=== PATIENT | female | born 1955 | race Caucasian/White ===

== ENCOUNTER → 2020-10-20 10:08 | Outpatient (BNVA) | payer MEDICARE, OTHER, SELFPAY | PROVIDERS: PCP Internal Medicine; Referring Provider Internal Medicine; Visit Provider Student in an Organized Health Care Education/Training Program | DX: Z13.89 Encounter for screening for other disorder (principal) | CPT/HCPCS: Q3014 ==

== ENCOUNTER 2021-02-24 14:37 | Outpatient (REF) | payer MEDICARE, SELFPAY ==
[2021-02-24 15:43] LABS: MANUAL DIFF FLAG NO
[2021-02-24 15:47] LABS: Basophils Absolute Auto 0.1 X10*3/uL (0.0-0.2); Basophils Percent Auto 0.9 % (0-2); Eosinophils Absolute Auto 0.2 X10*3/uL (0.0-0.4); Eosinophils Percent Auto 3.1 % (0-4); Hematocrit 37.9 % (37-47); Hemoglobin 12.6 g/dl (12.0-16.0); Imm Gran Abs Auto 0.01 X10*3/uL (0.00-0.03); Imm Gran Pct Auto 0.1 % (0.0-0.4); Lymphocytes Absolute Auto 2.1 X10*3/uL (1.2-4.9); Lymphocytes Percent Auto 30.6 % (20-40); Mean Corpuscular HGB Conc 33.2 g/dl (31.0-35.0); Mean Corpuscular Hemoglobin 28.4 pg (27.0-33.0); Mean Corpuscular Volume 85.4 fL (80-98); Monocytes Absolute Auto 0.5 X10*3/uL (0.1-1.2); Neutrophils Percent Auto 58.3 % (45-73); Platelet Count 271 X10*3/uL (160-400); Red Blood Count 4.44 X10*6/uL (4.20-5.50); Red Cell Distribution Width 14.2 % (11.0-16.0); White Blood Count 6.9 X10*3/uL (4.8-10.8)
[2021-02-24 16:01] LABS: Glucose Urine UA NEG (NEG); Leukocyte Esterase Urine NEG (NEG); Nitrite Urine NEG (NEG); PH 6.5 (5.0-8.0); Specific Gravity - Urine 1.015 (1.005-1.025); Urine Blood NEG (NEG); Urine Ketones NEG (NEG); Urine Protein NEG (NEG-TRACE)
[2021-02-24 16:03] LABS: Appearance Urine CLEAR; Color Urine YELLOW
[2021-02-24 16:08] LABS: Alanine Aminotransferase 19 U/L (0-31); Alkaline Phosphatase 103 U/L (39-117); Anion Gap 12 (12-20); Aspartate Amino Transferase 31 U/L (5-31); Bilirubin Total 0.5 mg/dL (0.0-1.0); Blood Urea Nitrogen 18 mg/dL (9-16); C Reactive Protein 0.29 mg/dL (< or = 0.50); Calcium 9.7 mg/dL (8.4-10.2); Carbon Dioxide 26 mmol/L (22-29); Chloride 105 mmol/L (96-108); Estimated Glomerular Filt Rate > 60; Glucose Random 93 mg/dL (60-115); Potassium 4.1 mmol/L (3.3-5.1); Sodium 139 mmol/L (135-145); Total Protein 7.1 g/dL (6.5-8.0)
[2021-02-24 16:18] LABS: RBC Urine 0 /HPF (0); WBC Urine 0 /HPF (0-4)
[2021-02-24 16:32] LABS: Erythrocyte Sedimentation Rate 8 MM/HR (0-20)
[2021-02-27 16:56] LABS: Complement C3 130 mg/dL (83-193)
[2021-02-28 12:51] LABS: Anti DNA DS Antibody <1 IU/mL; SM/Ribonucleoprotein Ab <1.0 NEG AI (<1.0 NEG); Smith Protein <1.0 NEG AI (<1.0 NEG)
== END 2021-02-24 14:38 | disposition home or self-care (01) ==
LOC: HO.LAB 14:37
PROVIDERS: PCP Internal Medicine; Visit Provider Student in an Organized Health Care Education/Training Program
DX: M35.00 Sjogren syndrome, unspecified (principal); M54.2 Cervicalgia
CPT/HCPCS: 36415; 80053; 81001; 85025; 85652; 86140; 86160; 86225; 86235; 99212

== ENCOUNTER → 2021-03-24 10:19 | Outpatient (BNVA) | payer MEDICARE, SELFPAY | PROVIDERS: PCP Internal Medicine; Visit Provider Hospitalist | DX: G47.33 Obstructive sleep apnea (adult) (pediatric) (principal); J45.20 Mild intermittent asthma, uncomplicated; J30.9 Allergic rhinitis, unspecified | CPT/HCPCS: 99212 ==

== ENCOUNTER 2021-04-20 14:00 | Outpatient (RCR) | payer MEDICARE, SELFPAY ==
--- NOTE | 2021-03-13 14:32 | MHC.PT.EP ---
[facility] [place] Office [place] Office [place] Office [address] Dread Mandujano [address] [phone] F: [phone] F: [phone] F: [phone] F: [phone] Physical Therapy Plan of Care Date of Evaluation: Date of Surgery: Diagnosis: CERVICALGIA AND DOROTHEA SH PAIN Assessment: 65 YO FEMALE REF TO PT FOR RIGHT NECK PAIN AND GENERAL DOROTHEA SH / UPPER TRAP SORENESS- SHE HAS DECR POSTURAL AWARENESS, (+) SOFT TISSUE IRRIT, TIGHT PECT/ ANT CHAIN, AND POST RC/ MID BACK WEAKNESS. CURRENTLY HER SENSATION AND MOTOR CONTROL ARE WFL AND SHE DENIES RADICULAR SXS AT THIS TIME. OBJECTIVELY, Pt HAS DECR DARIO TO DRIVING, SLEEPING, INCREASED ACTIVITY - ESPEC ADLs REQ INCR CERV EXTENSION. Pt WOULD BENEFIT FROM PT TO ADDRESS POSTURAL SYNDROME, SOFT TISSUE IMBAL, AND DEV HEP/ SELF- SX MGMT TECHN. Frequency and Duration: The patient will be seen 2x WK x 5 WKS Short Term Goals: Pt'S NECK AND SH SXS REDUCED TO 2-3/10 IN 2 WKS Pt DEMON INDEP SELF- CORRECT POSTURE AND WORK SIMUL/ BODY MECH TO REDUCE CERV STRESS IN 2 WKS Prison Goals: Pt INDEP W HEP AND SELF-SX MGMT TECHN IN 4 WKS Pt RESUME REG ADLs/TASKS EVIDENT WITH IMPROVED NPDI SCORE BY AT LEAST 5 POINTS IN 4 WKS Treatment Plan: Modalities to reduce pain, spasms and effusion. Manual therapy to restore motion and function. Therapeutic exercise to improve strength and flexibility. Neuromuscular re-education for posture and balance. Therapeutic activities to return to functional activities of daily living. Electronically signed by: Cari Thomas,PT Please sign and return to therapist. Thank you for your referral.
--- NOTE | 2021-04-20 14:55 | MHC.PT.DC ---
[facility] [place] Office [place] Office [place] Office [address] Dread Mandujano [address] [phone] F: [phone] F: [phone] F: [phone] F: [phone] Physical Therapy Discharge Report Diagnosis: CERVICALGIA AND DOROTHEA SH PAIN Date of Surgery: Date of Evaluation: 03/13/21 Date of Discharge: 04/20/21 Treatments to Date: 7 Cancellations to Date: 0 No Shows to Date: 0 Discharge Status: Achieved Goals Improved Function Independent with HEP Discharge Summary: Pt MET PT GOALS- INDEP W HEP, RESUMED REG ADLs, IMPROVED NECK DISAB TODAY AND AT AL; WFL CERV AROM, IMPROVED SCAP/ POST RC STRENGTH; NECK PAIN SIGNIF REDUCED Electronically signed by: Cari Roberson,PT Please sign and return to therapist. Thank you for your referral.
== END 2021-04-20 14:57 | disposition other institution (70) ==
LOC: HO.PTCHIC 14:00
PROVIDERS: PCP Internal Medicine; Visit Provider Student in an Organized Health Care Education/Training Program
DX: M54.2 Cervicalgia (principal)
CPT/HCPCS: 97110; 97140; 97161

== ENCOUNTER → 2021-04-24 15:44 | Outpatient (REF) | payer MEDICARE, SELFPAY | LOC: HO.SL 15:44 | PROVIDERS: PCP Internal Medicine; Visit Provider Hospitalist | DX: G47.33 Obstructive sleep apnea (adult) (pediatric) (principal) | CPT/HCPCS: 95806 ==

== ENCOUNTER → 2021-06-02 11:01 | Outpatient (BNVA) | payer MEDICARE, SELFPAY | PROVIDERS: PCP Internal Medicine; Visit Provider Hospitalist | DX: G47.33 Obstructive sleep apnea (adult) (pediatric) (principal); J45.20 Mild intermittent asthma, uncomplicated; G47.00 Insomnia, unspecified | CPT/HCPCS: 99212 ==

== ENCOUNTER → 2021-06-30 13:25 | Outpatient (BNVA) | payer MEDICARE, SELFPAY | PROVIDERS: Visit Provider Student in an Organized Health Care Education/Training Program | DX: M35.00 Sjogren syndrome, unspecified (principal) | CPT/HCPCS: 99212 ==

== ENCOUNTER 2021-07-29 11:20 | Outpatient (REF) | payer MEDICARE, SELFPAY ==
[2021-07-29 13:34] LABS: Hematocrit 41.4 % (37-47); Hemoglobin 13.7 g/dl (12.0-16.0); Mean Corpuscular HGB Conc 33.1 g/dl (31.0-35.0); Mean Corpuscular Hemoglobin 28.7 pg (27.0-33.0); Mean Corpuscular Volume 86.8 fL (80-98); Mean Platelet Volume 10.4 fL (9.4-12.3); Platelet Count 299 X10*3/uL (160-400); Red Blood Count 4.77 X10*6/uL (4.20-5.50); Red Cell Distribution Width 14.9 % (11.0-16.0)
[2021-07-29 13:48] LABS: Alanine Aminotransferase 17 U/L (0-31); Albumin Level 4.2 g/dL (3.5-5.0); Alkaline Phosphatase 97 U/L (39-117); Anion Gap 13 (12-20); Aspartate Amino Transferase 25 U/L (5-31); Bilirubin Total 0.5 mg/dL (0.0-1.0); Blood Urea Nitrogen 11 mg/dL (9-16); Calcium 9.6 mg/dL (8.4-10.2); Carbon Dioxide 27 mmol/L (22-29); Chloride 106 mmol/L (96-108); Cholesterol 192 mg/dL; Estimated Glomerular Filt Rate > 60; Glucose Fasting 97 mg/dL (60-99); HDL Cholesterol 69 mg/dL; Iron 117 mcg/dL (30-160); LDL Cholesterol Calculated 106 mg/dl; Percent Iron Saturation 27 % (15-50); Potassium 4.4 mmol/L (3.3-5.1); Sodium 142 mmol/L (135-145); Total Iron Binding Capacity 440 mcg/dL (228-428); Total Protein 7.5 g/dL (6.5-8.0); Triglycerides 87 mg/dL; Unsaturated Iron Binding 323 ug/dL
[2021-07-29 14:10] LABS: Vitamin D 25-OH Total 67.9 ng/mL (>30)
[2021-07-31 10:35] LABS: Folate 19.6 ng/mL (> or = 4.0); Vitamin B12 705 pg/mL (200-900)
== END 2021-07-29 11:21 | disposition home or self-care (01) ==
LOC: HO.HMGCLDS 11:20
PROVIDERS: PCP Internal Medicine; Visit Provider Internal Medicine
DX: Z00.00 Encounter for general adult medical examination without abnormal findings (principal); E55.9 Vitamin D deficiency, unspecified
CPT/HCPCS: 36415; 80053; 80061; 82306; 82607; 82746; 83540; 85027

== ENCOUNTER 2021-09-26 14:00 | Outpatient (RCR) | payer MEDICARE, SELFPAY ==
--- NOTE | 2021-08-02 12:52 | MHC.PT.EP ---
[facility] [place] Office [place] Office [place] Office [address] [phone] F: [phone] F: [phone] F: [phone] F: [phone] Physical Therapy Plan of Care Date of Evaluation: Date of Surgery: Diagnosis: Balance impairment Assessment: Patient is a 66 year old R handed female who presents with s/s consistent with balance impairment. 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 Patient past medical history includes R TKA, bunionectomy, L ankle surgery with christiano placement. Current impairments include pain, balance, strength, safety, independence, activity tolerance and functional mobility. Functional limitations include decreased ability to walk, stand, transfer, negotiate stairs, and perform weight bearing activities.. Patient is motivated with good rehab potential. Skilled PT will address impairments and functional limitations in order to achieve goals. Frequency and Duration: The patient will be seen 2x/week for 5 weeks Short Term Goals: I with HEP - 2 weeks SLB 8 seconds - 3 weeks Snf Goals: DGI 22/24 or better - 5 weeks LE strength 4/5 grossly - 5 weeks SLB 15 seconds b/l - 5 weeks Treatment Plan: Modalities to reduce pain, spasms and effusion. Manual therapy to restore motion and function. Therapeutic exercise to improve strength and flexibility. Neuromuscular re-education for posture and balance. Therapeutic activities to return to functional activities of daily living. Electronically signed by: Lee Burleson, PT Please sign and return to therapist. Thank you for your referral.
--- NOTE | 2021-12-29 08:33 | MHC.PT.DC ---
[facility] [place] Office [place] Office [place] Office [address] Dread Mandujano [address] [facility] [phone] F: [phone] F: [phone] F: [phone] F: [phone] Physical Therapy Discharge Report Diagnosis: Balance impairment Date of Surgery: n/a Date of Evaluation: 08/02/21 Date of Discharge: 09/26/21 Treatments to Date: 10 Cancellations to Date: 0 No Shows to Date: 0 Discharge Status: Achieved Goals Improved Function Independent with HEP Discharge Summary: Pt is I with HEP. SLB > 20 seconds. LE strength 4/5 grossly. DGI . Pt progressed well over the course of skilled PT. We will d/c to HEP at this time. Electronically signed by: Lee Burleson, PT Please sign and return to therapist. Thank you for your referral.
== END 2021-12-29 08:41 | disposition home or self-care (01) ==
LOC: HO.PTCHIC 14:00
PROVIDERS: PCP Internal Medicine; Visit Provider Internal Medicine
DX: R26.89 Other abnormalities of gait and mobility (principal)
CPT/HCPCS: 97110; 97112; 97162

== ENCOUNTER 2021-10-04 09:11 | Outpatient (REF) | payer MEDICARE, SELFPAY ==
--- NOTE | 2021-10-04 09:17 | EMG_ITS ---
This is a 66-year-old woman with a history of bilateral upper extremity pain, numbness, and tingling for many years, both sides being equally affected. PHYSICAL EXAMINATION: On examination, she is alert and oriented. Cranial nerves II through XII are normal. Muscle tone and strength are normal in all 4 extremities. No Phalen or Tinel sign. IMPRESSION: Rule out carpal tunnel syndrome. Nerve conduction EMG study: Early carpal tunnel syndrome bilaterally. Normal EMG of the left C5-T1 innervated muscles. MD GUILLAUME Kendall/TRISTON / [id number]
== END 2021-10-04 09:12 | disposition home or self-care (01) ==
LOC: HO.NEURO 09:11
PROVIDERS: Visit Provider Internal Medicine
DX: R29.898 Other symptoms and signs involving the musculoskeletal system (principal)
CPT/HCPCS: 95886; 95913

== ENCOUNTER → 2021-11-28 10:27 | Outpatient (BNVA) | payer MEDICARE, SELFPAY | PROVIDERS: PCP Internal Medicine; Visit Provider Hospitalist | DX: G47.33 Obstructive sleep apnea (adult) (pediatric) (principal); Z23 Encounter for immunization; J45.20 Mild intermittent asthma, uncomplicated; G47.00 Insomnia, unspecified | CPT/HCPCS: 90471; 90670; 99212 ==

== ENCOUNTER 2022-01-31 14:51 | Outpatient (REF) | payer MEDICARE, SELFPAY ==
--- NOTE | ~2022-01-31 | XR_ITS ---
EXAMINATION: XR HIP, RIGHT CLINICAL INFORMATION: Pelvic pain status post fall. COMPARISON: None TECHNIQUE: Two views of the right hip. FINDINGS: Bones and soft tissues are normal. No fracture. Alignment is anatomic. Hip joint space is maintained. XR/XR hip RT w PEL1V IMPRESSION: Unremarkable right hip.
== END 2022-01-31 14:52 | disposition home or self-care (01) ==
LOC: HO.HMGCX 14:51
PROVIDERS: Visit Provider Physician Assistant
DX: R26.2 Difficulty in walking, not elsewhere classified (principal)
CPT/HCPCS: 73502

== ENCOUNTER 2022-07-28 10:40 | Outpatient (REF) | payer MEDICARE, SELFPAY ==
[2022-07-28 13:41] LABS: MANUAL DIFF FLAG NO
[2022-07-28 13:57] LABS: Basophils Absolute Auto 0.1 X10*3/uL (0.0-0.2); Basophils Percent Auto 1.5 % (0-2); Eosinophils Absolute Auto 0.2 X10*3/uL (0.0-0.4); Eosinophils Percent Auto 2.5 % (0-4); Hematocrit 41.1 % (37.0-47.0); Hemoglobin 13.3 g/dl (12.0-16.0); Imm Gran Abs Auto 0.03 X10*3/uL (0.00-0.03); Imm Gran Pct Auto 0.5 % (0.0-0.4); Lymphocytes Absolute Auto 1.6 X10*3/uL (1.2-4.9); Lymphocytes Percent Auto 25.8 % (20-40); Mean Corpuscular HGB Conc 32.4 g/dl (31.0-35.0); Mean Corpuscular Hemoglobin 28.8 pg (27.0-33.0); Mean Platelet Volume 9.3 fL (9.4-12.3); Monocytes Absolute Auto 0.4 X10*3/uL (0.1-1.2); Monocytes Percent Auto 6.9 % (2-11); Neutrophils Absolute Auto 3.8 x10*3/uL (2.0-8.3); Neutrophils Percent Auto 62.8 % (45-73); Platelet Count 334 X10*3/uL (160-400); Red Blood Count 4.62 X10*6/uL (4.20-5.50); Red Cell Distribution Width 14.1 % (11.0-16.0); White Blood Count 6.1 X10*3/uL (4.8-10.8)
[2022-07-28 14:13] LABS: Alanine Aminotransferase 33 U/L (0-31); Albumin Level 4.1 g/dL (3.5-5.0); Alkaline Phosphatase 66 U/L (39-117); Anion Gap 14 (12-20); Aspartate Amino Transferase 50 U/L (5-31); Bilirubin Total 0.3 mg/dL (0.0-1.0); Blood Urea Nitrogen 11 mg/dL (9-16); Calcium 9.1 mg/dL (8.4-10.2); Carbon Dioxide 28 mmol/L (22-29); Chloride 103 mmol/L (96-108); Cholesterol 214 mg/dL; Estimated Glomerular Filt Rate > 60; Glucose Fasting 96 mg/dL (60-99); HDL Cholesterol 68 mg/dL; LDL Cholesterol Calculated 131 mg/dl; Potassium 4.8 mmol/L (3.3-5.1); Sodium 140 mmol/L (135-145); Total Protein 7.5 g/dL (6.5-8.0); Triglycerides 79 mg/dL
[2022-07-28 14:34] LABS: Vitamin D 25-OH Total 57.6 ng/mL (>30)
== END 2022-07-28 10:41 | disposition home or self-care (01) ==
LOC: HO.HMGCLDS 10:40
PROVIDERS: PCP Internal Medicine; Visit Provider Internal Medicine
DX: Z00.00 Encounter for general adult medical examination without abnormal findings (principal); E55.9 Vitamin D deficiency, unspecified; F41.8 Other specified anxiety disorders
CPT/HCPCS: 36415; 80053; 80061; 82306; 84443; 85025

== ENCOUNTER 2022-08-08 14:00 | Outpatient (RCR) | payer MEDICARE, SELFPAY ==
--- NOTE | 2022-07-16 16:47 | MHC.PT.EP ---
[facility] [place] Office [place] Office [place] Office [address] [phone] F: [phone] F: [phone] F: [phone] F: [phone] Physical Therapy Plan of Care Date of Evaluation: Date of Surgery: Diagnosis: R shoulder tendonitis. Assessment: Pt is a 67 y/o female referred to PT for eval and treat of R shoulder tendonitis who demonstrates R shoulder shoulder dysfunction resulting in decreased tolerance and ability to perform reaching a high shelf, dressing pullovers, reaching neck and back for hygiene/ dressing and carrying objects of weight secondary to decreased R UE strength and mild decreased ROM, decreased posture, increased tissue tension and pain. Pt is deemed an appropriate candidate to receive skilled PT in order to address her physical limitations to improve her functional ability. Frequency and Duration: The patient will be seen 2 x / wk x 4 wks. Short Term Goals: initiate HEP. improve baseline apin to < 3/10; initial 4/10. Fdc Goals: I with HEP. Pt will be abl to place objects on high shelf with managed Sx. Improve R shoulder ER MMT by at least 1/2 MMT grade. Pt will be able to wash and dress her neck and back with managed Sx. Treatment Plan: Modalities to reduce pain, spasms and effusion. Manual therapy to restore motion and function. Therapeutic exercise to improve strength and flexibility. Neuromuscular re-education for posture and balance. Therapeutic activities to return to functional activities of daily living. Electronically signed by: Adarsh Maravilla PT. Please sign and return to therapist. Thank you for your referral.
--- NOTE | 2022-08-08 14:56 | MHC.PT.DC ---
[facility] [place] Office [place] Office [place] Office [address] Dread Mandujano [address] [phone] F: [phone] F: [phone] F: [phone] F: [phone] Physical Therapy Discharge Report Diagnosis: R shoulder tendonitis. Date of Surgery: Date of Evaluation: 07/16/22 Date of Discharge: 08/08/22 Treatments to Date: 7 Cancellations to Date: No Shows to Date: Discharge Status: Achieved Goals Improved Function Independent with HEP Discharge Summary: Ignacia has been an active and motivated participant in her therapy in and out of the clinic, she is I with her HEP, and she has been managed of her shoulder symptoms for > 2 weeks. Pt and PT in agreement with DC. Electronically signed by: Adarsh Maravilla PT, DPT. Please sign and return to therapist. Thank you for your referral.
== END 2022-08-08 14:55 | disposition home or self-care (01) ==
LOC: HO.PTCHIC 14:00
PROVIDERS: PCP Internal Medicine; Visit Provider Internal Medicine
DX: M77.8 Other enthesopathies, not elsewhere classified (principal)
CPT/HCPCS: 97110; 97140; 97161

== ENCOUNTER 2022-08-24 09:26 | Outpatient (REF) | payer MEDICARE, SELFPAY ==
[2022-08-24 11:52] LABS: Alanine Aminotransferase 22 U/L (0-31); Albumin Level 4.1 g/dL (3.5-5.0); Alkaline Phosphatase 66 U/L (39-117); Aspartate Amino Transferase 31 U/L (5-31); Bilirubin Direct 0.2 mg/dL (0.0-0.5); Bilirubin Total 0.5 mg/dL (0.0-1.0); Total Protein 7.4 g/dL (6.5-8.0)
[2022-08-24 12:38] LABS: HBS Num1 1.16 mIU/mL (0-7.99); HBc Num1 0.15 S/CO (0.00-0.79); HBsAGNum1 0.18 S/CO (0.00-0.99); Hepatitis B Core Antibody Nonreactive (Nonreactive); Hepatitis B Surface Antigen Negative (Negative); ~Hepatitis B Surface Antibody NONREACTIVE (Nonreactive); ~Hepatitis C Antibody Nonreactive (Nonreactive)
[2022-08-24 13:13] LABS: Hepatitis A Antibody IgM 0.23 Index (0-0.79); ~Hepatitis A Antibody IgM Nonreactive (Nonreactive)
== END 2022-08-24 09:27 | disposition home or self-care (01) ==
LOC: HO.HMGCLDS 09:26
PROVIDERS: PCP Internal Medicine; Visit Provider Internal Medicine
DX: R79.89 Other specified abnormal findings of blood chemistry (principal)
CPT/HCPCS: 36415; 80076; 86704; 86706; 86709; 86803; 87340

== ENCOUNTER 2022-10-01 09:34 | Outpatient (REF) | payer MEDICARE, SELFPAY ==
[2022-10-01 09:56] LABS: MANUAL DIFF FLAG NO
[2022-10-01 10:58] LABS: Basophils Absolute Auto 0.1 X10*3/uL (0.0-0.2); Basophils Percent Auto 1.2 % (0-2); Eosinophils Absolute Auto 0.1 X10*3/uL (0.0-0.4); Eosinophils Percent Auto 2.1 % (0-4); Hematocrit 40.2 % (37.0-47.0); Hemoglobin 13.3 g/dl (12.0-16.0); Imm Gran Abs Auto 0.01 X10*3/uL (0.00-0.03); Imm Gran Pct Auto 0.2 % (0.0-0.4); Lymphocytes Absolute Auto 1.5 X10*3/uL (1.2-4.9); Lymphocytes Percent Auto 28.2 % (20-40); Mean Corpuscular HGB Conc 33.1 g/dl (31.0-35.0); Mean Corpuscular Hemoglobin 28.7 pg (27.0-33.0); Mean Corpuscular Volume 86.6 fL (80.0-98.0); Mean Platelet Volume 10.4 fL (9.4-12.3); Monocytes Absolute Auto 0.4 X10*3/uL (0.1-1.2); Monocytes Percent Auto 6.8 % (2-11); Neutrophils Absolute Auto 3.2 x10*3/uL (2.0-8.3); Neutrophils Percent Auto 61.5 % (45-73); Platelet Count 281 X10*3/uL (160-400); Red Blood Count 4.64 X10*6/uL (4.20-5.50); Red Cell Distribution Width 13.1 % (11.0-16.0); White Blood Count 5.2 X10*3/uL (4.8-10.8)
[2022-10-01 11:50] LABS: Alanine Aminotransferase 48 U/L (0-31); Albumin Level 4.2 g/dL (3.5-5.0); Alkaline Phosphatase 70 U/L (39-117); Amylase 127 U/L (28-100); Aspartate Amino Transferase 50 U/L (5-31); Bilirubin Direct 0.2 mg/dL (0.0-0.5); Bilirubin Total 0.4 mg/dL (0.0-1.0); C Reactive Protein 0.31 mg/dL (< or = 0.50); Lipase 13 U/L (8-78); Total Protein 7.3 g/dL (6.5-8.0)
[2022-10-01 12:09] LABS: Erythrocyte Sedimentation Rate 12 MM/HR (0-20)
== END 2022-10-01 09:35 | disposition home or self-care (01) ==
LOC: HO.LAB 09:34
PROVIDERS: PCP Internal Medicine; Visit Provider Internal Medicine
DX: R10.84 Generalized abdominal pain (principal); R19.7 Diarrhea, unspecified
CPT/HCPCS: 36415; 80076; 82150; 83690; 85025; 85652; 86140

== ENCOUNTER 2022-10-02 10:31 | Outpatient (REF) | payer MEDICARE, SELFPAY ==
[2022-10-02 11:31] LABS: Leukocytes Stool Qualitative MOD: 3-9/OIF (NEGATIVE)
[2022-10-02 11:37] LABS: CDiff Gene PCR NEGATIVE (Negative)
[2022-10-02 12:38] LABS: Adenovirus F 40/41 Not Detected (Not Detect.); Astrovirus Not Detected (Not Detect.); Campylobacter Not Detected (Not Detect.); Cryptosporidium Not Detected (Not Detect.); Cyclospora cayetanensis Not Detected (Not Detect.); E. coli EAEC Not Detected (Not Detect.); E. coli EPEC Not Detected (Not Detect.); E. coli ETEC Not Detected (Not Detect.); E. coli STEC Not Detected (Not Detect.); Entamoeba histolytica Not Detected (Not Detect.); Giardia lamblia Not Detected (Not Detect.); Norovirus GI/GII Not Detected (Not Detect.); Plesiomonas shigelloides Not Detected (Not Detect.); Rotavirus A Not Detected (Not Detect.); Salmonella Not Detected (Not Detect.); Sapovirus Not Detected (Not Detect.); Shigella sp./EIEC Not Detected (Not Detect.); Vibrio Not Detected (Not Detect.); Vibrio Cholerae Not Detected (Not Detect.); Yersinia enterocolitica Not Detected (Not Detect.)
[2022-10-09 22:04] LABS: Calprotectin, Fecal 42 mcg/g
== END 2022-10-02 10:32 | disposition home or self-care (01) ==
LOC: HO.LNP 10:31
PROVIDERS: Visit Provider Internal Medicine
DX: R10.84 Generalized abdominal pain (principal); R19.7 Diarrhea, unspecified
CPT/HCPCS: 83993; 87493; 87507; 89055

== ENCOUNTER 2022-11-09 08:31 | Outpatient (REF) | payer MEDICARE, SELFPAY ==
--- NOTE | ~2022-11-09 | US_ITS ---
EXAMINATION: US ABDOMEN COMPLETE CLINICAL INFORMATION: Elevated LFTs. COMPARISON: Ultrasound kidneys and bladder 07/12/2020. Ultrasound abdomen 03/26/2019. TECHNIQUE: Real-time imaging of the abdominal viscera. FINDINGS: PANCREAS: Normal. ABDOMINAL AORTA: The proximal, mid, and distal segments are normal in caliber. INFERIOR VENA CAVA: Visualized portions are normal. LIVER: The liver is normal in size. The liver contour is normal. Mild increased parenchymal echogenicity. No focal hepatic lesion. There is no intrahepatic biliary duct dilatation seen. GALLBLADDER: The gallbladder is physiologically distended. Multiple mobile gallstones are present. No evidence of gallbladder wall thickening or pericholecystic fluid. No tenderness in the area of the gallbladder. COMMON BILE DUCT: Normal in caliber measuring 0.5 cm in diameter. RIGHT KIDNEY: Normal. No hydronephrosis. No renal calculi or focal parenchymal lesions. The kidney measures 8.9 cm in maximum dimension. LEFT KIDNEY: Normal. No hydronephrosis. No renal calculi or focal parenchymal lesions. The kidney measures 9.4 cm in maximum dimension. SPLEEN: Normal. The spleen measures 8.3 cm in maximum dimension. 0.5 cm splenule. FREE FLUID: None. US/US abdomen complete IMPRESSION: There is generalized increase in hepatic echotexture, consistent with fatty infiltration or hepatocellular disease. Please correlate clinically. No focal hepatic mass or intrahepatic biliary duct dilatation is seen. Cholelithiasis without sonographic evidence of acute cholecystitis.
== END 2022-11-09 08:32 | disposition home or self-care (01) ==
LOC: HO.US 08:31
PROVIDERS: PCP Internal Medicine; Visit Provider Internal Medicine
DX: R10.9 Unspecified abdominal pain (principal); R79.89 Other specified abnormal findings of blood chemistry
CPT/HCPCS: 76700

== ENCOUNTER → 2022-12-04 14:18 | Outpatient (BNVA) | payer MEDICARE, SELFPAY | PROVIDERS: PCP Internal Medicine; Referring Provider Internal Medicine; Visit Provider Surgery | DX: K80.20 Calculus of gallbladder without cholecystitis without obstruction (principal) | CPT/HCPCS: 99202 ==

== ENCOUNTER 2022-12-21 13:48 | Outpatient (REF) | payer MEDICARE, SELFPAY ==
--- NOTE | ~2022-12-21 | XR_ITS ---
EXAMINATION: XR SACROILIAC JOINTS CLINICAL INFORMATION: Pain COMPARISON: Hip radiographs 01/31/2022 TECHNIQUE: 3 views of the sacroiliac joints FINDINGS: No acute fracture or dislocation. There is mild sclerosis along the margins of the sacroiliac joints which may reflect sequelae of degenerative change or sacroiliitis. Joint spaces are maintained. Sacral arcuate lines are intact. XR/XR sacroiliac joint min 3V IMPRESSION: There is mild sclerosis along the margins of the sacroiliac joints which may reflect sequelae of degenerative change or sacroiliitis. Joint spaces are maintained.
== END 2022-12-21 13:49 | disposition home or self-care (01) ==
LOC: HO.HMGCX 13:48
PROVIDERS: PCP Internal Medicine; Visit Provider Nurse Practitioner Women's Health
DX: M53.3 Sacrococcygeal disorders, not elsewhere classified (principal)
CPT/HCPCS: 72202

== ENCOUNTER 2023-01-30 08:01 | Outpatient (REF) | payer MEDICARE, SELFPAY ==
--- NOTE | ~2023-01-30 | XR_ITS ---
Examination: 1. Radiographs right shoulder 2. Radiographs right hand 3. Radiographs left hand INDICATION: Right shoulder pain. Osteoarthritis. COMPARISON: Radiographs of the bilateral hands 07/15/2017 TECHNIQUE: 4 views of the right shoulder and 3 views of each hand were obtained. FINDINGS: Right shoulder: Visualized portion of the proximal right humerus demonstrate no fracture. Humeral head demonstrates good articulation with the glenoid fossa. There are mild degenerative changes of the right acromioclavicular joint. Visualized right-sided ribs and lung parenchyma are unremarkable. Right hand: Visualized portion of the distal radius and ulna demonstrate no fracture. Mild ulnar negative variance. Carpal rows are maintained. There is no carpal bone fracture. There is mild widening of the scapholunate junction. There are mild degenerative changes throughout the wrist with cystic changes throughout several carpal bones. There are mild degenerative changes of the first carpal metacarpal joint. There are moderate degenerative changes of scattered IP joints with some subtle erosive changes involving the second, third and fifth DIP joints. Similar subluxation of the second DIP joint. There is no focal soft tissue swelling present. No radiopaque foreign body. Left hand: Visualized portion of the distal radius and ulna demonstrate no fracture. There is mild ulnar negative variance. Carpal rows are maintained. No carpal bone fracture. Mild degenerative changes of the first carpal metacarpal joint. There are mild degenerative changes of scattered DIP joints, most notably involving the third digit. No gross erosive changes are noted. No focal soft tissue swelling. No radiopaque foreign body. XR/XR shoulder RT min 2V IMPRESSION: 1. Mild degenerative changes of the right shoulder without fracture or dislocation. 2. Mild to moderate degenerative changes of both hands, most notably involving the DIP joints and more prominent in the right hand. 3. Mild degenerative changes of the right wrist.
--- NOTE | ~2023-01-30 | XR_ITS ---
Examination: 1. Radiographs right shoulder 2. Radiographs right hand 3. Radiographs left hand INDICATION: Right shoulder pain. Osteoarthritis. COMPARISON: Radiographs of the bilateral hands 07/15/2017 TECHNIQUE: 4 views of the right shoulder and 3 views of each hand were obtained. FINDINGS: Right shoulder: Visualized portion of the proximal right humerus demonstrate no fracture. Humeral head demonstrates good articulation with the glenoid fossa. There are mild degenerative changes of the right acromioclavicular joint. Visualized right-sided ribs and lung parenchyma are unremarkable. Right hand: Visualized portion of the distal radius and ulna demonstrate no fracture. Mild ulnar negative variance. Carpal rows are maintained. There is no carpal bone fracture. There is mild widening of the scapholunate junction. There are mild degenerative changes throughout the wrist with cystic changes throughout several carpal bones. There are mild degenerative changes of the first carpal metacarpal joint. There are moderate degenerative changes of scattered IP joints with some subtle erosive changes involving the second, third and fifth DIP joints. Similar subluxation of the second DIP joint. There is no focal soft tissue swelling present. No radiopaque foreign body. Left hand: Visualized portion of the distal radius and ulna demonstrate no fracture. There is mild ulnar negative variance. Carpal rows are maintained. No carpal bone fracture. Mild degenerative changes of the first carpal metacarpal joint. There are mild degenerative changes of scattered DIP joints, most notably involving the third digit. No gross erosive changes are noted. No focal soft tissue swelling. No radiopaque foreign body. XR/XR hand RT min 3V IMPRESSION: 1. Mild degenerative changes of the right shoulder without fracture or dislocation. 2. Mild to moderate degenerative changes of both hands, most notably involving the DIP joints and more prominent in the right hand. 3. Mild degenerative changes of the right wrist.
== END 2023-01-30 08:02 | disposition home or self-care (01) ==
LOC: HO.XRAY 08:01
PROVIDERS: PCP Internal Medicine; Visit Provider Internal Medicine Rheumatology
DX: M47.816 Spondylosis without myelopathy or radiculopathy, lumbar region (principal); M19.041 Primary osteoarthritis, right hand; M19.042 Primary osteoarthritis, left hand; M25.511 Pain in right shoulder; M35.00 Sjogren syndrome, unspecified
CPT/HCPCS: 73030; 73130; 99212

== ENCOUNTER 2023-04-19 11:02 | Day surgery (SDC) | payer MEDICARE, SELFPAY ==
--- NOTE | 2023-04-18 12:45 | P.CONAN_ITS ---
HPI - Anesthesia Eval Consult details Narrative: 67yo F for Colonoscopy PMF Active Problems Active Problems: All Active Problems (Updated 03/12/23 @ 16:02 by Nessa Gibbons MD) Tinnitus (Acute) Shoulder pain, right (Acute) Osteoarthritis of hands, bilateral (Acute) Osteoarthritis of lumbar spine (Acute) Symptomatic cholelithiasis (Acute) Gallstones (Acute) Elevated LFTs (Acute) Osteoporosis (Acute) Fall (Acute) Trochanteric bursitis of right hip (Acute) Cellulitis (Acute) Vitamin D deficiency (Acute) Insomnia (Acute) Chronic allergic rhinitis (Acute) Asthma (Acute) FRANKY (obstructive sleep apnea) (Acute) Anxiety with depression (Acute) Sjogrens syndrome (Acute) Past Medical History Medical History (Updated 03/12/23 @ 16:02 by Nessa Gibbons MD) Annual physical exam Asthma Chronic allergic rhinitis Chronic left-sided low back pain Hx of echocardiogram Insomnia Poor balance Sjogrens syndrome Tinnitus Trochanteric bursitis of right hip Vitamin D deficiency Weakness of left hand Family History Family History Father Heart attack CVD (cardiovascular disease) Mother Stroke CHF (congestive heart failure) Alzheimer's dementia Cancer Hypertension Surgical History Surgical History H/O colonoscopy H/O thumb surgery History of bunionectomy of right great toe History of knee replacement Social History Social History Housing: House Alcohol intake: never Patient Tobacco Use Status: Never used Tobacco e-Cigarette/Vaping Use: Never Used Are you DNR?: No Advance Directives: No Advance Directives Information Provided: Yes Nutrition Risks: No Nutritional Risk Current occupational status: retired Cognitive needs: No Hearing needs: No Vision needs: Yes Meds Allergies Allergy/AdvReac Type Severity Reaction Status Date / Time pneumococcal vaccine Allergy Severe ARM Verified 01/30/23 08:08 [PNEUMOCOCCAL VACCINE] SWELLED, swelling in arm tiotropium Allergy Severe THROAT Verified 01/30/23 08:08 [From SPIRIVA WITH SWELL HANDIHALER] doxycycline AdvReac Intermediate foggy and Verified 01/30/23 08:08 forgetful Home Medications Medication Instructions Recorded Confirmed Last Taken Type cyclosporine 0.05 % eye drops in a 1 drp ophthalmic (eye) Q12H 10/20/20 01/30/23 Unknown History dropperette (Restasis) diphenhydramine HCl 25 mg capsule 25 mg PO Q6H PRN 10/20/20 01/30/23 Unknown Hi story (Benadryl) magnesium 250 mg tablet 250 mg PO DAILY 10/20/20 01/30/23 Unknown History Lactobacillus acidophilus 100 mg PO DAILY 02/24/21 01/30/23 Unknown History (Acidophilus capsule) fexofenadine 180 mg tablet 180 mg PO DAILY 02/24/21 01/30/23 Unknown History (Ally Allergy) multivitamin 1 tab PO DAILY 02/24/21 01/30/23 Unknown History glucosamine-chondroitin 250 mg-200 1 tab PO BID 07/25/21 01/30/23 Unknown History mg tablet (Osteo Bi-Flex) alendronate 70 mg tablet 70 mg PO QWEEK 01/02/22 01/30/23 Unknown History Exam Exam Date and Time: April 18, 2023 1245 Assessment and Plan Assessment Anesthesia Assessment: Chart Reviewed
[2023-04-19 10:56] VITALS: BMI 31.7
[2023-04-19] MEDS: Lactated Ringers 1,000 ML 100 ML IVCONT (11:08)
[2023-04-19 11:32] VITALS: BP 138/79; PULSE 70; RESP 18; TEMP 36.8; O2SAT 97
--- NOTE | 2023-04-19 13:32 | P.BOP_ITS ---
Brief Operative Note Date of Service: 04/19/23 Pre-op diagnosis: Screening, diarrhea Post-op diagnosis: other (R/O appendiceal orifice polyp, R/O microscopic colitis) Procedure: Colonoscopy to the cecum and TI with biopsies Surgeon: Sadiq Martins Anesthesia: MAC Was an Spread Cutter used for this Procedure?: No Estimated blood loss (mL): 2.0 Pathology: other (A. R/O appendiceal orifice polyp B. Ascending colon C. Descending colon) Condition: stable Disposition: PACU
[2023-04-19 13:33] VITALS: BP 112/47; PULSE 56; RESP 15; TEMP 36.8; O2SAT 97
[2023-04-19 13:48] VITALS: BP 98/53; PULSE 56; RESP 15; O2SAT 97
[2023-04-19 13:59] VITALS: BP 145/57; PULSE 50; RESP 15; TEMP 36.1; O2SAT 100
--- NOTE | 2023-04-19 23:41 | OP_ITS ---
DATE OF SERVICE: 04/19/2023 SURGEON: Sadiq Martins MD INDICATIONS: The patient presents for evaluation of colorectal cancer screening, personal history of colon polyp, family history of colon cancer, and intermittent diarrhea. Full consent has been obtained from her for this, including risks of bleeding and perforation. PREOPERATIVE DIAGNOSIS: POSTOPERATIVE DIAGNOSIS: PROCEDURE PERFORMED: Colonoscopy to cecum and terminal ileum with biopsies. ESTIMATED BLOOD LOSS: COMPLICATIONS: ANESTHESIA: Monitored anesthesia care. ASSISTANTS: SPECIMENS: PREOPERATIVE DIAGNOSES: Personal history of tubular adenoma of the colon, colorectal cancer screening, family history of colon cancer, and diarrhea. POSTOPERATIVE DIAGNOSES: Personal history of tubular adenoma of the colon, colorectal cancer screening, family history of colon cancer, diarrhea, rule out appendiceal orifice polyp, rule out microscopic colitis, diverticulosis, internal hemorrhoids. DESCRIPTION OF PROCEDURE: The patient was placed in the left lateral decubitus position. The digital rectal exam revealed no abnormalities. The Verivue video pediatric colonoscope was entered into the rectum and advanced easily to the cecum. Once in the cecum, I did identify cecal pouch with appendiceal orifice and a normal-appearing ileocecal valve. The terminal ileum was cannulated and appeared normal. The scope was withdrawn back in the colon. In the region of the appendiceal orifice, there was a questionable polypoid area that may have been either hyperplastic or serrated. Multiple biopsies were obtained from it, although probably did not remove all of the tissue. The remainder of the cecum appeared normal. The scope was then slowly withdrawn assessing all mucosal surfaces carefully. Preparation was excellent. I did not visualize any other polyps, colitis, nor angiodysplasia. Random biopsies were obtained from the ascending and descending colon. There was a mild amount of sigmoid diverticulosis. In the rectum, scope was retroflexed visualizing internal hemorrhoids, but no other pathology. The rectal mucosa appeared normal. The scope was straightened and withdrawn the patient. She tolerated the procedure well and was returned to the recovery area in stable condition. IMPRESSION: 1. Rule out appendiceal orifice polyp. 2. Rule out microscopic colitis. 3. Diverticulosis. 4. Internal hemorrhoids. PLAN: The results of the biopsy will be checked. If the appendiceal orifice polyp is adenomatous or serrated polyp, I would recommend a repeat colonoscopy within 1 year. If it is only hyperplastic and nonadenomatous, then I would recommend a repeat colonoscopy in 5 years. She will continue to use Imodium as needed for any intermittent diarrhea. She will otherwise see me on a p.r.n. basis. MD ALE Umanzor/TRISTON / [id number]
== END 2023-04-19 14:25 | disposition home or self-care (01) ==
PROVIDERS: PCP Internal Medicine; Visit Provider Internal Medicine
PROC: 0DJD8ZZ Inspection of Lower Intestinal Tract, Via Natural or Artificial Opening Endoscopic (ICD-10-PCS; CPT 45378; principal; 2023-04-19 13:10)
DX: Z12.11 Encounter for screening for malignant neoplasm of colon (principal); Z80.0 Family history of malignant neoplasm of digestive organs; Z86.010 Personal history of colon polyps; K64.8 Other hemorrhoids; K57.30 Diverticulosis of large intestine without perforation or abscess without bleeding; K58.0 Irritable bowel syndrome with diarrhea; K21.9 Gastro-esophageal reflux disease without esophagitis; M35.00 Sjogren syndrome, unspecified; M47.9 Spondylosis, unspecified; J45.909 Unspecified asthma, uncomplicated; Z79.899 Other long term (current) drug therapy; Z88.7 Allergy status to serum and vaccine; Z88.8 Allergy status to other drugs, medicaments and biological substances
CPT/HCPCS: 45380; 88305

== ENCOUNTER 2023-08-07 09:22 | Outpatient (AMB) | payer MEDICARE, SELFPAY ==
--- NOTE | 2023-08-07 09:38 | A.OFFVIS_ITS ---
Intake Vital Signs 08/07/23 09:46 Weight 180 lb 1.883 oz BP 136/92 H Blood Pressure Location Lt brachial Position Sitting Pulse 91 Pulse Source Pulse Oximeter Temp 97.3 F Temp Source Skin Pulse Oximetry (%) 98 Oxygen Delivery Method Room Air Intake Visit Reasons: shoulder pain, OA Intake Note: Patient presents today to follow up on OA and shoulder pain. c/o worsening right hand pain. Reports she's had 2 injections in her back at [facility]- 3wks ago and April. 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 Accompanied by: Self / Same As Patient Allergies pneumococcal vaccine [PNEUMOCOCCAL VACCINE] Allergy (Severe, Verified 01/30/23 08:08) ARM SWELLED, swelling in arm tiotropium [From SPIRIVA WITH HANDIHALER] Allergy (Severe, Verified 01/30/23 08:08) THROAT SWELL doxycycline Adverse Reaction (Intermediate, Verified 01/30/23 08:08) foggy and forgetful Medication List - Last Reconciled 08/07/23 by Dillan Ferreira MD albuterol sulfate 90 mcg/actuation 2 puffs inhalation Q6H PRN alendronate 70 mg PO QWEEK baclofen 5 mg PO QPM cyclosporine 0.05% (Restasis) 1 drp ophthalmic (eye) Q12H diphenhydramine HCl (Benadryl) 25 mg PO Q6H PRN fexofenadine (Ally Allergy) 180 mg PO DAILY glucosamine-chondroitin 250-200 mg (Osteo Bi-Flex) 1 tab PO BID Lactobacillus acidophilus (Acidophilus capsule) 100 mg PO DAILY magnesium 250 mg PO DAILY multivitamin 1 tab PO DAILY omeprazole 20 mg PO DAILY pilocarpine HCl 5 mg PO TID ropinirole 1 mg (2 x 0.5 mg) PO DAILY HPI HPI Comments History of Present Illness Details The patient returns for evaluation of her Sjogren's syndrome. She remains on pilocarpine 5 mg t.i.d. and Restasis eyedrops. Those measures do seem to help the dryness symptoms in the mouth and eyes. She has some pain in the hands, mostly at the base of the right thumb. Her knee replacement seem to be doing fine. At her last visit she was having some shoulder pain. I had referred her to physical therapy but she could not get an appointment. She was doing her own shoulder exercises and that seemingly has improved. She has been getting occasional nausea and epigastric discomfort. This is attributed to gallstones. She has changed her diet and symptoms seem less frequent. She had a recent SI joint injection and that seems to help her back pain. She notes that when she walks she seems to tilt to the right. This eventually becomes uncomfortable with some right lumbar pain. [facility] Medical History (Updated 03/12/23 @ 16:02 by Nessa Gibbons MD) Trochanteric bursitis of right hip Weakness of left hand Poor balance Vitamin D deficiency Annual physical exam Tinnitus Chronic left-sided low back pain Hx of echocardiogram Insomnia Chronic allergic rhinitis Asthma Sjogrens syndrome Surgical History H/O thumb surgery History of knee replacement History of bunionectomy of right great toe H/O colonoscopy Family History Father Heart attack CVD (cardiovascular disease) Mother Stroke CHF (congestive heart failure) Alzheimer's dementia Cancer Hypertension Social History Housing: House Alcohol intake: never Patient Tobacco Use Status: Never used Tobacco e-Cigarette/Vaping Use: Never Used Current occupational status: retired Cognitive needs: No Hearing needs: No Vision needs: Yes Review of Systems Const Details: Negative for appetite change, weight change, fever, chills, malaise and fatigue Eyes Details: Negative for vision change, dry eyes,headaches and dizziness ENT Details: Negative for hearing change, tinnitus, oral ulcer, nose bleeds and oral dryness. Card Details: Negative chest pain, edema and syncope Resp Details: Negative for SOB, cough and wheezing GI Details: Negative indigestion/heartburn, nausea, abdominal pain, bowel changes, diarrhea, constipation and bloody stool. Endo Details: Negative for polyuria and polydypsia Rodriguez/Lymph Details: Negative for excessive bruising or bleeding. Physical Exam Vital Signs: Last Vital Signs Temp 97.3 F 08/07/23 09:46 Pulse 91 08/07/23 09:46 BP 136/92 H 08/07/23 09:46 Pulse Ox 98 08/07/23 09:46 Oxygen Delivery Method Room Air 08/07/23 09:46 APPEARANCE: Patient in no acute distress EYES no redness, pupils equal and reactive to light, eyelids normal. No temporal artery tenderness, redness or swelling. EXTREMITIES: No edema, no calf tenderness, normal peripheral pulses. SKIN: No inflammatory or neoplastic lesions. Normal color and turgor JOINT EXAM: Cervical Spine:.? Full range of motion without pain; no tenderness. Thoracic Spine:.? No scoliosis.? No tenderness on palpation. Lumbar Spine:.? Some scoliosis evident. Pain with flexion at about 60 degrees with some mild right paraspinal muscle tenderness. Chest Wall:.? No tenderness, swelling, increased warmth or erythema. Hands:.? Right: There is bony enlargement and mild tenderness at the base of the thumb. There is some degree of thenar atrophy but no sensory loss. The joint at the base of thumb also is easily sublux able. There is no swelling or tenderness across the PIP joints but all of the DIP joints have bony enlargement with slight tenderness. The 2nd D IP joint has some deviation to the radial aspect. Left: Slight tenderness at the base of the thumb without swelling. No tenderness or swelling in the MCP joints or the PIP joints. There is mild bony enlargement at all the PIP joints but they are not tender. No flexor tendon triggering, thenar atrophy or sensory loss. Wrists:.? Normal pain-free range of motion without tenderness, swelling, increased warmth or erythema. Elbows:. Normal pain-free range of motion without tenderness, swelling, increased warmth or erythema. Shoulders: Right: Slight discomfort with extremes of normal range of motion with some minimal anterior tenderness. Today there is no abductor weakness, swelling, redness, or adenopathy. Left:?? Full range of motion without pain. No tenderness, weakness, swelling, increased warmth or erythema. Hips:.? Full range of motion without pain. Hip bursa:.? Mild right trochanteric tenderness. Knees:.??Right: Well-healed anterior scar. Motion seems normal and pain-free without tenderness or swelling. Left: Normal pain-free range of motion with slight patellofemoral crepitus but no effusion, tenderness, swelling, increased warmth or erythema.? There is no effusion or crepitation Ankles:.? Left: Some degree of valgus deformity. There is subcutaneously felt hardware on the lateral aspect. Motion seems intact in without pain however. There is no tenderness or soft tissue swelling. Right: Normal pain-free range of motion without tenderness, swelling, increased warmth or erythema. Feet:.? Right: Some pes planus deformity. Evidence of previous surgery at the 1st MTP joint. There are no areas of tenderness or swelling in the foot. Left: Mild bony enlargement, slight tenderness and hallux valgus deformity at the 1st MTP joint. Mild pes planus deformity. Elsewhere there is normal pain-free range of motion without tenderness, swelling, increased warmth or erythema. Tender points:? Mild tenderness to digital palpation at the trapezius, greater trochanter area bilaterally. ? Assessment & Plan Assessment & Plan (1) Osteoarthritis of hands, bilateral: Code(s): M19.041 - Primary osteoarthritis, right hand; M19.042 - Primary osteoarthritis, left hand (2) Osteoarthritis of lumbar spine: Code(s): M47.816 - Spondylosis without myelopathy or radiculopathy, lumbar region (3) Sjogrens syndrome: Comment: Dx 2010: sicca symptoms, pos SS-B, neg SS-A, low titer RF, neg DNA, KIRSTEN, CCP Code(s): M35.00 - Sjogren syndrome, unspecified Qualifiers: Sjogren's organ involvement: unspecified organ involvement Qualified Code(s): M35.00 - Sicca syndrome, unspecified Plan Sjogren's syndrome with some improvement in the sicca symptoms with the use of the oral pilocarpine and Restasis drops. I do not see any signs of lymphoma or any extra glandular manifestations of the Sjogren's. She can continue with current medications. The patient does have osteoarthritis particularly in that right thumb region and the lumbar spine. Symptomatic measures for that are reviewed. She was told she was not a surgical candidate because there was concerned about her joint laxity. I do not really detect much of that on exam today. We will check some labs today. Follow-up in 6 months. Orders: Orders Erythrocyte Sedimentation Rate Today M35.00 - Sjogren syndrome, unspecified C Reactive Protein Today M35.00 - Sjogren syndrome, unspecified Complete Blood Count Auto Diff Today M35.00 - Sjogren syndrome, unspecified Comprehensive Met. Panel Today M35.00 - Sjogren syndrome, unspecified Protein Creatinine Ratio, Ur Today M35.00 - Sjogren syndrome, unspecified Coding Level of Care Code Est Pt Level 3 (14467) Diagnoses Osteoarthritis of hands, bilateral M19.041; M19.042 Osteoarthritis of lumbar spine M47.816 Sjogren's syndrome, with unspecified organ involvement M35.00 Sjogren's organ involvement: unspecified organ involvement
[2023-08-07 09:46] VITALS: BP 136/92; PULSE 91; TEMP 36.3; O2SAT 98
== END 2023-08-07 10:30 | disposition home or self-care (01) ==
PROVIDERS: PCP Internal Medicine; Visit Provider Internal Medicine Rheumatology
DX: M19.041 Primary osteoarthritis, right hand (principal); M19.042 Primary osteoarthritis, left hand; M47.816 Spondylosis without myelopathy or radiculopathy, lumbar region; M35.00 Sjogren syndrome, unspecified
CPT/HCPCS: 99213

== ENCOUNTER → 2023-08-07 09:22 | Outpatient (BNVA) | payer MEDICARE, SELFPAY | PROVIDERS: PCP Internal Medicine; Visit Provider Internal Medicine Rheumatology | DX: M35.00 Sjogren syndrome, unspecified (principal); M25.511 Pain in right shoulder; M19.041 Primary osteoarthritis, right hand; M19.042 Primary osteoarthritis, left hand; M47.816 Spondylosis without myelopathy or radiculopathy, lumbar region | CPT/HCPCS: 99212 ==

== ENCOUNTER 2023-08-08 15:11 | Outpatient (AMB) | payer MEDICARE, SELFPAY ==
[2023-08-08 15:33] VITALS: BP 119/67; PULSE 86; O2SAT 98; BMI 33.7
--- NOTE | 2023-08-08 15:33 | MHC.OFFVIS ---
Intake Vital Signs 08/08/23 15:33 Height 5 ft 2 in Weight 184 lb 1.376 oz BMI 33.7 BP 119/67 Blood Pressure Location Rt brachial Position Sitting Pulse 86 Pulse Source Doppler Pulse Oximetry (%) 98 Oxygen Delivery Method Room Air Intake Visit Reasons: Obstructive sleep apnea Allergies pneumococcal vaccine [PNEUMOCOCCAL VACCINE] Allergy (Severe, Verified 08/08/23 15:37) ARM SWELLED, swelling in arm tiotropium [From SPIRIVA WITH HANDIHALER] Allergy (Severe, Verified 08/08/23 15:37) THROAT SWELL doxycycline Adverse Reaction (Intermediate, Verified 08/08/23 15:37) foggy and forgetful HPI HPI Comments History of Present Illness Details The patient is a 68-year-old woman known allergic asthma and allergic rhinitis. She has had a few exacerbations of her breathing requiring short-acting beta agonist. Once it occurred when she was running she started developing significant asthma symptoms. 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 I recommended that she does not work in that environment. In the meantime she does not have the singular medication as she has not been using it for months. She understands with her allergic asthma singular becomes very useful to minimize exacerbations in symptoms. No recent x-rays or pulmonary function studies to review. ?05/09/2020 The patient is here for pulmonary follow-up visit. Overall she feels well from a respiratory status. She continues to use her singular with good effect. She has not had to use her rescue inhaler as often. She did undergo pulmonary function studies and we did look at them together demonstrating no evidence of any obstructive nor restrictive ventilatory defects. Her gas exchange is also good. Her respiratory exam is also reassuring. Will plan for her to come back in 1 year and have an x-ray done at the time. June 02, 2021 the patient is here for pulmonary follow-up visit. the patient has not required her short-acting beta agonist. She does have cough intermittently. She continues to struggle with her sleep. She has significant periodic limb movement at nighttime. This keeps her up. She is currently on ropinirole. She has tried other agents including gabapentin and Lyrica. Does medications resulted in adverse effects. In addition to that she has tried trazodone. At this point the patient needs something that will help her with her sleep. She continues to have daytime drowsiness. Will try small dose of Ambien. Also the 5 mg tablets and she can start with half a tablet to make sure that his effective and does not give her any adverse effects. She can slowly increase it. Once she is up 5 mg if she is still not getting adequate sleep she can call and I consented the full dose of 10 mg. in the meantime we did review her sleep study that demonstrated no significant sleep apnea at this time. Patient is reassured that she does not need Pap therapy. 08/08/2023 the patient is here for a pulmonary follow-up visit. Overall the patient has been doing well. She denies any worsening respiratory symptoms. She does have some dyspnea on exertion but minimal. No significant wheezing. She is not use any maintenance therapies. She has a rescue inhaler but typically uses it less than twice a week. She still complaining of a dry mouth. The patient does have Sjogren's disease. But overall it is manageable at this time. She continues on the antihistamine therapy for allergies and also still uses the ropinirole for her restless like. Overall the patient is doing well. Will plan to follow-up in a year's time with pulmonary function studies. If the patient has any worsening symptoms prior to that she is to call the office for an earlier assessment. [facility] Medical History (Updated 08/08/23 @ 15:44 by Mark Olivo MD) Trochanteric bursitis of right hip Weakness of left hand Poor balance Vitamin D deficiency Annual physical exam Tinnitus Chronic left-sided low back pain Hx of echocardiogram Insomnia Chronic allergic rhinitis Asthma Sjogrens syndrome Surgical History H/O thumb surgery History of knee replacement History of bunionectomy of right great toe H/O colonoscopy Family History Father Heart attack CVD (cardiovascular disease) Mother Stroke CHF (congestive heart failure) Alzheimer's dementia Cancer Hypertension Social History Housing: House Alcohol intake: never Patient Tobacco Use Status: Never used Tobacco e-Cigarette/Vaping Use: Never Used Current occupational status: retired Cognitive needs: No Hearing needs: No Vision needs: Yes Review of Systems Const Reports headache(s) and Denies night sweats ENT Denies change in voice, Reports headache(s), Denies lip swelling, Denies mouth pain and Denies tongue swelling Card Denies chest pain Resp Reports cough GI Denies abdominal pain Musc Reports no additional complaints Neuro Reports headache(s) Psych Denies no additional complaints Rodriguez/Lymph Denies easy bleeding and Denies lymphadenopathy Aller/Immun Denies lip swelling and Denies tongue swelling Physical Exam Vital Signs: Last Vital Signs Pulse 86 08/08/23 15:33 BP 119/67 08/08/23 15:33 Pulse Ox 98 08/08/23 15:33 Oxygen Delivery Method Room Air 08/08/23 15:33 BMI result Body Mass Index 33.7 Const General: no acute distress and well developed Orientation/consciousness: patient oriented x3 Neck Neck: Yes trachea midline and Yes supple Chest Chest palpation & inspection: normal inspection of the chest Resp Effort & Inspection: normal respiratory effort and able to speak in complete sentences Auscultation: clear to auscultation bilaterally Cardio Rate: regular rate Rhythm: regular rhythm Heart sounds: S1 normal heart sound present and S2 normal heart sound present Neuro General: patient oriented x3 Extrem Other: No synovitis on exam. Dry cracked skin on hands General: Yes no pedal edema Psych Speech and movement: Clear speech present Attitude: cooperative Assessment & Plan Assessment & Plan (1) Asthma: Code(s): J45.909 - Unspecified asthma, uncomplicated Qualifiers: Asthma complication type: uncomplicated Asthma persistence: intermittent Asthma severity: mild Qualified Code(s): J45.20 - Mild intermittent asthma, uncomplicated (2) FRANKY (obstructive sleep apnea): Code(s): G47.33 - Obstructive sleep apnea (adult) (pediatric) (3) Insomnia: Code(s): G47.00 - Insomnia, unspecified Qualifiers: Insomnia type: primary Qualified Code(s): F51.01 - Primary insomnia Plan continue ropinirole for her periodic limb movement short-acting beta agonist as needed continue with herbal therapy for sleep aid. PFTs in 1 yr follow-up in 1 year Orders: Orders PFT pulmonary function test 364 Days J45.20 - Mild intermittent asthma, uncomplicated Medications: Refilled albuterol sulfate 90 mcg/actuation 2 puffs inhalation Q6H PRN 8.5 grams 11RF shortness of breath or wheezing J45.20 - Mild intermittent asthma, uncomplicated Coding Level of Care Code Est Pt Level 4 (04222) Diagnoses Mild intermittent asthma without complication J45.20 Asthma complication type: uncomplicated Asthma persistence: intermittent Asthma severity: mild FRANKY (obstructive sleep apnea) G47.33 Primary insomnia F51.01 Insomnia type: primary Time Spent (min) 16
== END 2023-08-08 15:53 | disposition home or self-care (01) ==
PROVIDERS: PCP Internal Medicine; Visit Provider Hospitalist
DX: J45.20 Mild intermittent asthma, uncomplicated (principal); G47.33 Obstructive sleep apnea (adult) (pediatric); F51.01 Primary insomnia
CPT/HCPCS: 99214

== ENCOUNTER → 2023-08-08 15:11 | Outpatient (BNVA) | payer MEDICARE, SELFPAY | PROVIDERS: PCP Internal Medicine; Visit Provider Hospitalist | DX: J45.20 Mild intermittent asthma, uncomplicated (principal); G47.33 Obstructive sleep apnea (adult) (pediatric); F51.01 Primary insomnia | CPT/HCPCS: 99212 ==

== ENCOUNTER 2023-08-14 12:19 | Outpatient (AMB) | payer MEDICARE, SELFPAY ==
[2023-08-14 12:26] VITALS: BP 120/80; PULSE 60; O2SAT 98; BMI 33.4
--- NOTE | 2023-08-14 12:26 | MHC.PC.OV ---
Vital Signs 08/14/23 12:26 Height 5 ft 2 in Weight 182 lb 6 oz BMI 33.4 BP 120/80 Blood Pressure Location Rt brachial Position Sitting Pulse 60 Pulse Source Pulse Oximeter Pulse Oximetry (%) 98 Oxygen Delivery Method Room Air Intake Visit Reasons: PE. Intake Note: Pt is here today for PE. Allergies pneumococcal vaccine [PNEUMOCOCCAL VACCINE] Allergy (Severe, Verified 08/14/23 12:28) ARM SWELLED, swelling in arm tiotropium [From SPIRIVA WITH HANDIHALER] Allergy (Severe, Verified 08/14/23 12:28) THROAT SWELL doxycycline Adverse Reaction (Intermediate, Verified 08/14/23 12:28) foggy and forgetful Medication List - Last Reconciled 08/14/23 by Nessa Gibbons MD albuterol sulfate 90 mcg/actuation 2 puffs inhalation Q6H PRN alendronate 70 mg PO QWEEK baclofen 5 mg PO QPM cyclosporine 0.05% (Restasis) 1 drp ophthalmic (eye) Q12H diphenhydramine HCl (Benadryl) 25 mg PO Q6H PRN fexofenadine (Ally Allergy) 180 mg PO DAILY glucosamine-chondroitin 250-200 mg (Osteo Bi-Flex) 1 tab PO BID Lactobacillus acidophilus (Acidophilus capsule) 100 mg PO DAILY magnesium 250 mg PO DAILY multivitamin 1 tab PO DAILY omeprazole 20 mg PO DAILY pilocarpine HCl 5 mg PO TID ropinirole 1 mg (2 x 0.5 mg) PO DAILY Tobacco use date assessed: 08/14/23 Fall risk assessment: No Falls in past year Last assessed Fall Risk: 08/14/23 Dental Screening Dental Screen Date: 08/14/23 Did you have a dental visit in the last 12 months?: Yes Did you have a dental problem in the last 6 months where you did not have access to dental care?: No Was dental information given to patient?: Patient has dentist HPI PE. HPI Details Patient presents for physical [facility] Medical History (Updated 08/14/23 @ 13:15 by Nessa Gibbons MD) Annual physical exam Trochanteric bursitis of right hip Weakness of left hand Poor balance Vitamin D deficiency Tinnitus Chronic left-sided low back pain Hx of echocardiogram Insomnia Chronic allergic rhinitis Asthma Sjogrens syndrome Surgical History H/O thumb surgery History of knee replacement History of bunionectomy of right great toe H/O colonoscopy Family History Father Heart attack CVD (cardiovascular disease) Mother Stroke CHF (congestive heart failure) Alzheimer's dementia Cancer Hypertension Social History Housing: House Alcohol intake: never Patient Tobacco Use Status: Never used Tobacco e-Cigarette/Vaping Use: Never Used Current occupational status: retired Cognitive needs: No Hearing needs: No Vision needs: Yes Questionnaire PHQ-9 Over the last 2 weeks, how often have you been bothered by any of the following problems? 1. Little interest or pleasure in doing things: not at all 2. Feeling down, depressed, or hopeless: not at all 3. Trouble falling or staying asleep, or sleeping too much: nearly every day 4. Feeling tired or having little energy: nearly every day 5. Poor appetite or overeating: not at all 6. Feeling bad about yourself - or that you are a failure or have let yourself or your family down: not at all 7. Trouble concentrating on things, such as reading the newspaper or watching television: several days 8. Moving or speaking so slowly that other people could have noticed. Or the opposite - being so fidgety or restless that you have been moving around a lot more than usual: not at all 9. Thoughts that you would be better off or of hurting yourself in some way: not at all Total score: 7 Depression Screening Interpretation: Negative Depression Screening Done: Yes Source: Developed by Drs. Sadiq Bear, Latricia Brown, Alexandru Govea and colleagues, with an educational compa from [employer]. Thrive Questionnaire Date Thrive assessed: 08/14/23 I am a: Patient What is your living situation today?: I have a steady place to live Within the past 12 months, did the food you bought not last and you didn't have the money to get more?: Never true Within the past 12 months, did you worry whether your food would run out before you got money to buy more?: Never true Do you have trouble paying for medicines?: No Do you have trouble getting transportation to medical appointments?: No Do you have trouble paying your heating and electricity bill?: No Do you have trouble taking care of your child, family member or friend?: No Do you have trouble with day-to-day activities such as bathing, preparing meals, shopping, managing finances, etc.?: No Are you currently unemployed and looking for a job?: No Are you interested in more education?: No Please select the resources that you would like help with: None AUDIT C Alcohol Use Questionnaire (AUDIT-C) 1. How often do you have a drink containing alcohol?: Never 3. How often do you have six or more drinks on one occasion?: Never Total Score: 0 MESHA-7 AMB Questionnaire MESHA-7 Date MESHA - 7 assessed: 08/14/23 Feeling nervous, anxious, or on edge: 0 = Not at all Not being able to stop or control worryin = Not at all Worrying too much about different things: 0 = Not at all Trouble relaxin = Not at all Being so restless that it is hard to sit still: 0 = Not at all Becoming easily annoyed or irritable: 0 = Not at all Feeling afraid as if something awful might happen: 0 = Not at all Total MESHA-7 score (0-4 normal; 5-9 mild; 10-14 moderate; 15-21 severe): 0 Source: Developed by Drs. Sadiq Bear, Latricia Brown, Alexandru Govea and colleagues, with an educational compa from [employer]. Review of Systems Const All systems reviewed & are unremarkable except as noted in HPI and below Reports no additional complaints Eyes Reports no additional complaints ENT Reports no additional complaints Card Reports no additional complaints Resp Reports no additional complaints GI Reports no additional complaints Reports no additional complaints Musc Reports no additional complaints Physical exam (Primary Care) Vital Signs: Last Vital Signs Pulse 60 08/14/23 12:26 BP 136/90 H 08/14/23 12:26 Pulse Ox 98 08/14/23 12:26 Oxygen Delivery Method Room Air 08/14/23 12:26 BMI result Body Mass Index 33.4 Tobacco/Smoking Status: Tobacco use Status Tobacco use date assessed 08/14/23 08/14/23 12:31 Patient Tobacco Use Status Never used Tobacco 08/14/23 12:31 e-Cigarette/Vaping Use Never Used 08/14/23 12:31 Depression Screening Interpretation: Negative Thrive Assessment: Date of Thrive Assessment Date Thrive assessed 06/21/22 08/14/23 12:31 Const General: no acute distress HENMT Head: Yes normal to inspection General nose exam: Normal external nose present Eyes General: appearance normal, both eyes and all related structures Neck Neck: Yes no lymphadenopathy and Yes supple Resp Effort & Inspection: normal respiratory effort Auscultation: clear to auscultation bilaterally Cardio Rhythm: regular rhythm Heart sounds: S1 normal heart sound present and S2 normal heart sound present GI Inspection: Yes normal to inspection Palpation (GI): Soft to palpation Percussion: Yes normal to percussion Auscultation: normal bowel sounds Assessment and Plan Assessment & Plan (1) Osteopenia: Comment: DEXA 06/2021, started Fosamax 12/2021 Code(s): M85.80 - Other specified disorders of bone density and structure, unspecified site Plan: Continue Fosamax and vitamin-D 3 and check DEXA (2) Annual physical exam: Code(s): Z00.00 - Encounter for general adult medical examination without abnormal findings Plan: Well-balanced diet regular physical activity discussed with the patient. She is up-to-date with mammogram and colonoscopy. Orders: Orders XR DEXA axial skeleton Today M85.80 - Other specified disorders of bone density and structure, unspecified site Lipid Panel Today Z00.00 - Encounter for general adult medical examination without abnormal findings Comprehensive [place]. Panel Fast Today Z00.00 - Encounter for general adult medical examination without abnormal findings Complete Blood Count Auto Diff Today Z00.00 - Encounter for general adult medical examination without abnormal findings TSH reflex Free T4 Today Z00.00 - Encounter for general adult medical examination without abnormal findings Medications: New alendronate 70 mg PO QWEEK 10 tabs 4RF Refilled pilocarpine HCl 5 mg PO TID 90 tabs 4RF ropinirole 1 mg (2 x 0.5 mg) PO DAILY 180 tabs 3RF omeprazole 20 mg PO DAILY 90 caps 3RF Coding Level of Care Code Est Pt Prev Care >65y(73311) Diagnoses Osteopenia M85.80 Annual physical exam Z00.00
== END 2023-08-14 13:15 | disposition home or self-care (01) ==
PROVIDERS: PCP Internal Medicine; Visit Provider Internal Medicine
DX: Z00.00 Encounter for general adult medical examination without abnormal findings (principal); M85.80 Other specified disorders of bone density and structure, unspecified site
CPT/HCPCS: 99397

== ENCOUNTER 2023-08-16 09:39 | Outpatient (REF) | payer MEDICARE, SELFPAY ==
[2023-08-16 12:04] LABS: Basophils Percent Auto 0.3 % (0-2); Eosinophils Absolute Auto 0.1 X10*3/uL (0.0-0.4); Eosinophils Percent Auto 1.4 % (0-4); Hemoglobin 13.1 g/dl (12.0-16.0); Imm Gran Abs Auto 0.03 X10*3/uL (0.00-0.03); Imm Gran Pct Auto 0.5 % (0.0-0.4); Lymphocytes Absolute Auto 1.5 X10*3/uL (1.2-4.9); Lymphocytes Percent Auto 25.7 % (20-40); MANUAL DIFF FLAG NO; Mean Corpuscular HGB Conc 32.8 g/dl (31.0-35.0); Mean Corpuscular Hemoglobin 28.6 pg (27.0-33.0); Mean Corpuscular Volume 87.3 fL (80.0-98.0); Mean Platelet Volume 10.2 fL (9.4-12.3); Monocytes Absolute Auto 0.3 X10*3/uL (0.1-1.2); Monocytes Percent Auto 5.9 % (2-11); Neutrophils Absolute Auto 3.8 x10*3/uL (2.0-8.3); Neutrophils Percent Auto 66.2 % (45-73); Platelet Count 329 X10*3/uL (160-400); Red Blood Count 4.58 X10*6/uL (4.20-5.50); Red Cell Distribution Width 14.3 % (11.0-16.0); White Blood Count 5.8 X10*3/uL (4.8-10.8)
[2023-08-16 12:42] LABS: Erythrocyte Sedimentation Rate 13 MM/HR (0-20)
[2023-08-16 13:10] LABS: Alanine Aminotransferase 20 U/L (0-31); Alkaline Phosphatase 60 U/L (39-117); Anion Gap 14 (12-20); Aspartate Amino Transferase 25 U/L (5-31); Bilirubin Total 0.4 mg/dL (0.0-1.0); Blood Urea Nitrogen 11 mg/dL (9-16); C Reactive Protein 0.42 mg/dL (< or = 0.50); Calcium 9.3 mg/dL (8.4-10.2); Carbon Dioxide 25 mmol/L (22-29); Chloride 108 mmol/L (96-108); Cholesterol 191 mg/dL (<200); Estimated Glomerular Filt Rate > 60; Glucose Fasting 80 mg/dL (60-99); Glucose Random 80 mg/dL (60-115); HDL Cholesterol 64 mg/dL (>40); LDL Cholesterol Calculated 111 mg/dL (<100); Potassium 3.9 mmol/L (3.3-5.1); Sodium 143 mmol/L (135-145); Total Protein 7.4 g/dL (6.5-8.0); Triglycerides 83 mg/dL (<150)
[2023-08-16 13:29] LABS: TSH reflex Free T4 1.67 uIU/mL (0.32-4.0)
[2023-08-16 14:47] LABS: Creatinine Urine 136.83 mg/dL; Protein/Creatinine Ratio, Ur 0.09 (<0.2); Total Protein Urine Random 12 mg/dL (<12)
== END 2023-08-16 09:40 | disposition home or self-care (01) ==
LOC: HO.HMGCLDS 09:39
PROVIDERS: Internal Medicine Rheumatology; PCP Internal Medicine; Visit Provider Internal Medicine
DX: Z00.00 Encounter for general adult medical examination without abnormal findings (principal); M35.00 Sjogren syndrome, unspecified
CPT/HCPCS: 36415; 80053; 80061; 82570; 84156; 84443; 85025; 85652; 86140

== ENCOUNTER 2023-08-30 13:16 | Outpatient (REF) | payer MEDICARE, SELFPAY ==
--- NOTE | ~2023-08-30 | MM_ITS ---
EXAMINATION: BONE DENSITOMETRY CLINICAL INDICATION: Other specified disorders of bone density and structure, unspecified site. COMPARISON: This is the patient's baseline examination. TECHNIQUE: Using a [employer] DXA System (software version: 13.1) manufactured by [employer], dual-energy x-ray absorptiometry was performed of the lumbar spine and left hip. The images are of good technical quality. Summary results are attached. FINDINGS: LEFT FEMUR, NECK: BMD 0.755 g/cm2, Z-score -0.7, T-score -2.0, osteopenia. LEFT FEMUR, TOTAL: BMD 0.835 g/cm2, Z-score -0.3, T-score -1.4, osteopenia. AP SPINE L1-L4: BMD 1.039 g/cm2, Z-score 0.0, T-score -1.2, osteopenia. IDENTIFIED RISK FACTORS: Height loss, menopause. HISTORY OF FRACTURE: None listed. MEDICATIONS: Calcium supplements or multivitamin, bisphosphonate. MM/XR DEXA axial skeleton IMPRESSION: 1. DIAGNOSIS: Osteopenia based on the lowest T-score value of -2.0 in the femoral neck applying World Health Organization criteria. 2. 10-YEAR FRACTURE RISK PREDICTION, FRAX: Not performed in this patient on estrogen or bone building treatments. 3. Treatment Recommendations: NOF guidelines recommend consideration for treatment in postmenopausal women and men age 50 and older presenting with the following: -A hip or vertebral (clinical or morphometric) fracture. -T-score less than or equal to -2.5 at the femoral neck or spine after appropriate evaluation to exclude secondary causes. -Low bone mass at the hip or spine and a 10-year fracture probability by FRAX of greater than or equal to 3% for hip fracture or greater than or equal to 20% for major osteoporotic fracture based on the [place] adapted WHO algorithm. 4. Other Recommendations: All treatment decisions require clinical judgment and consideration of individual patient factors, including patient preferences, comorbidities, previous drug use, risk factors not captured in the FRAX model (e.g. frailty, falls, vitamin D deficiency, increased bone turnover, interval significant decline in bone density) and possible under or overestimation of fracture risk by FRAX. Additional medical evaluation for secondary cause of low bone mineral density may be appropriate. FUTURE SCAN RECOMMENDATION: People with diagnosed cases of osteoporosis or at high risk for fracture should have regular bone mineral density tests. For patients eligible for Medicare, routine testing is allowed once every 2 years. The testing frequency can be increased to one year for patients who have rapidly progressing disease, those who are receiving or discontinuing medical therapy to restore bone mass, or have additional risk factors.
== END 2023-08-30 13:17 | disposition home or self-care (01) ==
LOC: HO.MAMMO 13:16
PROVIDERS: PCP Internal Medicine; Visit Provider Internal Medicine
DX: Z13.820 Encounter for screening for osteoporosis (principal); M85.80 Other specified disorders of bone density and structure, unspecified site; Z78.0 Asymptomatic menopausal state
CPT/HCPCS: 77080

== ENCOUNTER 2023-09-12 14:23 | Outpatient (AMB) | payer MEDICARE, SELFPAY ==
--- NOTE | 2023-09-12 14:28 | A.OFFVIS_ITS ---
Intake Vital Signs 09/12/23 14:34 Height 5 ft 2 in Weight 182 lb 2 oz BMI 33.3 BP 145/72 H Blood Pressure Location Lt brachial Position Sitting Pulse 92 Intake Visit Reasons: Discuss the health of my gall bladder Intake Note: Patient is seen in office for follow up visit, following gallbladder. Patient c/o: once in a while gets pain in the area, loose stool, denies nausea, vomit, constipation, had imaging done L. OV: 12/04/22 [employer] Required: No Accompanied by: Self / Same As Patient Allergies pneumococcal vaccine [PNEUMOCOCCAL VACCINE] Allergy (Severe, Verified 09/12/23 14:33) ARM SWELLED, swelling in arm tiotropium [From SPIRIVA WITH HANDIHALER] Allergy (Severe, Verified 09/12/23 14:33) THROAT SWELL doxycycline Adverse Reaction (Intermediate, Verified 09/12/23 14:33) foggy and forgetful HPI HPI Comments History of Present Illness Details 68-year-old female patient returning for follow-up examination of her gallbladder. She was previously evaluated on 12/04/2022 for complaints of abd ominal pain felt in the right upper quadrant. Pain began soon after the holidays last October and lasted approximately 1 week. The pain was mainly located in the right upper quadrant with radiation into the back. The pain seemed to be associated with fatty food intake from the holidays. She then reports the pain spontaneously resolved and she remained pain-free. She denies a prior history of similar pain. She does have a known history of kidney stones reports this pain was different. She was evaluated by Dr. Martins requested an ultrasound of the abdomen. This revealed gallstones within the gallbladder but no secondary signs of acute cholecystitis including wall thickening, pericholecystic fluid, sonographic Graham sign, or ductal dilatation. Since her last visit she reports no further symptoms of abdominal pain. She does have occasional back pain which she feels is more musculoskeletal. She denies right upper quadrant, epigastric or radiating pain to the back. She also denies nausea, vomiting, fever or chills. Her bowels are chronically ?mushy? but associated with no pain. [facility] Medical History Annual physical exam Trochanteric bursitis of right hip Weakness of left hand Poor balance Vitamin D deficiency Tinnitus Chronic left-sided low back pain Hx of echocardiogram Insomnia Chronic allergic rhinitis Asthma Sjogrens syndrome Surgical History H/O thumb surgery History of knee replacement History of bunionectomy of right great toe H/O colonoscopy Family History Father Heart attack CVD (cardiovascular disease) Mother Stroke CHF (congestive heart failure) Alzheimer's dementia Cancer Hypertension Social History Housing: House Alcohol intake: never Patient Tobacco Use Status: Never used Tobacco e-Cigarette/Vaping Use: Never Used Current occupational status: retired Cognitive needs: No Hearing needs: No Vision needs: Yes Review of Systems Const All systems reviewed & are unremarkable except as noted in HPI and below Physical Exam Const General: no acute distress and well developed Nutritional Appearance: well nourished Orientation/consciousness: patient oriented x3 Limitations: no limitations HEENT Head: Yes normocephalic and Yes atraumatic Ears: hearing grossly normal bilaterally Eyes Sclerae: sclerae normal EOM: EOMs intact bilaterally Resp Effort & Inspection: normal respiratory effort, no audible wheezes, no cough and no respiratory distress GI Inspection: Yes normal to inspection Palpation (GI): Soft to palpation, nontender, no guarding, not rigid, no hepatosplenomegaly and No Rebound tenderness present Percussion: Yes normal to percussion Auscultation: normal bowel sounds Rectal Exam - Female: deferred Skin Other: Warm, dry, normal color Neuro General: patient oriented x3 Extrem General: Yes no clubbing, cyanosis or edema Assessment & Plan Assessment & Plan (1) Gallstones: Code(s): K80.20 - Calculus of gallbladder without cholecystitis without obstruction (2) Symptomatic cholelithiasis: Code(s): K80.20 - Calculus of gallbladder without cholecystitis without obstruction Plan 68-year-old female patient presenting with a previous history of abdominal pain located in the right upper quadrant with radiation into the back. She was found to have small gallstones within the gallbladder by ultrasound. Her symptoms lasted for approximately a week and then resolved. Since her last visit in November 2022 she has had no further attacks per returns today to talk about possible cholecystectomy. She feels well and denies any other abdominal symptoms. Examination today revealed no tenderness to palpation and negative Graham sign. Patient's symptoms are most consistent with mild symptomatic cholelithiasis. There is no clear indication of ongoing gallbladder symptoms therefore I would not recommend cholecystectomy at this time. We again discussed the symptoms to be aware of which include abdominal pain in the right upper quadrant with her without nausea/vomiting. She is welcome to return should new symptoms develop but should otherwise follow up p.r.n.. She expressed understanding and agrees with the plan. Coding Level of Care Code Est Pt Level 3 (69725) Diagnoses Gallstones K80.20 Symptomatic cholelithiasis K80.20
[2023-09-12 14:34] VITALS: BP 145/72; PULSE 92; BMI 33.3
== END 2023-09-12 15:09 | disposition home or self-care (01) ==
PROVIDERS: PCP Internal Medicine; Visit Provider Surgery
DX: K80.20 Calculus of gallbladder without cholecystitis without obstruction (principal)
CPT/HCPCS: 99213

== ENCOUNTER → 2023-09-12 14:23 | Outpatient (BNVA) | payer MEDICARE, SELFPAY | PROVIDERS: PCP Internal Medicine; Visit Provider Surgery | DX: K80.20 Calculus of gallbladder without cholecystitis without obstruction (principal) | CPT/HCPCS: 99212 ==

== ENCOUNTER 2023-09-13 09:07 | Outpatient (REF) | payer MEDICARE, SELFPAY ==
[2023-09-13 12:24] LABS: Vitamin D 25-OH Total 73.9 ng/mL (>30)
== END 2023-09-13 09:08 | disposition home or self-care (01) ==
LOC: HO.HMGCLDS 09:07
PROVIDERS: PCP Internal Medicine; Visit Provider Internal Medicine
DX: E55.9 Vitamin D deficiency, unspecified (principal)
CPT/HCPCS: 36415; 82306

== ENCOUNTER 2023-10-01 00:19 | Inpatient (IN) | payer MEDICARE, SELFPAY ==
[2023-10-01] VITALS (9 sets, daily range): BP systolic 119–152; BP diastolic 62–101; PULSE 74–135; RESP 11–20; TEMP 36.1–36.6; O2SAT 97–98; BMI 32.4
--- NOTE | 2023-10-01 | ECG_ITS ---
Test Reason : FAST hr Blood Pressure : / mmHG Vent. Rate : 131 BPM Atrial Rate : 000 BPM P-R Int : 000 ms QRS Dur : 086 ms QT Int : 334 ms P-R-T Axes : 000 -14 -13 degrees QTc Int : 493 ms Atrial fibrillation with rapid ventricular response Nonspecific ST and T wave abnormality Abnormal ECG When compared with ECG of 18-SEP-2004 14:22, Atrial fibrillation has replaced Sinus rhythm ST now depressed in Inferior leads ST now depressed in Lateral leads Inverted T waves have replaced nonspecific T wave abnormality in Inferior leads Nonspecific T wave abnormality now evident in Anterior leads Referred By: Generic ED Physician Electronically Signed By:ERNESTO VELEZ MD
--- NOTE | 2023-10-01 01:04 | ED.ARRPALP ---
HPI - Arrhythmia/Palpitations General Chief Complaint: Arrhythmia/Palpitations Stated Complaint: fast heart rate Time Seen by Provider: 10/01/23 01:01 Source: patient Mode of arrival: ambulatory Limitations: no limitations History of Present Illness HPI narrative: Patient with history of palpitation off and on for last 2 years had Holter monitoring over 2 years ago which was negative when patient was wearing the monitor which did not have any palpitation episode patient just woke up an hour ago from the sleep with palpitation in range of 130 no chest pain no diaphoresis no shortness for breath patient never had palpitations lasting this long so come to the hospital Related Data Home Medications Medication Instructions Recorded Confirmed cyclosporine 0.05 % eye drops in a 1 drp ophthalmic (eye) Q12H 10/20/20 08/14/23 dropperette (Restasis) diphenhydramine HCl 25 mg capsule 25 mg PO Q6H PRN 10/20/20 08/14/23 (Benadryl) magnesium 250 mg tablet 250 mg PO DAILY 10/20/20 08/14/23 fexofenadine 180 mg tablet 180 mg PO DAILY 02/24/21 08/14/23 (Ally Allergy) multivitamin 1 tab PO DAILY 02/24/21 08/14/23 glucosamine-chondroitin 250 mg-200 1 tab PO BID 07/25/21 08/14/23 mg tablet (Osteo Bi-Flex) baclofen 5 mg tablet 5 mg PO QPM muscle spasm 08/06/23 08/14/23 Previous Rx's Medication Instructions Recorded albuterol sulfate 90 mcg/actuation 2 puff inhalation Q6H PRN 08/08/23 aerosol inhaler shortness of breath or wheezing #8.5 grams alendronate 70 mg tablet 70 mg PO QWEEK #10 tabs 08/14/23 omeprazole 20 mg capsule,delayed 20 mg PO DAILY #90 caps 08/14/23 release pilocarpine HCl 5 mg tablet 5 mg PO TID #90 tabs 08/14/23 ropinirole 0.5 mg tablet 1 mg (2 x 0.5 mg) PO DAILY #180 08/14/23 tabs Allergies Allergy/AdvReac Type Severity Reaction Status Date / Time pneumococcal vaccine Allergy Severe ARM Verified 09/12/23 14:33 [PNEUMOCOCCAL VACCINE] SWELLED, swelling in arm tiotropium Allergy Severe THROAT Verified 09/12/23 14:33 [From SPIRIVA WITH SWELL HANDIHALER] doxycycline AdvReac Intermediate foggy and Verified 09/12/23 14:33 forgetful Review of Systems Review of Systems: Yes all other systems are reviewed and are negative [facility] Past Medical History Medical History Annual physical exam Trochanteric bursitis of right hip Weakness of left hand Poor balance Vitamin D deficiency Tinnitus Chronic left-sided low back pain Hx of echocardiogram Insomnia Chronic allergic rhinitis Asthma Sjogrens syndrome Surgical History H/O thumb surgery History of knee replacement History of bunionectomy of right great toe H/O colonoscopy Family History Family History Father Heart attack CVD (cardiovascular disease) Mother Stroke CHF (congestive heart failure) Alzheimer's dementia Cancer Hypertension Social History Housing: House Alcohol intake: never Patient Tobacco Use Status: Never used Tobacco Smoked in Last 30 Days: No e-Cigarette/Vaping Use: Never Used Advance Directives: No Advance Directives Information Provided: Yes Nutrition Risks: No Nutritional Risk Current occupational status: retired Cognitive needs: No Hearing needs: No Vision needs: Yes Physical Exam Vital Signs: Vital Signs: Last Vital Signs Temp 97.6 F 10/01/23 06:25 Pulse 81 10/01/23 07:34 Resp 11 L 10/01/23 07:34 BP 129/65 10/01/23 07:34 Pulse Ox 97 10/01/23 07:34 O2 Del Method Room Air 10/01/23 07:34 BMI result Body Mass Index 32.4 Appearance: Alert. Oriented X3. No acute distress. Eyes: PERRLA, No Nystagmus ENT: Pharynx normal. Oral Mucosa moist Neck: Normal inspection. Neck supple. CVS: Irregularly irregular fast heart rate no murmur or gallop Pulses normal. Respiratory: No respiratory distress. Equal air entry bilateral, no wheezing/rales/rhonchi Abdomen: Soft and nontender. Bowel sounds are present, no mass palpable, no CVA tenderness Skin: Skin warm and dry. Normal skin color. Normal skin turgor. Extremities: No lower extremity edema. No calf tenderness Neuro: Oriented X 3. No motor deficit. No sensory deficit.No cerebellar signs , cranial nerves II-XII intact Medications Administered Generic Name Dose Route Start Last Admin Trade Name Freq PRN Reason Stop Dose Admin Apixaban 5 mg 10/01/23 03:15 10/01/23 03:32 Apixaban 5 Mg Tablet PO 5 mg BID ANJELICA Administration Sodium Chloride 3 ml 10/01/23 08:00 10/01/23 07:31 0.9 % Sodium Chloride Flush 3 Ml Syringe IVFLUSH 3 ml QSHIFT ANJELICA Administration Discontinued Medications Generic Name Dose Route Start Last Admin Trade Name Freq PRN Reason Stop Dose Admin Diltiazem HCl 10 mg 10/01/23 01:05 10/01/23 01:18 Diltiazem Hcl 50 Mg/10 Ml Vial IVPUSH 10/01/23 01:06 10 mg STAT STA Administration Diltiazem HCl 120 mg 10/01/23 01:47 10/01/23 01:55 Diltiazem Hcl Cd 120 Mg Cap.Er.Deg PO 10/01/23 01:48 120 mg ONCE ONE Administration Protocol Medical Decision Making Medical Decision Making [facility] Narrative: Patient has history of palpitation in the past negative Holter monitoring 2 years ago during that time patient did not have any palpitation episode. Cardiac monitoring an EKG showed AFib with rapid ventricular rate which responded to Cardizem will admit patient for further evaluation chads score is only 2 will start patient on Eliquis patient responded to IV Cardizem change to p.o. Cardizem still in AFib Differential Diagnosis Differential Diagnoses: The differential diagnosis associated with the presentation includes Atrial fibrillation with rapid ventricular rate/SVT/cardiac arrhythmias Admission/Observation Consideration of admission/observation: Escalation of care including admission/observation considered Consult Healthcare Provider Management of the patient was discussed with: Hospitalist Lab Data [facility] Lab Attestation statement: I reviewed the patient's lab results. 10/01/23 01:12 10/01/23 01:12 Labs: Lab Results 10/01/23 Range/Units 01:12 WBC 7.4 (4.8-10.8) X10*3/uL RBC 4.58 (4.20-5.50) X10*6/uL Hgb 13.1 (12.0-16.0) g/dl Hct 38.9 (37.0-47.0) % MCV 84.9 (80.0-98.0) fL MCH 28.6 (27.0-33.0) pg MCHC 33.7 (31.0-35.0) g/dl RDW 13.7 (11.0-16.0) % Plt Count 264 (160-400) X10*3/uL MPV 9.7 (9.4-12.3) fL Absolute Nucleated RBC 0.000 (0.0-0.012) X10*3/uL Nucleated RBC % (auto) 0.0 (0.0-0.2) /100WBC PT 11.7 (11.1-13.3) SEC INR 1.0 (0.9-1.1) APTT 29.0 (26.0-36.4) SEC Sodium 142 (135-145) mmol/L Potassium 3.4 (3.3-5.1) mmol/L Chloride 110 H (96-108) mmol/L Carbon Dioxide 21 L (22-29) mmol/L Anion Gap 14 (12-20) BUN 19 H (9-16) mg/dL Creatinine 0.71 (0.5-1.4) mg/dL Estim Creat Clear Calc 73.4 Estimated GFR > 60 Random Glucose 104 (60-115) mg/dL Calcium 9.2 (8.4-10.2) mg/dL Total Bilirubin 0.4 (0.0-1.0) mg/dL AST 33 H (5-31) U/L ALT 26 (0-31) U/L Alkaline Phosphatase 56 (39-117) U/L Troponin I High Sens < 2.7 (<3.5-17.0) ng/L B-Natriuretic Peptide 53 (<100) pg/mL Total Protein 7.3 (6.5-8.0) g/dL Albumin 3.9 (3.5-5.0) g/dL Independent Interpretation I performed an independent interpretation of an: EKG Interpretation: Atrial fibrillation with rapid ventricular rate went rate of [address] T wave changes no acute ischemic External Record Review External record reviewed: Inpatient record and Office record Critical Care Time Critical Care Time Critical Care Time: Yes Total Critical Care Time: 55 Attestation: The patient was critically ill with a high probability of imminent or life threatening deterioration. I spent greater than 60 minutes of discontinuous time evaluating the patient,delivering critical care at the bedside, discussing and evaluating pertinent data with consultants. Critical care time does not include time spent performing separately billable procedures or teaching. Total time spent performing critical care was 55 minutes. Discharge Plan Discharge Clinical Impression: Atrial fibrillation with rapid ventricular response Patient Disposition: Admitted As Inpatient
[2023-10-01] MEDS: dilTIAZem HCL 50 MG/10 ML VIAL 10 MG IVPUSH (01:18)
[2023-10-01 01:20] LABS: Hematocrit 38.9 % (37.0-47.0); Hemoglobin 13.1 g/dl (12.0-16.0); Mean Corpuscular HGB Conc 33.7 g/dl (31.0-35.0); Mean Corpuscular Hemoglobin 28.6 pg (27.0-33.0); Mean Corpuscular Volume 84.9 fL (80.0-98.0); Mean Platelet Volume 9.7 fL (9.4-12.3); Platelet Count 264 X10*3/uL (160-400); Red Blood Count 4.58 X10*6/uL (4.20-5.50); Red Cell Distribution Width 13.7 % (11.0-16.0); White Blood Count 7.4 X10*3/uL (4.8-10.8)
--- NOTE | 2023-10-01 01:32 | ECG_ITS ---
Test Reason : AFib Blood Pressure : / mmHG Vent. Rate : 079 BPM Atrial Rate : 000 BPM P-R Int : 000 ms QRS Dur : 088 ms QT Int : 404 ms P-R-T Axes : 000 -15 015 degrees QTc Int : 463 ms Atrial fibrillation Nonspecific T wave abnormality Abnormal ECG When compared with ECG of 01-OCT-2023 00:35, Vent. rate has decreased BY [address] more depressed Lateral leads Referred By: Ronnell Peck Electronically Signed By:ERNESTO VELEZ MD
[2023-10-01 01:35] LABS: Prothrombin Time 11.7 SEC (11.1-13.3)
[2023-10-01 01:37] LABS: Alanine Aminotransferase 26 U/L (0-31); Albumin Level 3.9 g/dL (3.5-5.0); Alkaline Phosphatase 56 U/L (39-117); Anion Gap 14 (12-20); Aspartate Amino Transferase 33 U/L (5-31); Bilirubin Total 0.4 mg/dL (0.0-1.0); Blood Urea Nitrogen 19 mg/dL (9-16); Calcium 9.2 mg/dL (8.4-10.2); Carbon Dioxide 21 mmol/L (22-29); Chloride 110 mmol/L (96-108); Creatinine Clr Calc Pharmacy 73.4; Estimated Glomerular Filt Rate > 60; Glucose Random 104 mg/dL (60-115); Potassium 3.4 mmol/L (3.3-5.1); Sodium 142 mmol/L (135-145); Total Protein 7.3 g/dL (6.5-8.0)
[2023-10-01 01:39] LABS: B Type Natriuretic Peptide 53 pg/mL (<100)
[2023-10-01 01:44] LABS: Troponin-I High Sensitivity < 2.7 ng/L (<3.5-17.0)
[2023-10-01] MEDS: dilTIAZem HCL CD 120 MG CAP.ER.DEG PO (01:55)
--- NOTE | 2023-10-01 03:12 | P.HPHOSP_ITS ---
History of Present Illness Date of Service: 10/01/23 Chief Complaint: palpitations 68 year old female with history of asthma, FRANKY, aniety/depression, h/o sjogrens syndrome, history of palpitations previously evaluated by automotive light mechanic Dr. Raul Chavez and amandater about 3 years ago but no AFIB was detected. She woke up this morning around midnight with palpitations and checked her heart rate with cardio mobil which revealed AFIB and call 911. Here in ED she was in AFIB with RVR and give IV cardizem 10 mg and oral cardizem 120 mg, her heart rate is fluctuating but mostly just around 100. Review of Systems 2 Review of Systems: palpitations, no shotness of breath, no chest pain Yes all other systems are reviewed and are negative [facility] Medical History Annual physical exam Trochanteric bursitis of right hip Weakness of left hand Poor balance Vitamin D deficiency Tinnitus Chronic left-sided low back pain Hx of echocardiogram Insomnia Chronic allergic rhinitis Asthma Sjogrens syndrome Family History Father Heart attack CVD (cardiovascular disease) Mother Stroke CHF (congestive heart failure) Alzheimer's dementia Cancer Hypertension Surgical History H/O thumb surgery History of knee replacement History of bunionectomy of right great toe H/O colonoscopy Housing: House Alcohol intake: never Patient Tobacco Use Status: Never used Tobacco Smoked in Last 30 Days: No e-Cigarette/Vaping Use: Never Used Advance Directives: No Advance Directives Information Provided: Yes Nutrition Risks: No Nutritional Risk Current occupational status: retired Cognitive needs: No Hearing needs: No Vision needs: Yes Meds Allergies Allergy/AdvReac Type Severity Reaction Status Date / Time pneumococcal vaccine Allergy Severe ARM Verified 09/12/23 14:33 [PNEUMOCOCCAL VACCINE] SWELLED, swelling in arm tiotropium Allergy Severe THROAT Verified 09/12/23 14:33 [From SPIRIVA WITH SWELL HANDIHALER] doxycycline AdvReac Intermediate foggy and Verified 09/12/23 14:33 forgetful Home Medications Medication Instructions Recorded Confirmed Last Taken Type magnesium 250 mg tablet 250 mg PO DAILY 10/20/20 10/01/23 Unknown History fexofenadine 180 mg tablet 180 mg PO DAILY 02/24/21 10/01/23 Unknown History (Ally Allergy) multivitamin 1 tab PO DAILY 02/24/21 10/01/23 Unknown History glucosamine-chondroitin 250 mg-200 1 tab PO BID 07/25/21 10/01/23 Unknown History mg tablet (Osteo Bi-Flex) baclofen 5 mg tablet 5 mg PO BEDTIME PRN muscle spasm 08/06/23 10/01/23 Unknown History alendronate 70 mg tablet 70 mg PO TU 10/01/23 10/01/23 Unknown History omega 3 350 mg-dha 235 mg-epa 90 1 cap PO DAILY 10/01/23 10/01/23 Unknown History mg-fish oil 597 mg capsule,delay rel ([place]-3) ropinirole 0.5 mg tablet 1 mg PO BEDTIME 10/01/23 10/01/23 Unknown History Physical Exam 2 Vital Signs and Narrative: Vital Signs: Last Vital Signs Temp 97.8 F 10/01/23 00:51 Pulse 90 10/01/23 02:29 Resp 12 10/01/23 02:29 BP 131/71 10/01/23 01:49 Pulse Ox 97 10/01/23 02:29 O2 Del Method Room Air 10/01/23 02:29 BMI result Body Mass Index 32.4 Const: Other: Constitutional: Alert, in no distress, overweight. Mental Status: Oriented to person, place and time. Eyes: Pupils are equal, round and reactive to light. Ear, Nose and Throat: Oropharynx clear, mucous membranes moist. Respiratory: Clear to auscultation. No wheezing, rales or rhonchi. Cardiovascular: S1 S2 irregular iregular. No murmurs, rubs or gallops. Gastrointestinal: Abdomen soft, non-tender, non-distended. Normal bowel sounds.? Neurologic: Cranial nerves II-XII grossly intact. No focal neurological deficits. Moves all extremities spontaneously.? Skin: No rashes or lesions.? Musculoskeletal: No cyanosis or clubbing. Psychiatric: Normal mood and affect? Results Labs 10/01/23 01:12 10/01/23 01:12 Labs: Laboratory Results - last 24 hr 10/01/23 01:12 MCV 84.9 MCH 28.6 MCHC 33.7 RDW 13.7 Plt Count 264 MPV 9.7 Absolute Nucleated RBC 0.000 Nucleated RBC % (auto) 0.0 PT 11.7 INR 1.0 APTT 29.0 Anion Gap 14 Estim Creat Clear Calc 73.4 Estimated GFR > 60 Random Glucose 104 Calcium 9.2 Total Bilirubin 0.4 AST 33 H ALT 26 Alkaline Phosphatase 56 B-Natriuretic Peptide 53 Total Protein 7.3 Albumin 3.9 Assessment and Plan (1) New onset a-fib: Status: Acute Plan 68 female with new onset of AFIB with RVR new AFIB with RVR -start oral cardizem 30 mg q 6 h if HR peristently high -consult cardiology -get Echo -Eliquis 5 mg now -NPO, in the event cardioversion is planned GERD omprazole Sjogrens--continue eye drops mild intermittent asthma no on meds, no exacerbation dvt: eliquis full code admit for at least 2 midnights for management of afib with RVR requiring iv meds and need further testing Quality Stroke Does the patient have a stroke diagnosis?: No VTE Prior VTE?: No VTE Risk Level:: Medical - moderate - high VTE Device Contraindication: Treatment Not Indicated VTE Drug Contraindication: N/A - Med Ordered
[2023-10-01] MEDS: Apixaban 5 MG TABLET PO ×2 (03:32→08:27)
--- NOTE | 2023-10-01 07:00 | CA_ITS ---
Transthoracic Echocardiogram Patient (Last, First, Middle): Ignacia Rodgers, Gender: Female Date of : 1955 Age: 68 Procedure Date: 10/01/2023 Procedure Type: Transthoracic Echocardiogram Location: ER Height: 157.48 cm Weight: 80.29 kg BSA: 1.81 m2 Heart Rate: 74 bpm BP: 131 / 62 mmHg Lead Caster: MINERVA Ace MD: Tariq Wilder MD Director Systems: Jeyson Jones MD Symptoms: new afib Study Quality: Fair ECG Rhythm: Sinus Conclusions: - 1. Normal LV ejection fraction of 55-60% with impaired relaxation filling pattern 2. Trivial aortic regurgitation with calcific aortic valve changes 3. Normal measured RV systolic pressure 4. No pericardial effusion Findings Left Ventricle Normal left ventricular size and systolic function. There is mildly increased left ventricular wall thickness. The visually estimated ejection fraction is between 55-60%. Spectral Doppler is indicative of an impaired relaxation filling pattern. E/E prime ratio is between 8 and 15 consistent with indeterminate filling pressures. Peak GLS is -16%, which is mildly reduced. Right Ventricle Normal right ventricular cavity size and systolic function. Atria The left atrium is likely dilated. Interatrial shunt cannot be excluded. The right atrium is normal in size. Aortic Valve There is mild calcification of the aortic valve. There is mild thickening of the aortic valve. There is no aortic valve stenosis. The peak aortic gradient is 9 mmHg.The mean gradient is 5 mmHg. The aortic valve area is 2.57 cm2. There is trace (trivial) aortic valve regurgitation. Mitral Valve Likely normal mitral valve structure and function. There is trace mitral valve regurgitation. There is no mitral valve stenosis. Pulmonic Valve The pulmonic valve was not well visualized. Tricuspid Valve Likely normal tricuspid valve structure and function. There is trace tricuspid valve regurgitation. The right ventricular systolic pressure is normal. The right ventricular systolic pressure is 10 mmHg. Normal right atrial pressure. There is no evidence of pulmonary hypertension. Great Vessels All visible segments of the aorta are normal in size. The pulmonary artery was not well visualized. There is no dilatation of the ascending aorta. Venous The inferior vena cava is normal in size and collapses greater than 50% with inspiration. Pericardium/Pleural There is no evidence of pericardial effusion. Measurements 2D Linear Measurements IVSd: 1.12 0.6-0.9/0.6-1.0 cm LVIDd: 3.20 3.9-5.3/4.2-5.9 cm LVIDd Index: 0.92 2.4-3.2/2.2-3.1 cm/m2 LVIDs: 1.50 2.0-3.6 cm LVPWd: 1.23 0.7-1.1 cm LA Diam: 3.80 2.7-3.8/3.0-4.0 cm LAIDs Index: 2.10 1.5-2.3 cm/m2 LV Mass: 77.27 67-162/88-224 g LV Mass Index: 42.69 43-95/49-115 g/m2 LVOT Diam: 2.10 3.0+(-)1.3 cm 2D Systolic Function EF 4C: 51.30 >55% EF 2C: 69.70 >55% EF BiP: 59.40 >55% Mitral Valve MV Pk E: 0.69 MV PK A: 0.75 MV Decel Time: 239.00 E/A: 0.90 E'Lateral: 9.03 E'Medial: 4.46 E/E' Med: 15.50 E/E' Lat: 7.60 PHT: 70.00 MVA PHT: 3.14 Decel [place]: 2.88 Aortic Valve AoV Pk Edgar: 1.47 AoV Mn Edgar: 1.10 AoV VTI: 0.33 AoV Pk Grad: 9.00 Aov Mn Grad: 5.00 SANDRA Cont.VTI: 2.57 LVOT LVOT Pk Edgar: 1.19 LVOT Mn Edgar: 0.80 LVOT VTI: 0.24 LVOT Pk Grad: 6.00 LVOT Mn Grad: 3.00 LVOT Diam: 2.10 LVOT Area: 3.46 Diastolic Function MV Pk E: 0.69 MV Pk A: 0.75 E/A: 0.90 E'Medial: 4.46 E/E' Med: 15.50 E' Laterial: 9.03 E/E' Lat: 7.60 Right Ventricle TAPSE (mm): 24.80 TVS' Edgar: 9.79 Tricuspid Valve TR Pk Edgar: 1.30 TR Pk Grad: 7.00 RA Press: 3.00 RVSP: 10.00 Great Vessels Aorta Sinus of Valsalva: 3.40 2.0-3.5 cm Ao Asc: 3.30 2.1-3.4 cm Pulmonary Valve PV Pk Edgar: 0.88 Peak PV Grad: 3.00 Updated in Other Vendor System with Status of Final Jeyson Jones MD electronically signed on 10/01/2023 2:10:24 PM with status of Final
[2023-10-01] MEDS: 0.9 % Sodium Chloride Flush 3 ML SYRINGE IVFLUSH (07:31)
--- NOTE | 2023-10-01 07:36 | PC.NURSE ---
ASSUMED CARE OF THIS PT AT 0700. PT ALERT+ORIENTED, VSS, DENIES PAIN. HR LOW 80S. PT NPO, ECHO ORDERED, PT AWARE OF PLAN OF CARE.
--- NOTE | 2023-10-01 08:47 | PHA.MEDREC ---
Pharmacy Consult ? Medication Reconciliation Pharmacy has completed the medication reconciliation.
--- NOTE | 2023-10-01 09:30 | PC.NURSE ---
assumed care of patient. no reports of pain, SOB. NSR on monitor - rate in 70s, no afib noted on tele.
--- NOTE | 2023-10-01 09:49 | MHC.CM.PN ---
IMM 10/01/23, Pt lives alone in a condo, she does not have any home health services, nor has she used [facility] or been to [facility]. She drove herself to the hosp. She does have a HCP, and is willing to complete the form here, CM will provide this. CM to follow and assist as needed with DC planning.
--- NOTE | 2023-10-01 11:10 | PC.NURSE ---
per discussion with dr. Wilder and pharmacy - Eliquis is retimed to ever 12 hours starting at 1500 today. 1100 dose cancelled for this morning. Diet order added by STAINED GLASS ARTIST.
--- NOTE | 2023-10-01 12:21 | P.DS_ITS ---
DS: Providers Provider Date of Service: 10/01/23 Date of admission: 10/01/23 03:30 Primary care physician: Unknown Physician Consults: 10/01/23 03:14 Consult to Cardiology Routine Consulting Provider: [facility] Cardiovascular Services Reason for consultation: new afib Has provider been notified: Yes DS: Diagnosis Discharge Diagnosis (1) New onset a-fib: Status: Acute DS: Summary Hospital Course Hospital Course: History and physical as per admitting provider. 68 year old female with history of asthma, FRANKY, aniety/depression, h/o sjogrens syndrome, history of palpitations previously evaluated by plate glass installer Dr. Raul Chavez and holter about 3 years ago but no AFIB was detected. She woke up this morning around midnight with palpitations and checked her heart rate with cardio mobil which revealed AFIB and call 911. Here in ED she was in AFIB with RVR and give IV cardizem 10 mg and oral cardizem 120 mg, her heart rate is fluctuating but mostly just around 100. 68 year old woman treated for atrial fibrillation with rapid ventricular response, new onset. Patient never had any chest pain or shortness of breath she did feel some palpitations. Treated with Cardizem 30 mg every 6 hour. There was no need for cardioversion as patient converted on her own. Was started on Eliquis, will continue Xarelto 20 mg daily and Toprol XL as per Cardiology. Plan will be to discharge patient home NG can follow-up with cardiology as needed. GERD. Ppi History of Sjogren's. Continue home medications Time Attestation Discharge coordination time: Greater than 30 minutes Quality: Safe Use of Opioids Does Pt have an Active Cancer Diagnosis on the Problem List?: No Quality: Stroke Does the patient have a stroke diagnosis?: No Physical Exam Vital Signs: Vital Signs: Last Vital Signs Temp 97.6 F 10/01/23 06:25 Pulse 74 10/01/23 09:30 Resp 12 10/01/23 09:30 BP 131/62 10/01/23 09:30 Pulse Ox 97 10/01/23 09:30 O2 Del Method Room Air 10/01/23 09:30 BMI result Body Mass Index 32.4 Appearing in no acute distress head is normocephalic atraumatic eyes pupils are PERRLA sclera is anicteric mouth throat mucous membranes are intact and moist neck is supple no lymphadenopathy, no JVD noted lung sounds are clear to auscultation heart regular rate rhythm, clear S1, S2 positive bowel sounds, abdomen is soft, nontender neuro patient is alert x3, no focal deficits DS: Data Data Completed and Pending Labs on day of discharge: Laboratory Results - last 24 hr 10/01/23 01:12 WBC 7.4 RBC 4.58 Hgb 13.1 Hct 38.9 MCV 84.9 MCH 28.6 MCHC 33.7 RDW 13.7 Plt Count 264 MPV 9.7 Absolute Nucleated RBC 0.000 Nucleated RBC % (auto) 0.0 PT 11.7 INR 1.0 APTT 29.0 Sodium 142 Potassium 3.4 Chloride 110 H Carbon Dioxide 21 L Anion Gap 14 BUN 19 H Creatinine 0.71 Estim Creat Clear Calc 73.4 Estimated GFR > 60 Random Glucose 104 Calcium 9.2 Total Bilirubin 0.4 AST 33 H ALT 26 Alkaline Phosphatase 56 Troponin I High Sens < 2.7 B-Natriuretic Peptide 53 Total Protein 7.3 Albumin 3.9 Discharge Plan Discharge Anticipated Discharge Date/Time: 10/01/23 12:18 Patient Disposition: Home, Self-Care Discharge Diagnosis: New onset atrial fibrillation Discharge Medications: New Xarelto 20 mg tablet 20 mg PO DAILY Qty: 30 0RF Rx Instructions: must administer with evening meal metoprolol succinate [Toprol XL] 50 mg tablet extended release 24 hr 50 mg PO DAILY Qty: 30 0RF Continued alendronate 70 mg tablet 70 mg PO TU ropinirole 0.5 mg tablet 1 mg PO BEDTIME [place]-3 350 mg-235 mg- 90 mg-597 mg Capsule,Delayed Release(Dr/Ec) 1 cap PO DAILY pilocarpine HCl 5 mg tablet 5 mg PO TID Qty: 90 4RF omeprazole 20 mg capsule,delayed release(DR/EC) 20 mg PO DAILY Qty: 90 3RF fexofenadine [Ally Allergy] 180 mg tablet 180 mg PO DAILY multivitamin Tablet 1 tab PO DAILY magnesium 250 mg tablet 250 mg PO DAILY glucosamine-chondroitin [Osteo Bi-Flex] 250-200 mg tablet 1 tab PO BID Rx Instructions: give after food/meal baclofen 5 mg tablet 5 mg PO BEDTIME PRN (Reason: muscle spasm) albuterol sulfate 90 mcg/actuation HFA aerosol inhaler 2 puff inhalation Q6H PRN (Reason: shortness of breath or wheezing) Qty: 8.5 11RF Discharge Orders: Discharge Order (Routine); Ordered 10/01/23 Ordered By: Omayra Olivo Diet: Advance to usual diet Activity on Discharge: As tolerated Stand Alone Forms: Patient Portal Discharge page Care Plan Goals: You have been started on two medications: Xarelto take daily Toprol xl take daily Health Concerns: New onset atrial fibrillation Plan of Treatment: Follow up with primary care provider as needed Take all medications as prescribed Assessment: See discharge summary
--- NOTE | 2023-10-01 12:36 | MHC.CM.PN ---
Pt has been medically cleared for DC, no services are needed.
--- NOTE | 2023-10-01 12:40 | P.CONCA_ITS ---
History of Present Illness History of Present Illness Date of Service: 10/01/23 Requesting physician: Omayra Olivo Consult reason: atrial fibrillation Chief complaint: afib with rvr Narrative: Thank you for referring Ignacia in cardiology consultation today for atrial fibrillation with rapid ventricular response, new onset. Patient is a pleasant 68-year-old woman with prior history of Sjogren syndrome, obstructive sleep apnea, anxiety/depression. She was very function prior to December where she had a fall and subsequently has been limited due to recurrent issues with hip and muscle discomfort. She has longstanding history of skipped heartbeats and palpitations which has worked up in the past. Patient came to the hospital as midnight yesterday she developed rapid onset palpitations while she was trying to go to sleep. She says she has been grieving recently due to loss of her pet cat of 12 years. She came to the emergency room noticed to be in atrial fibrillation rapid ventricular response and was treated with rate control. Eventually she converted back to sinus rhythm and is currently feeling well. She denies any prior history of hypertension, diabetes, congestive heart failure, vascular disease, stroke. She generally is active despite her limitations. Her TSH done recently about a month ago was within normal limits. Review of Systems 2 Constitutional: Constitutional: Reports no additional constitutional complaints Eyes: Eyes: Reports no additional eye complaints Cardiovascular: Cardiovascular: Denies chest pain, Denies leg edema, Denies lightheadedness, Denies Loss of Consciousness, Reports palpitations and Denies dyspnea Respiratory: Respiratory: Reports no additional respiratory complaints and Denies dyspnea Gastrointestinal: Gastrointestinal: Reports no additional gastrointestinal complaints Genitourinary: Genitourinary: Reports no additional female genitourinary complaints Musculoskeletal: Musculoskeletal: Reports no additional musculoskeletal complaints Integumentary/Breasts: Skin/Breast: Reports system reviewed and no additional complaints, except as docu Neurologic: Reports system reviewed and no additional complaints, except as documented Psychiatric: Psychiatric: Reports no additional psychiatric complaints Endocrine: Endocrine: Reports palpitations PMFSH Past Medical History Medical History Annual physical exam Trochanteric bursitis of right hip Weakness of left hand Poor balance Vitamin D deficiency Tinnitus Chronic left-sided low back pain Hx of echocardiogram Insomnia Chronic allergic rhinitis Asthma Sjogrens syndrome Family History Family History Father Heart attack CVD (cardiovascular disease) Mother Stroke CHF (congestive heart failure) Alzheimer's dementia Cancer Hypertension Surgical History Surgical History H/O thumb surgery History of knee replacement History of bunionectomy of right great toe H/O colonoscopy Social History Social History Housing: House Alcohol intake: never Patient Tobacco Use Status: Never used Tobacco Smoked in Last 30 Days: No e-Cigarette/Vaping Use: Never Used Advance Directives: No Advance Directives Information Provided: Yes Nutrition Risks: No Nutritional Risk Current occupational status: retired Cognitive needs: No Hearing needs: No Vision needs: Yes Meds Allergies Allergy/AdvReac Type Severity Reaction Status Date / Time pneumococcal vaccine Allergy Severe ARM Verified 09/12/23 14:33 [PNEUMOCOCCAL VACCINE] SWELLED, swelling in arm tiotropium Allergy Severe THROAT Verified 09/12/23 14:33 [From SPIRIVA WITH SWELL HANDIHALER] doxycycline AdvReac Intermediate foggy and Verified 09/12/23 14:33 forgetful Active Medications: Current Medications Acetaminophen (Acetaminophen 325 Mg Tablet) 650 mg PO Q6H PRN PRN Reason: Pain, Mild (Pain Scale 1-3) Albuterol Sulfate (Albuterol Sulfate 90 Mcg 8 Gm Inhaler) 2 puff INHALE RQ6H PRN PRN Reason: shortness of breath or wheezing Apixaban (Apixaban 5 Mg Tablet) 5 mg PO BID@0300,1500 [facility] Magnesium Hydroxide (Milk Of Magnesia 30 Ml Oral.Susp) 30 ml PO DAILY PRN PRN Reason: Constipation Magnesium Oxide (Magnesium Oxide 400 Mg Tablet) 200 mg PO DAILY ANJELICA Melatonin (Melatonin 3 Mg Tablet) 6 mg PO BEDTIME PRN PRN Reason: Insomnia Multivitamins/Vitamin C (Multivitamin Tablet) 1 tab PO DAILY [facility] Non-Formulary Medication (Pilocarpine Hcl) 5 mg PO TID ANJELICA Omeprazole (Omeprazole 20 Mg Capsule.Dr) 20 mg PO DAILY@0630 [facility] Ondansetron HCl (Ondansetron Hcl 4 Mg/2 Ml Vial) 4 mg IVPUSH Q8H PRN PRN Reason: Nausea and Vomiting Ropinirole HCl (Ropinirole Hcl 1 Mg Tablet) 1 mg PO BEDTIME ANJELICA Sodium Chloride (0.9 % Sodium Chloride Flush 3 Ml Syringe) 3 ml IVFLUSH QSHIFT ANJELICA Last Admin: 10/01/23 07:31 Dose: 3 ml Home Medications Medication Instructions Recorded Confirmed Last Taken Type magnesium 250 mg tablet 250 mg PO DAILY 10/20/20 10/01/23 Unknown History fexofenadine 180 mg tablet 180 mg PO DAILY 02/24/21 10/01/23 Unknown History (Ally Allergy) multivitamin 1 tab PO DAILY 02/24/21 10/01/23 Unknown History glucosamine-chondroitin 250 mg-200 1 tab PO BID 07/25/21 10/01/23 Unknown History mg tablet (Osteo Bi-Flex) baclofen 5 mg tablet 5 mg PO BEDTIME PRN muscle spasm 08/06/23 10/01/23 Unknown History alendronate 70 mg tablet 70 mg PO TU 10/01/23 10/01/23 Unknown History omega 3 350 mg-dha 235 mg-epa 90 1 cap PO DAILY 10/01/23 10/01/23 Unknown History mg-fish oil 597 mg capsule,delay rel ([place]-3) ropinirole 0.5 mg tablet 1 mg PO BEDTIME 10/01/23 10/01/23 Unknown History Physical Exam 2 Vital Signs: Vital Signs: Last Vital Signs Temp 97.6 F 10/01/23 06:25 Pulse 74 10/01/23 09:30 Resp 12 10/01/23 09:30 BP 131/62 10/01/23 09:30 Pulse Ox 97 10/01/23 09:30 O2 Del Method Room Air 10/01/23 09:30 BMI result Body Mass Index 32.4 Const: General: cooperative, comfortable, no acute distress, alert, awake and anxious Nutritional Appearance: overweight Orientation/consciousness: p atient oriented x3 Limitations: no limitations HEENT: Head: Yes normocephalic and Yes atraumatic Neck: Neck: Yes trachea midline, Yes supple and Yes no JVD Resp: Effort & Inspection: normal respiratory effort Auscultation: clear to auscultation bilaterally Cardio: Jugular venous distension: no JVD Palpation: normal PMI Rate: r egular rate Rhythm: regular rhythm Heart sounds: S1 normal heart sound present, S2 normal heart sound present, no click, no gallops, no murmurs and no rubs GI: Auscultation: normal bowel sounds Skin: General skin exam: no rashes or lesions noted Neuro: General: patient oriented x3 and no focal motor deficits Extrem: General: Yes no clubbing, cyanosis or edema Psych: Appearance: grossly normal Affect: Anxious affect present Objective Labs and Meds 10/01/23 01:12 10/01/23 01:12 Lab results: Laboratory Results - last 24 hr 10/01/23 01:12 WBC 7.4 RBC 4.58 Hgb 13.1 Hct 38.9 MCV 84.9 MCH 28.6 MCHC 33.7 RDW 13.7 Plt Count 264 MPV 9.7 Absolute Nucleated RBC 0.000 Nucleated RBC % (auto) 0.0 PT 11.7 INR 1.0 APTT 29.0 Sodium 142 Potassium 3.4 Chloride 110 H Carbon Dioxide 21 L Anion Gap 14 BUN 19 H Creatinine 0.71 Estim Creat Clear Calc 73.4 Estimated GFR > 60 Random Glucose 104 Calcium 9.2 Total Bilirubin 0.4 AST 33 H ALT 26 Alkaline Phosphatase 56 Troponin I High Sens < 2.7 B-Natriuretic Peptide 53 Total Protein 7.3 Albumin 3.9 Assessment and Plan (1) Paroxysmal atrial fibrillation: Status: Acute Highly symptomatic paroxysmal atrial fibrillation, new onset in this elderly woman with no other cardiovascular risk factors. She converted with rate control into normal rhythm is feeling well at this point time. She has risk factor of obstructive sleep apnea but not a risk factor for thromboembolic complication except for age and gender. CHADSVASc score of 2. Start oral anticoagulation. She would prefer once a day drug. Will start on Xarelto 20 mg daily. Most likely induced by recent significant stress related to her grieving in the setting of known prior PACs/extra systoles. Also start on Toprol-XL 50 mg daily. Had a long discussion about pathophysiology of atrial fibrillation including structural versus electrical atrial fibrillation. Will pursue rhythm control approach at this point time. Will follow-up as outpatient after stress test as well as a Holter monitor. Patient can be discharged home today. Will review the echocardiogram performed. Follow up in the office in 4 weeks time. Procedures Date of Service Date of Service: 10/01/23
--- NOTE | 2023-10-01 13:37 | PC.NURSE ---
no reports of pain, pt no longer NPO. NSR on tele. called kitchen for vegetarian tray. awaiting bed assignment.
== END 2023-10-01 13:45 | disposition home or self-care (01) | DRG 310 ==
LOC: HO.ED 01:01 → HO.EDOVER 03:38
PROVIDERS: Admitting Provider Internal Medicine; Emergency Provider Internal Medicine; PCP Internal Medicine; Visit Provider Nurse Practitioner Acute Care
DX: I48.0 Paroxysmal atrial fibrillation (principal); G47.33 Obstructive sleep apnea (adult) (pediatric); K21.9 Gastro-esophageal reflux disease without esophagitis; M35.00 Sjogren syndrome, unspecified; J45.20 Mild intermittent asthma, uncomplicated; Z79.899 Other long term (current) drug therapy
CPT/HCPCS: 36415; 80053; 83880; 84484; 85027; 85610; 85730; 93005; 93306; 93356; 99285; Q9957

== ENCOUNTER → 2023-10-01 03:30 | Outpatient (BNV) | payer MEDICARE, SELFPAY | PROVIDERS: Admitting Provider Internal Medicine; Emergency Provider Internal Medicine; PCP Internal Medicine; Visit Provider Nurse Practitioner Acute Care | DX: I48.91 Unspecified atrial fibrillation (principal) | CPT/HCPCS: 99235; 99499 ==

== ENCOUNTER → 2023-10-01 03:30 | Outpatient (BNV) | payer MEDICARE, SELFPAY | PROVIDERS: Admitting Provider Internal Medicine; Emergency Provider Internal Medicine; Visit Provider Internal Medicine Cardiovascular Disease | DX: I48.0 Paroxysmal atrial fibrillation (principal); I35.8 Other nonrheumatic aortic valve disorders | CPT/HCPCS: 93306; 99222 ==

== ENCOUNTER 2023-10-03 12:34 | Outpatient (AMB) | payer MEDICARE, SELFPAY ==
--- NOTE | 2023-10-03 12:45 | MHC.PC.OV ---
Vital Signs 10/03/23 12:46 Height 5 ft 2 in Weight 184 lb BMI 33.7 BP 134/84 Blood Pressure Location Lt brachial Position Sitting Pulse 82 Pulse Source Pulse Oximeter Pulse Oximetry (%) 98 Oxygen Delivery Method Room Air Intake Visit Reasons: ER follow up Intake Note: Pt is here today for ER follow up visit. Allergies pneumococcal vaccine [PNEUMOCOCCAL VACCINE] Allergy (Severe, Verified 10/03/23 12:52) ARM SWELLED, swelling in arm tiotropium [From SPIRIVA WITH HANDIHALER] Allergy (Severe, Verified 10/03/23 12:52) THROAT SWELL doxycycline Adverse Reaction (Intermediate, Verified 10/03/23 12:52) foggy and forgetful Tobacco use date assessed: 08/14/23 HPI ER follow up HPI Details Patient presents for the follow-up of new onset AFib with RVR, converted in the ER on Cardizem. Patient was seen by delivery table operator Dr. Jones and has Holter and stress test scheduled. Patient denies any recurrent palpitations chest pain or shortness of breath. [facility] Medical History Annual physical exam Trochanteric bursitis of right hip Weakness of left hand Poor balance Vitamin D deficiency Tinnitus Chronic left-sided low back pain Hx of echocardiogram Insomnia Chronic allergic rhinitis Asthma Sjogrens syndrome Surgical History H/O thumb surgery History of knee replacement History of bunionectomy of right great toe H/O colonoscopy Family History (Updated 10/03/23 @ 12:55 by DANN Escobar) Father Heart attack CVD (cardiovascular disease) Mother Stroke CHF (congestive heart failure) Alzheimer's dementia Cancer Hypertension Social History Housing: House Alcohol intake: never Patient Tobacco Use Status: Never used Tobacco e-Cigarette/Vaping Use: Never Used Current occupational status: retired Cognitive needs: No Hearing needs: No Vision needs: Yes Questionnaire Thrive Questionnaire Date Thrive assessed: 08/14/23 MESHA-7 AMB Questionnaire MESHA-7 Date MESHA - 7 assessed: 08/14/23 Source: Developed by Drs. Sadiq Bear, Latricia Alexandru Horne and colleagues, with an educational compa from [employer]. Review of Systems Const All systems reviewed & are unremarkable except as noted in HPI and below Reports no additional complaints Eyes Reports no additional complaints ENT Reports no additional complaints Card Reports no additional complaints Resp Reports no additional complaints GI Reports no additional complaints Reports no additional complaints Physical exam (Primary Care) Vital Signs: Last Vital Signs Pulse 82 10/03/23 12:46 BP 134/84 10/03/23 12:46 Pulse Ox 98 10/03/23 12:46 Oxygen Delivery Method Room Air 10/03/23 12:46 BMI result Body Mass Index 33.7 Tobacco/Smoking Status: Tobacco use Status Tobacco use date assessed 08/14/23 10/03/23 12:45 Patient Tobacco Use Status Never used Tobacco 10/03/23 12:45 e-Cigarette/Vaping Use Never Used 10/03/23 12:45 Thrive Assessment: Date of Thrive Assessment Date Thrive assessed 08/14/23 10/03/23 12:45 Const General: no acute distress HENMT Ears: hearing grossly normal bilaterally Eyes General: appearance normal, both eyes and all related structures Resp Effort & Inspection: normal respiratory effort Auscultation: clear to auscultation bilaterally Cardio Rhythm: regular rhythm Heart sounds: S1 normal heart sound present and S2 normal heart sound present GI Inspection: Yes normal to inspection Palpation (GI): Soft to palpation Percussion: Yes normal to percussion Assessment and Plan Assessment & Plan (1) Paroxysmal atrial fibrillation: Comment: 10/01/23 converted after Cardizem in ER, f/u Dr. Jones, Echo 10/01 LVEF 60%, trivial AR Code(s): I48.0 - Paroxysmal atrial fibrillation Plan: CONTINUE METOPROLOL AND XARELTO FOLLOW-UP WITH CARDIOLOGY FOR STRESS TEST AND HOLTER MONITOR (2) Asthma: Comment: Mild. pt uses albuterol p.r.n. Code(s): J45.909 - Unspecified asthma, uncomplicated Qualifiers: Asthma severity: mild Asthma persistence: intermittent Asthma complication type: uncomplicated Qualified Code(s): J45.20 - Mild intermittent asthma, uncomplicated Orders: Orders Basic Metabolic Panel 10/07/23 I48.0 - Paroxysmal atrial fibrillation Coding Level of Care Code Est Pt Level 3 (46763) Diagnoses Paroxysmal atrial fibrillation I48.0 Mild intermittent asthma without complication J45.20 Asthma severity: mild Asthma persistence: intermittent Asthma complication type: uncomplicated
[2023-10-03 12:46] VITALS: BP 134/84; PULSE 82; O2SAT 98; BMI 33.7
== END 2023-10-03 13:41 | disposition home or self-care (01) ==
PROVIDERS: PCP Internal Medicine; Visit Provider Internal Medicine
DX: I48.0 Paroxysmal atrial fibrillation (principal); J45.20 Mild intermittent asthma, uncomplicated
CPT/HCPCS: 99213

== ENCOUNTER → 2023-10-07 07:49 | Outpatient (REF) | payer MEDICARE, SELFPAY ==
--- NOTE | 2023-10-07 07:52 | CA_ITS ---
Acquisition Time: 2023-10-07 08:02:38 Total Exercise Time: 00:06:25 Test Indications: Abnormal ECG AFIB Medications: SEE H Protocol: ERIKA Max HR: 126 BPM 83% of Pred: 151 BPM Max BP: 162/084 mmHG Max Work Load: 7.6 METS Exercise stress test exercise 6 min 25 sec of Erika protocol achieving 84% with moderate SOB, no chest discomfort, with isolated PVCs, with normotensive response to exercise, without EKG changes. Breathing returned to normal with rest. Test reviewed with Dr. Hernandez. Referred By: Jeyson Jones Overread By: Arelis Francis
--- NOTE | 2023-10-07 07:52 | HM_ITS ---
* Total monitoring time 3 days. * Underlying rhythm is sinus with an average rate of 63/Min. Range 44 to 102/Min. * Occasional supraventricular ectopy with a burden of 0.7%. * Occasional ventricular ectopy with a burden of 0.37%. Rare trigeminy. No significant runs. * No significant pauses or AV blocks. * No patient markers or events in diary. MTDD
== END ==
LOC: HO.CARD 07:49
PROVIDERS: PCP Internal Medicine; Visit Provider Internal Medicine Cardiovascular Disease
DX: I48.0 Paroxysmal atrial fibrillation (principal)
CPT/HCPCS: 93017; 93242

== ENCOUNTER → 2023-10-07 07:52 | Outpatient (BNV) | payer MEDICARE, SELFPAY | PROVIDERS: PCP Internal Medicine; Visit Provider Nurse Practitioner | DX: I48.0 Paroxysmal atrial fibrillation (principal) | CPT/HCPCS: 93016; 93018; 93244 ==

== ENCOUNTER 2023-10-11 09:04 | Outpatient (REF) | payer MEDICARE, SELFPAY ==
[2023-10-11 13:05] LABS: Anion Gap 9 (12-20); Blood Urea Nitrogen 10 mg/dL (9-16); Calcium 9.1 mg/dL (8.4-10.2); Carbon Dioxide 30 mmol/L (22-29); Chloride 107 mmol/L (96-108); Estimated Glomerular Filt Rate > 60; Glucose Random 90 mg/dL (60-115); Potassium 4.4 mmol/L (3.3-5.1); Sodium 142 mmol/L (135-145)
== END 2023-10-11 09:05 | disposition home or self-care (01) ==
LOC: HO.HMGCLDS 09:04
PROVIDERS: PCP Internal Medicine; Visit Provider Internal Medicine
DX: I48.0 Paroxysmal atrial fibrillation (principal)
CPT/HCPCS: 36415; 80048

== ENCOUNTER 2023-10-24 13:53 | Outpatient (AMB) | payer MEDICARE, SELFPAY ==
[2023-10-24 13:59] VITALS: BP 128/62; PULSE 71; BMI 34.1
--- NOTE | 2023-10-24 13:59 | A.OFFVIS_ITS ---
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: No Allergies pneumococcal vaccine [PNEUMOCOCCAL VACCINE] Allergy (Severe, Verified 10/24/23 14:01) ARM SWELLED, swelling in arm tiotropium [From SPIRIVA WITH HANDIHALER] Allergy (Severe, Verified 10/24/23 14:01) THROAT SWELL doxycycline Adverse Reaction (Intermediate, Verified 10/24/23 14:01) foggy and forgetful Medication List - Last Reconciled 10/24/23 by DAMION Jolley albuterol sulfate 90 mcg/actuation 2 puffs inhalation Q6H PRN alendronate 70 mg PO TU amoxicillin 2,000 mg (4 x 500 mg) PO ONCE baclofen 5 mg PO BEDTIME PRN fexofenadine (Ally Allergy) 180 mg PO DAILY glucosamine-chondroitin 250-200 mg (Osteo Bi-Flex) 1 tab PO BID magnesium 250 mg PO DAILY metoprolol succinate ER (Toprol XL) 50 mg PO DAILY 90 days multivitamin 1 tab PO DAILY omega 4-kvj-dol-fish oil 350 mg-235 mg- 90 mg-597 mg ([place]-3) 1 cap PO DAILY omeprazole 20 mg PO DAILY pilocarpine HCl 5 mg PO TID rivaroxaban (Xarelto) 20 mg PO DAILY 90 days ropinirole 1 mg PO BEDTIME HPI f/u [facility] [place] dc after holter HPI Details Ignacia is a 68-year-old female with past medical history of asthma, sleep apnea, who was recently admitted to [facility] with report of heart palpitations and found to have atrial fibrillation with rapid ventricular response. She was treated with heart rate lowering medication and converted back to normal sinus rhythm. She was started on anticoagulation and now presents for follow-up after recent Holter monitor and stress test. Today she reports that she has not had any recurrent atrial fibrillation since her hospital discharge. She does report being under high stress and grief with the loss of her elderly CT. No chest discomfort at rest or with activity. No heart palpitations, shortness of breath, lightheadedness, presyncope, syncope, PND, orthopnea or edema. She is taking her medications as directed. No bleeding issues reported. She describes normal ADLs but does no routine exercise. [facility] Medical History New onset a-fib Annual physical exam Trochanteric bursitis of right hip Weakness of left hand Poor balance Vitamin D deficiency Tinnitus Chronic left-sided low back pain Hx of echocardiogram Insomnia Chronic allergic rhinitis Asthma Sjogrens syndrome Surgical History H/O thumb surgery History of knee replacement History of bunionectomy of right great toe H/O colonoscopy Family History Father Heart attack CVD (cardiovascular disease) Mother Stroke CHF (congestive heart failure) Alzheimer's dementia Cancer Hypertension Social History Housing: House Alcohol intake: never Patient Tobacco Use Status: Never used Tobacco e-Cigarette/Vaping Use: Never Used Current occupational status: retired Cognitive needs: No Hearing needs: No Vision needs: Yes Review of Systems Const All systems reviewed & are unremarkable except as noted in HPI and below ENT Denies dizziness Card Denies chest pain, Denies chest pain at rest, Denies chest pain with activity, Denies rapid heart rate, Denies pedal edema, Denies edema, Denies leg edema, Denies lightheadedness, Denies palpitations, Denies dyspnea, Denies dyspnea on exertion and Denies orthopnea Resp Denies cough, Denies dyspnea and Denies dyspnea on exertion GI Denies hematochezia and Denies change in stool character Musc Denies abnormal gait, Denies limited range of motion, Denies muscle cramps, Denies muscle weakness, Denies numbness, Denies radiating pain into limb, Denies stiffness and Denies tingling Neuro Denies abnormal gait, Denies dizziness, Denies numbness and Denies tingling Endo Denies palpitations Physical Exam Vital Signs: Last Vital Signs Pulse 71 10/24/23 13:59 BP 128/62 10/24/23 13:59 BMI result Body Mass Index 34.1 Const General: cooperative, healthy appearing, comfortable and no acute distress Orientation/consciousness: patient oriented x3 Neck Neck: Yes normal visual inspection Resp Effort & Inspection: normal respiratory effort Auscultation: clear to auscultation bilaterally, no crackles, no rales, no rhonchi and no wheezes Cardio Jugular venous distension: no JVD Rate: regular rate Rhythm: regular rhythm Heart sounds: S1 normal heart sound present, S2 normal heart sound present, no murmurs and no rubs Neuro General: patient oriented x3 Extrem General: Yes normal to inspection, No no pedal edema and No calf tenderness Psych Appearance: grossly normal Mental Status: mental status grossly normal Speech and movement: Normal speech and movement present Assessment & Plan Assessment & Plan (1) Paroxysmal atrial fibrillation: Comment: 10/01/23 converted after Cardizem in ER, f/u Dr. Jones, Echo 10/01 LVEF 60%, trivial AR Code(s): I48.0 - Paroxysmal atrial fibrillation Plan: New finding of paroxysmal atrial fibrillation at hospital admission last month. She was treated for heart rate control and converted back to sinus rhythm. She was discharged with Toprol XL 50 mg daily. Chads Vasc score of 2. She was put on Xarelto 20 mg daily. She preferred once daily dosing. Echocardiogram done 10/01/2023 showed EF 55-60%, impaired relaxation, normal RV, left atrium likely dilated, aortic valve with calcific changes. Holter monitor done 10/07/2023 for 3 days shows sinus rhythm with average heart rate 63, heart rate range 44 to 102, occasional PACs and PVCs. Exercise stress test done 10/07/2023 showed exercise 6-1/2 minutes with moderate shortness of breath, no EKG changes. Today she reports no recurrent heart palpitations since her hospital discharge. Pulse is regular on examination with no concern for atrial fibrillation. Tolerating her current med management. Will continue Toprol and Xarelto without change. Last labs done 10/11/2023 showed creatinine 0.78. Labs 10/01/2023 showed hematocrit 38.9. Cardiology follow-up in 6 months, sooner if needed (2) Hospital discharge follow-up: Code(s): Z09 - Encounter for follow-up examination after completed treatment for conditions other than malignant neoplasm Plan: As above (3) Anticoagulated: Code(s): Z79.01 - buttermaker (current) use of anticoagulants Plan: As above Plan Time spent on chart review, documentation, interview and assessment Medications: Changed From metoprolol succinate ER (Toprol XL) 50 mg PO DAILY 30 tabs 0RF To metoprolol succinate ER (Toprol XL) 50 mg PO DAILY 90 days 90 tabs 3RF From rivaroxaban (Xarelto) must administer with evening meal 20 mg PO DAILY 30 tabs 0RF To rivaroxaban (Xarelto) must administer with evening meal 20 mg PO DAILY 90 days 90 tabs 3RF Coding Level of Care Code Est Pt Level 4 (60048) Diagnoses Paroxysmal atrial fibrillation I48.0 Hospital discharge follow-up Z09 Anticoagulated Z79.01 Time Spent (min) 28
== END 2023-10-24 14:25 | disposition home or self-care (01) ==
PROVIDERS: PCP Internal Medicine; Visit Provider Nurse Practitioner Family
DX: I48.0 Paroxysmal atrial fibrillation (principal); Z09 Encounter for follow-up examination after completed treatment for conditions other than malignant neoplasm; Z79.01 Long term (current) use of anticoagulants
CPT/HCPCS: 99214

== ENCOUNTER → 2023-10-24 13:53 | Outpatient (BNVA) | payer MEDICARE, SELFPAY | PROVIDERS: PCP Internal Medicine; Visit Provider Nurse Practitioner Family | DX: Z09 Encounter for follow-up examination after completed treatment for conditions other than malignant neoplasm (principal); I48.0 Paroxysmal atrial fibrillation; Z79.01 Long term (current) use of anticoagulants | CPT/HCPCS: 99212 ==

== ENCOUNTER 2023-12-06 10:34 | Outpatient (AMB) | payer MEDICARE, SELFPAY ==
--- NOTE | 2023-12-06 10:48 | MHC.OFFVIS ---
Intake Vital Signs 12/06/23 10:50 Height 5 ft 2 in Weight 183 lb 13.848 oz BMI 33.6 BP 134/68 Blood Pressure Location Lt brachial Position Sitting Pulse 68 Pulse Source Pulse Oximeter Temp 96.8 F Temp Source Skin Pulse Oximetry (%) 96 Oxygen Delivery Method Room Air Intake Visit Reasons: sjogren's with caregiver services home Intake Note: Patient last seen 08/07/[address] Ferreira, presents today for follow up and test results. Reports pain in R arm that started approx 2-3 months ago. Previous shoulder xray revealed arthritis. Mentions she had a fall in 2021 where she hurt her right side. 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 Beth 68 yoF for evaluation of her Sjogren's syndrome and OA. She is doing well overall but her right shoulder continues to be bothersome and now has some muscle spasms. 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 Last visit 08/07/2023: She remains on pilocarpine 5 mg t.i.d. and Restasis eyedrops. Those measures do seem to help the dryness symptoms in the mouth and eyes. She has some pain in the hands, mostly at the base of the right thumb. Her knee replacement seem to be doing fine. At her last visit she was having some shoulder pain. I had referred her to physical therapy but she could not get an appointment. She was doing her own shoulder exercises and that seemingly has improved. She has been getting occasional nausea and epigastric discomfort. This is attributed to gallstones. She has changed her diet and symptoms seem less frequent. She had a recent SI joint injection and that seems to help her back pain. She notes that when she walks she seems to tilt to the right. This eventually becomes uncomfortable with some right lumbar pain. [facility] Medical History New onset a-fib Annual physical exam Trochanteric bursitis of right hip Weakness of left hand Poor balance Vitamin D deficiency Tinnitus Chronic left-sided low back pain Hx of echocardiogram Insomnia Chronic allergic rhinitis Asthma Sjogrens syndrome Surgical History H/O thumb surgery History of knee replacement History of bunionectomy of right great toe H/O colonoscopy Family History Father Heart attack CVD (cardiovascular disease) Mother Stroke CHF (congestive heart failure) Alzheimer's dementia Cancer Hypertension Social History Housing: House Alcohol intake: never Patient Tobacco Use Status: Never used Tobacco e-Cigarette/Vaping Use: Never Used Current occupational status: retired Cognitive needs: No Hearing needs: No Vision needs: Yes Review of Systems Const All systems reviewed & are unremarkable except as noted in HPI and below Physical Exam Vital Signs: Last Vital Signs Temp 96.8 F 12/06/23 10:50 Pulse 68 12/06/23 10:50 BP 134/68 12/06/23 10:50 Pulse Ox 96 12/06/23 10:50 Oxygen Delivery Method Room Air 12/06/23 10:50 BMI result Body Mass Index 33.6 APPEARANCE: Patient in no acute distress EYES no redness, pupils equal and reactive to light, eyelids normal. No temporal artery tenderness, redness or swelling. EXTREMITIES: No edema, no calf tenderness, normal peripheral pulses. SKIN: No inflammatory or neoplastic lesions. Normal color and turgor JOINT EXAM: Cervical Spine:.? Full range of motion without pain; no tenderness. Thoracic Spine:.? No scoliosis.? No tenderness on palpation. Lumbar Spine:.? Some scoliosis evident. Pain with flexion at about 60 degrees with some mild right paraspinal muscle tenderness. Chest Wall:.? No tenderness, swelling, increased warmth or erythema. Hands:.? Right: There is bony enlargement and mild tenderness at the base of the thumb. There is some degree of thenar atrophy but no sensory loss. The joint at the base of thumb also is easily sublux able. There is no swelling or tenderness across the PIP joints but all of the DIP joints have bony enlargement with slight tenderness. The 2nd DIP joint has some deviation to the radial aspect. Left: Slight tenderness at the base of the thumb without swelling. No tenderness or swelling in the MCP joints or the PIP joints. There is mild bony enlargement at all the PIP joints but they are not tender. No flexor tendon triggering, thenar atrophy or sensory loss. Wrists:.? Normal pain-free range of motion without tenderness, swelling, increased warmth or erythema. Elbows:. Normal pain-free range of motion without tenderness, swelling, increased warmth or erythema. Shoulders: Right: Unable to lift arm past 90 degrees without discomfort, some anterior tenderness at the biceps. Today there is no abductor weakness, swelling, redness, or adenopathy. Left:?? Full range of motion without pain. No tenderness, weakness, swelling, increased warmth or erythema. Hips:.? Full range of motion without pain. Hip bursa:.? Mild right trochanteric tenderness. Knees:.??Right: Well-healed anterior scar. Motion seems normal and pain-free without tenderness or swelling. Left: Normal pain-free range of motion with slight patellofemoral crepitus but no effusion, tenderness, swelling, increased warmth or erythema.? There is no effusion or crepitation Ankles:.? Left: Some degree of valgus deformity. There is subcutaneously felt hardware on the lateral aspect. Motion seems intact in without pain however. There is no tenderness or soft tissue swelling. Right: Normal pain-free range of motion without tenderness, swelling, increased warmth or erythema. Feet:.? Right: Some pes planus deformity. Evidence of previous surgery at the 1st MTP joint. There are no areas of tenderness or swelling in the foot. Left: Mild bony enlargement, slight tenderness and hallux valgus deformity at the 1st MTP joint. Mild pes planus deformity. Elsewhere there is normal pain-free range of motion without tenderness, swelling, increased warmth or erythema. Tender points:? Mild tenderness to digital palpation at the trapezius, greater trochanter area bilaterally. ? Results Reviewed Results Reviewed: [facility] [address] [address] XRay Report Signed Patient: Ignacia Rodgers MR#: [id number] : 1955 Acct:[id number] Age/Sex: 67 / F ADM Date: 12/21/22 Loc: HO.HMGCX Attending Dr: Germaine Delcid NP Ordering Physician: GERMAINE DELCID NP Date of Service: 12/21/22 Procedure(s): XR sacroiliac joint min 3V Accession Number(s): [id number] cc: GERMAINE DELCID CERTIFIED WELDING INSPECTOR~ 12/21/2022 EXAMINATION: XR SACROILIAC JOINTS CLINICAL INFORMATION: Pain COMPARISON: Hip radiographs 01/31/2022 TECHNIQUE: 3 views of the sacroiliac joints FINDINGS: No acute fracture or dislocation. There is mild sclerosis along the margins of the sacroiliac joints which may reflect sequelae of degenerative change or sacroiliitis. Joint spaces are maintained. Sacral arcuate lines are intact. XR/XR sacroiliac joint min 3V IMPRESSION: There is mild sclerosis along the margins of the sacroiliac joints which may reflect sequelae of degenerative change or sacroiliitis. Joint spaces are maintained. ?Dictated By: Layla Walters MD XRay Report Signed Patient: Ignacia Rodgers MR#: [id number] : 1955 Acct:[id number] Age/Sex: 66 / F ADM Date: 01/31/[address]: Gloria Garcia PA-C Ordering Physician: Gloria Garcia PA-C Date of Service: 01/31/22 Procedure(s): XR hip RT w PEL1V Accession Number(s): [id number] cc: Gloria Garcia PA-C~ EXAMINATION: XR HIP, RIGHT CLINICAL INFORMATION: Pelvic pain status post fall. COMPARISON: None TECHNIQUE: Two views of the right hip. FINDINGS: Bones and soft tissues are normal. No fracture. Alignment is anatomic. Hip joint space is maintained.? XR/XR hip RT w PEL1V IMPRESSION: Unremarkable right hip. ?Dictated By: Chidi Rivas MD Ordering Physician: Dillan Ferreira MD Date of Service: 01/30/23 Procedure(s): XR shoulder RT min 2V Accession Number(s): [id number] cc: Dillan Ferreira MD~ Examination: 1. Radiographs right shoulder 2. Radiographs right hand 3. Radiographs left hand INDICATION: Right shoulder pain. Osteoarthritis. COMPARISON: Radiographs of the bilateral hands 07/15/2017 TECHNIQUE: 4 views of the right shoulder and 3 views of each hand were obtained. FINDINGS: Right shoulder: Visualized portion of the proximal right humerus demonstrate no fracture. Humeral head demonstrates good articulation with the glenoid fossa. There are mild degenerative changes of the right acromioclavicular joint. Visualized right-sided ribs and lung parenchyma are unremarkable. Right hand: Visualized portion of the distal radius and ulna demonstrate no fracture. Mild ulnar negative variance. Carpal rows are maintained. There is no carpal bone fracture. There is mild widening of the scapholunate junction. There are mild degenerative changes throughout the wrist with cystic changes throughout several carpal bones. There are mild degenerative changes of the first carpal metacarpal joint. There are moderate degenerative changes of scattered IP joints with some subtle erosive changes involving the second, third and fifth DIP joints. Similar subluxation of the second DIP joint. There is no focal soft tissue swelling present. No radiopaque foreign body. Left hand: Visualized portion of the distal radius and ulna demonstrate no fracture. There is mild ulnar negative variance. Carpal rows are maintained. No carpal bone fracture. Mild degenerative changes of the first carpal metacarpal joint. There are mild degenerative changes of scattered DIP joints, most notably involving the third digit. No gross erosive changes are noted. No focal soft tissue swelling. No radiopaque foreign body. XR/XR shoulder RT min 2V IMPRESSION: 1. Mild degenerative changes of the right shoulder without fracture or dislocation. 2. Mild to moderate degenerative changes of both hands, most notably involving the DIP joints and more prominent in the right hand. 3. Mild degenerative changes of the right wrist. Assessment & Plan Assessment & Plan (1) Sjogrens syndrome: Comment: Dx 2009: sicca symptoms, pos SS-B, neg SS-A, low titer RF, neg DNA, KIRSTEN, CCP Code(s): M35.00 - Sjogren syndrome, unspecified Qualifiers: Sjogren's organ involvement: unspecified organ involvement Qualified Code(s): M35.00 - Sicca syndrome, unspecified (2) Shoulder pain, right: Code(s): M25.511 - Pain in right shoulder Qualifiers: Chronicity: chronic Qualified Code(s): M25.511 - Pain in right shoulder; G89.29 - Other chronic pain Plan #Right Shoulder Pain: Ms. Beth is having decreased use of the right hand due to muscle spasms. I think she would benefit from PT and muscle relaxers so I will renew the script for both. We discussed that the muscle relaxer should taken while at home and she should not drive. She continues with osteoarthritis particularly in that hands and the lumbar spine. We will check some labs today. Follow-up in 4 months. #Sjogren's syndrome with some improvement in the sicca symptoms with the use of the oral pilocarpine and Restasis drops. I do not see any signs of lymphoma or any extra glandular manifestations of the Sjogren's. She can continue with current medications. I spent 25 minutes reviewing chart, examining patient and documenting. Orders: Orders PT Evaluation and Treatment Today M25.511 - Pain in right shoulder Medications: New baclofen 5 mg PO BEDTIME PRN 30 tabs 0RF muscle spasm M25.511 - Pain in right shoulder Coding Level of Care Code Est Pt Level 3 (13165) Diagnoses Sjogren's syndrome, with unspecified organ involvement M35.00 Sjogren's organ involvement: unspecified organ involvement Chronic right shoulder pain M25.511; G89.29 Chronicity: chronic
[2023-12-06 10:50] VITALS: BP 134/68; PULSE 68; TEMP 36; O2SAT 96; BMI 33.6
== END 2023-12-06 11:36 | disposition home or self-care (01) ==
PROVIDERS: PCP Internal Medicine; Visit Provider Nurse Practitioner Family
DX: M35.00 Sjogren syndrome, unspecified (principal); M25.511 Pain in right shoulder; G89.29 Other chronic pain
CPT/HCPCS: 99213

== ENCOUNTER → 2023-12-06 10:34 | Outpatient (BNVA) | payer MEDICARE, SELFPAY | PROVIDERS: PCP Internal Medicine; Visit Provider Nurse Practitioner Family | DX: M35.00 Sjogren syndrome, unspecified (principal); M25.511 Pain in right shoulder; G89.29 Other chronic pain | CPT/HCPCS: 99212 ==

== ENCOUNTER 2024-01-14 14:11 | Outpatient (AMB) | payer MEDICARE, SELFPAY ==
[2024-01-14 14:16] VITALS: BP 120/80; PULSE 87; TEMP 37; O2SAT 97; BMI 34.0
--- NOTE | 2024-01-14 14:16 | MHC.OFFWIV ---
Intake Vital Signs 01/14/24 14:16 Height 5 ft 2 in Weight 186 lb BMI 34.0 BP 120/80 Blood Pressure Location Lt brachial Position Sitting Pulse 87 Pulse Source Pulse Oximeter Temp 98.6 F Temp Source Temporal Artery Scan Pulse Oximetry (%) 97 Oxygen Delivery Method Room Air Intake Visit Reasons: EP LT knee concern Intake Note: pt is here today for lft knee pain started yesterday Patient Tobacco Use Status: Never used Tobacco Allergies pneumococcal vaccine [PNEUMOCOCCAL VACCINE] Allergy (Severe, Verified 01/14/24 14:17) ARM SWELLED, swelling in arm tiotropium [From SPIRIVA WITH HANDIHALER] Allergy (Severe, Verified 01/14/24 14:17) THROAT SWELL doxycycline Adverse Reaction (Intermediate, Verified 01/14/24 14:17) foggy and forgetful Do you need a note to return to daycare/school/sports/work: No HPI HPI Comments History of Present Illness Details Patient is a 68yo F who presents with L knee pain She has hx of R knee total replacement Pt has been dealing with LLE plantar fasciitis and ambulating with a cane She said the plantar fasciitis has improved but she noticed a few days of L knee pain Burning sensation on outside of L knee with bending Ambulation makes pain worse Ice makes better Denies any falls, tweeks or trauma No redness, warmth to joint or fevers She denies calf pain or leg edema. No hx of blood clots. Pt on Xarelto for [employer] Denies numbness/tingling to extremity PFSH Medical History New onset a-fib Annual physical exam Trochanteric bursitis of right hip Weakness of left hand Poor balance Vitamin D deficiency Tinnitus Chronic left-sided low back pain Hx of echocardiogram Insomnia Chronic allergic rhinitis Asthma Sjogrens syndrome Surgical History H/O thumb surgery History of knee replacement History of bunionectomy of right great toe H/O colonoscopy Family History Father Heart attack CVD (cardiovascular disease) Mother Stroke CHF (congestive heart failure) Alzheimer's dementia Cancer Hypertension Social History Housing: House Alcohol intake: never Patient Tobacco Use Status: Never used Tobacco e-Cigarette/Vaping Use: Never Used Current occupational status: retired Cognitive needs: No Hearing needs: No Vision needs: Yes Review of Systems Const Denies chills, Denies fatigue and Denies fever(s) Card Denies chest pain and Denies dyspnea Resp Denies dyspnea Musc Reports arthralgias, Reports joint swelling, Denies numbness and Denies tingling Skin/Breast Denies erythema and Denies rash Neuro Denies numbness and Denies tingling Endo Denies fatigue Physical Exam Vital Signs: Last Vital Signs Temp 98.6 F 01/14/24 14:16 Pulse 87 01/14/24 14:16 BP 120/80 01/14/24 14:16 Pulse Ox 97 01/14/24 14:16 Oxygen Delivery Method Room Air 01/14/24 14:16 BMI result Body Mass Index 34.0 General: Non-toxic, NAD. Speaking full sentences. Skin: Warm dry throughout. No LLE distal to knee edema, erythema or rashes. L knee without erythema or warmth. Minimal suprapatellar L knee edema compared to R Respiratory: No respiratory distress Cardiac: No tachycardia MSK: + tenderness to palpation of L knee lateral joint line and slight lateral posterior knee/hamstring tendon. No palpable posterior knee mass. Slight decreased flexion L knee to 45 degrees. + full extension L knee. No L knee patellar, proximal tibia or medial joint line tenderness to palpation. Neurology: A/O No aphasia or facial droop. Gait stable with cane Psych: Good mood and affect Assessment & Plan Assessment & Plan (1) Knee pain: Code(s): M25.569 - Pain in unspecified knee Qualifiers: Chronicity: acute Laterality: left Qualified Code(s): M25.562 - Pain in left knee Plan: Patient seen and evaluated. Xray L knee: I viewed as + spurs on lateral aspect of distal femur but no significant joint space narrowing or effusion. Discussed rest, ice, elevate and compression Ortho referral given; R knee completed by specialist in [place] due to tumor so she is okay with seeing [place] Tylenol prn OTC Patient gave verbal understanding and had no additional questions or concerns at time of discharge All questions answered Orders: Referrals Orthopedics Referral M25.569 - Pain in unspecified knee Coding Level of Care Code Est Pt Level 3 (72417) Diagnoses Acute pain of left knee M25.562 Chronicity: acute Laterality: left
== END 2024-01-14 14:57 | disposition home or self-care (01) ==
PROVIDERS: PCP Internal Medicine; Visit Provider Physician Assistant
DX: M25.562 Pain in left knee (principal)
CPT/HCPCS: 99213

== ENCOUNTER 2024-01-14 14:28 | Outpatient (REF) | payer MEDICARE, SELFPAY ==
--- NOTE | ~2024-01-14 | XR_ITS ---
EXAMINATION: XR KNEE, LEFT CLINICAL INFORMATION: Left knee pain COMPARISON: None available. TECHNIQUE: Four views of the left knee. FINDINGS: Joint space narrowing with degenerative cysts and marginal osteophytes in the patellofemoral compartment. Small marginal osteophytes in the medial and lateral compartments. There is a small joint effusion. No fracture. XR/XR knee LT 4V IMPRESSION: Moderate patellofemoral compartment and mild to moderate medial and lateral compartment osteoarthritis with a small joint effusion.
== END 2024-01-14 14:29 | disposition home or self-care (01) ==
LOC: HO.HMGCX 14:28
PROVIDERS: PCP Internal Medicine; Visit Provider Physician Assistant
DX: M25.561 Pain in right knee (principal)
CPT/HCPCS: 73564

== ENCOUNTER 2024-02-03 12:51 | Outpatient (AMB) | payer MEDICARE, SELFPAY ==
--- NOTE | 2024-02-03 13:10 | MHC.OFFVIS ---
Intake Intake Visit Reasons: N/P Left knee pain Intake Note: Pt is a 68 year old female who presents to the office today for a new patient visit for left knee pain. Pt states the left knee pain started about 3 weeks ago. Pt denies any injury to the area. Pt states all of a sudden she was unable to bend her left knee and she states she had sharp pain from her thigh down to her foot but that pain subsided with ice and elevation. She denies any previous injections to her left knee. Allergies pneumococcal vaccine [PNEUMOCOCCAL VACCINE] Allergy (Severe, Verified 02/03/24 13:11) ARM SWELLED, swelling in arm tiotropium [From SPIRIVA WITH HANDIHALER] Allergy (Severe, Verified 02/03/24 13:11) THROAT SWELL doxycycline Adverse Reaction (Intermediate, Verified 02/03/24 13:11) foggy and forgetful HPI N/P Left knee pain HPI Details 68-year-old female who presents to the office today for evaluation of left knee pain for 3 weeks. She currently states she has intermittent pain in her left knee and experiences a sharp pain from her thigh to her foot. Her pain is aggravated with getting up after sitting on her recliner, prolonged walking and stair use. She finds relief with ice and elevation. She denies any previous injury and has not had any injections in the past. She ambulates with a cane for support. She uses a knee brace with benefits. She has a history of right TKA about 20 years ago. She does not have a history of diabetes. [facility] Medical History New onset a-fib Annual physical exam Trochanteric bursitis of right hip Weakness of left hand Poor balance Vitamin D deficiency Tinnitus Chronic left-sided low back pain Hx of echocardiogram Insomnia Chronic allergic rhinitis Asthma Sjogrens syndrome Surgical History H/O thumb surgery History of knee replacement History of bunionectomy of right great toe H/O colonoscopy Family History Father Heart attack CVD (cardiovascular disease) Mother Stroke CHF (congestive heart failure) Alzheimer's dementia Cancer Hypertension Social History Housing: House Alcohol intake: never Patient Tobacco Use Status: Never used Tobacco e-Cigarette/Vaping Use: Never Used Current occupational status: retired Cognitive needs: No Hearing needs: No Vision needs: Yes Review of Systems Const All systems reviewed & are unremarkable except as noted in HPI and below Physical Exam Const General: cooperative, healthy appearing, comfortable, no acute distress, well developed and alert Orientation/consciousness: patient oriented x3 HEENT Head: Yes normal to inspection, Yes normocephalic and Yes atraumatic Eyes General: appearance normal, both eyes and all related structures Resp Effort & Inspection: normal respiratory effort and able to speak in complete sentences Cardio Rate: regular rate Peripheral pulses: Peripheral pulses 2+ throughout GI Palpation (GI): Soft to palpation Skin Lesions: no lesions Rashes: no rashes Neuro General: patient oriented x3 Extrem Other: Left knee: Skin intact, no erythema or joint effusion. Tenderness along the medial and lateral joint line. Full ROM with crepitus. Negative Nivia?s. No ligamentous laxity. NVI. Assessment & Plan Assessment & Plan (1) Osteoarthritis of left knee: Code(s): M17.12 - Unilateral primary osteoarthritis, left knee Plan: Xrays were obtained in the office today and personally reviewed by me of the left knee show moderate tricompartmental oa Plan We discussed options today which include steroid injection. They did consent to move forward with the left knee injection, which was tolerated well. I recommended rest, ice and elevation and OTC anti-inflammatories PRN for discomfort. If symptoms persist or worsens over the next 6-8 weeks, patient will contact the office, otherwise follow-up as needed. Orders: Orders XR shoulder RT min 2V 02/03/24 M25.511 - Pain in right shoulder XR knee LT 3V 02/03/24 M25.562 - Pain in left knee PT Evaluation and Treatment 02/03/24 M17.12 - Unilateral primary osteoarthritis, left knee Patient Instructions: Scribed for Rajiv Elliott PA-C, by Quique Rojas front office medical assistant, on 02/03/2024 at 1:00 PM EST. Rajiv Fernandez PA-C, have personally reviewed and agree with the information entered by the scribe. Coding Level of Care Code New Pt Level 3 (25511) Diagnoses Osteoarthritis of left knee M17.12
== END 2024-02-03 15:38 | disposition home or self-care (01) ==
PROVIDERS: PCP Internal Medicine; Visit Provider Physician Assistant
DX: M17.12 Unilateral primary osteoarthritis, left knee (principal)
CPT/HCPCS: 99203

== ENCOUNTER 2024-02-03 12:58 | Outpatient (REF) | payer MEDICARE, SELFPAY ==
--- NOTE | ~2024-02-03 | XR_ITS ---
EXAMINATION: XR KNEE, LEFT CLINICAL INFORMATION: Left knee pain COMPARISON: 01/14/2024 TECHNIQUE: Three views of the left knee. FINDINGS: The AP standing view includes both knees in the [id number]. The visualized components of the right knee arthroplasty are in normal position. At the left knee, there is mild narrowing of the lateral tibiofemoral joint space with marginal osteophyte formation. Small osteophytes are present at the medial compartment. At the patellofemoral joint, there is chronic loss of joint space, subchondral cystic change and osteophyte formation. There appears to be a trace amount of fluid in the suprapatellar compartment of the knee joint. XR/XR knee LT 3V IMPRESSION: No acute abnormalities at the left knee compared to 01/14/2024. Tricompartmental osteoarthritis of the left knee. The joint degeneration is worst ([id number]) at the patellofemoral compartment.
== END 2024-02-03 12:59 | disposition home or self-care (01) ==
LOC: HO.HOSX 12:58
PROVIDERS: Visit Provider Physician Assistant
DX: M17.12 Unilateral primary osteoarthritis, left knee (principal); M25.511 Pain in right shoulder
CPT/HCPCS: 73562; 99202; J1010; J1040

== ENCOUNTER 2024-02-04 14:00 | Outpatient (RCR) | payer MEDICARE, SELFPAY ==
--- NOTE | 2023-12-16 13:44 | MHC.PT.EP ---
[facility] [place] Office [place] Office [place] Office [address] [phone] F: [phone] F: [phone] F: [phone] F: [phone] Physical Therapy Plan of Care Date of Evaluation: 12/16/23 Date of Surgery: Diagnosis: pain in R shoulder painful ROM and weakness after a fall - possible RTC injury Assessment: 68 y/o R-hand dominant female referred to PT with R shoulder pain. S/s consistent with R shoulder impingement and ? RTC tear resulting in pain and difficulty with reaching, lifting, grooming, graduate rn, and sleeping secondary to decreased shoulder ROM, decreased cervical ROM, decreased strength and pain. Recommend PT 2x/week for 5 weeks to address impairments, implement HEP, and optimize functional mobility Frequency and Duration: The patient will be seen 2x/week for 5 weeks Short Term Goals: 3 weeks Compliant with HEP [employer]ker Goals: 5 weeks I with HEP and self managment of sx Pt will improve SPADI to 80/130 (IR 100/130) Pt will be able to reach into overhead cabinet with managed sx Treatment Plan: Modalities to reduce pain, spasms and effusion. Manual therapy to restore motion and function. Therapeutic exercise to improve strength and flexibility. Neuromuscular re-education for posture and balance. Therapeutic activities to return to functional activities of daily living. Electronically signed by: Katherine Cruz PT Please sign and return to therapist. Thank you for your referral.
--- NOTE | 2024-02-10 13:33 | MHC.PT.DC ---
[facility] Office [place] Office [place] Office [address] Dread Mandujano [address] [phone] F: [phone] F: [phone] F: [phone] F: [phone] Physical Therapy Discharge Report Diagnosis: pain in R shoulder painful ROM and weakness after a fall - possible RTC injury Date of Surgery: Date of Evaluation: 12/16/23 Date of Discharge: 02/10/24 Treatments to Date: 10 Cancellations to Date: 0 No Shows to Date: 0 Discharge Status: Improved Function Independent with HEP Discharge Summary: Pt with improved function, shoulder ROM, and I with HEP. SPADI 50/130 (initial evaluation 100/130) showing improved function. Appropriate for d/c at this time Electronically signed by: Katherine Cruz PT Please sign and return to therapist. Thank you for your referral.
== END 2024-02-10 13:33 | disposition home or self-care (01) ==
LOC: HO.PTCHIC 14:00
PROVIDERS: PCP Internal Medicine; Visit Provider Nurse Practitioner Family
DX: M25.511 Pain in right shoulder (principal)
CPT/HCPCS: 97110; 97140; 97162

== ENCOUNTER 2024-02-20 08:52 | Outpatient (AMB) | payer MEDICARE, SELFPAY ==
--- NOTE | 2024-02-20 09:02 | MHC.OFFVIS ---
Intake Vital Signs 02/20/24 09:03 Height 5 ft 2 in Weight 181 lb 10.574 oz BMI 33.2 BP 110/62 Blood Pressure Location Rt brachial Position Sitting Pulse 55 Pulse Source Pulse Oximeter Pulse Oximetry (%) 98 Oxygen Delivery Method Room Air Intake Visit Reasons: Follow up on shoulder pain. Intake Note: Patient last seen 12/06/23, presents today for right shoulder follow up. 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 Ignacia Vargas yoF is here today for follow-up of her right shoulder after starting PT. She is doing well overall but her right shoulder. She continues to do the exercises at home. She started the baclofen but finds that 5 mg does make her drowsy so she takes it at night. She she considers to do have a pill during the daytime and see how she manages with that. She had a left knee injection at ortho. She reports that her left hip is bothersome especially during sleep she has to keep turning from that side because it hurts. 01/14/2024 visit Fabiana: Ms. Ignacia Vargas yoF for evaluation of her Sjogren's syndrome and OA. She is doing well overall but her right shoulder continues to be bothersome and now has some muscle spasms. 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 --Left knee injection since last visit Last visit 08/07/2023 Dr. Olson: She remains on pilocarpine 5 mg t.i.d. and Restasis eyedrops. Those measures do seem to help the dryness symptoms in the mouth and eyes. She has some pain in the hands, mostly at the base of the right thumb. Her knee replacement seem to be doing fine. At her last visit she was having some shoulder pain. I had referred her to physical therapy but she could not get an appointment. She was doing her own shoulder exercises and that seemingly has improved. She has been getting occasional nausea and epigastric discomfort. This is attributed to gallstones. She has changed her diet and symptoms seem less frequent. She had a recent SI joint injection and that seems to help her back pain. She notes that when she walks she seems to tilt to the right. This eventually becomes uncomfortable with some right lumbar pain. [facility] Medical History New onset a-fib Annual physical exam Trochanteric bursitis of right hip Weakness of left hand Poor balance Vitamin D deficiency Tinnitus Chronic left-sided low back pain Hx of echocardiogram Insomnia Chronic allergic rhinitis Asthma Sjogrens syndrome Surgical History H/O thumb surgery History of knee replacement History of bunionectomy of right great toe H/O colonoscopy Family History Father Heart attack CVD (cardiovascular disease) Mother Stroke CHF (congestive heart failure) Alzheimer's dementia Cancer Hypertension Social History Housing: House Alcohol intake: never Patient Tobacco Use Status: Never used Tobacco e-Cigarette/Vaping Use: Never Used Current occupational status: retired Cognitive needs: No Hearing needs: No Vision needs: Yes Review of Systems Const All systems reviewed & are unremarkable except as noted in HPI and below Physical Exam Vital Signs: Last Vital Signs Pulse 55 02/20/24 09:03 BP 110/62 02/20/24 09:03 Pulse Ox 98 02/20/24 09:03 Oxygen Delivery Method Room Air 02/20/24 09:03 BMI result Body Mass Index 33.2 APPEARANCE: Patient in no acute distress EYES no redness, pupils equal and reactive to light, eyelids normal. No temporal artery tenderness, redness or swelling. EXTREMITIES: No edema, no calf tenderness, normal peripheral pulses. SKIN: No inflammatory or neoplastic lesions. Normal color and turgor JOINT EXAM: Cervical Spine:.? Full range of motion without pain; no tenderness. Thoracic Spine:.? No scoliosis.? No tenderness on palpation. Lumbar Spine:.? Some scoliosis evident. Pain with flexion at about 60 degrees with some mild right paraspinal muscle tenderness. Chest Wall:.? No tenderness, swelling, increased warmth or erythema. Hands:.? Right: There is bony enlargement and mild tenderness at the base of the thumb. There is some degree of thenar atrophy but no sensory loss. The joint at the base of thumb also is easily sublux able. There is no swelling or tenderness across the PIP joints but all of the DIP joints have bony enlargement with slight tenderness. The 2nd DIP joint has some deviation to the radial aspect. Left: Slight tenderness at the base of the thumb without swelling. No tenderness or swelling in the MCP joints or the PIP joints. There is mild bony enlargement at all the PIP joints but they are not tender. No flexor tendon triggering, thenar atrophy or sensory loss. Wrists:.? Normal pain-free range of motion without tenderness, swelling, increased warmth or erythema. Elbows:. Normal pain-free range of motion without tenderness, swelling, increased warmth or erythema. Shoulders: Right: Improvement in ability to lift arm past 90 degrees without discomfort, still some anterior tenderness at the biceps. Today there is no abductor weakness, swelling, redness, or adenopathy. Left:?? Full range of motion without pain. No tenderness, weakness, swelling, increased warmth or erythema. Hips:.? Full range of motion without pain. Hip bursa:.? Mild right trochanteric tenderness. Moderate to severe on the left Knees:.??Right: Well-healed anterior scar. Motion seems normal and pain-free without tenderness or swelling. Left: Normal pain-free range of motion with slight patellofemoral crepitus but no effusion, tenderness, swelling, increased warmth or erythema.? There is no effusion or crepitation Ankles:.? Left: Some degree of valgus deformity. There is subcutaneously felt hardware on the lateral aspect. Motion seems intact in without pain however. There is no tenderness or soft tissue swelling. Right: Normal pain-free range of motion without tenderness, swelling, increased warmth or erythema. Feet:.? Right: Some pes planus deformity. Evidence of previous surgery at the 1st MTP joint. There are no areas of tenderness or swelling in the foot. Left: Mild bony enlargement, slight tenderness and hallux valgus deformity at the 1st MTP joint. Mild pes planus deformity. Elsewhere there is normal pain-free range of motion without tenderness, swelling, increased warmth or erythema. Tender points:? Mild tenderness to digital palpation at the trapezius, greater trochanter area bilaterally. ? Office Procedures Joint Injection/Drain Joint Injection/Drain Details: Left Hip Bursa injected with Kenalog and 2ml Lidocaine Primary Site: other (Left trochanteric bursitis) Prep: site was prepped using aseptic technique and injection warnings given Injected: 40 mg of, Kenalog and 1% plain lidocaine Approach Used: posterolateral Procedure: The patient tolerated the procedure well Coding - Glenohumeral/Tronchanteric Bursa/Intraarticular Procedure code (CPT) selection complete Assessment & Plan Assessment & Plan (1) Shoulder pain, right: Code(s): M25.511 - Pain in right shoulder Qualifiers: Chronicity: chronic Qualified Code(s): M25.511 - Pain in right shoulder; G89.29 - Other chronic pain (2) Lora-trochanteric left hip tendinitis: Code(s): M70.62 - Trochanteric bursitis, left hip Plan #Right Shoulder Pain: Ms. Beth said she did do PT for the decreased use of the right shows and muscle spasms. She did PT which helps. She gets drowsy on the 5mg Baclofen so she does not take it during the day. She will try 1/2 the dose during the day and see how she fares with that. We discussed that the muscle relaxer should taken while at home and she should not drive. She continues with osteoarthritis particularly in the hands, shoulder and the lumbar spine. #Left trochanteric bursitis: Very tender on PE; will inject with corticosteroid today. Handouts given for follow-up exercises and precautions to take in the next few days I spent 20 minutes reviewing chart, examining patient and documenting. Follow-up in 6 months Orders: Orders AMB Joint Injection/Aspiration Today M70.62 - Trochanteric bursitis, left hip Coding Level of Care Code Est Pt Level 3 (00594) Diagnoses Chronic right shoulder pain M25.511; G89.29 Chronicity: chronic Lora-trochanteric left hip tendinitis M70.62 CPT Codes Coding - Joint 7: - Glenohumeral/Tronchanteric Bursa/Intraarticular ([id number])
[2024-02-20 09:03] VITALS: BP 110/62; PULSE 55; O2SAT 98; BMI 33.2
== END 2024-02-20 10:20 | disposition home or self-care (01) ==
PROVIDERS: PCP Internal Medicine; Visit Provider Nurse Practitioner Family
DX: M25.511 Pain in right shoulder (principal); G89.29 Other chronic pain; M70.62 Trochanteric bursitis, left hip
CPT/HCPCS: 20610; 99213

== ENCOUNTER 2024-02-20 13:17 | Outpatient (REF) | payer MEDICARE, SELFPAY ==
[2024-02-20 16:04] LABS: MANUAL DIFF FLAG NO
[2024-02-20 16:31] LABS: Basophils Absolute Auto 0.1 X10*3/uL (0.0-0.2); Basophils Percent Auto 0.5 % (0-2); Eosinophils Percent Auto 0.2 % (0-4); Hematocrit 42.1 % (37.0-47.0); Hemoglobin 14.1 g/dl (12.0-16.0); Imm Gran Abs Auto 0.04 X10*3/uL (0.00-0.03); Imm Gran Pct Auto 0.4 % (0.0-0.4); Lymphocytes Percent Auto 9.4 % (20-40); Mean Corpuscular HGB Conc 33.5 g/dl (31.0-35.0); Mean Corpuscular Hemoglobin 29.2 pg (27.0-33.0); Mean Corpuscular Volume 87.2 fL (80.0-98.0); Monocytes Absolute Auto 0.2 X10*3/uL (0.1-1.2); Monocytes Percent Auto 1.6 % (2-11); Neutrophils Percent Auto 87.9 % (45-73); Platelet Count 323 X10*3/uL (160-400); Red Blood Count 4.83 X10*6/uL (4.20-5.50); Red Cell Distribution Width 13.6 % (11.0-16.0); White Blood Count 10.2 X10*3/uL (4.8-10.8)
[2024-02-20 16:54] LABS: Appearance Urine Clear; Color Urine Yellow; Glucose Urine UA Negative (Negative); Leukocyte Esterase Urine Large (3+) (Negative); Nitrite Urine Negative (Negative); PH 7.5 (5.0-9.0); Specific Gravity - Urine <= 1.005 (1.005-1.025); UMIC TRIGGER UACC YES; Urine Blood Moderate (2+) (Negative); Urine Ketones Negative (Negative); Urine Protein Negative (Neg-Trace); Vitamin D 25-OH Total 82.9 ng/mL (>30)
[2024-02-20 17:06] LABS: Bacteria Urine None Seen (None Seen); Hyaline Casts Urine 0-2 /LPF (0-2); RBC Urine 0-2 /HPF (0-2); Squamous Epithelial Cell Urine 0-2 /HPF (0-2); UACC Culture Trigger YES
== END 2024-02-20 13:18 | disposition home or self-care (01) ==
LOC: HO.HMGCLDS 13:17
PROVIDERS: Internal Medicine Rheumatology; PCP Internal Medicine; Visit Provider Internal Medicine
DX: E55.9 Vitamin D deficiency, unspecified (principal); M35.00 Sjogren syndrome, unspecified; R30.0 Dysuria; M70.62 Trochanteric bursitis, left hip; M25.511 Pain in right shoulder; G89.29 Other chronic pain
CPT/HCPCS: 20610; 36415; 81001; 82306; 85025; 87086; 87088; 87186; 99212

== ENCOUNTER 2024-03-05 14:00 | Outpatient (RCR) | payer MEDICARE, SELFPAY ==
--- NOTE | 2024-02-18 14:47 | MHC.PT.EP ---
[facility] [place] Office [place] Office [place] Office [address] [phone] F: [phone] F: [phone] F: [phone] F: [phone] Physical Therapy Plan of Care Date of Evaluation: 02/18/24 Date of Surgery: Diagnosis: OA Left Knee Assessment: Patient is a 68 year old R handed female who presents with s/s consistent with L knee OA, pain. 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 Patient past medical history includes shoulder and back pain, AFib. Current impairments include pain, balance, ROM, strength, activity tolerance and functional mobility. Functional limitations include decreased ability to walk, stand, negotiate stairs, transfer, travel, and maintain prolonged positions. Patient is motivated with good rehab potential. Skilled PT will address impairments and functional limitations in order to achieve goals. Frequency and Duration: The patient will be seen 2x/week for 5 weeks Short Term Goals: I with HEP - 2 weeks AROM 0-120 - 3 weeks Able to walk with symmetrical gait > 10 minutes - 3 weeks [facility] Goals: LEFS 50/80 - 5 weeks Strength 4/5 grossly - 5 weeks SLB > 10 seconds - 5 weeks Max pain 2/10 with daily activities/transfers - 5 weeks Treatment Plan: Modalities to reduce pain, spasms and effusion. Manual therapy to restore motion and function. Therapeutic exercise to improve strength and flexibility. Neuromuscular re-education for posture and balance. Therapeutic activities to return to functional activities of daily living. Electronically signed by: Lee Burleson, PT Please sign and return to therapist. Thank you for your referral.
--- NOTE | 2024-08-13 12:24 | MHC.PT.DC ---
[facility] [place] Office [place] Office [place] Office [address] Dread Mandujano [address] [phone] F: [phone] F: [phone] F: [phone] F: [phone] Physical Therapy Discharge Report Diagnosis: OA Left Knee Date of Surgery: Date of Evaluation: 02/18/24 Date of Discharge: 04/15/24 Treatments to Date: 5 Cancellations to Date: No Shows to Date: Discharge Status: Achieved Goals Independent with HEP Discharge Summary: 03/05/24: pt ROM progressed. I with HEP. amb symmetrical aside from valgus formation of knee. LEFS 58/80. Strength / grossly. Appropriate to d/c to HEP at this time. 03/02/24: pt progressing well with ROM. AAROM flexion to 130. continuing to progress strength. 02/26/24: progressed hip strength today with no adverse reactions. AAROM flexion to 128. Patient is a 68 year old R handed female who presents with s/s consistent with L knee OA, pain. 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 Patient past medical history includes shoulder and back pain, AFib. Current impairments include pain, balance, ROM, strength, activity tolerance and functional mobility. Functional limitations include decreased ability to walk, stand, negotiate stairs, transfer, travel, and maintain prolonged positions. Patient is motivated with good rehab potential. Skilled PT will address impairments and functional limitations in order to achieve goals. Electronically signed by: Lee Burleson, PT Please sign and return to therapist. Thank you for your referral.
== END 2024-08-13 12:24 | disposition home or self-care (01) ==
LOC: HO.PTCHIC 14:00
PROVIDERS: PCP Internal Medicine; Visit Provider Physician Assistant
DX: M17.12 Unilateral primary osteoarthritis, left knee (principal)
CPT/HCPCS: 97110; 97163

== ENCOUNTER 2024-03-18 14:30 | Emergency (ER) | payer MEDICARE, SELFPAY ==
--- NOTE | 2024-03-18 14:33 | ECG_ITS ---
Test Reason : AFIB Blood Pressure : / mmHG Vent. Rate : 147 BPM Atrial Rate : 000 BPM P-R Int : 000 ms QRS Dur : 086 ms QT Int : 270 ms P-R-T Axes : 000 -22 -09 degrees QTc Int : 422 ms Atrial fibrillation with rapid ventricular response Nonspecific ST and T wave abnormality Abnormal ECG When compared with ECG of 01-OCT-2023 01:39, Vent. rate has increased BY [address] now depressed in Lateral leads Nonspecific T wave abnormality now evident in Lateral leads Referred By: Generic ED Physician Electronically Signed By:GALO LOPEZ MD
[2024-03-18 14:53] VITALS: BP 108/80; PULSE 110; RESP 16; TEMP 36.2; O2SAT 97; BMI 34.0
--- NOTE | 2024-03-18 14:55 | ED.GENADULT ---
HPI - General Adult General Chief complaint: Arrhythmia/Palpitations Stated complaint: AFIB Time Seen by Provider: 03/18/24 22:04 Source: patient Mode of arrival: ambulatory Limitations: no limitations History of Present Illness HPI narrative: Patient comes to the emergency room complaining of palpitations. Earlier today, patient states that she had palpitations and heart rate in the 140s to 150s. Patient denies chest pain or shortness of breath. Patient takes Xarelto daily. Patient states that earlier today, before the palpitations started, patient was very upset, patient thought that her pet cat somehow got outside of the house and got lost. [place] she was afraid that the cat might have gotten attacked by a coyote or a bear. However, after looking for the cat, patient found it in the closet. Patient states that she is aware that when she gets upset, she can go into AFib. At this time, patient states she has no palpitations or shortness of breath. No chest pain. Patient states that she feels well and is asymptomatic. Related Data Home Medications ?Medication ?Instructions ?Recorded ?Confirmed magnesium 250 mg tablet 250 mg PO DAILY 10/20/20 10/24/23 fexofenadine 180 mg tablet 180 mg PO DAILY 02/24/21 10/24/23 (Ally Allergy) multivitamin 1 tab PO DAILY 02/24/21 10/24/23 glucosamine-chondroitin 250 mg-200 1 tab PO BID 07/25/21 10/24/23 mg tablet (Osteo Bi-Flex) alendronate 70 mg tablet 70 mg PO TU 10/01/23 10/24/23 omega 3 350 mg-dha 235 mg-epa 90 1 cap PO DAILY 10/01/23 10/24/23 mg-fish oil 597 mg capsule,delay rel ([place]-3) ropinirole 0.5 mg tablet 1 mg PO BEDTIME 10/01/23 10/24/23 Previous Rx's ?Medication ?Instructions ?Recorded albuterol sulfate 90 mcg/actuation 2 puff inhalation Q6H PRN 08/08/23 aerosol inhaler shortness of breath or wheezing #8.5 grams omeprazole 20 mg capsule,delayed 20 mg PO DAILY #90 caps 08/14/23 release metoprolol succinate 50 mg 50 mg PO DAILY 90 days #90 tabs 10/24/23 tablet,extended release 24 hr (Toprol XL) rivaroxaban 20 mg tablet (Xarelto) 20 mg PO DAILY 90 days #90 tabs 10/24/23 pilocarpine HCl 5 mg tablet 5 mg PO TID #90 tabs 10/30/23 baclofen 5 mg tablet 5 mg PO BEDTIME PRN muscle spasm 12/06/23 #30 tabs nitrofurantoin 100 mg PO Q12H 7 days #14 caps 02/21/24 monohydrate/macrocrystals 100 mg capsule (Macrobid) Allergies Allergy/AdvReac Type Severity Reaction Status Date / Time pneumococcal vaccine Allergy Severe ARM Verified 03/18/24 14:54 [PNEUMOCOCCAL VACCINE] SWELLED, swelling in arm tiotropium Allergy Severe THROAT Verified 03/18/24 14:54 [From SPIRIVA WITH SWELL HANDIHALER] doxycycline AdvReac Intermediate foggy and Verified 03/18/24 14:54 forgetful Review of Systems Review of Systems: Constitutional : No Weight loss, No Fever, No Chills, No Night Sweats, No Fatigue, No Malaise ENT/Mouth : No Hearing loss, No Ear Pain, No Nasal Congestion, No Sinus Pain, No Hoarseness, No sore throat, No Rhinorrhea, No Swallowing Difficulty Eyes: No Eye Pain, No Swelling, No Redness, No Foreign Body, No Discharge, No Vision Changes Cardiovascular : No Chest Pain, No SOB, No Dyspnea on Exertion, No Orthopnea, No Edema, complaining of palpitations that self-resolved Respiratory : No Cough, No Sputum, No Wheezing, No Smoke Exposure, No Dyspnea Gastrointestinal : No Nausea, No Vomiting, No Diarrhea, No Constipation, No abdominal Pain, No Hematochezia, No Melena Genitourinary : no irregular bleeding, No Dysuria, No Urinary Frequency, No Hematuria, No Urinary Incontinence, No Urgency, No Flank Pain, No Urinary Flow Changes, No Hesitancy Musculoskeletal : No joint pain, No Myalgias, No Joint Swelling Skin : No Skin Lesions, No rash Neuro : No Weakness, No Numbness, No Paresthesias, No Loss of Consciousness, No Dizziness, No Headache Psych : No Anxiety/Panic, No Depression, No SI/HI/AH/VH, No Social Issues, Heme/Lymph: No Bruising, No Bleeding,No Lymphadenopathy Endocrine : No Polyuria, No Polydipsia, No Temperature Intolerance [facility] Past Medical History Medical History Lora-trochanteric left hip tendinitis New onset a-fib Annual physical exam Trochanteric bursitis of right hip Weakness of left hand Poor balance Vitamin D deficiency Tinnitus Chronic left-sided low back pain Hx of echocardiogram Insomnia Chronic allergic rhinitis Asthma Sjogrens syndrome Surgical History H/O thumb surgery History of knee replacement History of bunionectomy of right great toe H/O colonoscopy Family History Family History Father Heart attack CVD (cardiovascular disease) Mother Stroke CHF (congestive heart failure) Alzheimer's dementia Cancer Hypertension Social History Social History Housing: House Alcohol intake: never Patient Tobacco Use Status: Never used Tobacco e-Cigarette/Vaping Use: Never Used Advance Directives: Yes Advance Directives Information Provided: No Advance Directives on File: No Current occupational status: retired Cognitive needs: No Hearing needs: No Vision needs: Yes Physical Exam ED Vital Signs: Vital Signs - 24 hr 03/18/24 14:53 03/18/24 19:29 03/18/24 22:04 Temperature 97.2 F 98.3 F 97.4 F Pulse Rate 110 H 93 60 Respiratory Rate 16 16 16 Blood Pressure 108/80 143/77 H 133/72 Pulse Oximetry 97 99 97 Oxygen Delivery Method Room Air Room Air Room Air 03/18/24 22:23 Temperature Pulse Rate Respiratory Rate Blood Pressure Pulse Oximetry 100 Oxygen Delivery Method BMI result Body Mass Index 34.0 Const Other: Appearance: Alert. Oriented X3. No acute distress. Eyes: Pupils equal, round and reactive to light. ENT: Pharynx normal. Neck: Normal inspection. Neck supple. No lymph nodes noted. No crepitus CVS: Normal heart rate and rhythm. Pulses normal. Normal S1 and S2 Respiratory: No respiratory distress. Breath sounds normal. No Wheezing. No rales Abdomen: Soft and nontender. No rigidity. No distention. Skin: Skin warm and dry. Normal skin color. Normal skin turgor. Extremities: No lower extremity edema. No Lacerations. No Rash Neuro: Oriented X 3. No motor deficit. No sensory deficit. Moving all extremities. No slurred speech. CN 2 through 12 grossly intact Psych: calm, cooperative, normal affect Course Course Course Narrative: This is a rapid medical exam performed by Sanna Kessler NP: Additional HPI, ROS, PE not included below will be deferred to primary provider. Patient is a 68-year-old female with history of paroxysmal afib on rivaroxaban presenting to the ED with complaint of palpitations and diaphoresis at work. States feels symptoms are improving now. Diagnosed with afib in September. Denies any recent illness. HR around 110 in triage, skin pink, warm, dry, rate irregular. Plan: EKG, labs Medical Decision Making Medical Decision Making MDM Narrative: -my interpretation of labs: Normal hematology, normal chemistry, troponin negative -my interpretation of EKG 1: Atrial fibrillation with RVR, heart rate 147, no ST segment depression or elevation, nonspecific T-wave inversions, QTC 422 -my interpretation of EKG 2: Normal sinus rhythm, heart rate 63, no ST segment depression or elevation, nonspecific T-wave inversion in lead III and V3, QTC 450 -patient was walked around the emergency room, patient's heart rate remained below 100, sinus rhythm, no shortness of breath or palpitations, no oxygen desaturation. -patient will be discharged home. -discussed with the patient that we could increase her metoprolol succinate dose from 50 mg to 100 mg. Patient states that she prefers to keep her current dose, and will follow-up with her primary care physician. -at this time, patient asymptomatic -patient missed her evening dose of Xarelto, patient given 20 mg here in the emergency room. Differential Diagnosis Differential Diagnoses: The differential diagnosis associated with the presentation includes (Atrial fibrillation, atrial flutter, SVT) Admission/Observation Consideration of admission/observation: Escalation of care including admission/observation considered (Given patient's initial symptoms and rhythm, observation considered) Lab Data [facility] Lab Attestation statement: I reviewed the patient's lab results. 03/18/24 16:18 03/18/24 16:18 Labs: Lab Results 03/18/24 03/18/24 Range/Units 16:18 16:19 WBC 7.7 (4.8-10.8) X10*3/uL RBC 4.57 (4.20-5.50) X10*6/uL Hgb 13.9 (12.0-16.0) g/dl Hct 40.3 (37.0-47.0) % MCV 88.2 (80.0-98.0) fL MCH 30.4 (27.0-33.0) pg MCHC 34.5 (31.0-35.0) g/dl RDW 14.9 (11.0-16.0) % Plt Count 245 (160-400) X10*3/uL MPV 9.3 L (9.4-12.3) fL Immature Gran % (Auto) 0.5 H (0.0-0.4) % Neut % (Auto) 63.2 (45-73) % Lymph % (Auto) 27.2 (20-40) % [place] % (Auto) 6.8 (2-11) % Eos % (Auto) 1.6 (0-4) % Baso % (Auto) 0.7 (0-2) % Lymph # (Auto) 2.1 (1.2-4.9) X10*3/uL [place] # (Auto) 0.5 (0.1-1.2) X10*3/uL Eos # (Auto) 0.1 (0.0-0.4) X10*3/uL Baso # (Auto) 0.1 (0.0-0.2) X10*3/uL Abs Immat Gran (auto) 0.04 H (0.00-0.03) X10*3/uL Absolute Neuts (auto) 4.9 (2.0-8.3) x10*3/uL Absolute Nucleated RBC 0.000 (0.0-0.012) X10*3/uL Nucleated RBC % (auto) 0.0 (0.0-0.2) /100WBC PT 14.0 H (11.1-13.3) SEC INR 1.2 H (0.9-1.1) Sodium 140 (135-145) mmol/L Potassium 3.7 (3.3-5.1) mmol/L Chloride 109 H (96-108) mmol/L Carbon Dioxide 21 L (22-29) mmol/L Anion Gap 14 (12-20) BUN 23 H (9-16) mg/dL Creatinine 0.78 (0.5-1.4) mg/dL Estim Creat Clear Calc 68.5 Estimated GFR > 60 Random Glucose 119 H (60-115) mg/dL Calcium 9.8 D (8.4-10.2) mg/dL Total Bilirubin 0.2 (0.0-1.0) mg/dL AST 21 (5-31) U/L ALT 17 (0-31) U/L Alkaline Phosphatase 51 (39-117) U/L Troponin I High Sens 3.6 (<3.5-17.0) ng/L Total Protein 7.1 (6.5-8.0) g/dL Albumin 3.8 (3.5-5.0) g/dL Influenza Type A (PCR) NEGATIVE (Negative) Influenza Type B (PCR) NEGATIVE (Negative) RSV RNA Qual (PCR) NEGATIVE (Negative) SARS-CoV-2 RNA (RT-PCR) NEGATIVE (Negative) Independent Interpretation I performed an independent interpretation of an: EKG Radiology Impression Discussion of test interpretation with radiology: I have reviewed the radiologist's reading. Critical Care Time Critical Care Time Critical Care Time: Yes Total Critical Care Time: 35 Attestation: I have personally provided critical care time. Time includes review of lab data, radiology results, discussion with consultants, and monitoring for potential decompensation. Intervention performed as documented. Discharge Plan Discharge Clinical Impression: Atrial fibrillation with RVR Patient Disposition: Home, Self-Care Instructions: A-fib (Atrial Fibrillation) (ED) Additional Instructions: Please follow-up with your primary care physician tomorrow. If you have any worsening or new symptoms, please return to the emergency room or call 911 Prescriptions: No Action pilocarpine HCl 5 mg tablet 5 mg PO TID Qty: 90 4RF nitrofurantoin monohyd/m-cryst [Macrobid] 100 mg capsule 100 mg PO Q12H 7 Days Qty: 14 0RF Rx Instructions: must administer with a meal/food alendronate 70 mg tablet 70 mg PO TU ropinirole 0.5 mg tablet 1 mg PO BEDTIME [place]-3 350 mg-235 mg- 90 mg-597 mg Capsule,Delayed Release(Dr/Ec) 1 cap PO DAILY omeprazole 20 mg capsule,delayed release(DR/EC) 20 mg PO DAILY Qty: 90 3RF fexofenadine [Ally Allergy] 180 mg tablet 180 mg PO DAILY multivitamin Tablet 1 tab PO DAILY magnesium 250 mg tablet 250 mg PO DAILY glucosamine-chondroitin [Osteo Bi-Flex] 250-200 mg tablet 1 tab PO BID Rx Instructions: give after food/meal baclofen 5 mg tablet 5 mg PO BEDTIME PRN (Reason: muscle spasm) Qty: 30 0RF metoprolol succinate [Toprol XL] 50 mg tablet extended release 24 hr 50 mg PO DAILY 90 Days Qty: 90 3RF Xarelto 20 mg tablet 20 mg PO DAILY 90 Days Qty: 90 3RF Rx Instructions: must administer with evening meal albuterol sulfate 90 mcg/actuation HFA aerosol inhaler 2 puff inhalation Q6H PRN (Reason: shortness of breath or wheezing) Qty: 8.5 11RF Print Language: Prydeinig
[2024-03-18 16:23] LABS: MANUAL DIFF FLAG NO
--- OUTSIDE RECORDS SUMMARY | 2024-03-18 16:23 | XMS_ITS | Patient Health Record ---
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 Name Role Phone Nessa Gibbons MD Primary Care Provider Chuck Hernandez Unavailable [phone] ALLERGIES Allergen (clinical drug ingredient) Drug/Non Drug Allergy documented on EMR Reaction Allergy Type Onset Date Status adhesive tape (uncoded) Unknown Allergy Active Cat dander cat dander (uncoded) Unknown Allergy Active Vaccine product containing Streptococcus pneumoniae antigen (medicinal product) pneumonia shot (uncoded) Unknown Allergy Active ibuprofen Advil Unknown Drug Allergy Active aspirin Aspirin stomach upset Drug Allergy Act felipa REASON FOR REFERRAL No Information MEDICATIONS Medication SIG (Take, Route, Frequency, Duration) Notes Start Date End Date Status PriLOSEC 20 MG 1 capsule Orally twi ce daily for 30 day(s) Active Flonase 50 MCG/ACT 2 sprays Nasally Onc e a day for 30 day(s) Unknown Night Splint AFO - L1930 as directed 12/26/2023 Active Ritalin 10 MG 1 tablet Orally thre e times a day Unknown Toprol XL 50 MG 1 tablet Orally Once a day for 30 day(s) 11/12/2023 Active Ibuprofen 800 MG 1 tablet every Orall y Three times a day for 30 days 05/19/2014 Unknown Prevagen 10 MG as directed Orally Active Albuterol Unknown Azelastine HCl 2 sprays in each nos tril Nasally Twice a day Unknown AFO-fixed fixed 1 11/30/2011 Joseph araujo Omeprazole 20 MG 1 capsule 30 minutes before morning meal Orally Once a day for 30 day(s) Unknown Salagen 5 MG 1 tablet Orally four times a day for 30 day(s) Unknown Night Splint AFO - L1930 as directed Unknown Vitamin D-3 3000 units once daily Unknown Pilocarpine HCl 5 MG 1 tablet Orally Thr ee times a day for 30 day(s) Active Work Note . .pt. may return to w ork on 06/28/14 . . for . 06/24/2014 Unknow n rOPINIRole HCl 0.5 MG 1 tablet 1 to 3 ho urs before bedtime Orally Once a day for 30 day(s) Active Work Note . . . . for pt. is tot ally disabled from work until 11/20/2011 11/09/2011 Unknown Physical Therapy . .dx; 3 weeks post bunionectomy with no internal hardware; use us and es to reduce edema and pain and gait eval . 2-3x/week for 3-4 weeks 06/24/2014 Unknown Work Note . this patient is plac ed back on total disability from work due to increased foot pain . . Unknown Ally Active Bioflex Active Magnesium Carbonate Heavy 250 mg Unknown [place] 3 Active Restasis Unknown Flaxseed Oil - as directed Unk nown Metoprolol Tartrate 50 MG as directed Orally Active Melatonin 5 MG 1 tablet in the even ing Orally Once a day for 30 day(s) Unknown Magnesium 250 MG 1 tablet with a meal Orally Once a day Active Venlafaxine HCl ER 150 MG 1 capsule with food Orally Once a day for 30 day(s) Unknown Alendronate Sodium 70 MG 1 tablet 30 min utes before the first food, beverage or medicine of the day with plain water Orally Active Xarelto 20 MG 1 tablet with food O rally Once a day Active Singulair 10 mg 1 tablet in the even ing Orally Once a day for 30 day(s) Unknown Acidophilus Active Slow Fe 47.5 mg 1 tablet Orally Once a day for 30 day(s) Unknown Claritin Unknown Centrum Silver Unkno wn Effexor XR 150 mg 1 capsule with food Orally Once a day for 30 day(s) Unknown Ally Allergy 180 mg 1 tablet Orally o nce a day for 30 day(s) Unknown Benadryl 25 MG 1 capsule Orally stanley ry 6 hrs Unknown SOCIAL HISTORY Sex Assigned At : Social History Observation Description Sex Assigned At Unknown Alcohol Screen Question Answer Notes Did you have a drink containing alcohol in the p ast year? No Points 0 Interpretation Negative Tobacco use other than smoking: Question Answer Notes Are you an other tobacco user? No PROBLEMS Problem Type ICD Code Onset Dates Problem Status W/U Status Risk SNOMED Code Notes Problem Pain in Limb (729.5) Active confirmed Pain in limb (00781787) VITAL SIGNS Height 5 ft 2 in in 01/27/2024 Weight 180 lbs 01/27/2024 BMI 32.92 kg/m2 01/27/2024 Encounters Encounter Location Date Provider Diagnosis [facility] [address] 11/12/2023 [facility] [address] 12/26/2023 Chuck Rowe Plantar fascial fibromatosis M72.2 ; Pain in left foot M79.672 and Calcaneal spur, left foot M77.32 [facility] [address] 12/26/2023 [facility] [address] 01/27/2024 Chuck Rowe Plantar fascial fibromatosis M72.2 ; Pain in left foot M79.672 and Calcaneal spur, left foot M77.32 ASSESSMENTS Encounter Date Diagnosis Assessment Notes Treatment Notes Treatment Clinical Notes 12/26/2023 Plantar fascial fibromatosis (ICD-10 - M72.2) Patient Educated with: HEEL CORD STRETCHES.pdf (HEEL CORD STRETCHES.pdf) Patient Educated with: RICE THERAPY.pdf (RICE THERAPY.pdf) Patient Educated with: INJECTIONTHERAPY.pd f (INJECTIONTHERAPY.p df) Patient Educated with: INSTRUCTIONS FOR PROPER USE OF ORTHOTICS.pdf (INSTRUCTIONS FOR PROPER USE OF ORTHOTICS.pdf) 12/26/2023 Pain in left foot (ICD-10 - M79.672) 01/27/2024 Plantar fascial fibromatosis (ICD-10 - M72.2) 01/27/2024 Pain in left foot (ICD-10 - M79.672) 01/27/2024 Calcaneal spur, left foot (ICD-10 - M77.32) 12/26/2023 Calcaneal spur, left foot (ICD-10 - M77.32) PLAN OF TREATMENT Pending Test Test Name Order Date X ray : Ankle, right 2V 11/09/2011 X ray : Foot, right 2V 06/14/2014 X ray : Foot, right 2V 06/24/2014 X ray : Foot, right 2V 07/08/2014 X ray : Foot, left 3V 12/28/2019 X ray : Foot, left 3V 12/26/2023 X ray : Foot, right 3V 12/28/2019 X ray : Foot, right 3V 11/09/2011 X ray : Foot, right 3V 01/13/2014 31140 I&D ABSCESS- SIMPLE,SINGLE 012 13248, J0702- Neuroma/Injection 01/14/20 14 76516, J0702- Neuroma/Injection 05/23/20 12 [id number] Boot/Pneumatic 11/30/2011 [id number] Boot/Pneumatic 11/09/2011 Insurance Providers Payer Name Payer Address Payer Phone Subscriber Number Group Number Insured Name Patient Relationship to Insured Coverage Start Date Coverage End Date Medicare [employer] [address] [place] [address] [id number] Ignacia Rodgers Self - patient is the insured [id number] [address] [place] [id number] Ignacia Rodgers Self - patient is the insured MEDICAL (GENERAL) HISTORY Medical History History ICD Code Arthritis asthma back, hip, knee pain broken bones cataracts chicken pox fibromyalgia headaches/migraines hernia joint implants/screws measles mumps psoriasis reflux sciatica thyroid disorder sjogren syndrome heart condition Anemia Cataracts covid-19 Depression Gall bladder problems Hiatal hernia High blood pressure Reflux ( GERD) Osteopenia Surgical History Surgery Date(Month/Year) ankle surgery 2000 finger surgery 2002 hand/wrist 1985 knee surgery 2001, 1994 bun right 06/10/2014
[2024-03-18 16:25] LABS: Basophils Absolute Auto 0.1 X10*3/uL (0.0-0.2); Basophils Percent Auto 0.7 % (0-2); Eosinophils Absolute Auto 0.1 X10*3/uL (0.0-0.4); Eosinophils Percent Auto 1.6 % (0-4); Hematocrit 40.3 % (37.0-47.0); Hemoglobin 13.9 g/dl (12.0-16.0); Imm Gran Abs Auto 0.04 X10*3/uL (0.00-0.03); Imm Gran Pct Auto 0.5 % (0.0-0.4); Lymphocytes Absolute Auto 2.1 X10*3/uL (1.2-4.9); Lymphocytes Percent Auto 27.2 % (20-40); Mean Corpuscular HGB Conc 34.5 g/dl (31.0-35.0); Mean Corpuscular Hemoglobin 30.4 pg (27.0-33.0); Mean Corpuscular Volume 88.2 fL (80.0-98.0); Mean Platelet Volume 9.3 fL (9.4-12.3); Monocytes Absolute Auto 0.5 X10*3/uL (0.1-1.2); Monocytes Percent Auto 6.8 % (2-11); Neutrophils Absolute Auto 4.9 x10*3/uL (2.0-8.3); Neutrophils Percent Auto 63.2 % (45-73); Platelet Count 245 X10*3/uL (160-400); Red Blood Count 4.57 X10*6/uL (4.20-5.50); Red Cell Distribution Width 14.9 % (11.0-16.0); White Blood Count 7.7 X10*3/uL (4.8-10.8)
[2024-03-18 16:33] LABS: INTERNATIONAL NORM RATIO 1.2 (0.9-1.1)
[2024-03-18 16:38] LABS: Alanine Aminotransferase 17 U/L (0-31); Albumin Level 3.8 g/dL (3.5-5.0); Alkaline Phosphatase 51 U/L (39-117); Anion Gap 14 (12-20); Aspartate Amino Transferase 21 U/L (5-31); Bilirubin Total 0.2 mg/dL (0.0-1.0); Blood Urea Nitrogen 23 mg/dL (9-16); Calcium 9.8 mg/dL (8.4-10.2); Carbon Dioxide 21 mmol/L (22-29); Chloride 109 mmol/L (96-108); Creatinine Clr Calc Pharmacy 68.5; Estimated Glomerular Filt Rate > 60; Glucose Random 119 mg/dL (60-115); Potassium 3.7 mmol/L (3.3-5.1); Sodium 140 mmol/L (135-145); Total Protein 7.1 g/dL (6.5-8.0)
[2024-03-18 16:46] LABS: Troponin-I High Sensitivity 3.6 ng/L (<3.5-17.0)
[2024-03-18 17:06] LABS: Influenza A PCR NEGATIVE (Negative); Influenza B PCR NEGATIVE (Negative); Resp Syncy Virus RNA Qual PCR NEGATIVE (Negative); SARS COV2 PCR INHOUSE NEGATIVE (Negative)
[2024-03-18 19:29] VITALS: BP 143/77; PULSE 93; RESP 16; TEMP 36.8; O2SAT 99
[2024-03-18 22:04] VITALS: BP 133/72; PULSE 60; RESP 16; TEMP 36.3; O2SAT 97
--- NOTE | 2024-03-18 22:14 | ECG_ITS ---
Test Reason : ARRHYTMIA CHECK Blood Pressure : / mmHG Vent. Rate : 063 BPM Atrial Rate : 063 BPM P-R Int : 204 ms QRS Dur : 086 ms QT Int : 440 ms P-R-T Axes : 032 -23 -08 degrees QTc Int : 450 ms Normal sinus rhythm Minimal voltage criteria for LVH, may be normal variant ( R in aVL ) Anterior infarct , age undetermined Abnormal ECG When compared with ECG of 18-MAR-2024 14:36, Sinus rhythm has replaced Atrial fibrillation Vent. rate has decreased BY [address] no longer depressed in Lateral leads Inverted T waves have replaced nonspecific T wave abnormality in Anterior leads Nonspecific T wave abnormality no longer evident in Lateral leads Referred By: Asia Hammond Electronically Signed By:GALO LOPEZ MD
--- NOTE | 2024-03-18 22:22 | PC.NURSE ---
Walking pulse ox performed at this time. Pt ambulatory independently with oxygen saturation of 94-100%.
[2024-03-18 22:23] VITALS: O2SAT 100
[2024-03-18] MEDS: Rivaroxaban 20 MG TABLET PO (22:55)
[2024-03-18 23:02] VITALS: BP 151/64; PULSE 64; RESP 15; TEMP 36.3; O2SAT 98
== END 2024-03-18 23:07 | disposition home or self-care (01) ==
PROVIDERS: Registered Nurse Emergency; Emergency Provider Emergency Medicine; PCP Internal Medicine
DX: I48.91 Unspecified atrial fibrillation (principal); R00.2 Palpitations; Z03.818 Encounter for observation for suspected exposure to other biological agents ruled out
CPT/HCPCS: 0241U; 80053; 84484; 85025; 85610; 93005; 99283; 99285

== ENCOUNTER → 2024-03-18 14:33 | Outpatient (BNV) | payer MEDICARE, SELFPAY | PROVIDERS: Emergency Provider Emergency Medicine; PCP Internal Medicine; Visit Provider Internal Medicine Cardiovascular Disease | DX: I48.91 Unspecified atrial fibrillation (principal) | CPT/HCPCS: 93010 ==

== ENCOUNTER 2024-04-01 07:49 | Outpatient (AMB) | payer MEDICARE, SELFPAY ==
--- NOTE | 2024-04-01 08:09 | A.OFFPC_ITS ---
Vital Signs 04/01/24 08:10 Height 5 ft 2 in Weight 185 lb BMI 33.8 BP 120/78 Blood Pressure Location Lt brachial Position Sitting Pulse 60 Pulse Source Pulse Oximeter Pulse Oximetry (%) 98 Oxygen Delivery Method Room Air Intake Visit Reasons: A [facility] Intake Note: PT is here today for hospital follow up visit. Allergies pneumococcal vaccine [PNEUMOCOCCAL VACCINE] Allergy (Severe, Verified 04/01/24 08:11) ARM SWELLED, swelling in arm tiotropium [From SPIRIVA WITH HANDIHALER] Allergy (Severe, Verified 04/01/24 08:11) THROAT SWELL doxycycline Adverse Reaction (Intermediate, Verified 04/01/24 08:11) foggy and forgetful Medication List - Last Reconciled 04/01/24 by Nessa Gibbons MD albuterol sulfate 90 mcg/actuation 2 puffs inhalation Q6H PRN alendronate 70 mg PO TU baclofen 5 mg PO BEDTIME PRN fexofenadine (Ally Allergy) 180 mg PO DAILY glucosamine-chondroitin 250-200 mg (Osteo Bi-Flex) 1 tab PO BID magnesium 250 mg PO DAILY metoprolol succinate ER (Toprol XL) 50 mg PO DAILY 90 days multivitamin 1 tab PO DAILY omega 6-wre-dwm-fish oil 350 mg-235 mg- 90 mg-597 mg ([place]-3) 1 cap PO DAILY omeprazole 20 mg PO DAILY pilocarpine HCl 5 mg PO TID rivaroxaban (Xarelto) 20 mg PO DAILY 90 days ropinirole 1 mg PO BEDTIME Tobacco use date assessed: 04/01/24 Fall risk assessment: No Falls in past year Last assessed Fall Risk: 04/01/24 Dental Screening Dental Screen Date: 04/01/24 Did you have a dental visit in the last 12 months?: Yes Did you have a dental problem in the last 6 months where you did not have access to dental care?: No Was dental information given to patient?: Patient has dentist HPI A [facility] HPI Details Patient presents for the follow-up of ER visit for day episode of AFib with rapid ventricle response. Patient spent 9 hours in the waiting room and her symptoms resolved. AFib was triggered by stress related to her cat. Patient denies any recurrent episodes of palpitation chest pain shortness of breath. She is planning to start regular aerobic exercise, riding her stationary bike. Patient had negative stress test, essential normal echocardiogram and Holter in October last year she has been taking metoprolol and Xarelto for anticoagulation. [facility] Medical History (Updated 04/01/24 @ 10:57 by Nessa Gibbons MD) Lora-trochanteric left hip tendinitis New onset a-fib Annual physical exam Trochanteric bursitis of right hip Weakness of left hand Poor balance Vitamin D deficiency Tinnitus Chronic left-sided low back pain Hx of echocardiogram Insomnia Chronic allergic rhinitis Asthma Sjogrens syndrome Surgical History H/O thumb surgery History of knee replacement History of bunionectomy of right great toe H/O colonoscopy Family History Father Heart attack CVD (cardiovascular disease) Mother Stroke CHF (congestive heart failure) Alzheimer's dementia Cancer Hypertension Social History Housing: House Alcohol intake: never Patient Tobacco Use Status: Never used Tobacco e-Cigarette/Vaping Use: Never Used service: Yes Current occupational status: retired Cognitive needs: No Hearing needs: No Vision needs: Yes Questionnaire PHQ-9 Over the last 2 weeks, how often have you been bothered by any of the following problems? 1. Little interest or pleasure in doing things: not at all 2. Feeling down, depressed, or hopeless: not at all 3. Trouble falling or staying asleep, or sleeping too much: nearly every day 4. Feeling tired or having little energy: nearly every day 5. Poor appetite or overeating: not at all 6. Feeling bad about yourself - or that you are a failure or have let yourself or your family down: not at all 7. Trouble concentrating on things, such as reading the newspaper or watching television: several days 8. Moving or speaking so slowly that other people could have noticed. Or the opposite - being so fidgety or restless that you have been moving around a lot more than usual: not at all 9. Thoughts that you would be better off or of hurting yourself in some way: not at all Total score: 7 Depression Screening Interpretation: Negative Depression Screening Done: Yes Source: Developed by Drs. Sadiq Bear, Latricia Brown, Alexandru Govea and colleagues, with an educational compa from [employer]. Thrive Questionnaire Date Thrive assessed: 04/01/24 I am a: Patient What is your living situation today?: I have a steady place to live Within the past 12 months, did the food you bought not last and you didn't have the money to get more?: Never true Within the past 12 months, did you worry whether your food would run out before you got money to buy more?: Never true Do you have trouble paying for medicines?: No Do you have trouble getting transportation to medical appointments?: No Do you have trouble paying your heating and electricity bill?: No Do you have trouble taking care of your child, family member or friend?: No Do you have trouble with day-to-day activities such as bathing, preparing meals, shopping, managing finances, etc.?: No Are you currently unemployed and looking for a job?: No Are you interested in more education?: No Please select the resources that you would like help with: None THRIVE Score: 0 AUDIT C Alcohol Use Questionnaire (AUDIT-C) 1. How often do you have a drink containing alcohol?: Never 3. How often do you have six or more drinks on one occasion?: Never Total Score: 0 MESHA-7 AMB Questionnaire MESHA-7 Date MESHA - 7 assessed: 04/01/24 Feeling nervous, anxious, or on edge: 0 = Not at all Not being able to stop or control worryin = Not at all Worrying too much about different things: 0 = Not at all Trouble relaxin = Not at all Being so restless that it is hard to sit still: 0 = Not at all Becoming easily annoyed or irritable: 0 = Not at all Feeling afraid as if something awful might happen: 0 = Not at all Total MESHA-7 score (0-4 normal; 5-9 mild; 10-14 moderate; 15-21 severe): 0 Source: Developed by Drs. Sadiq Bear, Alexandru Woods and colleagues, with an educational compa from [employer]. Review of Systems Const All systems reviewed & are unremarkable except as noted in HPI and below Reports no additional complaints Eyes Reports no additional complaints ENT Reports no additional complaints Card Reports no additional complaints Resp Reports no additional complaints GI Reports no additional complaints Reports no additional complaints Musc Reports no additional complaints Physical exam (Primary Care) Vital Signs: Last Vital Signs Pulse 60 04/01/24 08:10 BP 120/78 04/01/24 08:10 Pulse Ox 98 04/01/24 08:10 Oxygen Delivery Method Room Air 04/01/24 08:10 BMI result Body Mass Index 33.8 Tobacco/Smoking Status: Tobacco use Status Tobacco use date assessed 04/01/24 04/01/24 08:16 Patient Tobacco Use Status Never used Tobacco 04/01/24 08:16 e-Cigarette/Vaping Use Never Used 04/01/24 08:16 PHQ-9: PHQ-9 Score PHQ-9: Total score 7 04/01/24 08:17 Depression Screening Interpretation: Negative Thrive Assessment: Date of Thrive Assessment Date Thrive assessed 04/01/24 04/01/24 08:17 Const General: no acute distress HENMT Head: Yes normal to inspection Mouth: Normal oral and palatal mucosa present Throat: Yes posterior oropharynx normal Eyes General: appearance normal, both eyes and all related structures Neck Neck: Yes supple Resp Effort & Inspection: normal respiratory effort Auscultation: clear to auscultation bilaterally Cardio Rhythm: regular rhythm Heart sounds: S1 normal heart sound present and S2 normal heart sound present GI Inspection: Yes normal to inspection Assessment and Plan Assessment & Plan (1) Paroxysmal atrial fibrillation: Comment: 10/01/23 converted after Cardizem in ER, f/u Dr. Jones, Echo 09/27 LVEF 60%, trivial AR, negative stress test and normal Holter 10/26 Code(s): I48.0 - Paroxysmal atrial fibrillation Plan: Continue metoprolol and Xarelto (2) Sjogrens syndrome: Comment: Dx 2009: sicca symptoms, pos SS-B, neg SS-A, low titer RF, neg DNA, KIRSTEN, CCP Code(s): M35.00 - Sjogren syndrome, unspecified Qualifiers: Sjogren's organ involvement: unspecified organ involvement Qualified Code(s): M35.00 - Sicca syndrome, unspecified Plan: Follow-up with rheumatology (3) Asthma: Comment: Mild. pt uses albuterol p.r.n. Code(s): J45.909 - Unspecified asthma, uncomplicated Qualifiers: Asthma severity: mild Asthma persistence: intermittent Asthma complication type: uncomplicated Qualified Code(s): J45.20 - Mild intermittent asthma, uncomplicated Plan: Continue albuterol p.r.n. (4) Osteopenia: Comment: DEXA 06/2021, started Fosamax 12/2021 Code(s): M85.80 - Other specified disorders of bone density and structure, unspecified site Plan: Patient is due for repeat DEXA this year, continue vitamin-D and regular exercise (5) Vitamin D deficiency: Code(s): E55.9 - Vitamin D deficiency, unspecified Orders: Orders Complete Blood Count Auto Diff 5 Months E55.9 - Vitamin D deficiency, unspecified, I48.0 - Paroxysmal atrial fibrillation, M85.80 - Other specified disorders of bone density and structure, unspecified site Vitamin D 25-OH (D2 and D3) 5 Months E55.9 - Vitamin D deficiency, unspecified, I48.0 - Paroxysmal atrial fibrillation, M85.80 - Other specified disorders of bone density and structure, unspecified site XR DEXA axial skeleton 5 Months E55.9 - Vitamin D deficiency, unspecified, I48.0 - Paroxysmal atrial fibrillation, M85.80 - Other specified disorders of bone density and structure, unspecified site Comprehensive Hume. Panel Fast 5 Months E55.9 - Vitamin D deficiency, unspecified, I48.0 - Paroxysmal atrial fibrillation, M85.80 - Other specified disorders of bone density and structure, unspecified site TSH reflex Free T4 5 Months E55.9 - Vitamin D deficiency, unspecified, I48.0 - Paroxysmal atrial fibrillation, M85.80 - Other specified disorders of bone density and structure, unspecified site Lipid Panel 5 Months E55.9 - Vitamin D deficiency, unspecified, I48.0 - Paroxysmal atrial fibrillation, M85.80 - Other specified disorders of bone density and structure, unspecified site Coding Level of Care Code Est Pt Level 4 (13175) Diagnoses Paroxysmal atrial fibrillation I48.0 Sjogren's syndrome, with unspecified organ involvement M35.00 Sjogren's organ involvement: unspecified organ involvement Mild intermittent asthma without complication J45.20 Asthma severity: mild Asthma persistence: intermittent Asthma complication type: uncomplicated Osteopenia M85.80 Vitamin D deficiency E55.9
[2024-04-01 08:10] VITALS: BP 120/78; PULSE 60; O2SAT 98; BMI 33.8
== END 2024-04-01 08:46 | disposition home or self-care (01) ==
PROVIDERS: PCP Internal Medicine; Visit Provider Internal Medicine
DX: I48.0 Paroxysmal atrial fibrillation (principal); M35.00 Sjogren syndrome, unspecified; J45.20 Mild intermittent asthma, uncomplicated; M85.80 Other specified disorders of bone density and structure, unspecified site; E55.9 Vitamin D deficiency, unspecified
CPT/HCPCS: 99214

== ENCOUNTER 2024-04-07 14:07 | Outpatient (REF) | payer MEDICARE, SELFPAY ==
[2024-04-07 16:16] LABS: Appearance Urine Clear; Color Urine Yellow; Glucose Urine UA Negative (Negative); Leukocyte Esterase Urine Moderate (2+) (Negative); Nitrite Urine Negative (Negative); UMIC TRIGGER UA YES; Urine Blood Trace (Negative); Urine Ketones Negative (Negative); Urine Protein Negative (Neg-Trace)
[2024-04-07 16:21] LABS: Bacteria Urine None Seen (None Seen); Hyaline Casts Urine 0-2 /LPF (0-2); RBC Urine 0-2 /HPF (0-2); Squamous Epithelial Cell Urine 0-2 /HPF (0-2)
== END 2024-04-07 14:08 | disposition home or self-care (01) ==
LOC: HO.HMGCLDS 14:07
PROVIDERS: PCP Internal Medicine; Visit Provider Internal Medicine
DX: R31.9 Hematuria, unspecified (principal)
CPT/HCPCS: 81001; 87086

== ENCOUNTER 2024-04-13 13:47 | Outpatient (REF) | payer MEDICARE, SELFPAY ==
--- NOTE | ~2024-04-13 | US_ITS ---
EXAMINATION: US RETROPERITONEAL LIMITED (RENAL ONLY) CLINICAL INFORMATION: Calculus of kidney. COMPARISON: Ultrasound abdomen 11/09/2022. Renal and bladder ultrasound 07/12/2020. TECHNIQUE: Real-time imaging of the kidneys. Limited visualization due to bowel gas. FINDINGS: RIGHT KIDNEY: 8.9 x 4.5 x 5.3 cm (SAG x AP x TRV). No hydronephrosis. No renal calculi. Renal cortical thickness is normal. Limited visualization. LEFT KIDNEY: 9.1 x 4.8 x 5.5 cm (SAG x AP x TRV). No hydronephrosis. No renal calculi. Renal cortical thickness is normal. Limited visualization. US/US renal BI IMPRESSION: No hydronephrosis. No renal calculi.
== END 2024-04-13 13:48 | disposition home or self-care (01) ==
LOC: HO.HMGCX 13:47
PROVIDERS: PCP Internal Medicine; Visit Provider Internal Medicine
DX: N20.0 Calculus of kidney (principal); R31.9 Hematuria, unspecified
CPT/HCPCS: 76775

== ENCOUNTER 2024-04-15 13:45 | Outpatient (REF) | payer MEDICARE, SELFPAY ==
[2024-04-15 16:30] LABS: C Reactive Protein 0.34 mg/dL (< or = 0.50)
[2024-04-15 17:21] LABS: Erythrocyte Sedimentation Rate 10 MM/HR (0-20)
== END 2024-04-15 13:46 | disposition home or self-care (01) ==
LOC: HO.HMGCLDS 13:45
PROVIDERS: PCP Internal Medicine; Visit Provider Nurse Practitioner Family
DX: M79.10 Myalgia, unspecified site (principal)
CPT/HCPCS: 36415; 85652; 86140

== ENCOUNTER 2024-04-30 14:34 | Outpatient (AMB) | payer MEDICARE, SELFPAY ==
[2024-04-30 14:39] VITALS: BP 128/72; PULSE 76; BMI 33.9
--- NOTE | 2024-04-30 14:39 | A.OFFVIS_ITS ---
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 Allergies pneumococcal vaccine [PNEUMOCOCCAL VACCINE] Allergy (Severe, Verified 04/01/24 08:11) ARM SWELLED, swelling in arm tiotropium [From SPIRIVA WITH HANDIHALER] Allergy (Severe, Verified 04/01/24 08:11) THROAT SWELL doxycycline Adverse Reaction (Intermediate, Verified 04/01/24 08:11) foggy and forgetful Medication List - Last Reconciled 04/30/24 by Jeyson Jones MD albuterol sulfate 90 mcg/actuation 2 puffs inhalation Q6H PRN alendronate 70 mg PO TU baclofen 5 mg PO BEDTIME PRN fexofenadine (Ally Allergy) 180 mg PO DAILY glucosamine-chondroitin 250-200 mg (Osteo Bi-Flex) 1 tab PO BID magnesium 250 mg PO DAILY metoprolol succinate ER (Toprol XL) 50 mg PO DAILY 90 days multivitamin 1 tab PO DAILY omega 2-wpr-ymr-fish oil 350 mg-235 mg- 90 mg-597 mg (Nixon-3) 1 cap PO DAILY omeprazole 20 mg PO DAILY pilocarpine HCl 5 mg PO TID prednisone 3 tablets per day for 7 days 2 tablets per day for 7 days 1 tablets per day for 7 days stop rivaroxaban (Xarelto) 20 mg PO DAILY 90 days ropinirole 1 mg PO BEDTIME HPI Comments Details: Ignacia comes for follow-up. In March she had episode of atrial fibrillation after she had stressful event of losing her CAD. She then felt her heart going irregular, EKG suggested that she might be in atrial fibrillation she came to the emergency room after feeling a pulse to be irregular. However before she was able to be seen she converted back to sinus rhythm. She did not have any significant chest pain, lightheadedness, syncope. Denies any heart failure symptoms. Takes all her medications. No bleeding issues or neurologic events. She says she has been trying to lose weight but has had trouble doing that and is in need of possibly requiring left knee surgery. [facility] Medical History Myalgia Lora-trochanteric left hip tendinitis New onset a-fib Annual physical exam Trochanteric bursitis of right hip Weakness of left hand Poor balance Vitamin D deficiency Tinnitus Chronic left-sided low back pain Hx of echocardiogram Insomnia Chronic allergic rhinitis Asthma Sjogrens syndrome Surgical History H/O thumb surgery History of knee replacement History of bunionectomy of right great toe H/O colonoscopy Family History Father Heart attack CVD (cardiovascular disease) Mother Stroke CHF (congestive heart failure) Alzheimer's dementia Cancer Hypertension Social History Housing: House Alcohol intake: never Patient Tobacco Use Status: Never used Tobacco e-Cigarette/Vaping Use: Never Used service: Yes Current occupational status: retired Cognitive needs: No Hearing needs: No Vision needs: Yes Review of Systems Const Denies chills, Denies fatigue, Denies fever(s), Denies frequent falls, Denies weakness, Denies weight gain and Denies weight loss ENT Denies dizziness Card Denies chest pain, Denies leg edema, Denies lightheadedness, Denies palpitations, Denies dyspnea, Denies dyspnea on exertion, Denies orthopnea and Denies other (loss of consciousness) Resp Denies cough, Denies dyspnea and Denies dyspnea on exertion GI Denies hematochezia and Denies change in stool character Musc Denies abnormal gait, Denies muscle weakness, Denies numbness, Denies radiating pain into limb and Denies tingling Neuro Denies abnormal gait, Denies dizziness, Denies frequent falls, Denies numbness, Denies tingling and Denies weakness Endo Denies fatigue and Denies palpitations Physical Exam Vital Signs: Last Vital Signs Pulse 76 04/30/24 14:39 BP 128/72 04/30/24 14:39 BMI result Body Mass Index 33.9 Const General: cooperative, healthy appearing, comfortable and no acute distress Orientation/consciousness: patient oriented x3 Neck Neck: Yes normal visual inspection Resp Effort & Inspection: normal respiratory effort Auscultation: clear to auscultation bilaterally, no crackles, no rales, no rhonchi and no wheezes Cardio Jugular venous distension: no JVD Rate: regular rate Rhythm: regular rhythm Heart sounds: S1 normal heart sound present, S2 normal heart sound present, no murmurs and no rubs Neuro General: patient oriented x3 Extrem General: Yes normal to inspection, No no pedal edema and No calf tenderness Psych Appearance: grossly normal Mental Status: mental status grossly normal Speech and movement: Normal speech and movement present Office Procedures EKG Details: EKG shows normal sinus rhythm with PACs [id number], Complete Assessment & Plan Assessment & Plan (1) Paroxysmal atrial fibrillation: Comment: 10/01/23 converted after Cardizem in ER, f/u Dr. Jones, Echo 09/27 LVEF 60%, trivial AR, negative stress test and normal Holter 10/26 Code(s): I48.0 - Paroxysmal atrial fibrillation Category: Medical Plan: Highly symptomatic paroxysmal atrial fibrillation which has remained more or less controlled and her triggers being extremely stressful events. She understands them. We discussed about managing her stressful situations and a reaction to it. She understands. She has been trying to participate in more behavioral modification. Continue metoprolol therapy. Continue full oral anticoagulation, currently on Xarelto 20 mg daily. Semi annual renal function test is recommended. Advised to continue to participate in regular physical activity and weight loss program. Various methods were discussed. Will follow up in the clinic in 1 year's time, sooner p.r.n.. Thank you for allowing me to partake in the care Coding Level of Care Code Est Pt Level 4 (26413) Diagnoses Paroxysmal atrial fibrillation I48.0 CPT Codes EKG - CPT: 23116-[id number], Complete ([id number])
== END 2024-04-30 15:11 | disposition home or self-care (01) ==
PROVIDERS: PCP Internal Medicine; Visit Provider Internal Medicine Cardiovascular Disease
DX: I48.0 Paroxysmal atrial fibrillation (principal)
CPT/HCPCS: 93010; 99214

== ENCOUNTER → 2024-04-30 14:34 | Outpatient (BNVA) | payer MEDICARE, SELFPAY | PROVIDERS: PCP Internal Medicine; Visit Provider Internal Medicine Cardiovascular Disease | DX: I48.0 Paroxysmal atrial fibrillation (principal) | CPT/HCPCS: 93005; 99212 ==

== ENCOUNTER 2024-05-01 13:59 | Outpatient (AMB) | payer MEDICARE, SELFPAY ==
--- NOTE | 2024-05-01 14:17 | MHC.OFFVIS ---
Intake Visit Reasons: kidney stone?/microscopic hematuria Intake Note: New patient has been referred for Microscopic Hematuria/Kidney stone Patient had history of having a kidney stones many years ago. Patient states had UTI's in the past. Recent Ultrasound shows no Stones Patient states that the last urine test she had did show blood and she did see visible blood in urine when she had a active UTI Antibiotic Allergy: Doxycycline Blood Thinner: Xarelto Allergies pneumococcal vaccine [PNEUMOCOCCAL VACCINE] Allergy (Severe, Verified 05/01/24 14:19) ARM SWELLED, swelling in arm tiotropium [From SPIRIVA WITH HANDIHALER] Allergy (Severe, Verified 05/01/24 14:19) THROAT SWELL doxycycline Adverse Reaction (Intermediate, Verified 05/01/24 14:19) foggy and forgetful HPI Comments Details: Ignacia is a pleasant female. She is a patient of Dr. Gibbons. She has seen for the following urologic conditions - microscopic hematuria Microscopic hematuria Prior evaluation reveals ago Persistent 1+ blood with leukocytes Specific gravity shows dehydration Has prior question of UTI No prior UTIs 10 years before that No smoking exposure Imaging - normal renal ultrasound Plan cystoscopy May benefit from topical estrogen PFSH Medical History Myalgia Lora-trochanteric left hip tendinitis New onset a-fib Annual physical exam Trochanteric bursitis of right hip Weakness of left hand Poor balance Vitamin D deficiency Tinnitus Chronic left-sided low back pain Hx of echocardiogram Insomnia Chronic allergic rhinitis Asthma Sjogrens syndrome Surgical History H/O thumb surgery History of knee replacement History of bunionectomy of right great toe H/O colonoscopy Family History Father Heart attack CVD (cardiovascular disease) Mother Stroke CHF (congestive heart failure) Alzheimer's dementia Cancer Hypertension Social History Housing: House Alcohol intake: never Patient Tobacco Use Status: Never used Tobacco e-Cigarette/Vaping Use: Never Used service: Yes Current occupational status: retired Cognitive needs: No Hearing needs: No Vision needs: Yes Review of Systems Const Denies chills and Denies fever(s) Card Reports no additional complaints and Denies syncope Resp Denies cough GI Denies abdominal pain and Denies heartburn Reports as per HPI and Denies change in libido Neuro Denies syncope Psych Denies change in libido Endo Denies change in libido Physical Exam Const General: cooperative, healthy appearing, comfortable and no acute distress Orientation/consciousness: patient oriented x3 HEENT Face and sinus: Yes normal facial exam Mouth: moist mucous membranes Neck Neck: Yes normal visual inspection, Yes full ROM and Yes trachea midline Chest Chest palpation & inspection: normal inspection of the chest Resp Effort & Inspection: normal respiratory effort, able to speak in complete sentences and no respiratory distress GI Inspection: Yes normal to inspection Back/Spine/Pelvis Cervical Spine: normal cervical lordosis Thoracic/Lumbar Spine: thoracic and lumbar spine normal to inspection Skin General skin exam: no rashes or lesions noted Neuro General: patient oriented x3, gait normal, tone normal and moves all extremities Extrem General: Yes normal to inspection and Yes capillary refill normal Results AMB Urinalysis, Automated UA Leukoctes 70 Nani/uL Last Edit by Carolee Sung [facility] on 05/01/24 14:26 UA Nitrite Negative Last Edit by Carolee Sung [facility] on 05/01/24 14:26 UA Urobilinogen 0.2 mg/dL Last Edit by Carolee Sung [facility] on 05/01/24 14:26 UA Protein 15 mg/dL Last Edit by Carolee Sung [facility] on 05/01/24 14:26 UA pH 5.0 Last Edit by Carolee Sung [facility] on 05/01/24 14:26 UA Blood 10 Roly/uL Last Edit by Carolee Sung [facility] on 05/01/24 14:26 UA Specific Alliance 1.025 Last Edit by Carolee Sung [facility] on 05/01/24 14:26 UA Ketone Positive Last Edit by Carolee Sung [facility] on 05/01/24 14:26 UA Bilirubin 1 mg/dL Last Edit by Carolee Sung [facility] on 05/01/24 14:26 UA Glucose 0 mg/dL Last Edit by Carolee Sung [facility] on 05/01/24 14:26 Assessment & Plan Assessment & Plan (1) Nephrolithiasis: Code(s): N20.0 - Calculus of kidney Category: Medical (2) Hematuria: Code(s): R31.9 - Hematuria, unspecified Category: Medical Plan Plan for office cystoscopy Orders: Orders AMB Urinalysis Automated Today Z13.9 - Encounter for screening, unspecified Patient Instructions: Imaging studies, laboratory and physical exam results were discussed and reviewed in detail. No major barriers to patient understanding were identified. An opportunity to ask questions regarding the treatment plan was provided. All questions were answered. The patient expressed understanding and agreement with the above treatment plan. The patient is aware they should contact our office by phone for worsening of their current condition or the appearance of new urologic symptoms. Compliance is encouraged with any medications and followup testing that is ordered. It is a privilege to participate in the urologic care of your patient. If you have any questions or concerns regarding treatment for the above conditions, or other urologic issues, please do not hesitate to contact me. The office telephone contact is [phone]. This note is constructed using voice recognition software. While every effort has been made to ensure accuracy relations coordinator errors may have been included. Yours sincerely, Dr Nehemiah Bello MD, [facility] - Urology Providers of Expert, Compassionate Care for the Genitourinary System Coding Level of Care Code New Pt Level 3 (68205) Diagnoses Nephrolithiasis N20.0 Hematuria R31.9
== END 2024-05-01 14:41 | disposition home or self-care (01) ==
PROVIDERS: PCP Internal Medicine; Visit Provider Urology
DX: N20.0 Calculus of kidney (principal); R31.9 Hematuria, unspecified; Z13.9 Encounter for screening, unspecified
CPT/HCPCS: 99203

== ENCOUNTER → 2024-05-01 13:59 | Outpatient (BNVA) | payer MEDICARE, SELFPAY | PROVIDERS: PCP Internal Medicine; Visit Provider Urology | DX: N20.0 Calculus of kidney (principal); R31.9 Hematuria, unspecified | CPT/HCPCS: 81003; 99202 ==

== ENCOUNTER 2024-05-22 13:50 | Emergency (ER) | payer MEDICARE, SELFPAY ==
--- NOTE | 2024-05-22 14:01 | ECG_ITS ---
Test Reason : PALPITATIONS Blood Pressure : / mmHG Vent. Rate : 141 BPM Atrial Rate : 000 BPM P-R Int : 000 ms QRS Dur : 070 ms QT Int : 314 ms P-R-T Axes : 000 -22 -09 degrees QTc Int : 480 ms Atrial fibrillation with rapid ventricular response Septal infarct (cited on or before 18-MAR-2024) Abnormal ECG When compared with ECG of 18-MAR-2024 22:24, Atrial fibrillation has replaced Sinus rhythm Vent. rate has increased BY 78 BPM Questionable change in initial forces of Septal leads ST now depressed in Anterior leads T wave inversion no longer evident in Anterior leads Referred By: Dalia Ayala Electronically Signed By:GALO LOPEZ MD
--- NOTE | 2024-05-22 14:20 | ED_ITS ---
HPI - General Adult General Chief complaint: Arrhythmia/Palpitations Stated complaint: aFIB Time Seen by Provider: 05/22/24 15:55 Source: patient and old records reviewed Mode of arrival: ambulatory Limitations: no limitations History of Present Illness ED Provider: BELINDA ROSAS narrative: 69 yo male with PMH of PAF on toprol and xarelto, OA, HLD, kidney stones, asthma, GERD, FRANKY, anxiety felt palpitations at rest today - took extra dose of metoprolol 25mg at 1230 - no CP/SOB. Was told to take extra dose of toprol if she has symptoms. Recently did travel did have ankle swelling that is improving from pictures. She feels fine now. Leg swelling has been improving with rest. MD complaint: afib Onset (ago): day(s) (today 11am) Location: chest Radiation: non-radiation Severity: mild Relieving factors: medication Exacerbating factors: none Associated symptoms: denies other symptoms Treatments prior to arrival: none Related Data Home Medications ?Medication ?Instructions ?Recorded ?Confirmed magnesium 250 mg tablet 250 mg PO DAILY 10/20/20 04/30/24 fexofenadine 180 mg tablet 180 mg PO DAILY 02/24/21 04/30/24 (Ally Allergy) multivitamin 1 tab PO DAILY 02/24/21 04/30/24 glucosamine-chondroitin 250 mg-200 1 tab PO BID 07/25/21 04/30/24 mg tablet (Osteo Bi-Flex) alendronate 70 mg tablet 70 mg PO TU 10/01/23 04/30/24 omega 3 350 mg-dha 235 mg-epa 90 1 cap PO DAILY 10/01/23 04/30/24 mg-fish oil 597 mg capsule,delay rel (Weldon-3) ropinirole 0.5 mg tablet 1 mg PO BEDTIME 10/01/23 04/30/24 Previous Rx's ?Medication ?Instructions ?Recorded albuterol sulfate 90 mcg/actuation 2 puff inhalation Q6H PRN 08/08/23 aerosol inhaler shortness of breath or wheezing #8.5 grams omeprazole 20 mg capsule,delayed 20 mg PO DAILY #90 caps 08/14/23 release metoprolol succinate 50 mg 50 mg PO DAILY 90 days #90 tabs 10/24/23 tablet,extended release 24 hr (Toprol XL) rivaroxaban 20 mg tablet (Xarelto) 20 mg PO DAILY 90 days #90 tabs 10/24/23 baclofen 5 mg tablet 5 mg PO BEDTIME PRN muscle spasm 12/06/23 #30 tabs prednisone 5 mg tablet See Rx Instructions PO DAILY #45 04/14/24 tabs pilocarpine HCl 5 mg tablet 5 mg PO TID #90 tabs 04/16/24 Allergies Allergy/AdvReac Type Severity Reaction Status Date / Time pneumococcal vaccine Allergy Severe ARM Verified 05/22/24 14:23 [PNEUMOCOCCAL VACCINE] SWELLED, swelling in arm tiotropium Allergy Severe THROAT Verified 05/22/24 14:23 [From SPIRIVA WITH SWELL HANDIHALER] doxycycline AdvReac Intermediate foggy and Verified 05/22/24 14:23 forgetful Review of Systems 2 Review of Systems: Constitutional : No Fever, No Chills, No Fatigue ENT/Mouth : No sore throat, No Rhinorrhea Eyes: No Eye Pain, No Swelling, No Redness Cardiovascular : No Chest Pain, No SOB, No Dyspnea on Exertion, pos palpitations Respiratory : No Cough, No Sputum Gastrointestinal : No Nausea, No Vomiting, No Diarrhea, No abdominal Pain Genitourinary : No Dysuria, No Urinary Frequency, No Hematuria, Musculoskeletal : No joint pain, No Myalgias, No Joint Swelling Skin : No Skin Lesions, No rash Neuro : No Weakness, No Numbness, No Dizziness, no Headache Psych : No Anxiety/Panic, No Depression All other systems reviewed and are negative [facility] Past Medical History Attestation statement: The following information was validated with the patient. Source: old records reviewed Medical History Myalgia Lora-trochanteric left hip tendinitis New onset a-fib Annual physical exam Trochanteric bursitis of right hip Weakness of left hand Poor balance Vitamin D deficiency Tinnitus Chronic left-sided low back pain Hx of echocardiogram Insomnia Chronic allergic rhinitis Asthma Sjogrens syndrome Surgical History H/O thumb surgery History of knee replacement History of bunionectomy of right great toe H/O colonoscopy Family History Family History Father Heart attack CVD (cardiovascular disease) Mother Stroke CHF (congestive heart failure) Alzheimer's dementia Cancer Hypertension Social History Social History Housing: House Alcohol intake: never Patient Tobacco Use Status: Never used Tobacco e-Cigarette/Vaping Use: Never Used Advance Directives: Yes Advance Directives Information Provided: Yes Advance Directives on File: No service: Yes Current occupational status: retired Cognitive needs: No Hearing needs: No Vision needs: Yes Physical Exam ED Vital Signs: Vital Signs - 24 hr 05/22/24 14:21 05/22/24 15:27 Temperature 98 F 98.5 F Pulse Rate 125 H 83 Respiratory Rate 19 13 Blood Pressure 113/62 139/80 Pulse Oximetry 95 98 Oxygen Delivery Method Room Air Room Air BMI result Body Mass Index 34.6 Appearance: Alert. Oriented X3. No acute distress. Eyes: Pupils equal, round and reactive to light. ENT: Pharynx normal. Neck: Normal inspection. Neck supple. CVS: Normal heart rate and rhythm. Pulses normal. converted on tele to NSR Respiratory: No respiratory distress. Breath sounds normal. Abdomen: Soft and nontender. Skin: Skin warm and dry. Normal skin color. Normal skin turgor. Extremities: trace pitting ankle lower extremity edema. No calf ttp Neuro: Oriented X 3. No motor deficit. No sensory deficit. Course Course Course Narrative: This is an RME performed by Jairo Ayala CNP: Additional HPI, ROS, PE not included below will be deferred to primary provider. Patient is a 69-year-old female who presents to the emergency department reporting she is in atrial fibrillation. At 10:55 this morning she began feeling palpitations, when assessing her heart rate she noticed it was ?very high , which prompted her visit to the ED. denies pain, shortness, numbness or tingling of her extremities. Reports compliance with her Xarelto. Reports that she took an additional 1/2 of her metoprolol as advised by her doctor without improvement Plan: EKG, serum labs Medical Decision Making Medical Decision Making MDM Narrative: 69 yo male with PMH of PAF on toprol and xarelto, OA, HLD, kidney stones, asthma, GERD, FRANKY, anxiety here with c/o feeling her afib at this time not toxic and her afib has converted on exam to NSR she is compliant with medications she is not toxic. At this time mild ankle swelling from recent car ride to [place] but from pictures she shows me doubt CHF and BNP normal. At this time will repeat EKG and anticipate DC home if in NSR Differential Diagnosis Differential Diagnoses: The differential diagnosis associated with the presentation includes afib, lyte abnormality no CP to suggest ACS no signs of clinical CHF improving leg edema Admission/Observation Consideration of admission/observation: Escalation of care including admission/observation considered converted to NSR leg swelling improving stable for outpatient care Lab Data MDM Lab Attestation statement: I reviewed the patient's lab results. 05/22/24 14:43 05/22/24 14:44 Labs: Lab Results 05/22/24 05/22/24 Range/Units 14:43 14:44 WBC 7.7 (4.8-10.8) X10*3/uL RBC 4.66 (4.20-5.50) X10*6/uL Hgb 14.3 (12.0-16.0) g/dl Hct 41.2 (37.0-47.0) % MCV 88.4 (80.0-98.0) fL MCH 30.7 (27.0-33.0) pg MCHC 34.7 (31.0-35.0) g/dl RDW 13.8 (11.0-16.0) % Plt Count 275 (160-400) X10*3/uL MPV 9.4 (9.4-12.3) fL Immature Gran % (Auto) 0.3 (0.0-0.4) % Neut % (Auto) 55.9 (45-73) % Lymph % (Auto) 32.8 (20-40) % [place] % (Auto) 7.5 (2-11) % Eos % (Auto) 2.6 (0-4) % Baso % (Auto) 0.9 (0-2) % Lymph # (Auto) 2.5 (1.2-4.9) X10*3/uL [place] # (Auto) 0.6 (0.1-1.2) X10*3/uL Eos # (Auto) 0.2 (0.0-0.4) X10*3/uL Baso # (Auto) 0.1 (0.0-0.2) X10*3/uL Abs Immat Gran (auto) 0.02 (0.00-0.03) X10*3/uL Absolute Neuts (auto) 4.3 (2.0-8.3) x10*3/uL Absolute Nucleated RBC 0.000 (0.0-0.012) X10*3/uL Nucleated RBC % (auto) 0.0 (0.0-0.2) /100WBC PT 15.6 H (11.1-13.3) SEC INR 1.3 H (0.9-1.1) Sodium 143 (135-145) mmol/L Potassium 3.8 (3.3-5.1) mmol/L Chloride 109 H (96-108) mmol/L Carbon Dioxide 24 (22-29) mmol/L Anion Gap 14 (12-20) BUN 11 (9-16) mg/dL Creatinine 0.83 (0.5-1.4) mg/dL Estim Creat Clear Calc 64.0 Estimated GFR > 60 Random Glucose 108 (60-115) mg/dL Calcium 9.7 (8.4-10.2) mg/dL Total Bilirubin 0.4 (0.0-1.0) mg/dL AST 46 H (5-31) U/L ALT 56 H (0-31) U/L Alkaline Phosphatase 55 D (39-117) U/L Troponin I High Sens 2.8 (<3.5-17.0) ng/L B-Natriuretic Peptide 38 (<100) pg/mL Total Protein 7.0 (6.5-8.0) g/dL Albumin 4.0 (3.5-5.0) g/dL Independent Interpretation I performed an independent interpretation of an: EKG Interpretation: Rate: 141 Rhythm: afib Allred: normal Normal QRS complex. ST T wave : no LINDA , inverted t waves inf leads qTC: normal prior studies: rapid afib The study has been interpreted contemporaneously by me. EKG #2 Rate: 64 Rhythm: NSR Allred: left Normal P waves. Normal GARRET. Normal QRS complex. ST T wave : no LINDA, inverted t waves in III, aVF, V1, V2, flat t wave in V3 qTC: 431 prior studies: no change from priors The study has been interpreted contemporaneously by me. . External Record Review External record reviewed: Inpatient record Discharge Plan Discharge Clinical Impression: Palpitations, Atrial fibrillation Patient Disposition: Home, Self-Care Instructions: A-fib (Atrial Fibrillation) (ED), Heart Palpitations (ED) Additional Instructions: labs reassuring continue to take your medications follow up with Dr. Jones wear compressive stockings and elevate legs return for any worsening symptoms or concerns. Prescriptions: No Action prednisone 5 mg tablet See Rx Instructions PO DAILY Qty: 45 0RF Rx Instructions: 3 tablets per day for 7 days 2 tablets per day for 7 days 1 tablets per day for 7 days stop pilocarpine HCl 5 mg tablet 5 mg PO TID Qty: 90 4RF alendronate 70 mg tablet 70 mg PO TU ropinirole 0.5 mg tablet 1 mg PO BEDTIME Weldon-3 350 mg-235 mg- 90 mg-597 mg Capsule,Delayed Release(Dr/Ec) 1 cap PO DAILY omeprazole 20 mg capsule,delayed release(DR/EC) 20 mg PO DAILY Qty: 90 3RF fexofenadine [Ally Allergy] 180 mg tablet 180 mg PO DAILY multivitamin Tablet 1 tab PO DAILY magnesium 250 mg tablet 250 mg PO DAILY glucosamine-chondroitin [Osteo Bi-Flex] 250-200 mg tablet 1 tab PO BID Rx Instructions: give after food/meal baclofen 5 mg tablet 5 mg PO BEDTIME PRN (Reason: muscle spasm) Qty: 30 0RF metoprolol succinate [Toprol XL] 50 mg tablet extended release 24 hr 50 mg PO DAILY 90 Days Qty: 90 3RF Xarelto 20 mg tablet 20 mg PO DAILY 90 Days Qty: 90 3RF Rx Instructions: must administer with evening meal albuterol sulfate 90 mcg/actuation HFA aerosol inhaler 2 puff inhalation Q6H PRN (Reason: shortness of breath or wheezing) Qty: 8.5 11RF Print Language: [place]an
[2024-05-22 14:21] VITALS: BP 113/62; PULSE 125; RESP 19; TEMP 36.6; O2SAT 95; BMI 34.6
[2024-05-22 14:48] LABS: MANUAL DIFF FLAG NO
[2024-05-22 14:49] LABS: Basophils Absolute Auto 0.1 X10*3/uL (0.0-0.2); Basophils Percent Auto 0.9 % (0-2); Eosinophils Absolute Auto 0.2 X10*3/uL (0.0-0.4); Eosinophils Percent Auto 2.6 % (0-4); Hematocrit 41.2 % (37.0-47.0); Hemoglobin 14.3 g/dl (12.0-16.0); Imm Gran Abs Auto 0.02 X10*3/uL (0.00-0.03); Imm Gran Pct Auto 0.3 % (0.0-0.4); Lymphocytes Absolute Auto 2.5 X10*3/uL (1.2-4.9); Lymphocytes Percent Auto 32.8 % (20-40); Mean Corpuscular HGB Conc 34.7 g/dl (31.0-35.0); Mean Corpuscular Hemoglobin 30.7 pg (27.0-33.0); Mean Corpuscular Volume 88.4 fL (80.0-98.0); Mean Platelet Volume 9.4 fL (9.4-12.3); Monocytes Absolute Auto 0.6 X10*3/uL (0.1-1.2); Monocytes Percent Auto 7.5 % (2-11); Neutrophils Absolute Auto 4.3 x10*3/uL (2.0-8.3); Neutrophils Percent Auto 55.9 % (45-73); Platelet Count 275 X10*3/uL (160-400); Red Blood Count 4.66 X10*6/uL (4.20-5.50); Red Cell Distribution Width 13.8 % (11.0-16.0); White Blood Count 7.7 X10*3/uL (4.8-10.8)
[2024-05-22 14:54] LABS: INTERNATIONAL NORM RATIO 1.3 (0.9-1.1); Prothrombin Time 15.6 SEC (11.1-13.3)
[2024-05-22 15:19] LABS: B Type Natriuretic Peptide 38 pg/mL (<100)
[2024-05-22 15:24] LABS: Anion Gap 14 (12-20); Carbon Dioxide 24 mmol/L (22-29); Chloride 109 mmol/L (96-108); Potassium 3.8 mmol/L (3.3-5.1); Sodium 143 mmol/L (135-145)
[2024-05-22 15:25] LABS: Alanine Aminotransferase 56 U/L (0-31); Alkaline Phosphatase 55 U/L (39-117); Aspartate Amino Transferase 46 U/L (5-31); Bilirubin Total 0.4 mg/dL (0.0-1.0); Blood Urea Nitrogen 11 mg/dL (9-16); Calcium 9.7 mg/dL (8.4-10.2); Estimated Glomerular Filt Rate > 60; Glucose Random 108 mg/dL (60-115)
[2024-05-22 15:27] VITALS: BP 139/80; PULSE 83; RESP 13; TEMP 36.9; O2SAT 98
[2024-05-22 15:30] LABS: Troponin-I High Sensitivity 2.8 ng/L (<3.5-17.0)
--- NOTE | 2024-05-22 15:58 | PC.NURSE ---
pt remains in nsr at this time. denies chest pain/palpitations/sob. resting in no apparent distress. no wob noted. respirations even/unlabored. lung sounds CTA. plan of care ongoing. call carrasco placed within reach.
--- NOTE | 2024-05-22 16:28 | ECG_ITS ---
Test Reason : REPEAT Blood Pressure : / mmHG Vent. Rate : 064 BPM Atrial Rate : 064 BPM P-R Int : 168 ms QRS Dur : 076 ms QT Int : 418 ms P-R-T Axes : 003 -27 -08 degrees QTc Int : 431 ms Normal sinus rhythm Nonspecific ST and T wave abnormality Abnormal ECG When compared with ECG of 22-MAY-2024 13:59, Sinus rhythm has replaced Atrial fibrillation Vent. rate has decreased BY 77 BPM Referred By: Mercedes Barone Electronically Signed By:GALO LOPEZ MD
--- NOTE | 2024-05-22 16:37 | PC.NURSE ---
repeat ekg performed by tech.
[2024-05-22 17:20] VITALS: BP 139/80; PULSE 83; RESP 13; TEMP 36.9; O2SAT 98
== END 2024-05-22 17:26 | disposition home or self-care (01) ==
PROVIDERS: Nurse Practitioner Family; Emergency Provider Emergency Medicine; PCP Internal Medicine
DX: R00.2 Palpitations (principal); I48.0 Paroxysmal atrial fibrillation; M79.89 Other specified soft tissue disorders; Z79.01 Long term (current) use of anticoagulants
CPT/HCPCS: 36415; 80053; 83880; 84484; 85025; 85610; 93005; 99283; 99284

== ENCOUNTER → 2024-05-22 14:01 | Outpatient (BNV) | payer MEDICARE, SELFPAY | PROVIDERS: Emergency Provider Emergency Medicine; PCP Internal Medicine; Visit Provider Internal Medicine Cardiovascular Disease | DX: R94.31 Abnormal electrocardiogram [ECG] [EKG] (principal) | CPT/HCPCS: 93010 ==

== ENCOUNTER 2024-06-02 09:12 | Outpatient (AMB) | payer MEDICARE, SELFPAY ==
--- NOTE | 2024-06-02 09:20 | A.OFFVIS_ITS ---
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: No Allergies pneumococcal vaccine [PNEUMOCOCCAL VACCINE] Allergy (Severe, Verified 05/22/24 14:23) ARM SWELLED, swelling in arm tiotropium [From SPIRIVA WITH HANDIHALER] Allergy (Severe, Verified 05/22/24 14:23) THROAT SWELL doxycycline Adverse Reaction (Intermediate, Verified 05/22/24 14:23) foggy and forgetful Medication List - Last Reconciled 06/02/24 by Jeyson Jones MD albuterol sulfate 90 mcg/actuation 2 puffs inhalation Q6H PRN alendronate 70 mg PO TU baclofen 5 mg PO BEDTIME PRN fexofenadine (Ally Allergy) 180 mg PO DAILY glucosamine-chondroitin 250-200 mg (Osteo Bi-Flex) 1 tab PO BID magnesium 250 mg PO DAILY metoprolol succinate ER (Toprol XL) 50 mg PO DAILY 90 days multivitamin 1 tab PO DAILY omega 5-ltb-yei-fish oil 350 mg-235 mg- 90 mg-597 mg ([place]-3) 1 cap PO DAILY omeprazole 20 mg PO DAILY pilocarpine HCl 5 mg PO TID rivaroxaban (Xarelto) 20 mg PO DAILY 90 days ropinirole 1 mg PO BEDTIME HPI Comments Details: Ignacia comes for follow-up. She had another ER visit with atrial fibrillation after she had gone for traveled. She said the trip was tiring and when she came back she had episode of atrial fibrillation. She took an extra metoprolol however episode lasted for total of 3-1/2 hours. She converted spontaneously in the emergency room and was then discharged. She has been taking oral anticoagulation therapy. Episodes may happen with stressful event with her cat. She says she tends to be stressed out easily. She has been taking medications regularly. Has been taking oral anticoagulation regularly. No exertional chest pain or shortness of breath. A stress test in October was within normal limits. Echocardiogram at shown normal structure of the heart. FORMERLY [facility] Medical History Myalgia Lora-trochanteric left hip tendinitis New onset a-fib Annual physical exam Trochanteric bursitis of right hip Weakness of left hand Poor balance Vitamin D deficiency Tinnitus Chronic left-sided low back pain Hx of echocardiogram Insomnia Chronic allergic rhinitis Asthma Sjogrens syndrome Surgical History H/O thumb surgery History of knee replacement History of bunionectomy of right great toe H/O colonoscopy Family History Father Heart attack CVD (cardiovascular disease) Mother Stroke CHF (congestive heart failure) Alzheimer's dementia Cancer Hypertension Social History Housing: House Alcohol intake: never Patient Tobacco Use Status: Never used Tobacco e-Cigarette/Vaping Use: Never Used service: Yes Current occupational status: retired Cognitive needs: No Hearing needs: No Vision needs: Yes Review of Systems Const Denies chills, Denies fatigue, Denies fever(s), Denies frequent falls, Denies weakness, Denies weight gain and Denies weight loss ENT Denies dizziness Card Denies chest pain, Denies leg edema, Denies lightheadedness, Denies palpitations, Denies dyspnea, Denies dyspnea on exertion, Denies orthopnea and Denies other (loss of consciousness) Resp Denies cough, Denies dyspnea and Denies dyspnea on exertion GI Denies hematochezia and Denies change in stool character Musc Denies abnormal gait, Denies muscle weakness, Denies numbness, Denies radiating pain into limb and Denies tingling Neuro Denies abnormal gait, Denies dizziness, Denies frequent falls, Denies numbness, Denies tingling and Denies weakness Endo Denies fatigue and Denies palpitations Physical Exam Vital Signs: Last Vital Signs Pulse 70 06/02/24 09:22 BP 124/82 06/02/24 09:22 BMI result Body Mass Index 34.3 Const General: cooperative, healthy appearing, comfortable and no acute distress Orientation/consciousness: patient oriented x3 Neck Neck: Yes normal visual inspection Resp Effort & Inspection: normal respiratory effort Auscultation: clear to auscultation bilaterally, no crackles, no rales, no rhonchi and no wheezes Cardio Jugular venous distension: no JVD Rate: regular rate Rhythm: regular rhythm Heart sounds: S1 normal heart sound present, S2 normal heart sound present, no murmurs and no rubs Neuro General: patient oriented x3 Extrem General: Yes normal to inspection, No no pedal edema and No calf tenderness Psych Appearance: grossly normal Mental Status: mental status grossly normal Speech and movement: Normal speech and movement present Office Procedures EKG Details: EKG shows normal sinus rhythm with low-voltage QRS with poor R-wave progression most likely lead placement with normal QT interval 21566-[id number], Complete Assessment & Plan Assessment & Plan (1) Paroxysmal atrial fibrillation: Comment: 10/01/23 converted after Cardizem in ER, f/u Dr. Jones, Echo 09/27 LVEF 60%, trivial AR, negative stress test and normal Holter 10/26 Code(s): I48.0 - Paroxysmal atrial fibrillation Category: Medical Plan: Highly symptomatic paroxysmal atrial fibrillation with repeat ED presentation, most likely triggered by increased stress travel. However given highly symptomatic nature atrial fibrillation ED presentation she would like to have therapy that would prevent atrial fibrillation occurrence. Will start on flecainide 50 mg b.i.d.. Concomitant Toprol is essential to reduce risk of rapid atrial flutter. This was discussed with her. Potential side effects were discussed. Follow-up EKG in 1 week. Continue full oral anticoagulation, currently on Xarelto 20 mg daily. Semi annual renal function test should be pursued. She can take additional 150 mg of flecainide if she has recurrent bouts of atrial fibrillation to reduce risk of presentation to ED. Will follow up in the clinic in 3 months time, sooner p.r.n.. Thank you for allowing me to partake in her care Medications: New flecainide 50 mg PO Q12H 60 tabs 5RF Coding Level of Care Code Est Pt Level 4 (72887) Diagnoses Paroxysmal atrial fibrillation I48.0 CPT Codes EKG - CPT: 82093-Brazvfmqlvoywblqg, Complete ([id number])
[2024-06-02 09:22] VITALS: BP 124/82; PULSE 70; BMI 34.3
== END 2024-06-02 09:48 | disposition home or self-care (01) ==
PROVIDERS: PCP Internal Medicine; Visit Provider Internal Medicine Cardiovascular Disease
DX: I48.0 Paroxysmal atrial fibrillation (principal)
CPT/HCPCS: 93010; 99214

== ENCOUNTER → 2024-06-02 09:12 | Outpatient (BNVA) | payer MEDICARE, SELFPAY | PROVIDERS: PCP Internal Medicine; Visit Provider Internal Medicine Cardiovascular Disease | DX: I48.0 Paroxysmal atrial fibrillation (principal); Z79.01 Long term (current) use of anticoagulants | CPT/HCPCS: 93005; 99212 ==

== ENCOUNTER → 2024-06-09 09:10 | Outpatient (BNVA) | payer MEDICARE, SELFPAY | PROVIDERS: PCP Internal Medicine; Visit Provider Internal Medicine Cardiovascular Disease ==

== ENCOUNTER 2024-06-24 13:30 | Outpatient (AMB) | payer MEDICARE, SELFPAY ==
--- NOTE | 2024-06-24 14:12 | MHC.OFFVIS ---
Intake Visit Reasons: Cystoscopy(Micro Hematuria) Intake Note: Ignacia presents to the office today for a Cystoscopy(micro Hematuria) Cystoscope: LOT: [id number] EXP:12/19/26 Allergies pneumococcal vaccine [PNEUMOCOCCAL VACCINE] Allergy (Severe, Verified 06/24/24 14:12) ARM SWELLED, swelling in arm tiotropium [From SPIRIVA WITH HANDIHALER] Allergy (Severe, Verified 06/24/24 14:12) THROAT SWELL doxycycline Adverse Reaction (Intermediate, Verified 06/24/24 14:12) foggy and forgetful Medication List - Last Reconciled 06/24/24 by Liang Franklin MD albuterol sulfate 90 mcg/actuation 2 puffs inhalation Q6H PRN alendronate 70 mg PO QWEEK baclofen 5 mg PO BEDTIME PRN fexofenadine (Ally Allergy) 180 mg PO DAILY flecainide 50 mg PO Q12H glucosamine-chondroitin 250-200 mg (Osteo Bi-Flex) 1 tab PO BID magnesium 250 mg PO DAILY metoprolol succinate ER (Toprol XL) 50 mg PO DAILY 90 days multivitamin 1 tab PO DAILY omega 1-jhd-eez-fish oil 350 mg-235 mg- 90 mg-597 mg ([place]-3) 1 cap PO DAILY omeprazole 20 mg PO DAILY pilocarpine HCl 5 mg PO TID [Prevagen PO] rivaroxaban (Xarelto) 20 mg PO DAILY 90 days ropinirole 1 mg PO BEDTIME solifenacin (Vesicare) 5 mg PO DAILY HPI Comments Details: 06/24/24--here for office cystoscopy--Ignacia was seen on 05/01/[address] Bello for new patient evaluation microscopic hematuria. She is here in follow-up for office cystoscopy she had renal ultrasound done 04/13/24, I have discussed results were within normal limits negative for kidney masses or kidney stones. She complains of bladder spasms. Cystoscopy findings bladder mucosa no suspicious bladder lesions mild trabeculations. I will give her a trial of VESIcare 5 mg daily. Follow-up with our nurse practitioner Evi. Review of chart cold 05/01/24--Ignacia is a pleasant female. She is a patient of Dr. Gibbons. She has seen for the following urologic conditions - microscopic hematuria. Microscopic hematuria Prior evaluation reveals ago Persistent 1+ blood with leukocytes Specific gravity shows dehydration Has prior question of UTI No prior UTIs 10 years before that No smoking exposure Imaging - normal renal ultrasound Plan cystoscopy. May benefit from topical estrogen PFSH Medical History Myalgia Lora-trochanteric left hip tendinitis New onset a-fib Annual physical exam Trochanteric bursitis of right hip Weakness of left hand Poor balance Vitamin D deficiency Tinnitus Chronic left-sided low back pain Hx of echocardiogram Insomnia Chronic allergic rhinitis Asthma Sjogrens syndrome Surgical History H/O thumb surgery History of knee replacement History of bunionectomy of right great toe H/O colonoscopy Family History Father Heart attack CVD (cardiovascular disease) Mother Stroke CHF (congestive heart failure) Alzheimer's dementia Cancer Hypertension Social History Housing: House Alcohol intake: never Patient Tobacco Use Status: Never used Tobacco e-Cigarette/Vaping Use: Never Used service: Yes Current occupational status: retired Cognitive needs: No Hearing needs: No Vision needs: Yes Review of Systems Const All systems reviewed & are unremarkable except as noted in HPI and below Reports no additional complaints Eyes Reports no additional complaints ENT Reports no additional complaints Card Reports no additional complaints Resp Reports no additional complaints GI Reports no additional complaints Reports as per HPI Musc Reports no additional complaints Skin/Breast Reports system reviewed and no additional complaints, except as documented Neuro Reports no additional complaints Psych Reports no additional complaints Endo Reports no additional complaints Rodriguez/Lymph Reports no additional complaints Aller/Immun Reports no additional complaints Office Procedures Cystoscopy Consent Discussed risk and benefit or proposed procedure with the patient. Information consent for procedure given to the patient. Discussed technical aspects, risks, benefits and alternatives in full. Addressed all of the patient's questions and concerns regarding the procedure. The patient demonstrated knowledge and understanding. They wish to proceed with this procedure. Preparation The patient was prepped in the usual manner. A technical publications writer was present and in the room. Genitalia was prepped with betadine solution in a sterile manner. Lidocaine Jelly 2% was placed into the urethra and 16Fr flexible Olympus cystoscope was inserted into the meatus after adequate lubrication. Procedure Time out per protocol performed. Bladder Inspection Bladder Inspection: The bladder was inspected in its entirety with utilization retroflexion displaying: Tumor(s): no suspicious bladder lesions visualized Trabeculation: mild Mucosal Erthema: NA Orifices: normal shape and position Urethra: normal Cystoscopy findings: mild trabeculations, no suspicious bladder lesions visualized [id number] Procedure code (CPT) selection complete Office Meds lidocaine HCl 2 % mucosal jelly in applicator Performing Provider: Liang Franklin MD Performing Location: [facility] Administered by: Tirso Valverde RN on 06/24/24 14:40 Dose Route Admin Location Dispensed Lot Number Expiration Date NDC Home Care Attendant 10 mL intra-urethral 10 mL naproxen 500 mg tablet Performing Provider: Liang Franklin MD Performing Location: [facility] Administered by: Tirso Valverde RN on 06/24/24 14:40 Dose Route Admin Location Dispensed Lot Number Expiration Date NDC Home Care Attendant 500 mg PO 1 tab ciprofloxacin HCl 500 mg tablet Performing Provider: Liang Franklin MD Performing Location: [facility] Administered by: Tirso Valverde RN on 06/24/24 14:40 Dose Route Admin Location Dispensed Lot Number Expiration Date NDC Home Care Attendant 500 mg PO 1 tab Results AMB Urinalysis, Automated UA Leukoctes 15 Nain/uL Last Edit by Andree Greenberg CMA on 06/24/24 14:14 UA Nitrite Negative Last Edit by Andree Greenberg CMA on 06/24/24 14:14 UA Urobilinogen 0.2 mg/dL Last Edit by Andree Greenberg CMA on 06/24/24 14:14 UA Protein 0 mg/dL Last Edit by Andree Greenberg CMA on 06/24/24 14:14 UA pH 6.0 Last Edit by Andree Greenberg CMA on 06/24/24 14:14 UA Blood 80 Roly/uL Last Edit by Andree Greenberg CMA on 06/24/24 14:14 UA Specific [place] 1.015 Last Edit by Andree Greenberg CMA on 06/24/24 14:14 UA Ketone Negative Last Edit by Andree Greenberg CMA on 06/24/24 14:14 UA Bilirubin 0 mg/dL Last Edit by Andree Greenberg CMA on 06/24/24 14:14 UA Glucose 0 mg/dL Last Edit by Andree Greenberg CMA on 06/24/24 14:14 Results Reviewed Results Reviewed: Laboratory Last Values Urine pH (Auto) 6.0 06/24/24 14:13 Specific [place] (Auto) 1.015 06/24/24 14:13 Urine Protein (Auto) 0 mg/dL 06/24/24 14:13 Glucose (UA)(Auto) 0 mg/dL 06/24/24 14:13 Urine Ketones (Auto) Negative 06/24/24 14:13 Urine Blood (Auto) 80 Roly/uL 06/24/24 14:13 Urine Nitrite (Auto) Negative 06/24/24 14:13 Urine Bilirubin (Auto) 0 mg/dL 06/24/24 14:13 Urine Urobilinogen (Auto) 0.2 mg/dL 06/24/24 14:13 Leukocyte Esterase (Auto) 15 Nain/uL 06/24/24 14:13 Date of Service: 04/13/24 EXAMINATION: US RETROPERITONEAL LIMITED (RENAL ONLY) CLINICAL INFORMATION: Calculus of kidney. COMPARISON: Ultrasound abdomen 11/09/2022. Renal and bladder ultrasound 07/12/2020. TECHNIQUE: Real-time imaging of the kidneys. Limited visualization due to bowel gas. FINDINGS: RIGHT KIDNEY: 8.9 x 4.5 x 5.3 cm (SAG x AP x TRV). No hydronephrosis. No renal calculi. Renal cortical thickness is normal. Limited visualization. LEFT KIDNEY: 9.1 x 4.8 x 5.5 cm (SAG x AP x TRV). No hydronephrosis. No renal calculi. Renal cortical thickness is normal. Limited visualization. IMPRESSION: No hydronephrosis. No renal calculi. Assessment & Plan Assessment & Plan (1) Hematuria: Code(s): R31.9 - Hematuria, unspecified Category: Medical (2) Bladder spasms: Code(s): N32.89 - Other specified disorders of bladder Category: Medical Plan solifenacin (Vesicare) 5 mg PO DAILY 30 tabs 3RF Orders: Orders AMB Urinalysis Automated Today R31.9 - Hematuria, unspecified AMB Cystoscopy Today R31.9 - Hematuria, unspecified Medications: New solifenacin (Vesicare) 5 mg PO DAILY 30 tabs 3RF Patient Instructions: The patient had an opportunity to ask questions regarding treatment plan. The patient expressed understanding and agreement with the above treatment plan. The patient is aware they should contact our office by phone for worsening of their current condition or the appearance of new symptoms. Compliance is encouraged with any medications and followup testing that is ordered. It is a privilege to be allowed the opportunity to participate in the urologic care of your patient. If you have any questions or concerns regarding treatment for the above conditions please do not hesitate to contact me. The office telephone contact is [phone]. This note is constructed in part using voice recognition software. 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 Yours sincerely, Liang Franklin MD Coding Level of Care Code Est Pt Level 3 (39492) Diagnoses Hematuria R31.9 Bladder spasms N32.89 CPT Codes Cystoscopy - CPT: 71282-[id number] ([id number])
== END 2024-06-24 15:31 | disposition home or self-care (01) ==
PROVIDERS: PCP Internal Medicine; Visit Provider Urology
DX: R31.29 Other microscopic hematuria (principal); N32.89 Other specified disorders of bladder
CPT/HCPCS: 52000; 99213

== ENCOUNTER → 2024-06-24 13:30 | Outpatient (BNVA) | payer MEDICARE, SELFPAY | PROVIDERS: PCP Internal Medicine; Visit Provider Urology | DX: R31.29 Other microscopic hematuria (principal); N32.89 Other specified disorders of bladder | CPT/HCPCS: 52000; 81003; 99212 ==

== ENCOUNTER 2024-07-23 08:21 | Outpatient (AMB) | payer MEDICARE, SELFPAY ==
--- NOTE | 2024-07-23 08:22 | A.OFFPC_ITS ---
Vital Signs 07/23/24 08:25 Height 5 ft 2 in Weight 189 lb BMI 34.6 BP 120/68 Blood Pressure Location Lt brachial Position Sitting Pulse 55 Pulse Source Pulse Oximeter Pulse Oximetry (%) 98 Oxygen Delivery Method Room Air Intake Visit Reasons: Knee pain Intake Note: Pt is here today for a sick visit. Pt c/o L knee pain. Allergies pneumococcal vaccine [PNEUMOCOCCAL VACCINE] Allergy (Severe, Verified 07/23/24 08:30) ARM SWELLED, swelling in arm tiotropium [From SPIRIVA WITH HANDIHALER] Allergy (Severe, Verified 07/23/24 08:30) THROAT SWELL doxycycline Adverse Reaction (Intermediate, Verified 07/23/24 08:30) foggy and forgetful Medication List - Last Reconciled 07/23/24 by Nessa Gibbons MD albuterol sulfate 90 mcg/actuation 2 puffs inhalation Q6H PRN alendronate 70 mg PO QWEEK fexofenadine (Ally Allergy) 180 mg PO DAILY flecainide 50 mg PO Q12H glucosamine-chondroitin 250-200 mg (Osteo Bi-Flex) 1 tab PO BID magnesium 250 mg PO DAILY metoprolol succinate ER (Toprol XL) 50 mg PO DAILY 90 days multivitamin 1 tab PO DAILY omega 7-dtv-yca-fish oil 350 mg-235 mg- 90 mg-597 mg ([place]-3) 1 cap PO DAILY omeprazole 20 mg PO DAILY pilocarpine HCl 5 mg PO TID [Prevagen PO] rivaroxaban (Xarelto) 20 mg PO DAILY 90 days ropinirole 1 mg PO BEDTIME solifenacin (Vesicare) 5 mg PO DAILY Tobacco use date assessed: 07/23/24 Fall risk assessment: No Falls in past year Last assessed Fall Risk: 07/23/24 Dental Screening Dental Screen Date: 04/01/24 HPI Knee pain HPI Details Pt c/o L knee sharp pain for 1 week, worse when standing or walking. Patient denies any injury. She completed physical therapy in February for osteoarthritis of left knee with good relief. Patient has been using a cane. AFib is stable on current medications. 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 FORMERLY [facility] Medical History Myalgia Lora-trochanteric left hip tendinitis New onset a-fib Annual physical exam Trochanteric bursitis of right hip Weakness of left hand Poor balance Vitamin D deficiency Tinnitus Chronic left-sided low back pain Hx of echocardiogram Insomnia Chronic allergic rhinitis Asthma Sjogrens syndrome Surgical History H/O thumb surgery History of knee replacement History of bunionectomy of right great toe H/O colonoscopy Family History Father Heart attack CVD (cardiovascular disease) Mother Stroke CHF (congestive heart failure) Alzheimer's dementia Cancer Hypertension Social History Housing: House Alcohol intake: never Patient Tobacco Use Status: Never used Tobacco e-Cigarette/Vaping Use: Never Used service: Yes Current occupational status: retired Cognitive needs: No Hearing needs: No Vision needs: Yes Questionnaire PHQ-9 Over the last 2 weeks, how often have you been bothered by any of the following problems? 1. Little interest or pleasure in doing things: not at all 2. Feeling down, depressed, or hopeless: not at all 3. Trouble falling or staying asleep, or sleeping too much: not at all 4. Feeling tired or having little energy: nearly every day 5. Poor appetite or overeating: nearly every day 6. Feeling bad about yourself - or that you are a failure or have let yourself or your family down: not at all 7. Trouble concentrating on things, such as reading the newspaper or watching television: not at all 8. Moving or speaking so slowly that other people could have noticed. Or the opposite - being so fidgety or restless that you have been moving around a lot more than usual: not at all 9. Thoughts that you would be better off or of hurting yourself in some way: not at all Total score: 6 Depression Screening Interpretation: Negative Depression Screening Done: Yes 03263 - PHQ-9 Billing: Yes Source: Developed by Drs. Sadiq Baer, Latricia Brown, Alexandru Govea and colleagues, with an educational compa from [employer]. Thrive Questionnaire Date Thrive assessed: 07/23/24 I am a: Patient What is your living situation today?: I have a steady place to live Within the past 12 months, did the food you bought not last and you didn't have the money to get more?: Never true Within the past 12 months, did you worry whether your food would run out before you got money to buy more?: Never true Do you have trouble paying for medicines?: No Do you have trouble getting transportation to medical appointments?: No Do you have trouble paying your heating and electricity bill?: No Do you have trouble taking care of your child, family member or friend?: I choose not to answer this question Do you have trouble with day-to-day activities such as bathing, preparing meals, shopping, managing finances, etc.?: No Are you interested in more education?: No Please select the resources that you would like help with: None Currently or been in a relationship where the following occur: No concerns reported THRIVE Score: 0 AUDIT C Alcohol Use Questionnaire (AUDIT-C) 1. How often do you have a drink containing alcohol?: Never 3. How often do you have six or more drinks on one occasion?: Never Total Score: 0 MESHA-7 AMB Questionnaire MESHA-7 Date MESHA - 7 assessed: 07/23/24 Feeling nervous, anxious, or on edge: 0 = Not at all Not being able to stop or control worryin = Not at all Worrying too much about different things: 0 = Not at all Trouble relaxin = Not at all Being so restless that it is hard to sit still: 0 = Not at all Becoming easily annoyed or irritable: 0 = Not at all Feeling afraid as if something awful might happen: 0 = Not at all Total MESHA-7 score (0-4 normal; 5-9 mild; 10-14 moderate; 15-21 severe): 0 Source: Developed by Drs. Sadiq Bear, Latricia Brown, Alexandru Govea and colleagues, with an educational compa from [employer]. MESHA-7 Assessment Billing MESHA-7 Assessment Tool: MESHA-7 Assessment 52974 Review of Systems Const All systems reviewed & are unremarkable except as noted in HPI and below Eyes Reports no additional complaints Card Reports no additional complaints Resp Reports no additional complaints GI Reports no additional complaints Reports no additional complaints Physical exam (Primary Care) Vital Signs: Last Vital Signs Pulse 55 07/23/24 08:25 BP 120/68 07/23/24 08:25 Pulse Ox 98 07/23/24 08:25 Oxygen Delivery Method Room Air 07/23/24 08:25 BMI result Body Mass Index 34.6 Tobacco/Smoking Status: Tobacco use Status Tobacco use date assessed 07/23/24 07/23/24 08:32 Patient Tobacco Use Status Never used Tobacco 07/23/24 08:32 e-Cigarette/Vaping Use Never Used 07/23/24 08:22 PHQ-9: PHQ-9 Score PHQ-9: Total score 6 07/23/24 08:32 Depression Screening Interpretation: Negative Thrive Assessment: Date of Thrive Assessment Date Thrive assessed 07/23/24 07/23/24 08:32 Currently or been in a relationship where the following occur: No concerns reported Const General: no acute distress Resp Effort & Inspection: normal respiratory effort Auscultation: clear to auscultation bilaterally Cardio Rate: bradycardic Rhythm: regular rhythm Heart sounds: S1 normal heart sound present and S2 normal heart sound present Extrem Other: There is slightly decreased range of motion of the left knee no soft tissue swelling erythema or warmth. Assessment and Plan Assessment & Plan (1) Osteoarthritis of left knee: Code(s): M17.12 - Unilateral primary osteoarthritis, left knee Plan: Prednisone taper as prescribed and patient will restart exercises that she learned at physical therapy earlier this year. If the pain persists she will be referred to physical therapy ortho for cortisone inj (2) Paroxysmal atrial fibrillation: Comment: 10/01/23 converted after Cardizem in ER, f/u Dr. Jones, Echo 09/27 LVEF 60%, trivial AR, negative stress test and normal Holter 10/26 Code(s): I48.0 - Paroxysmal atrial fibrillation Plan: Continue current medications follow-up with the Cardiology Medications: New prednisone Four tablets p.o. q.d. for 3 days then 3 tablets p.o. q.d. for 3 days then 2 tablets p.o. q.d. for 3 days then 1 tablet p.o. q.d. for 3 days 10 mg PO DAILY 30 tabs 0RF Coding Level of Care Code Est Pt Level 3 (38599) Diagnoses Osteoarthritis of left knee M17.12 Paroxysmal atrial fibrillation I48.0 Additional Codes MESHA-7 Assessment Billing - MESHA-7 Assessment Tool: MESHA-7 Assessment 63555 ([id number])
[2024-07-23 08:25] VITALS: BP 120/68; PULSE 55; O2SAT 98; BMI 34.6
== END 2024-07-23 08:58 | disposition home or self-care (01) ==
PROVIDERS: PCP Internal Medicine; Visit Provider Internal Medicine
DX: M17.12 Unilateral primary osteoarthritis, left knee (principal); I48.0 Paroxysmal atrial fibrillation

== ENCOUNTER → 2024-07-23 08:21 | Outpatient (BNVA) | payer MEDICARE, SELFPAY | PROVIDERS: PCP Internal Medicine; Visit Provider Internal Medicine | DX: M17.12 Unilateral primary osteoarthritis, left knee (principal); I48.0 Paroxysmal atrial fibrillation | CPT/HCPCS: 96127; 99212 ==

== ENCOUNTER 2024-08-07 15:36 | Outpatient (REF) | payer MEDICARE, SELFPAY ==
--- NOTE | 2024-08-07 15:55 | PFT_ITS ---
Flows: FEV1: 109 % of predicted at 2.24 L FVC: 106 % of predicted at 2.81 L FEV1/FVC: 80 % Bronchodilator response: Present in small to medium airways only Volumes: Total lung capacity: 100 % of predicted at 4.62 L Residual volume: 88 % of predicted at 1.60 L Slow vital capacity: 108 % of predicted at 3.02 L Expiratory reserve volume: 85 % of predicted at 0.56 L Diffusion capacity: Normal Impression: No obstructive or restrictive ventilatory defect. Bronchodilator response present in small to medium airways only. MTDD
== END 2024-08-07 15:37 | disposition home or self-care (01) ==
LOC: HO.RESP 15:36
PROVIDERS: PCP Internal Medicine; Visit Provider Hospitalist
DX: J45.20 Mild intermittent asthma, uncomplicated (principal)
CPT/HCPCS: 94010; 94640; 94727; 94729

== ENCOUNTER 2024-08-11 07:02 | Outpatient (REF) | payer MEDICARE, SELFPAY ==
[2024-08-11 09:58] LABS: MANUAL DIFF FLAG NO
[2024-08-11 10:12] LABS: Basophils Absolute Auto 0.1 X10*3/uL (0.0-0.2); Basophils Percent Auto 1.1 % (0-2); Eosinophils Absolute Auto 0.1 X10*3/uL (0.0-0.4); Eosinophils Percent Auto 0.9 % (0-4); Hemoglobin 13.9 g/dl (12.0-16.0); Imm Gran Abs Auto 0.07 X10*3/uL (0.00-0.03); Imm Gran Pct Auto 0.9 % (0.0-0.4); Lymphocytes Absolute Auto 1.8 X10*3/uL (1.2-4.9); Lymphocytes Percent Auto 24.7 % (20-40); Mean Corpuscular HGB Conc 33.1 g/dl (31.0-35.0); Mean Corpuscular Hemoglobin 29.8 pg (27.0-33.0); Mean Corpuscular Volume 90.1 fL (80.0-98.0); Mean Platelet Volume 10.2 fL (9.4-12.3); Monocytes Absolute Auto 0.5 X10*3/uL (0.1-1.2); Monocytes Percent Auto 6.3 % (2-11); Neutrophils Absolute Auto 4.9 x10*3/uL (2.0-8.3); Neutrophils Percent Auto 66.1 % (45-73); Platelet Count 306 X10*3/uL (160-400); Red Blood Count 4.66 X10*6/uL (4.20-5.50); Red Cell Distribution Width 14.7 % (11.0-16.0); White Blood Count 7.4 X10*3/uL (4.8-10.8)
[2024-08-11 10:30] LABS: Alanine Aminotransferase 15 U/L (0-31); Albumin Level 3.9 g/dL (3.5-5.0); Alkaline Phosphatase 47 U/L (39-117); Anion Gap 11 (12-20); Aspartate Amino Transferase 17 U/L (5-31); Bilirubin Total 0.4 mg/dL (0.0-1.0); Blood Urea Nitrogen 12 mg/dL (9-16); Calcium 9.3 mg/dL (8.4-10.2); Carbon Dioxide 28 mmol/L (22-29); Chloride 106 mmol/L (96-108); Cholesterol 180 mg/dL (<200); Estimated Glomerular Filt Rate > 60; Glucose Fasting 91 mg/dL (60-99); HDL Cholesterol 54 mg/dL (>40); LDL Cholesterol Calculated 112 mg/dL (<100); Potassium 4.1 mmol/L (3.3-5.1); Sodium 141 mmol/L (135-145); Triglycerides 71 mg/dL (<150)
[2024-08-11 10:47] LABS: TSH reflex Free T4 2.61 uIU/mL (0.32-4.0)
[2024-08-16 15:28] LABS: Vitamin D 25-OH, D2 <4 ng/mL; Vitamin D 25-OH, D3 55 ng/mL; Vitamin D 25-OH, Total 55 ng/mL (30-100)
== END 2024-08-11 07:03 | disposition home or self-care (01) ==
LOC: HO.HMGCLDS 07:02
PROVIDERS: PCP Internal Medicine; Visit Provider Internal Medicine
DX: I48.0 Paroxysmal atrial fibrillation (principal); M85.80 Other specified disorders of bone density and structure, unspecified site; E55.9 Vitamin D deficiency, unspecified
CPT/HCPCS: 36415; 80053; 80061; 82306; 84443; 85025

== ENCOUNTER → 2024-08-17 13:48 | Outpatient (BNVA) | payer MEDICARE, SELFPAY | PROVIDERS: PCP Internal Medicine; Visit Provider Internal Medicine ==

== ENCOUNTER 2024-08-20 14:42 | Outpatient (AMB) | payer MEDICARE, SELFPAY ==
--- NOTE | 2024-08-20 14:49 | MHC.OFFVIS ---
Vital Signs 08/20/24 14:50 Height 5 ft 2 in Weight 194 lb 0.108 oz BMI 35.5 BP 128/70 Blood Pressure Location Lt brachial Position Sitting Pulse 62 Pulse Source Pulse Oximeter Pulse Oximetry (%) 98 Oxygen Delivery Method Room Air Intake Visit Reasons: franky:1 year f/u Heel Padder Required: No Allergies pneumococcal vaccine [PNEUMOCOCCAL VACCINE] Allergy (Severe, Verified 08/20/24 14:52) ARM SWELLED, swelling in arm tiotropium [From SPIRIVA WITH HANDIHALER] Allergy (Severe, Verified 08/20/24 14:52) THROAT SWELL doxycycline Adverse Reaction (Intermediate, Verified 08/20/24 14:52) foggy and forgetful HPI Comments Details: The patient is a 69-year-old woman known allergic asthma and allergic rhinitis. She has had a few exacerbations of her breathing requiring short-acting beta agonist. Once it occurred when she was running she started developing significant asthma symptoms. 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 I recommended that she does not work in that environment. In the meantime she does not have the singular medication as she has not been using it for months. She understands with her allergic asthma singular becomes very useful to minimize exacerbations in symptoms. No recent x-rays or pulmonary function studies to review. ? 05/09/2020 The patient is here for pulmonary follow-up visit. Overall she feels well from a respiratory status. She continues to use her singular with good effect. She has not had to use her rescue inhaler as often. She did undergo pulmonary function studies and we did look at them together demonstrating no evidence of any obstructive nor restrictive ventilatory defects. Her gas exchange is also good. Her respiratory exam is also reassuring. Will plan for her to come back in 1 year and have an x-ray done at the time. June 02, 2021 the patient is here for pulmonary follow-up visit. the patient has not required her short-acting beta agonist. She does have cough intermittently. She continues to struggle with her sleep. She has significant periodic limb movement at nighttime. This keeps her up. She is currently on ropinirole. She has tried other agents including gabapentin and Lyrica. Does medications resulted in adverse effects. In addition to that she has tried trazodone. At this point the patient needs something that will help her with her sleep. She continues to have daytime drowsiness. Will try small dose of Ambien. Also the 5 mg tablets and she can start with half a tablet to make sure that his effective and does not give her any adverse effects. She can slowly increase it. Once she is up 5 mg if she is still not getting adequate sleep she can call and I consented the full dose of 10 mg. in the meantime we did review her sleep study that demonstrated no significant sleep apnea at this time. Patient is reassured that she does not need Pap therapy. 08/08/2023 the patient is here for a pulmonary follow-up visit. Overall the patient has been doing well. She denies any worsening respiratory symptoms. She does have some dyspnea on exertion but minimal. No significant wheezing. She is not use any maintenance therapies. She has a rescue inhaler but typically uses it less than twice a week. She still complaining of a dry mouth. The patient does have Sjogren's disease. But overall it is manageable at this time. She continues on the antihistamine therapy for allergies and also still uses the ropinirole for her restless like. Overall the patient is doing well. Will plan to follow-up in a year's time with pulmonary function studies. If the patient has any worsening symptoms prior to that she is to call the office for an earlier assessment. 08/20/2024 the patient is here for a pulmonary follow-up visit. Overall she is doing okay. She does complaint of a nonproductive cough. Sometimes it can be productive of some phlegm. Typically yellowish in color. Otherwise she is doing okay. She does have some nasal congestion. She does have issues with epistaxis so therefore she does not like to use any nasal sprays that tend to worsening. The patient has been using her rescue inhaler as needed. Typically less than 2 times a week. Typically uses it before seeing acquired. However, she has been noticing this cough that is been a little bit more frequent for her. Will go ahead and have her get an x-ray. She did have pulmonary function studies which we did review. No evidence of any obstructive nor restrictive ventilatory defects. Appeared to be consistent with normal lung mechanics. [facility] Medical History (Updated 08/20/24 @ 15:06 by Mark Olivo MD) Cough Myalgia Lora-trochanteric left hip tendinitis New onset a-fib Annual physical exam Trochanteric bursitis of right hip Weakness of left hand Poor balance Vitamin D deficiency Tinnitus Chronic left-sided low back pain Hx of echocardiogram Insomnia Chronic allergic rhinitis Asthma Sjogrens syndrome Surgical History H/O thumb surgery History of knee replacement History of bunionectomy of right great toe H/O colonoscopy Family History Father Heart attack CVD (cardiovascular disease) Mother Stroke CHF (congestive heart failure) Alzheimer's dementia Cancer Hypertension Social History Housing: House Alcohol intake: never Patient Tobacco Use Status: Never used Tobacco e-Cigarette/Vaping Use: Never Used service: Yes Current occupational status: retired Cognitive needs: No Hearing needs: No Vision needs: Yes Review of Systems Const Denies headache(s) and Denies night sweats ENT Denies change in voice, Denies headache(s), Denies lip swelling, Denies mouth pain and Denies tongue swelling Card Denies chest pain Resp Reports cough GI Denies abdominal pain Musc Reports no additional complaints Neuro Denies headache(s) Psych Denies no additional complaints Rodriguez/Lymph Denies easy bleeding and Denies lymphadenopathy Aller/Immun Denies lip swelling and Denies tongue swelling Physical Exam Vital Signs: Last Vital Signs Pulse 62 08/20/24 14:50 BP 128/70 08/20/24 14:50 Pulse Ox 98 08/20/24 14:50 Oxygen Delivery Method Room Air 08/20/24 14:50 BMI result Body Mass Index 35.5 Const General: no acute distress and well developed Orientation/consciousness: patient oriented x3 Neck Neck: Yes trachea midline and Yes supple Chest Chest palpation & inspection: normal inspection of the chest Resp Effort & Inspection: normal respiratory effort Auscultation: clear to auscultation bilaterally Cardio Rate: regular rate Rhythm: regular rhythm Heart sounds: S1 normal heart sound present and S2 normal heart sound present Neuro General: patient oriented x3 Extrem Other: No synovitis on exam. Dry cracked skin on hands General: Yes no pedal edema Psych Speech and movement: Clear speech present Attitude: cooperative Assessment & Plan Assessment & Plan (1) Asthma: Comment: Mild. pt uses albuterol p.r.n. Code(s): J45.909 - Unspecified asthma, uncomplicated Category: Medical Qualifiers: Asthma complication type: uncomplicated Asthma persistence: intermittent Asthma severity: mild Qualified Code(s): J45.20 - Mild intermittent asthma, uncomplicated (2) FRANKY (obstructive sleep apnea): Code(s): G47.33 - Obstructive sleep apnea (adult) (pediatric) Category: Medical (3) Insomnia: Code(s): G47.00 - Insomnia, unspecified Category: Medical Qualifiers: Insomnia type: primary Qualified Code(s): F51.01 - Primary insomnia (4) Cough: Code(s): R05.9 - Cough, unspecified Category: Medical Qualifiers: Cough type: subacute Qualified Code(s): R05.2 - Subacute cough Plan continue ropinirole for her periodic limb movement short-acting beta agonist as needed continue with herbal therapy for sleep aid. CXR Tessalon pearls as needed Mucinex OTC If symptoms worsen she should call for a short course of abx follow-up in 1 year Orders: Orders XR chest 2V Today R05.9 - Cough, unspecified Medications: New benzonatate 200 mg PO BID 30 days PRN 30 caps 0RF cough benzonatate 200 mg PO BID PRN 30 caps 0RF cough 30 days Coding Level of Care Code Est Pt Level 4 (62662) Diagnoses Mild intermittent asthma without complication J45.20 Asthma complication type: uncomplicated Asthma persistence: intermittent Asthma severity: mild FRANKY (obstructive sleep apnea) G47.33 Primary insomnia F51.01 Insomnia type: primary Subacute cough R05.2 Cough type: subacute Time Spent (min) 16
[2024-08-20 14:50] VITALS: BP 128/70; PULSE 62; O2SAT 98; BMI 35.5
== END 2024-08-20 15:09 | disposition home or self-care (01) ==
PROVIDERS: PCP Internal Medicine; Visit Provider Hospitalist
DX: J45.20 Mild intermittent asthma, uncomplicated (principal); G47.33 Obstructive sleep apnea (adult) (pediatric); F51.01 Primary insomnia; R05.2 Subacute cough
CPT/HCPCS: 99214

== ENCOUNTER → 2024-08-20 14:42 | Outpatient (BNVA) | payer MEDICARE, SELFPAY | PROVIDERS: PCP Internal Medicine; Visit Provider Hospitalist | DX: G47.33 Obstructive sleep apnea (adult) (pediatric) (principal); J45.20 Mild intermittent asthma, uncomplicated; F51.01 Primary insomnia; R05.2 Subacute cough | CPT/HCPCS: 99212 ==

== ENCOUNTER 2024-08-25 12:34 | Outpatient (AMB) | payer MEDICARE, SELFPAY ==
--- NOTE | 2024-08-25 12:35 | A.OFFVIS_ITS ---
Vital Signs 08/25/24 12:37 Height 5 ft 2 in Weight 193 lb 5.526 oz BMI 35.4 BP 118/68 Blood Pressure Location Lt brachial Position Sitting Pulse 67 Pulse Source Pulse Oximeter Pulse Oximetry (%) 96 Oxygen Delivery Method Room Air Intake Visit Reasons: Right Shoulder Pain/Muscle Spasme Intake Note: Patient presents today for follow up on right shoulder pain and muscle spasms. She was last seen in the office on 02/20/24 by Fabiana Barnes. Allergies pneumococcal vaccine [PNEUMOCOCCAL VACCINE] Allergy (Severe, Verified 08/25/24 12:39) ARM SWELLED, swelling in arm tiotropium [From SPIRIVA WITH HANDIHALER] Allergy (Severe, Verified 08/25/24 12:39) THROAT SWELL doxycycline Adverse Reaction (Intermediate, Verified 08/25/24 12:39) foggy and forgetful HPI Comments Details: Patient is a 69-year-old female with. Paroxysmal AFib, Sjogren's disease, and osteoarthritis (status post right knee replacement) who presents for follow-up Interval History: Patient last seen 02/20/2024 with Fabiana Barnes. At that time patient was complaining of peritrochanteric left hip tendonitis. She was given intra bursal injection. Other symptoms are stable. Today Patient complains of pain to her left knee, she also notes a swelling to her posterior left knee that is firm and tender to touch. Denies any knee swelling. With respect to her sicca symptoms they are well controlled with eyedrops and mouthwash. Currently on alendronate for osteopenia and tolerating same well. Rheumatologic History: Diagnosed with Sjogren's in 2019 after presenting with sicca symptoms and positive antibodies. No evidence of extraglandular Sjogren's Managed with topical eye drops and mouthwash. No history of Sjogren's related arthritis Current Rheumatology Medication(s): Alendronate (give by primary) [facility] Medical History (Updated 08/25/24 @ 13:43 by Jeaneth Alvarez MD) Cough Myalgia Lora-trochanteric left hip tendinitis New onset a-fib Annual physical exam Trochanteric bursitis of right hip Weakness of left hand Poor balance Vitamin D deficiency Tinnitus Chronic left-sided low back pain Hx of echocardiogram Insomnia Chronic allergic rhinitis Asthma Sjogrens syndrome Surgical History H/O thumb surgery History of knee replacement History of bunionectomy of right great toe H/O colonoscopy Family History Father Heart attack CVD (cardiovascular disease) Mother Stroke CHF (congestive heart failure) Alzheimer's dementia Cancer Hypertension Social History Housing: House Alcohol intake: never Patient Tobacco Use Status: Never used Tobacco e-Cigarette/Vaping Use: Never Used service: Yes Current occupational status: retired Cognitive needs: No Hearing needs: No Vision needs: Yes Review of Systems Const Details: Review of Systems Constitutional: Denies fever, chills, weight loss ENT: Denies vision changes, eye pain or eye redness, dental caries, dry mouth GI: Denies nausea, vomiting, diarrhea, abdominal pain, change in BM Pulm: Denies SOB, GARCIA, hemoptysis, wheezing Cards: Denies chest pain, palpitations Skin: Denies Raynaud's, rash, nail changes, photosensitivity, 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 ?Pupils equal round and reactive to light. ?No lymphadenopathy. ?Normal dentition. Respiratory System Normal respiratory effort and able to speak in complete sentences. ?Clear to auscultation bilaterally. ?No crackles, rales, rhonchi, wheezes heard. Cardiac System Regular rate and rhythm. ?S1 and S2 heard no murmurs. ?Radial pulses intact bilaterally MSK Hands:.??Deformity noted to the right 2nd digit at the PIP knees. Heberden's nodes noted throughout. No synovitis noted. Able to make a fist. Wrists: Normal pain-free range of motion without tenderness, swelling, increased warmth or erythema. Elbows: Full range of motion without pain. No tenderness, weakness, swelling, increased warmth or erythema. Shoulders: Full range of motion without pain. No tenderness, weakness, swelling, increased warmth or erythema. Hips: Full range of motion without pain. Hip bursa:.??No tenderness. Knees:.???Fullness noted to posterior knee. Ankles:.??Normal pain-free range of motion without tenderness, swelling, increased warmth or erythema. Feet:.??Normal pain-free range of motion without tenderness, swelling, increased warmth or erythema. Tender points:??No tenderness to digital palpation at the occiput, trapezius, second rib, lateral epicondyle, knees, greater trochanter bilaterally, and left gluteal. Results Reviewed Results Reviewed: XR left knee 02/2024 Kellgren Jcarlos grade 2 with mild osteophytes not much joint space narrowing noted. (my read) Assessment & Plan Assessment & Plan (1) Sjogrens syndrome: Comment: Dx 2009: sicca symptoms, pos SS-B, neg SS-A, low titer RF, neg DNA, KIRSTEN, CCP Code(s): M35.00 - Sjogren syndrome, unspecified Category: Medical Qualifiers: Sjogren's organ involvement: unspecified organ involvement Qualified Code(s): M35.00 - Sicca syndrome, unspecified Plan: #Sjogren's disease Patient has Sjogren's disease is stable. No evidence of extraglandular Sjogren's. No evidence of lymphoma transformation. No lymphadenopathy. We will check labs. (2) Osteoarthritis of left knee: Code(s): M17.12 - Unilateral primary osteoarthritis, left knee Category: Medical Qualifiers: Osteoarthritis type: primary Qualified Code(s): M17.12 - Unilateral primary osteoarthritis, left knee Plan: #Left Knee OA Primary osteoarthritis of left knee. Complicated by Deluca's cyst. We will schedule ultrasound-guided Deluca cyst aspiration and steroid injection. Plan I spent 20 minutes reviewing the record and labs, seeing the patient, discussing the treatment plan and documenting in the medical record ? For next visit: * Follow-up labs Orders: Orders Complement C4 Today M35.00 - Sjogren syndrome, unspecified Erythrocyte Sedimentation Rate Today M35.00 - Sjogren syndrome, unspecified Rheumatoid Factor Today M35.00 - Sjogren syndrome, unspecified Sjogren's Antibodies Today M35.00 - Sjogren syndrome, unspecified Complement C3 Today M35.00 - Sjogren syndrome, unspecified C Reactive Protein Today M35.00 - Sjogren syndrome, unspecified ELLEN Reflex Titer and Pattern Today M35.00 - Sjogren syndrome, unspecified Coding Level of Care Code Est Pt Level 3 (55725) Diagnoses Sjogren's syndrome, with unspecified organ involvement M35.00 Sjogren's organ involvement: unspecified organ involvement Primary osteoarthritis of left knee M17.12 Osteoarthritis type: primary
[2024-08-25 12:37] VITALS: BP 118/68; PULSE 67; O2SAT 96; BMI 35.4
== END 2024-08-25 13:16 | disposition home or self-care (01) ==
PROVIDERS: PCP Internal Medicine; Visit Provider Student in an Organized Health Care Education/Training Program
DX: M35.00 Sjogren syndrome, unspecified (principal); M17.12 Unilateral primary osteoarthritis, left knee
CPT/HCPCS: 99213

== ENCOUNTER 2024-08-25 12:34 | Outpatient (REF) | payer MEDICARE, SELFPAY ==
[2024-08-25 14:59] LABS: C Reactive Protein 0.52 mg/dL (< or = 0.50)
[2024-08-25 15:17] LABS: Erythrocyte Sedimentation Rate 14 MM/HR (0-20)
[2024-08-25 15:18] LABS: Rheumatoid Factor 18.8 IU/mL (<15.0)
[2024-08-26 21:49] LABS: Antibody to SS-A Antigen <1.0 NEG AI (<1.0 NEG); Antibody to SS-B Antigen 2.2 POS AI (<1.0 NEG)
[2024-08-29 11:43] LABS: Complement C3 157 mg/dL (83-193)
[2024-09-01 16:08] LABS: ANA Pattern 2 Nuclear, Speckled; Anti Nuclear Antibody Pattern Nuclear, Centromere; Anti Nuclear Antibody Screen POSITIVE (NEGATIVE)
== END 2024-08-25 12:35 | disposition home or self-care (01) ==
LOC: HO.XRAY 12:34
PROVIDERS: Absent Provider Hospitalist; PCP Internal Medicine; Visit Provider Student in an Organized Health Care Education/Training Program
DX: M35.00 Sjogren syndrome, unspecified (principal); R05.9 Cough, unspecified; M25.511 Pain in right shoulder; M17.12 Unilateral primary osteoarthritis, left knee
CPT/HCPCS: 36415; 71046; 85652; 86038; 86039; 86140; 86160; 86235; 86431; 99212

== ENCOUNTER 2024-08-27 14:05 | Outpatient (REF) | payer MEDICARE, SELFPAY ==
[2024-08-27 17:28] LABS: Urine Cytology See Pathology rpt
== END 2024-08-27 14:06 | disposition home or self-care (01) ==
LOC: HO.LNP 14:05
PROVIDERS: PCP Internal Medicine; Visit Provider Nurse Practitioner Family
DX: R31.29 Other microscopic hematuria (principal); N32.89 Other specified disorders of bladder
CPT/HCPCS: 51798; 81003; 88112; 99212

== ENCOUNTER 2024-08-27 14:05 | Outpatient (AMB) | payer MEDICARE, SELFPAY ==
--- NOTE | 2024-08-27 14:08 | A.OFFVIS_ITS ---
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 Accompanied by: Self / Same As Patient Allergies pneumococcal vaccine [PNEUMOCOCCAL VACCINE] Allergy (Severe, Verified 08/27/24 14:58) ARM SWELLED, swelling in arm tiotropium [From SPIRIVA WITH HANDIHALER] Allergy (Severe, Verified 08/27/24 14:58) THROAT SWELL doxycycline Adverse Reaction (Intermediate, Verified 08/27/24 14:58) foggy and forgetful Medication List - Last Reconciled 08/27/24 by RADHAMES Donnelly albuterol sulfate 90 mcg/actuation 2 puffs inhalation Q6H PRN alendronate 70 mg PO QWEEK benzonatate 200 mg PO BID PRN 30 days fexofenadine (Ally Allergy) 180 mg PO DAILY flecainide 50 mg PO Q12H glucosamine-chondroitin 250-200 mg (Osteo Bi-Flex) 1 tab PO BID magnesium 250 mg PO DAILY metoprolol succinate ER (Toprol XL) 50 mg PO DAILY 90 days multivitamin 1 tab PO DAILY omega 5-qjq-rkb-fish oil 350 mg-235 mg- 90 mg-597 mg ([place]-3) 1 cap PO DAILY omeprazole 20 mg PO DAILY pilocarpine HCl 5 mg PO TID [Prevagen PO] rivaroxaban (Xarelto) 20 mg PO DAILY 90 days ropinirole 1 mg PO BEDTIME solifenacin (Vesicare) 5 mg PO DAILY 90 days HPI Comments Details: Ignacia is a very pleasant 69-year-old female patient of Dr. Gibbons. She has a past medical history of myalgia, AFib, tinnitus, vitamin-D deficiency, insomnia, allergic rhinitis, and sjogrens syndrome. She presents to the office today for follow-up of her microscopic hematuria. Of note, patient underwent an office cystoscopy approximately [address] Negrete that noted bladder mucosa no suspicious bladder lesions noted mild trabeculations. During last office visit she was started on VESIcare for reports of bladder spasms. In discussion with the patient today she reports significant improvement in lower urinary tract symptoms she had been experiencing. Previous workup has included a renal ultrasound 04/27 that noted bilateral kidneys with no calculi, lesions, and or hydronephrosis. In office urinalysis results reviewed with the patient today. PVR 0ml's. She denies urinary urgency, urinary frequency, incontinence, nocturia, hematuria, dysuria, foul smelling urine, changes to urinary stream, flank pain, fever, and or chills. She is happy with her current voiding parameters on Vesicare 5 mg daily. She otherwise offers no other issues or concerns at this time. Microscopic hematuria Prior evaluation reveals ago Persistent 1+ blood with leukocytes Specific gravity shows dehydration Has prior question of UTI No prior UTIs 10 years before that No smoking exposure Imaging - normal renal ultrasound Plan cystoscopy. May benefit from topical estrogen PFSH Medical History Cough Myalgia Lora-trochanteric left hip tendinitis New onset a-fib Annual physical exam Trochanteric bursitis of right hip Weakness of left hand Poor balance Vitamin D deficiency Tinnitus Chronic left-sided low back pain Hx of echocardiogram Insomnia Chronic allergic rhinitis Asthma Sjogrens syndrome Surgical History H/O thumb surgery History of knee replacement History of bunionectomy of right great toe H/O colonoscopy Family History Father Heart attack CVD (cardiovascular disease) Mother Stroke CHF (congestive heart failure) Alzheimer's dementia Cancer Hypertension Social History Housing: House Alcohol intake: never Patient Tobacco Use Status: Never used Tobacco e-Cigarette/Vaping Use: Never Used service: Yes Current occupational status: retired Cognitive needs: No Hearing needs: No Vision needs: Yes Review of Systems Const All systems reviewed & are unremarkable except as noted in HPI and below Physical Exam Const General: cooperative, healthy appearing, comfortable, no acute distress, well developed, alert and awake Orientation/consciousness: patient oriented x3 Limitations: no limitations HEENT Head: Yes normal to inspection, Yes normocephalic and Yes atraumatic Ears: hearing grossly normal bilaterally Eyes General: appearance normal, both eyes and all related structures Neck Neck: Yes normal visual inspection and Yes trachea midline Chest Chest palpation & inspection: normal inspection of the chest Resp Effort & Inspection: normal respiratory effort and able to speak in complete sentences Cardio Rate: regular rate GI Inspection: Yes normal to inspection General: Yes no CVA tenderness Back/Spine/Pelvis Back: no CVA tenderness Skin General skin exam: no rashes or lesions noted Neuro General: patient oriented x3 Extrem General: Yes normal to inspection Psych Appearance: grossly normal and well kempt Mental Status: mental status grossly normal Speech and movement: Normal speech and movement present and Clear speech present Affect: normal affect Attitude: cooperative Thought process: Normal thought process present Thought content: Normal thought content present Insight: Fair insight present (Psych) Judgement: Fair judgement present (Psych) Office Procedures Post Void Residual Post Residual Void Post Void Residual (PVR): 0 [id number] Void Residual by ultrasound Results AMB Urinalysis, Automated UA Leukoctes 125 Nain/uL Last Edit by [employer]ain[employer] on 08/27/24 15:09 UA Nitrite Last Edit by Aurora Rollins on 08/27/24 15:09 UA Urobilinogen 0.2 mg/dL Last Edit by [employer] on 08/27/24 15:09 UA Protein 0 mg/dL Last Edit by [employer] Lama[employer]up[employer] on 08/27/24 15:09 UA pH 6.0 Last Edit by [employer] on 08/27/24 15:09 UA Blood 200 Roly/uL Last Edit by [employer] on 08/27/24 15:09 UA Specific [place] 1.015 Last Edit by [employer]ama[employer] on 08/27/24 15:09 UA Ketone Last Edit by [employer] on 08/27/24 15:09 UA Bilirubin 0 mg/dL Last Edit by [employer] on 08/27/24 15:09 UA Glucose 0 mg/dL Last Edit by [employer] on 08/27/24 15:09 Results Reviewed Results Reviewed: Laboratory Last Values Urine pH (Auto) 6.0 08/27/24 15:05 Specific [place] (Auto) 1.015 08/27/24 15:05 Urine Protein (Auto) 0 mg/dL 08/27/24 15:05 Glucose (UA)(Auto) 0 mg/dL 08/27/24 15:05 Urine Blood (Auto) 200 Roly/uL 08/27/24 15:05 Urine Bilirubin (Auto) 0 mg/dL 08/27/24 15:05 Urine Urobilinogen (Auto) 0.2 mg/dL 08/27/24 15:05 Leukocyte Esterase (Auto) 125 Nain/uL 08/27/24 15:05 Assessment & Plan Assessment & Plan (1) Bladder spasms: Code(s): N32.89 - Other specified disorders of bladder Category: Medical (2) Microscopic hematuria: Code(s): R31.29 - Other microscopic hematuria Category: Medical Plan In office urinalysis results reviewed with patient today; will send for urine cytology. PVR 0 mL. Patient currently denies any bothersome urinary issues or concerns. She reports be happy with current voiding parameters on 5 mg of VESIcare; will continue; refill provided. Discussed bladder triggers/irritants. We discussed at length potential causes of bladder spasms as well as microscopic hematuria. Follow-up in 6 months with PVR; or sooner with any issues, concerns, and or questions. Orders: Orders AMB Post Void Residual by ultrasound 08/27/24 N32.89 - Other specified disorders of bladder AMB Urinalysis Automated 08/27/24 Z13.9 - Encounter for screening, unspecified Urine Cytology 08/27/24 R31.9 - Hematuria, unspecified Medications: Changed From solifenacin (Vesicare) 5 mg PO DAILY 30 tabs 3RF To solifenacin (Vesicare) 5 mg PO DAILY 90 tabs 2RF 90 days Patient Instructions: The patient had an opportunity to ask questions regarding the treatment plan. All questions were answered. Physical exam, labs, and imaging were discussed and reviewed in detail. As well as risks, benefits, and discussion of treatment choices. No major barriers to understanding were identified. The patient express ed understanding and agreement with the above treatment plan. The patient was made aware they should contact our office by phone for worsening of their current condition, the appearance of new symptoms, or with any questions or concerns. Compliance is encouraged with any medications and follow up testing that is ordered. It is a privilege to be allowed the opportunity to participate in? your urological care.? Again, if you have any questions or concerns If you have any questions or concerns please do not hesitate to contact me. The office is [phone]. This note is constructed using voice recognition software. 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 Yours sincerely, TITO Donnelly Coding Level of Care Code Est Pt Level 3 (98115) Complex EM visit Add On G2211 Diagnoses Bladder spasms N32.89 Microscopic hematuria R31.29 CPT Codes Post Residual Void - PVR CPT Code: 91092-Eugn Void Residual by ultrasound ([id number])
== END 2024-08-27 14:48 | disposition home or self-care (01) ==
PROVIDERS: PCP Internal Medicine; Visit Provider Nurse Practitioner Family
DX: N32.89 Other specified disorders of bladder (principal); R31.29 Other microscopic hematuria
CPT/HCPCS: 99213; G2211

== ENCOUNTER 2024-09-15 09:11 | Outpatient (REF) | payer MEDICARE, SELFPAY | END 2024-09-15 09:12 | disposition home or self-care (01) | LOC: HO.US 09:11 | PROVIDERS: PCP Internal Medicine; Visit Provider Student in an Organized Health Care Education/Training Program | DX: Z13.89 Encounter for screening for other disorder (principal) ==

== ENCOUNTER 2024-09-18 07:03 | Outpatient (REF) | payer MEDICARE, SELFPAY ==
[2024-09-18] MEDS: Lidocaine HCl 2 % 20 ML VIAL 5 ML SUBCUT (09:25)
[2024-09-18] MEDS: Triamcinolone Acetonide 40 MG/ML VIAL IM (09:28)
--- NOTE | 2024-09-18 13:08 | PM.PROC ---
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 Procedure: ?After obtaining informed consent for an ultrasound-guided aspiration and glucocorticoid injection of the left knee, the deluca's cyst was imaged with ultrasound and was compressible with negative doppler. ?The left knee was sterilely prepped with chlorhexidine and anesthetized with lidocaine spray. ?A 21 gauge 1.5 in needle was advanced into the cyst under direct ultrasound visualization using in plane technique. ?Several attempts made to aspirate fluid were futile. 40 mg of triamcinolone was injected through the same needle. ?The procedure was well tolerated. Impressions: Deluca's cyst involving the the posterior left knee Anesthesia: local Condition: stable
== END 2024-09-18 07:04 | disposition home or self-care (01) ==
LOC: HO.US 07:03
PROVIDERS: PCP Internal Medicine; Visit Provider Student in an Organized Health Care Education/Training Program
DX: M71.20 Synovial cyst of popliteal space [Baker], unspecified knee (principal)
CPT/HCPCS: 20611; J2003; J3301

== ENCOUNTER → 2024-09-18 07:03 | Outpatient (BNV) | payer MEDICARE, SELFPAY | PROVIDERS: PCP Internal Medicine; Visit Provider Student in an Organized Health Care Education/Training Program | DX: M71.22 Synovial cyst of popliteal space [Baker], left knee (principal) | CPT/HCPCS: 76942 ==

== ENCOUNTER 2024-09-24 14:05 | Outpatient (AMB) | payer MEDICARE, SELFPAY ==
[2024-09-24 14:07] VITALS: BP 100/68; PULSE 52; BMI 35.5
--- NOTE | 2024-09-24 14:07 | MHC.OFFVIS ---
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 Allergies pneumococcal vaccine [PNEUMOCOCCAL VACCINE] Allergy (Severe, Verified 08/27/24 14:58) ARM SWELLED, swelling in arm tiotropium [From SPIRIVA WITH HANDIHALER] Allergy (Severe, Verified 08/27/24 14:58) THROAT SWELL doxycycline Adverse Reaction (Intermediate, Verified 08/27/24 14:58) foggy and forgetful Medication List - Last Reconciled 09/24/24 by Jeyson Jones MD albuterol sulfate 90 mcg/actuation 2 puffs inhalation Q6H PRN alendronate 70 mg PO QWEEK benzonatate 200 mg PO BID PRN 30 days fexofenadine (Ally Allergy) 180 mg PO DAILY flecainide 50 mg PO Q12H glucosamine-chondroitin 250-200 mg (Osteo Bi-Flex) 1 tab PO BID magnesium 250 mg PO DAILY metoprolol succinate ER (Toprol XL) 50 mg PO DAILY 90 days multivitamin 1 tab PO DAILY omega 2-tdg-oln-fish oil 350 mg-235 mg- 90 mg-597 mg ([place]-3) 1 cap PO DAILY omeprazole 20 mg PO DAILY pilocarpine HCl 5 mg PO TID [Prevagen PO] rivaroxaban (Xarelto) 20 mg PO DAILY 90 days ropinirole 1 mg PO BEDTIME solifenacin (Vesicare) 5 mg PO DAILY 90 days HPI Comments Details: Ignacia comes for follow-up. She has been doing extremely well with flecainide therapy. She has had no recurrence of atrial fibrillation whatsoever. She has been doing well with no palpitations. No exertional worsening shortness of breath. No orthopnea, PND, leg edema. No lightheadedness, syncope. She has notice that heart rate sometimes dips into the 40s when she is resting. Again she has no near syncopal events. No bleeding issues or neurologic events. She has chronic fatigue which has not changed at all. [facility] Medical History Cough Myalgia Lora-trochanteric left hip tendinitis New onset a-fib Annual physical exam Trochanteric bursitis of right hip Weakness of left hand Poor balance Vitamin D deficiency Tinnitus Chronic left-sided low back pain Hx of echocardiogram Insomnia Chronic allergic rhinitis Asthma Sjogrens syndrome Surgical History H/O thumb surgery History of knee replacement History of bunionectomy of right great toe H/O colonoscopy Family History Father Heart attack CVD (cardiovascular disease) Mother Stroke CHF (congestive heart failure) Alzheimer's dementia Cancer Hypertension Social History Housing: House Alcohol intake: never Patient Tobacco Use Status: Never used Tobacco e-Cigarette/Vaping Use: Never Used service: Yes Current occupational status: retired Cognitive needs: No Hearing needs: No Vision needs: Yes Review of Systems Const Denies chills, Denies fatigue, Denies fever(s), Denies frequent falls, Denies weakness, Denies weight gain and Denies weight loss ENT Denies dizziness Card Denies chest pain, Denies leg edema, Denies lightheadedness, Denies palpitations, Denies dyspnea, Denies dyspnea on exertion, Denies orthopnea and Denies other (loss of consciousness) Resp Denies cough, Denies dyspnea and Denies dyspnea on exertion GI Denies hematochezia and Denies change in stool character Musc Denies abnormal gait, Denies muscle weakness, Denies numbness, Denies radiating pain into limb and Denies tingling Neuro Denies abnormal gait, Denies dizziness, Denies frequent falls, Denies numbness, Denies tingling and Denies weakness Endo Denies fatigue and Denies palpitations Physical Exam Vital Signs: Last Vital Signs Pulse 52 09/24/24 14:07 BP 100/68 09/24/24 14:07 BMI result Body Mass Index 35.5 Const General: cooperative, healthy appearing, comfortable and no acute distress Orientation/consciousness: patient oriented x3 Neck Neck: Yes normal visual inspection Resp Effort & Inspection: normal respiratory effort Auscultation: clear to auscultation bilaterally, no crackles, no rales, no rhonchi and no wheezes Cardio Jugular venous distension: no JVD Rate: regular rate Rhythm: regular rhythm Heart sounds: S1 normal heart sound present, S2 normal heart sound present, no murmurs and no rubs Neuro General: patient oriented x3 Extrem General: Yes normal to inspection, No no pedal edema and No calf tenderness Psych Appearance: grossly normal Mental Status: mental status grossly normal Speech and movement: Normal speech and movement present Office Procedures EKG Details: EKG shows sinus bradycardia with poor R-wave progression most likely due to lead placement with normal QT interval [id number], Complete Assessment & Plan Assessment & Plan (1) Paroxysmal atrial fibrillation: Comment: 10/01/23 converted after Cardizem in ER, f/u Dr. Jones, Echo 09/27 LVEF 60%, trivial AR, negative stress test and normal Holter 10/26, on Flecainide , Metoprolol, Xarelto Code(s): I48.0 - Paroxysmal atrial fibrillation Category: Medical Plan: Highly symptomatic paroxysmal atrial fibrillation which has done well with rhythm control approach. She has tolerated flecainide therapy well with much improved symptoms. Continue to monitor EKG every 6 months. Continue metoprolol therapy concomitantly, although at reduced dose to reduce rapid risk of atrial flutter. Continue full oral anticoagulation, currently on Xarelto. Continue to avoid stimulants and participate in stress mitigation strategies. Encouraged to continue to participate in regular physical activity and weight loss program. (2) Sinus bradycardia: Code(s): R00.1 - Bradycardia, unspecified Plan: Sinus bradycardia which is probably related to metoprolol therapy. She is currently not having any symptoms and there is no indication for pacing therapy although will reduce metoprolol to 25 mg daily. Check TSH if continues to have significant fatigue or bradycardia. Advised to monitor pulse by herself on a daily basis. Will follow up in the clinic in 6 months time, sooner p.r.n.. Thank you for allowing me to partake in his care Medications: Changed From metoprolol succinate ER (Toprol XL) 50 mg PO DAILY 90 days 90 tabs 3RF To metoprolol succinate ER (Toprol XL) 25 mg (1/2 x 50 mg) PO DAILY 90 days 45 tabs 3RF Coding Level of Care Code Est Pt Level 4 (13080) Complex EM visit Add On G2211 Diagnoses Paroxysmal atrial fibrillation I48.0 Sinus bradycardia R00.1 CPT Codes EKG - CPT: 61968-[id number], Complete ([id number])
== END 2024-09-24 14:31 | disposition home or self-care (01) ==
PROVIDERS: PCP Internal Medicine; Visit Provider Internal Medicine Cardiovascular Disease
DX: I48.0 Paroxysmal atrial fibrillation (principal); R00.1 Bradycardia, unspecified
CPT/HCPCS: 93010; 99214; G2211

== ENCOUNTER → 2024-09-24 14:05 | Outpatient (BNVA) | payer MEDICARE, SELFPAY | PROVIDERS: PCP Internal Medicine; Visit Provider Internal Medicine Cardiovascular Disease | DX: I48.0 Paroxysmal atrial fibrillation (principal); R00.1 Bradycardia, unspecified; R94.31 Abnormal electrocardiogram [ECG] [EKG] | CPT/HCPCS: 93005; 99212 ==

== ENCOUNTER 2025-01-12 10:33 | Outpatient (AMB) | payer MEDICARE, SELFPAY ==
--- NOTE | 2025-01-12 10:41 | A.OFFVIS_ITS ---
Vital Signs 01/12/25 10:45 Height 5 ft 2 in Weight 190 lb 0.615 oz BMI 34.8 BP 140/82 H Blood Pressure Location Lt brachial Position Sitting Pulse 67 Pulse Source Pulse Oximeter Pulse Oximetry (%) 97 Oxygen Delivery Method Room Air Intake Visit Reasons: Bursitis of left hip with muscle weakness and pain Intake Note: Patient presents for Bursitis of left hip with muscle weakness and pain. Allergies pneumococcal vaccine [PNEUMOCOCCAL VACCINE] Allergy (Severe, Verified 01/12/25 10:45) ARM SWELLED, swelling in arm tiotropium [From SPIRIVA WITH HANDIHALER] Allergy (Severe, Verified 01/12/25 10:45) THROAT SWELL doxycycline Adverse Reaction (Intermediate, Verified 01/12/25 10:45) foggy and forgetful HPI Comments Details: Patient is a 69-year-old female with paroxysmal AFib, Sjogren's disease and polyarticular osteoarthritis status post right knee replacement who presents today for follow up Interval History: Patient last seen 08/25/2024 with me. At that time patient was complaining of pain to her left knee, she also notes a swelling to her posterior left knee that is firm and tender to touch. Denies any knee swelling. With respect to her sicca symptoms they are well controlled with eyedrops and mouthwash. Tolerating alendronate She was sent to get ultrasound of the left knee 09/18/24 and 40 mg of triamcinolone was injected to the Deluca's cyst wall Today patient is complaining of left hip bursitis Currently following up with ortho for her left knee pain Rheumatologic History: Diagnosed with Sjogren's in 2019 after presenting with sicca symptoms and positive antibodies. No evidence of extraglandular Sjogren's Managed with topical eye drops and mouthwash. No history of Sjogren's related arthritis Current Rheumatology Medication(s): Alendronate (give by primary) [facility] Medical History Cough Myalgia Lora-trochanteric left hip tendinitis New onset a-fib Annual physical exam Trochanteric bursitis of right hip Weakness of left hand Poor balance Vitamin D deficiency Tinnitus Chronic left-sided low back pain Hx of echocardiogram Insomnia Chronic allergic rhinitis Asthma Sjogrens syndrome Surgical History H/O thumb surgery History of knee replacement History of bunionectomy of right great toe H/O colonoscopy Family History Father Heart attack CVD (cardiovascular disease) Mother Stroke CHF (congestive heart failure) Alzheimer's dementia Cancer Hypertension Social History Housing: House Alcohol intake: never Patient Tobacco Use Status: Never used Tobacco e-Cigarette/Vaping Use: Never Used service: Yes Current occupational status: retired Cognitive needs: No Hearing needs: No Vision needs: Yes Review of Systems Const Details: Review of Systems Constitutional: Denies fever, chills, weight loss ENT: Denies vision changes, eye pain or eye redness, dental caries, dry mouth GI: Denies nausea, vomiting, diarrhea, abdominal pain, change in BM Pulm: Denies SOB, GARCIA, hemoptysis, wheezing Cards: Denies chest pain, palpitations Skin: Denies Raynaud's, rash, nail changes, photosensitivity, HAY STACKER: Denies headaches, weakness, paresthesias, recurrent falls MSK: as per HPI All other systems reviewed and are unremarkable except noted above Physical Exam Vital Signs: Last Vital Signs Pulse 67 01/12/25 10:45 BP 140/82 H 01/12/25 10:45 Pulse Ox 97 01/12/25 10:45 Oxygen Delivery Method Room Air 01/12/25 10:45 BMI result Body Mass Index 34.8 Vital signs reviewed Physical Examination CONSTITUITIONAL Patient alert and cooperative. Well appearing and in no apparent painful distress HEENT Conjunctiva and sclera clear. ?Pupils equal round and reactive to light. ?No lymphadenopathy. ? CHEST/RESPIRATORY SYSTEM Normal respiratory effort and able to speak in complete sentences. ?Clear to auscultation bilaterally. ?No crackles, rales, rhonchi, wheezes heard. CARDIAC SYSTEM Regular rate and rhythm. ?S1 and S2 heard no murmurs. ?Radial pulses intact bilaterally MSK Hands: ?Good supervisor of research strength bilaterally. No deformities noted. ?No synovitis noted to the MCPs, PIPs or DIPs. ?No tenderness to palpation of these joints. Heberden's nodes noted throughout Wrists: ?Full range of motion at the wrists without pain. ?No tenderness to palpation or synovitis noted to the wrists. Elbows: Full range of motion without pain. No tenderness, weakness, swelling, increased warmth or erythema. Shoulders: Full range of motion without pain. No tenderness, weakness, swelling, increased warmth or erythema. Hips: Full range of motion without pain. Hip bursa: Bilateral tenderness to palpation with the left worse than right Knees: ?Full range of motion. ?No tenderness, swelling, increased warmth or erythema.? Crepitation felt on the left knee. Ankles: Full range of motion. ?No tenderness, swelling, increased warmth or erythema.? Feet: ?Negative squeeze test. ?No tenderness to palpation or swelling of the MTPs. Tender points:?No tenderness to palpation of the bilateral trapezius, supraspinatus, greater trochanters, anterior costochondral junctions, bilateral gluteal areas, bilateral suboccipital muscle insertions SKIN Skin intact without rashes. Office Procedures AMB Joint Injection/Aspiration Joint Injection/Aspiration Details: Procedure was explained to the patient and consent was obtained. ? The area of interest was identified and confirmed with patient. ?This was rooney bsequently cleaned with chlorhexidine x3. ? The area was then anesthetized using ethyl chloride spray. 40 mg Kenalog with 1 cc 1% lidocaine was injected without issue. ?Minimal to no bleeding. ?Patient tolerated procedure. Primary Site: other (Left trochanteric bursa) Prep: site was prepped using aseptic technique and ethochloride spray was applied Injected: 40 mg of, DepoMedrol, 1% plain lidocaine and other Approach Used: other Procedure: The patient tolerated the procedure well Coding 01920 - Glenohumeral/Tronchanteric Bursa/Intraarticular Procedure code (CPT) selection complete Office Meds lidocaine (PF) 10 mg/mL (1 %) injection solution Performing Provider: Jeaneth Alvarez MD Performing Location: [facility] Rheumatology Administered by: Jeaneth Alvarez MD on 01/12/25 11:10 Dose Route Admin Location Dispensed Lot Number Expiration Date [facility] Note Specialist 1 mL Infiltration left hip bursa 2 mL [id number] 02/02/27 23482-634-07 [facility] Kenalog 40 mg/mL suspension for injection Performing Provider: Jeaneth Alvarez MD Performing Location: [facility] Rheumatology Administered by: Jeaneth Alvarez MD on 01/12/25 11:10 Dose Route Admin Location Dispensed Lot Number Expiration Date NDC Note Specialist 40 mg intrabursal left hip bursa 1 mL [id number] 05/04/26 [address]-3 [facility] [facility] Results Reviewed Results Reviewed: XR left knee 02/2024 Kellgren Jcarlos grade 2 with mild osteophytes not much joint space narrowing noted. (my read) Assessment & Plan Assessment & Plan (1) Trochanteric bursitis of left hip: Code(s): M70.62 - Trochanteric bursitis, left hip Plan: #Left hip trochanteric bursitis Patient is a 69-year-old female presenting today for urgent visit for left trochanteric bursitis. Status post steroid injection today. Exercises given Plan I spent 22 minutes reviewing the record and labs, taking a history, examining the patient, discussing the treatment plan and documenting in the medical record Orders: Orders AMB Joint Injection/Aspiration Today M70.62 - Trochanteric bursitis, left hip Medications: New Kenalog (triamcinolone acetonide) 40 mg intrabursal ONCE 1 mL 0RF NS M70.62 - Trochanteric bursitis, left hip lidocaine (PF) 1 mL Infiltration ONCE 2 mL 0RF M70.62 - Trochanteric bursitis, left hip Coding Level of Care Code Est Pt Level 3 (61058) Diagnoses Trochanteric bursitis of left hip M70.62 CPT Codes Coding - Joint 7: 25608 - Glenohumeral/Tronchanteric Bursa/Intraarticular ([id number])
[2025-01-12 10:45] VITALS: BP 140/82; PULSE 67; O2SAT 97; BMI 34.8
--- OUTSIDE RECORDS SUMMARY | 2025-01-12 12:37 | XMS_ITS | Patient Health Record ---
Author Organization [facility] Address [address] [place] [id number] Care Team Providers Care Chief Concierge Name Role Phone Nessa Gibbons MD Primary Care Provider Sadiq Skinner [phone] Allergies Allergen (clinical drug ingredient) Drug/Non Drug Allergy documented on EMR Reaction Allergy Type Onset Date Status tiotropium Spiriva HandiHaler Unknown Drug Allergy Active Streptococcus pneumoniae type 1 capsular polysaccharide antigen / Streptococcus pneumoniae type 10A capsular polysaccharide antigen / Streptococcus pneumoniae type 11A capsular polysaccharide antigen / Streptococcus pneumoniae type 12F capsular polysaccharide antigen / Streptococcus pneumoniae type 14 capsular polysaccharide antigen / Streptococcus pneumoniae type 15B capsular polysaccharide antigen / Streptococcus pneumoniae type 17F capsular polysaccharide antigen / Streptococcus pneumoniae type 18C capsular polysaccharide antigen / Streptococcus pneumoniae type 19A capsular polysaccharide antigen / Streptococcus pneumoniae type 19F capsular polysaccharide antigen / Streptococcus pneumoniae type 2 capsular polysaccharide antigen / Streptococcus pneumoniae type 20 capsular polysaccharide antigen / Streptococcus pneumoniae type 22F capsular polysaccharide antigen / Streptococcus pneumoniae type 23F capsular polysaccharide antigen / Streptococcus pneumoniae type 3 capsular polysaccharide antigen / Streptococcus pneumoniae type 33F capsular polysaccharide antigen / Streptococcus pneumoniae type 4 capsular polysaccharide antigen / Streptococcus pneumoniae type 5 capsular polysaccharide antigen / Streptococcus pneumoniae type 6B capsular polysaccharide antigen / Streptococcus pneumoniae type 7F capsular polysaccharide antigen / Streptococcus pneumoniae type 8 capsular polysaccharide antigen / Streptococcus pneumoniae type 9N capsular polysaccharide antigen / Streptococcus pneumoniae type 9V capsular polysaccharide antigen Pneumovax 23 Unknown Drug Allergy Activ e enviromental (uncoded) Unknown Allergy Active Reason For Referral No Information Medications Medication SIG (Take, Route, Frequency, Duration) Notes Start Date End Date Status Advil 200 MG 1 tablet with food o r milk as needed Orally every 6 hrs/prn as needed Active Ally Allergy 180 MG 1 tablet as neede d Orally Once a day Active Tylenol 325 MG 2 tablets as needed Orally every 6 hrs/prn as needed Active OsmoPrep 1.102-0.398 GM 32 tablets Orall y 20 tablets the evening before the colonoscopy and 12 on the morning of the colonoscopy as directed for 1 days 02/13/2023 Active Centrum Silver - Orally Act felipa Magnesium 250 MG 1 tablet with a meal Orally Once a day Active rOPINIRole HCl 5 MG 2 tablet Orally Once a day Active Prilosec 20 MG 2 capsule Orally Onc e a day Active ProAir HFA 108 (90 Base) MCG/ACT 2 puffs as needed Inhalation every 4 hrs/prn as needed Active Restasis 0.05 % 1 drop into affected eye Ophthalmic Twice a day Active Benadryl prn as needed Active Salagen 5 MG 1 tablet Orally Thre e times a day Active Eye Drops Advanced Relief 0.05-0.1-1-1 % Ophthalmic Active Immunizations Vaccine Route Administration Date Status Comme nts Influenza Unknown 09/25/2022 Administered Social History Tobacco Use: Social History Observation Description Date Details (start date - stop date) Never Smoker NA - NA Tobacco Use/Smoking Question Answer Notes Patient is a nonsmoker Alcohol Screen Question Answer Notes Did you have a drink containing alcohol in the p ast year? No Points 0 Interpretation Negative Section Notes: Caodaism Sister Nonsmoker; no alcohol Caodaism Sister Nonsmoker; no alcohol Problems Problem Type SNOMED Code ICD Code Onset Dates Problem Status W/U Status Risk Notes Problem 707248925 Encounter for screening for malignant neoplasm of colon (Z12.11) Active confirmed Problem 209917469 History of adenomatous polyp of colon (Z86.010) Active confirmed Problem Diarrhea (31134089) Diarrhea (R19.7) Active confirmed Problem Diverticular disease of colon (234336771) Diverticulosis of large intestine without perforation or abscess without bleeding (K57.30) Active confirmed Problem 570906636 Irritable bowel syndrome with diarrhea (K58.0) Active confirmed Problem Elevated liver enzymes level (795556174) Elevated liver function tests (R79.89) Active confirmed Problem 497541564 Gastroesophageal reflux disease, esophagitis presence not specified (K21.9) Active confirmed Problem 732882176 Family history o f colon cancer (Z80.0) Active confirmed Problem 63252001 Diarrhea, unspecified type (R19.7) Active confirmed Problem Abdominal discomfort (26626316) Abdominal discomfort (R10.9) Active confirmed Problem Generalized abdominal pain (340611326) Abdominal pain, acute, generalized (R10.84) Active confirmed Plan Of Treatment Pending Test Test Name Order Date LIVER PROFILE 09/21/2022 CRP 09/21/2022 CBC w DIFF 09/21/2022 SED RATE (ESR) 09/21/2022 US ABD 10/03/2022 STOOL WBC 09/21/2022 C DIFFICILE RFLX PCR 09/21/2022 CALPROTECTIN, STOOL 09/21/2022 Amylase 09/21/2022 Lipase 09/21/2022 Pathology 04/19/2023 GI PANEL 09/21/2022 Future Test Test Name Order Date COLONOSCOPY 08/14/2017 COLONOSCOPY 02/13/2023 Insurance Providers Payer Name Payer Address Payer Phone Subscriber Number Group Number Insured Name Patient Relationship to Insured Coverage Start Date Coverage End Date [place] [address] [place] [address] [phone] [id number] BREA ALEXANDRA Self - patient is the insured [facility] [employer] [address] [place] [address] [id number] BREA ALEXANDRA Self - patient is the insured Medical (General) History Medical History History ICD Code Sjogren's syndrome Asthma Restless leg syndrome GERD--has seen Dr. Rob-- has had EGD's--last one was in 2011--no signs of Odell's esophagus nor esophagitis--- only fundic gland gastric polyps IBS ADHD Spondylolithesis Denies DE,DM,CVA,renal disease Has had colonoscopies Q [address] Rob--2003, 2007, and in April of 2013-all negative for polyps Colonoscopy in 04/2018 with a small tubul ar adenoma Gallstones noted on ultrasou nd in November of 2022. She was having some right-sided abdominal discomfort and abdominal cramps. She was seen by Dr. Epps who did not think the stones were symptomatic and is therefore being observed. Surgical History Surgery Date(Month/Year) Wrist and thumb surgery Left ankle surgery Right knee replacement Bunionectomy
--- OUTSIDE RECORDS SUMMARY | 2025-01-12 12:37 | XMS_ITS | Clinical Summary ---
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 Name Role Phone Nessa Gibbons MD Primary Care Provider [phone] Surgical History Surgery Date Site/Laterality Comments TOTAL KNEE ARTHROPLASTY 09/2002 Right PROCEDURE: HISTORICAL TOTAL KNEE REPLACE ANKLE SURGERY 11/1999 Left PROCEDURE: HISTORICAL ANKLE SURGERY; COMMENT: plate and screws WRIST SURGERY 1994 Right PROCEDURE: HISTORICAL WRIST SURGERY Medical History Medical History Date Comments Asthma 01/22/2018 DX:Asthma Allergic rhinitis 01/22/2018 DX:Allergic rh initis History of total knee replacement 01/22/2018 DX:History of total knee replacement; COMMENT: Right Restless leg syndrome 01/22/2018 DX:Restles s leg syndrome Anxiety 01/22/2018 DX:Anxiety Depression 01/22/2018 DX:Depression Osteoarthritis 01/22/2018 DX:Osteoarthriti s BRCA1 gene mutation negative Family History Medical History Relation Name Comments Coronary artery disease Father Hype rtension Colon cancer Mother RA, Hypertensio n, CAD, Hyperthyroidism Breast cancer Paternal Grandfather Relation Name Status Comments Father Mother Paternal Grandfather Social History Tobacco Use Types Packs/Day Years Used Date Smoking Tobacco: Never Smokeless Tobacco: Never Alcohol Use Standard Drinks/Week Comments No 0 (1 standard drink = 0.6 oz pur e alcohol) Comments No Sex and Gender Information Value Date Recorded Sex Assigned at Not on file Legal Sex Female 5:49 PM EST Gender Identity Not on file Sexual Orientation Not on file Obstetrics History Last Filed Vital Signs Vital Sign Reading Time Taken Comments Blood Pressure - - Pulse - - Temperature - - Respiratory Rate - - Oxygen Saturation - - Inhaled Oxygen Concentration - - Weight 86.2 kg (190 lb) 09/30/2024 12:54 PM EST Height 132.1 cm (4' 4 ) 09/30/2024 12:54 PM EST Body Mass Index 49.4 09/30/2024 12:54 PM EST Plan of Treatment Health Maintenance Due Date Last Done Comments Zoster Vaccines (2 of 3) 06/18/2014 04/23/2014 Pneumococcal Vaccine: 50+ Years (2 of 2 - PPSV23) 01/23/2022 11/28/2021 Cholesterol Screening (Lipid Panel) 10/06/2022 Colorectal Cancer Screening: Colonoscopy 10/06/2022 Depression Screening 10/06/2022 Falls Risk Assessment 10/06/2022 Hepatitis C Screening 10/06/2022 Medicare Annual Wellness Visit 10/06/2022 Social Influencers of Health Screening 10/06/2022 DTaP,Tdap,and Td Vaccines (2 - Td or Tdap) 05/29/2023 05/29/2013 Breast Cancer Screening 09/30/2026 09/30/20 24, 09/23/2023, 09/19/2022, Additional history exists Osteoporosis Screening (Bone Density Screening) 07/04/2031 07/04/2021, 01/16/2018 RSV Immunization Patients 60+ Years Old Completed 08/08/2023 COVID-19 Vaccine Completed 07/20/2024, 06/2024, 08/08/2023, Additional history exists Influenza Vaccine Completed 07/20/2024, , 07/19/2022, Additional history exists HIB Vaccines Aged Out No longer eligi ble based on patient's age to complete this topic HPV Vaccines Aged Out No longer eligi ble based on patient's age to complete this topic Hepatitis A Vaccines Aged Out No long er eligible based on patient's age to complete this topic Hepatitis B Vaccines Aged Out No long er eligible based on patient's age to complete this topic IPV Vaccines Aged Out No longer eligi ble based on patient's age to complete this topic MMR Vaccines Aged Out No longer eligi ble based on patient's age to complete this topic Meningococcal ACWY Vaccine Aged Out N o longer eligible based on patient's age to complete this topic Meningococcal B Vacine Aged Out No lo nger eligible based on patient's age to complete this topic RSV Immunization Patients Under 20 months Aged Out No longer eligible based on patient's age to complete this topic Varicella Vaccines Aged Out No longer eligible based on patient's age to complete this topic Procedures Procedure Name Priority Date/Time Associated Diagnosis Comments MG MAMMO DIGITAL SCREENING W GERMÁN BILAT Routine 09/30/2024 1:02 PM EST Encounter for screening mammogram for breast cancer [facility] DEXA AXIAL SKELETON Routine 07/04/2021 4:09 PM EDT Other specified disorders of bone density and structure, multiple sites from Last 3 Months or Most Recently Relevant to Health Maintenance Results * MG Mammo Digital Screening w Germán bilat (09/30/2024 1:02 PM EST) Anatomical Region Laterality Modality Breast Bilateral Mammography 09/30/2024 1:51 PM EST Impressions 09/30/2024 2:07 PM EST No mammographic evidence of malignancy. ?? No suspicious interval change. A negative mammogram in the presence of a clinically suspicious palpable abnormality does not preclude the possibility of malignancy or alter the indications for biopsy. ASSESSMENT: ?? BI-RADS 2: BENIGN RECOMMENDATION(S): 1: Routine screening mammogram BILATERAL in 1 year. -------- FINAL REPORT -------- Dictated By: Wil Perez Dictated Date: 09/30/2024 13:51 ET Assigned Physician: Wil Perez Reviewed and Electronically Signed By: Wil Perez Signed Date: 09/30/2024 14:07 ET Workstation ID: [id number] Transcribed By: Self Edit Transcribed Date: 09/30/2024 14:02 ET Narrative 09/30/2024 2:07 PM EST EXAM: ??SCREENING MAMMOGRAPHY, BILATERAL HISTORY: ??SCREENING. ??Paternal grandfather with history of breast cancer. COMPARISON: ??09/23/2023, 09/19/2022, 07/04/2021, 05/25/2020 TECHNIQUE: Synthesized CC and MLO projections of each breast. ??Tomosynthesis of each breast in the CC and MLO projections. ADDITIONAL IMAGING: None Computer-aided detection was employed with the iCAD ??profound AI 3-D. TISSUE DENSITY: There are scattered areas of fibroglandular density. (BI-RADS category B) FINDINGS: RIGHT BREAST: There is a stable equal density 13 mm asymmetry 5 cm behind the right nipple on the craniocaudal projection. ??No additional suspicious right breast findings LEFT BREAST: There is a stable 2 cm low-density focal asymmetry in the 3 o'clock position 9 cm from the left nipple. ??No additional suspicious left breast findings Procedure Note Wil Perez MD - 09/30/2024 EXAM: SCREENING MAMMOGRAPHY, BILATERAL HISTORY: SCREENING. Paternal grandfather with history of breastcancer. COMPARISON: 09/23/2023, 09/19/2022, 07/04/2021, 05/25/2020 TECHNIQUE: Synthesized CC and MLO projections of each breast.Tomosynthesis of each breast in the CC and MLO projections. ADDITIONAL IMAGING: None Computer-aided detection was employed with the iCAD profound AI 3-D. TISSUE DENSITY: There are scattered areas of fibroglandular density.(BI-RADS category B) FINDINGS: RIGHT BREAST: There is a stable equal density 13 mm asymmetry 5 cm behind the rightnipple on the craniocaudal projection. No additional suspicious rightbreast findings LEFT BREAST: There is a stable 2 cm low-density focal asymmetry in the 3 o'clockposition 9 cm from the left nipple. No additional suspicious left breastfindings IMPRESSION: No mammographic evidence of malignancy. No suspicious interval change. A negative mammogram in the presence of a clinically suspicious palpableabnormality does not preclude the possibility of malignancy or alter theindications for biopsy. ASSESSMENT: BI-RADS 2: BENIGN RECOMMENDATION(S): 1: Routine screening mammogram BILATERAL in 1 year. -------- FINAL REPORT -------- Dictated By: Wil Perez Dictated Date: 09/30/2024 13:51 ET Assigned Physician: Wil Perez Reviewed and Electronically Signed By: Wil Perez Signed Date: 09/30/2024 14:07 ET Workstation ID: [id number] Transcribed By: Self Edit Transcribed Date: 09/30/2024 14:02 ET us Self Referral Sppl IMG BI PROCEDURES Final Resul t * [facility] DEXA AXIAL SKELETON (07/04/2021 4:09 PM EDT) Anatomical Region Laterality Modality Mammography 07/04/2021 3:19 PM EDT Narrative 07/04/2021 4:09 PM EDT [facility] Diagnostic Imaging Department [address] [place] [address] Patient: ??IGNACIA ALEXANDRA ?/Age/Sex: 1955 - 66 - F Unit#: ??[id number] ? Location/Status: ??SPDIMAM/REG CLI ? Mnemonic/Ordering Site: ??MAMDEXAAX/SPMAM Ordering Physician: ??CASE,DONNIE MIRANDA [facility] Dexa Axial Skeleton - 07/04/21 - 1285 HISTORY: ??The patient is a 66-year-old postmenopausal female on chronic glucocorticoid therapy, with clinical concern for metabolic bone disease. FINDINGS: ??Dual energy x-ray absorptiometry of the lumbar spine and femurs is performed. The mean bone mineral density at L1-3 is 0.981 gm/cm2 which is 84% of that of young normals and 95% of that of age matched controls. This yields a T- score of -1.6 and a Z-score of -0.4 which is diagnostic of osteopenia. The mean bone mineral density of the femurs bilaterally is 0.813 gm/cm2 which is 81% of that of young normals and 92% of that of age matched controls. ??This yields a T-score of -1.5 and a Z-score of -0.6 which is diagnostic of osteopenia. ??50-score of the right femoral neck is -2.0 and that of the left femoral neck is -2.2 which is diagnostic of osteopenia. IMPRESSION: 1. Osteopenia. ??There has been a decrease of 3.9% in bone mineral density in the lumbar spine since the prior examination of 01/16/2018. ??There has been an increase of 2.0% in bone mineral density in the right femur and an increase of 2.5% in bone mineral density in the left femur. 2. FRAX analysis yields a 10-year probability of major osteoporotic fracture of 27.0% and a 10-year probability of hip fracture of 5.2%. Code 19457 Dictating Physician: ??JOSE MANUEL KNUTSON MD Electronically Signed by: ??JOSE MANUEL KNUTSON MD Dic Date/Time: ??07/04/21 1607 Sign date/Time: ??07/04/21 1609 Procedure Note Jose Manuel Knutson MD - 10/31/2022 [facility] Diagnostic Imaging Department [address] [place] [address] Patient: NASRINIGNACIA Marquez D.O.B./Age/Sex: 1955 - 66 - F Unit#: [id number] [facility] Ordering Physician: DONNIE DURHAM MD [facility] Dexa Axial Skeleton - 07/04/21 - 1550 HISTORY: The patient is a 66-year-old postmenopausal female on chronic glucocorticoid therapy, with clinical concern for metabolic bonedisease. FINDINGS: Dual energy x-ray absorptiometry of the lumbar spine and femursis performed. The mean bone mineral density at L1-3 is 0.981 gm/cm2 which is84% of that of young normals and 95% of that of age matched controls. This yieldsa T- score of -1.6 and a Z-score of -0.4 which is diagnostic of osteopenia. The mean bone mineral density of the femurs bilaterally is 0.813 gm/fr6wujow is 81% of that of young normals and 92% of that of age matched controls.This yields a T-score of -1.5 and a Z-score of -0.6 which is diagnostic of osteopenia. 50-score of the right femoral neck is -2.0 and that of theleft femoral neck is -2.2 which is diagnostic of osteopenia. IMPRESSION: 1. Osteopenia. There has been a decrease of 3.9% in bone mineral densityin the lumbar spine since the prior examination of 01/16/2018. There has beenan increase of 2.0% in bone mineral density in the right femur and anincrease of 2.5% in bone mineral density in the left femur. 2. FRAX analysis yields a 10-year probability of major osteoporoticfracture of 27.0% and a 10-year probability of hip fracture of 5.2%. 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
--- OUTSIDE RECORDS SUMMARY | 2025-01-12 12:38 | XMS_ITS ---
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 Role Phone Nessa Gibbons MD Primary Care Provider Chuck Hernandez Unavailable [phone] Allergies Allergen (clinical drug ingredient) Drug/Non Drug Allergy documented on EMR Reaction Allergy Type Onset Date Status adhesive tape (uncoded) Unknown Allergy Active Cat dander cat dander (uncoded) Unknown Allergy Active Vaccine product containing Streptococcus pneumoniae antigen (medicinal product) pneumonia shot (uncoded) Unknown Allergy Active ibuprofen Advil Unknown Drug Allergy Active aspirin Aspirin stomach upset Drug Allergy Act felipa REASON FOR VISIT Last PCP Visit: 10/03/23, Heel pain Medications Medication SIG (Take, Route, Frequency, Duration) Notes Start Date End Date Status Acidophilus Active Xarelto 20 MG 1 tablet with food O rally Once a day Active Armstrong 3 Active Bioflex Active Metoprolol Tartrate 50 MG as directed Orally Active Ally Allergy 180 mg 1 tablet Orally o nce a day for 30 day(s) Unknown Claritin Unknown Vitamin D-3 3000 units once daily Unknown Salagen 5 MG 1 tablet Orally four times a day for 30 day(s) Unknown Ritalin 10 MG 1 tablet Orally thre e times a day Unknown Night Splint AFO - L1930 as directed 12/26/2023 Active Flonase 50 MCG/ACT 2 sprays Nasally Onc e a day for 30 day(s) Unknown Albuterol Unknown Ibuprofen 800 MG 1 tablet every Orall y Three times a day for 30 days 05/19/2014 Unknown Work Note . . . . for pt. is tot ally disabled from work until 11/20/2011 11/09/2011 Unknown Work Note . .pt. may return to w ork on 06/28/14 . . for . 06/24/2014 Unknow n Work Note . this patient is plac ed back on total disability from work due to increased foot pain . . Unknown Physical Therapy . .dx; 3 weeks post bunionectomy with no internal hardware; use us and es to reduce edema and pain and gait eval . 2-3x/week for 3-4 weeks 06/24/2014 Unknown Venlafaxine HCl ER 150 MG 1 capsule with food Orally Once a day for 30 day(s) Unknown Slow Fe 47.5 mg 1 tablet Orally Once a day for 30 day(s) Unknown Singulair 10 mg 1 tablet in the even ing Orally Once a day for 30 day(s) Unknown Restasis Unknown Magnesium Carbonate Heavy 250 mg Unknown Melatonin 5 MG 1 tablet in the even ing Orally Once a day for 30 day(s) Unknown Flaxseed Oil - as directed Unk nown Effexor XR 150 mg 1 capsule with food Orally Once a day for 30 day(s) Unknown Centrum Silver Unkno wn Benadryl 25 MG 1 capsule Orally stanley ry 6 hrs Unknown AFO-fixed fixed 1 11/30/2011 Unk nown Azelastine HCl 2 sprays in each nos tril Nasally Twice a day Unknown Night Splint AFO - L1930 as directed Unknown Omeprazole 20 MG 1 capsule 30 minutes before morning meal Orally Once a day for 30 day(s) Unknown PriLOSEC 20 MG 1 capsule Orally twi ce daily for 30 day(s) Active Prevagen 10 MG as directed Orally Active Toprol XL 50 MG 1 tablet Orally Once a day for 30 day(s) 11/12/2023 Active Pilocarpine HCl 5 MG 1 tablet Orally Thr ee times a day for 30 day(s) Active Ally Active Alendronate Sodium 70 MG 1 tablet 30 min utes before the first food, beverage or medicine of the day with plain water Orally Active Magnesium 250 MG 1 tablet with a meal Orally Once a day Active rOPINIRole HCl 0.5 MG 1 tablet 1 to 3 ho urs before bedtime Orally Once a day for 30 day(s) Active Social History Alcohol Screen Question Answer Notes Did you have a drink containing alcohol in the p ast year? No Points 0 Interpretation Negative Tobacco use other than smoking: Question Answer Notes Are you an other tobacco user? No Vital Signs Height 5 ft 2 in in 12/26/2023 Weight 180 lbs 12/26/2023 BMI 32.92 kg/m2 12/26/2023 Encounters Encounter Location Date [facility] [address] [place] [address] 12/26/2023 Chuck Rowe Plantar fascial fibromatosis M72.2 ; Pain in left foot M79.672 and Calcaneal spur, left foot M77.32 Assessments Encounter Date Diagnosis (ICD Code) Assessment Notes Treatment Notes Treatment Clinical Notes Section Notes 12/26/2023 Plantar fascial fibromatosis (ICD-10 - M72.2) Patient Educated with: HEEL CORD STRETCHES.pdf (HEEL CORD STRETCHES.pdf) Patient Educated with: RICE THERAPY.pdf (RICE THERAPY.pdf) Patient Educated with: INJECTIONTHERAPY .pdf (INJECTIONTHERAP Y.pdf) Patient Educated with: INSTRUCTIONS FOR PROPER USE OF ORTHOTICS.pdf (INSTRUCTIONS FOR PROPER USE OF ORTHOTICS.pdf) 12/26/2023 Pain in left foot (ICD-10 - M79.672) 12/26/2023 Calcaneal spur, left foot (ICD-10 - M77.32) Plan Of Treatment Medication Medication Name Sig Start Date Stop Date Notes Night Splint AFO - L1930 as directed 12/26/2023 Treatment Notes Assessment Notes Plantar fascial fibromatosis Patient Edu cated with: HEEL CORD STRETCHES.pdf (HEEL CORD STRETCHES.pdf) Patient Educated with: RICE THERAPY.pdf (RICE THERAPY.pdf) Patient Educated with: INJECTIONTHERAPY.pdf (INJECTIONTHERAPY.pdf) Patient Educated with: INSTRUCTIONS FOR PROPER USE OF ORTHOTICS.pdf (INSTRUCTIONS FOR PROPER USE OF ORTHOTICS.pdf) Pending Test Test Name Order Date X ray : Foot, left 3V 12/26/2023 Next Appt Details Follow Up: 3 Weeks, Reason: Progress Notes * Ignacia ALEXANDRA ADOB: [birth year] (69 yo F)Acc No.[id number]:12/26/2023 Progress Notes Patient:?Ignacia ALEXANDRA Provider:?Chuck Rowe DPM :1955???Age:68 Y???Sex:Female D ate:12/26/2023 Address:[address], [id number] Pcp:Nessa Gibbons MD Subjective: * Chief Complaints: * ???Last PCP Visit: 10/03/23 eel pain * HPI: ???Heel pain:?Nature:?sharp pain.?Location:?Proximal plantar aspect of Heel , LEFT.?Duration:?two months.?Onset/Cause:?unknown , denies trauma.?Course:?unresolved.?Aggravated:?walking first thing in the morning/after rest.?Treatments:?stretching.?Severity/Quality:?States 10 out of 10.? * ROS:?General/Constitutional:?Nausea?denies, denies.?Vomiting?denies, denies.?Hunger Thirst?denies, denies.?Loss appetite?denies, denies.?Chills?denies, denies.?Fatigue?admits, denies.?Fever?denies, denies.?Night Sweats admits, denies.?Unexplained weight loss?denies, denies.?Unexplained weight gain?denies.?Ophthalmologic:?Blurred vision?denies.?Red eye?denies.?HEENTM:?Dentures?denies, denies.?Dizziness?denies, denies.?Glasses/contacts?admits, denies.?Retinopathy?denies, denies.?Blurred/double vision?denies, denies.?TMJ?denies, denies.?Discharge/drainage?denies, denies.?Implants?denies, denies.?Sore throat?denies.?Dental implants?denies.?Hard of hearing ?denies, denies.?Difficulty chewing/swallowing/speaking?denies, denies.?Nose bleeds?admits, denies.?Sore mouth?denies, denies.?Swollen glands?denies.?Respiratory:?On Oxygen?denies, denies.?Pneumonia/pleurisy?denies, denies.?Bronchitis?denies, denies.?Emphysema?denies, denies.?Coughing?denies, denies.?Cough blood?denies, denies.?Shortness of breath?admits, denies.?Wheezing?denies, denies.?Cardiovascular:?Pacemaker?denies, denies.?MVP?denies, denies.?WPW?denies, denies.?CHF?denies, denies.?Heart attack?denies, denies.?Septal defect?denies, denies.?Rapid beat?admits, denies.?Chest pain ?denies, denies.?Atrial Fib.?admits, denies.?Murmur/Palpitations?denies, denies.?Gastrointestinal:?Hemorrhoids?denies, denies.?Stomach/Abdominal pain?denies, denies.?Dark blood stool?denies, denies.?Irritable bowel ?denies, denies.?Constipation?denies, denies.?Diarrhea?denies, denies.?Vomiting?denies.?Hematology:?Swelling?denies, denies.?Clots?denies.?Varicose Veins?denies.?Bruising?denies, denies.?Bleeding problem?denies, denies.?Genitourinary:?Blood urine?denies, denies.?Frequent/Painfu/urination/bladder control?denies, denies.?Kidney stones?denies, denies.?Infection (UTI)?denies, denies.?Nephropathy?denies, denies.?sex trans dis (STD)?denies.?Prostate?denies.?Musculoskeletal:?Hammertoes?denies, denies.?Bunions?denies, denies.?Scoliosis/kyphosis?denies.?Back Pain?admits.?Muscle Cramps/ Resting?denies.?Muscle cramps / walking?admits, denies.?Generalized aches and pains?admits, denies.?Weakness?denies, denies.?Integ.:?Page?denies, denies.?Scars?denies, denies.?Corns/calluses?denies, denies.?Ingrown nails?denies, denies.?Painful nails?denies, denies.?Open Sores?denies.?Rashes?denies, denies.?Neurologic:?Difficulty sleeping?denies, denies.?Bipolar?denies.?Brain disorder?denies, denies.?Numbness?denies.?Balance trouble?admits, denies.?Confusion?denies, denies.?Fainting/blackouts?denies, denies.?Headache?denies.?Tingling?denies.?Tremors?denies, denies.? * Medical History:? * Surgical History:?ankle surg fernando 2001finger surgery 2003hand/wrist 1985knee surgery 2001, 1995bun right 06/10/2014 * Hospitalization/Major Diagno stic Procedure:?Denies Past Hospitalization * Family History:?Mother: dece ased, foot problems, kidney/liver disease, poor circulation,, diagnosed with Family history of arthritis, Unspecified essential hypertension, Unspecified heart disease, Unspecified cerebral artery occlusion with cerebral infarction, Other malignant neoplasm of unspecified site.?Father: , diagnosed with Unspecified essential hypertension, Unspecified heart disease.? * Social History:?Tobacco Use:?Tobacco Use/Smoking?Are you a:: nonsmoker , Additional Findings: Tobacco Non-User: Current non-smoker.?Tobacco use other than smoking?Are you an other tobacco user??No ???Drugs/Alcohol:?Drugs?Have you used drugs other than those for medical reasons in the past 12 months??No ?Alcohol Screen?Did you have a drink containing alcohol in the past year??No ?Points?0 ?Interpretation?Negative ???Miscellaneous:?Caffeine: yes, frequency:, 1-2 cups per day. ?Children: no. ?Exercise: yes, gymnastics. ?Marital status: single. 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 * Medications:?TakingMetoprolo l Tartrate 50 MG Tablet as directed Orally Bioflex Armstrong 3 Xarelto 20 MG Tablet 1 tablet with food Orally Once a day Acidophilus Magnesium 250 MG Tablet 1 tablet with a meal Orally Once a day Alendronate Sodium 70 MG Tablet 1 tablet 30 minutes before the first food, beverage or medicine of the day with plain water Orally Ally Pilocarpine HCl 5 MG Tablet 1 tablet Orally Three times a day rOPINIRole HCl 0.5 MG Tablet 1 tablet 1 to 3 hours before bedtime Orally Once a day Toprol XL 50 MG Tablet Extended Release 24 Hour 1 tablet Orally Once a day Prevagen 10 MG Capsule as directed Orally PriLOSEC 20 MG Capsule Delayed Release 1 capsule Orally twice daily Taking Metoprolol Tartrate 50 MG Tablet as directed Orally Taking Bioflex Taking Armstrong 3 Taking Xarelto 20 MG Tablet 1 tablet with food Orally Once a day Taking Acidophilus Taking Magnesium 250 MG Tablet 1 tablet with a meal Orally Once a day Taking Alendronate Sodium 70 MG Tablet 1 tablet 30 minutes before the first food, beverage or medicine of the day with plain water Orally Taking Ally Taking Pilocarpine HCl 5 MG Tablet 1 tablet Orally Three times a day Taking rOPINIRole HCl 0.5 MG Tablet 1 tablet 1 to 3 hours before bedtime Orally Once a day Taking Toprol XL 50 MG Tablet Extended Release 24 Hour 1 tablet Orally Once a day Taking Prevagen 10 MG Capsule as directed Orally Taking PriLOSEC 20 MG Capsule Delayed Release 1 capsule Orally twice daily UnknownOmeprazole 20 MG Capsule Delayed Release 1 capsule 30 minutes before morning meal Orally Once a day Night Splint AFO - L1930 as directed Azelastine HCl 2 sprays in each nostril Nasally Twice a day AFO-fixed fixed orthotic 1 Benadryl 25 MG Capsule 1 capsule Orally every 6 hrs Centrum Silver Effexor XR 150 mg Capsule Extended Release 24 Hour 1 capsule with food Orally Once a day Flaxseed Oil - Oil as directed Melatonin 5 MG Tablet 1 tablet in the evening Orally Once a day Magnesium Carbonate Heavy 250 mg Restasis Singulair 10 mg Tablet Chewable 1 tablet in the evening Orally Once a day Slow Fe 47.5 mg Tablet Extended Release 1 tablet Orally Once a day Venlafaxine HCl ER 150 MG Capsule Extended Release 24 Hour 1 capsule with food Orally Once a day Physical Therapy . . .dx; 3 weeks post bunionectomy with no internal hardware; use us and es to reduce edema and pain and gait eval . 2-3x/week Work Note . . this patient is placed back on total disability from work due to increased foot pain . . Work Note . . .pt. may return to work on 06/28/14 . . Work Note . . . . . Ibuprofen 800 MG Tablet 1 tablet every Orally Three times a day Albuterol Flonase 50 MCG/ACT Suspension 2 sprays Nasally Once a day Ritalin 10 MG Tablet 1 tablet Orally three times a day Salagen 5 MG Tablet 1 tablet Orally four times a day Vitamin D-3 3000 units once daily Claritin Ally Allergy 180 mg Tablet 1 tablet Orally once a day Medication List reviewed and reconciled with the patientUnknown Omeprazole 20 MG Capsule Delayed Release 1 capsule 30 minutes before morning meal Orally Once a day Unknown Night Splint AFO - L1930 as directed Unknown Azelastine HCl 2 sprays in each nostril Nasally Twice a day Unknown AFO-fixed fixed orthotic 1 Unknown Benadryl 25 MG Capsule 1 capsule Orally every 6 hrs Unknown Centrum Silver Unknown Effexor XR 150 mg Capsule Extended Release 24 Hour 1 capsule with food Orally Once a day Unknown Flaxseed Oil - Oil as directed Unknown Melatonin 5 MG Tablet 1 tablet in the evening Orally Once a day Unknown Magnesium Carbonate Heavy 250 mg Unknown Restasis Unknown Singulair 10 mg Tablet Chewable 1 tablet in the evening Orally Once a day Unknown Slow Fe 47.5 mg Tablet Extended Release 1 tablet Orally Once a day Unknown Venlafaxine HCl ER 150 MG Capsule Extended Release 24 Hour 1 capsule with food Orally Once a day Unknown Physical Therapy . . .dx; 3 weeks post bunionectomy with no internal hardware; use us and es to reduce edema and pain and gait eval . 2-3x/week Unknown Work Note . . this patient is placed back on total disability from work due to increased foot pain . . Unknown Work Note . . .pt. may return to work on 06/28/14 . . Unknown Work Note . . . . . Unknown Ibuprofen 800 MG Tablet 1 tablet every Orally Three times a day Unknown Albuterol Unknown Flonase 50 MCG/ACT Suspension 2 sprays Nasally Once a day Unknown Ritalin 10 MG Tablet 1 tablet Orally three times a day Unknown Salagen 5 MG Tablet 1 tablet Orally four times a day Unknown Vitamin D-3 3000 units once daily Unknown Claritin Unknown Ally Allergy 180 mg Tablet 1 tablet Orally once a day Medication List reviewed and reconciled with the patient * Allergies:?adhesive tapecat danderpneumonia shotAspirin: stomach upsetAdvilyes[Allergies Verified] Objective: * Vitals:?Ht: 5 ft 2 in, Wt:18 0, BMI:32.92, Shoe size: 7.5, Ht-cm: 157.48 cm, Wt- k.65 kg. * Examination: ???General Examination: ?GENERAL APPEARANCE:?pleasant, alert, well nourished, well developed, well hydrated, with good attention to hygene/body habitus, and in no acute distress.?ORIENTED:?person,place, and time.?Neurological: ?SENSORY:?Neurological exam reveals intact sensorium, pain sensation normal, vibration sensation intact, pinprick sensation is normal in the lower extremities, pt denies, anesthesia, burning, paresthesia, tingling, B/L.?TINEL'S COMPRESSION:?Negative tarsal tunnel, nicole pedis, and medial calcaneal nerves, B/L.?BABINSKI REFLEX:?Absent, B/L.?Vascular: ?DP PULSES (B):?2/4, B/L.?PT PULSES (B):?2/4, B/L.?CAPILLARY FILL TIME:?3 secs. per digit, B/L.?TROPHIC CONDITION-TEXTURE/ELASTICITY/TURGOR/HAIR GROWTH (B):?normal, B/L.?TEMPERTURE GRADIENT (C):?warm to cool, proximal to distal, B/L.?EDEMA (C):?no edema.?Dermatologic: ?SKIN FINDINGS:?Skin exam reveals normal texture, elasticity, and tugor. There are no masses. The interspaces are clear.?Heel Pain: ?INSPECTION REVEALS:?Pain on Palpation to Plantar Fascia med. and central bands, intrinsic musc., infra-calcaneal bursa, and med calc tubercle, LEFT foot--plm and plc.?Orthopedic: ?MUSCLE STRENGTH:?5/5 all groups in a symmetrical fashion B/L.?GAIT ABNORMALITY:?pronated, abducted, B/L.?FOOT MORPHOLOGY:? Pes Planus structure, B/L.?X-Rays - IMAGING REPORT: ?Clinical Indication(s):?Evaluate Biomechanical Deformity.?Views:?3 views of Foot , LEFT.?Findings:?moderate generalized decrease in bone density , positive infra-calcaneal exostosis.?Foot structure:? reveals excess pronation with, anterior break in cyme line.? * Physical Examination:?L1930 Nightsplint AFO:?Application of static AFO, including soft interface material, adjustable for fit/ positioning/ pressure reduction, may be used for minimal ambulation, prefabricated, including fitting and adjustment:?Large, Left.?L2999 Supplies:?Insoles-SSOT- graphite?B - W 7-8.5.? Assessment: * Assessment: 1.?Plantar fascial fibromato sis - M72.2 (Primary)???2.?Pain in left foot - M79.672???3.?Calcaneal spur, left foot - M77.32??? Plan: * Treatment: * Procedure Codes:?66734 X-RAY EXAM OF LEFT FOOT 3V, Modifiers: 26 , [id number] AFO PLASTIC/OTH MATERIAL [id number] Insoles-Soft sole ($50) * Preventive Medicine:? ??Counseling:?Discussion:?-03: Office or other outpatient visit for the evaluation and management of a new patient, which required a medically appropriate history and/or examination and LOW level of DECISION MAKING for: 1 STABLE ACUTE UNCOMPLICATED PROBLEM, 2 OR MORE MINOR PROBLEMS, OR 1 STABLE CHRONIC PROBLEM, THAT POSE(S) A LOW RISK FOR MORBIDITY/MORTALITY. The visit on the day of the encounter encompassed interpreting the data and educating the patient as to the nature of their condition, treatment options available according to their individual PMH, meds, allergies, and overall health/living conditions, as well as any potential risks or complications that may occur from a failure to adhere to, and participate in, the recommended course of therapy. The discussion included a complete verbal, and/or written explanation of the examination results, any x-rays taken, the proposed diagnosis, and outline of the treatment plan. A schedule for future care needs was also explained. The patient verbalized an understanding of the instructions at this time and agreed to be an active participant in their treatment. If the patient should think of any questions or concerns after the visit, I have encouraged the patient to call the office.?Heel pain:?FASCIITIS: I explained to the patient the possible etiologies of Plantar Fasciitis including foot type/shoegear/activity level/exercise routine and the risks/benefits of all the different treatment options for heel pain including: No treatment at all, Rest, Ice, NSAIDs(only if well tolerated after meals), New/supportive Shoegear, Strappings and Tapings, Stretching exercises, Deep Tissue Massage, Heel cups/cushions, Arch support/shoe inserts, Custom orthoses, Topical analgesics including Aspercream/Voltaren gel, Night splint AFO for am stiffness, Cortisone injection therapy, Cast boot with crutches/cane/or walker for assisted ambulation, Physical Therapy, EPAT/ESWT, Interfil injection therapy, as well as surgical [place]/Endoscopic Fasciitomy surgical procedures if needed. Recommendations were made to limit barefoot walking, eliminate wearing nonsupportive shoegear (i.e. flip-flops or sandals, or a shoe with an easily bendable, foldable, or twistable sole) and wear shoegear with a good solid sole, a supportive arch, and plenty of room for an insert/orthotic if necessary. If wearing sandals was required by the patient, we recommended orthopedic sandals such as Orthoheel or Birkenstock even while in the home. If the patient wore heels in the past, we recommended they continue, but eliminate the use of flats. The advantages and disadvantages of each option were discussed and the patients questions re: types of shoegear, custom vs prefabricated inserts, activity level, PO vs Topical medications (and their respective potential complications/drug interactions/side effects), and consistency in home treatment regimens for optimal success were answered to their satisfaction. Literature detailing plantar fasciitis and the various treatment options were dispensed and reviewed.?Orthotic Dispensing:?The patient presents today for fitting and dispensing of orthotics. The inserts were checked against the prescription and found to be accurate. They were properly fitted to the patients feet and shoes in both weight-bearing and non-weight bearing attitudes. The patient was instructed to gradually increase the amount of time they are wearing the orthoses, starting with one hour the first day and thereon progressively increasing the amount of time used by one hours per day until they are comfortable to be worn all day and with all activities. They were asked to call the office if any signs of skin irritation were noted including redness, blistering or callous formation. The patient verbally indicated a full understanding of all the above information, Handout reviewed and dispensed, The patient signed confirmation form indicating receipt of DME device, The OTC inserts are properly fitted to the patient's feet in both weight-bearing and non-weight bearing attitudes. The patient was instructed to gradually increase the amount of time they are wearing the orthoses, starting with one hour the first day and thereon progressively increasing the amount of time used until they are comfortable to be worn all day and with all activities. They were asked to call the office if any signs of skin irritation were noted including redness, blistering or callous formation. The patient verbally indicated a full understanding of all the above information .? * Follow Up:?3 Weeks * Images: * Sign off status: Completed true * Provider:?Chuck Rowe DPM Date:? 024 Generated for Ro cee/Saurabh/Hugoitting on:?01/12/2025 12:37 PM EDT History and Physical Notes * HPI (History of Present Illness) Category Sub-Category Detail Notes Category Not es Heel pain Duration: two months Nature: sharp pain Severity/Quality: States 10 out of 10 Location: Proximal plantar asp ect of Heel , LEFT Onset/Cause: unknown , denies tra maura Aggravated: walking first thing in the morning/after rest Course: unresolved Treatments: stretching Physical Examination Category Sub-Category Detail Notes Section Note s L1930 Nightsplint AFO Application of sta tic AFO, including soft interface material, adjustable for fit/ positioning/ pressure reduction, may be used for minimal ambulation, prefabricated, including fitting and adjustment: Large, Left L2999 Supplies Insoles-SSOT- graphite B - W 7-8.5 Examination Category Sub-Category Detail Notes Category Not es Heel Pain INSPECTION REVEALS: Pain on Palp ation to Plantar Fascia med. and central bands, intrinsic musc., infra-calcaneal bursa, and med calc tubercle, LEFT foot--plm and plc Neurological SENSORY: Neurological exa m reveals intact sensorium, pain sensation normal, vibration sensation intact, pinprick sensation is normal in the lower extremities, pt denies, anesthesia, burning, paresthesia, tingling, B/L BABINSKI REFLEX: Absent, B/L TINEL'S COMPRESSION: Negative tarsal gracie amando, nicole pedis, and medial calcaneal nerves, B/L Dermatologic SKIN FINDINGS: Skin exam reveal s normal texture, elasticity, and tugor. There are no masses. The interspaces are clear Orthopedic GAIT ABNORMALITY: pronated, abducted, B/L FOOT MORPHOLOGY: Pes Planus structure , B/L MUSCLE STRENGTH: 5/5 all groups in a symmetrical fashion B/L General Examination GENERAL APPEARANCE: pleasant , alert, well nourished, well developed, well hydrated, with good attention to hygene/body habitus, and in no acute distress ORIENTED: person,place, and ti me Vascular DP PULSES (B): 2/4, B/L PT PULSES (B): 2/4, B/L CAPILLARY FILL TIME: 3 secs. per digit, B/L TEMPERTURE GRADIENT (C): warm to cool, p roximal to distal, B/L TROPHIC CONDITION-TEXTURE/ELASTICITY/TURGOR/HAIR GROWTH (B): normal, B/L EDEMA (C): no edema X-Rays - IMAGING REPORT Findings: moderate generalized decrease in bone density , positive infra-calcaneal exostosis Foot structure: reveals excess prona tion with, anterior break in cyme line Views: 3 views of Foot , LE FT Clinical Indication(s): Evaluate Biomech anical Deformity
--- OUTSIDE RECORDS SUMMARY | 2025-01-12 12:38 | XMS_ITS ---
[facility] Address [address] [place] [address] Care Team Providers Care Vp Revenue Cycle Name Role Phone Nessa Gibbons MD Primary Care Provider Chuck Hernandez [phone] REASON FOR VISIT Sof jason Encounters Encounter Location Date Provider Diagnosis [address] [address] 12/26/2023 Chuck Rowe Plan Of Treatment No Information Progress Notes * Ignacia ALEXANDRA ADOB: (68 yo F)Acc No.[id number]:12/26/2023 Patient:?Ignacia Alexandra :1955???Age:68 Y???Sex:Female Address: [address], [place] [address] * true * Date:? Generated for Printi ng/Fasabinog/eTransmitting on:?01/12/2025 12:38 PM EDT
--- OUTSIDE RECORDS SUMMARY | 2025-01-12 12:38 | XMS_ITS ---
Author Organization [facility] Address [address] [facility] [place] [address] Care Team Providers Care Welfare Manager Name Role Phone Nessa Gibbons MD Primary Care Provider Chuck Hernandez Unavailable [phone] Allergies Allergen (clinical drug ingredient) Drug/Non Drug [...] felipa REASON FOR VISIT Last PCP Visit: 10/03/23 Medications Medication SIG (Take, Route, Frequency, Duration) Notes Start Date End Date Status Claritin Unknown Ally Allergy 180 mg 1 tablet Orally o nce a day for 30 day(s) Unknown Ritalin 10 MG 1 tablet Orally thre e times a day Unknown Salagen 5 MG 1 tablet Orally four times a day for 30 day(s) Unknown Vitamin D-3 3000 units once daily Unknown Work Note . .pt. may return to w ork on 06/28/14 . . for . 06/24/2014 Unknow n Work Note . . . . for pt. is tot ally disabled from work until 11/20/2011 11/09/2011 Unknown Flonase 50 MCG/ACT 2 sprays Nasally Onc e a day for 30 day(s) Unknown Ibuprofen 800 MG 1 tablet every Orall y Three times a day for 30 days 05/19/2014 Unknown Albuterol Unknown Physical Therapy . .dx; 3 weeks post bunionectomy with no internal hardware; use us and es to reduce edema and pain and gait eval . 2-3x/week for 3-4 weeks 06/24/2014 Unknown Work Note . this patient is plac ed back on total disability from work due to increased foot pain . . Unknown Venlafaxine HCl ER 150 MG 1 capsule with food Orally Once a day for 30 day(s) Unknown Singulair 10 mg 1 tablet in the even ing Orally Once a day for 30 day(s) Unknown Slow Fe 47.5 mg 1 tablet Orally Once a day for 30 day(s) Unknown Effexor XR 150 mg 1 capsule with food Orally Once a day for 30 day(s) Unknown Magnesium Carbonate Heavy 250 mg Unknown Restasis Unknown Flaxseed Oil - as directed Unk nown Melatonin 5 MG 1 tablet in the even ing Orally Once a day for 30 day(s) Unknown Centrum Silver Unkno wn Benadryl 25 MG 1 capsule Orally stanley ry 6 hrs Unknown Azelastine HCl 2 sprays in each nos tril Nasally Twice a day Unknown AFO-fixed fixed 1 11/30/2011 Unk nown Night Splint AFO - L1930 as directed Unknown PriLOSEC 20 MG 1 capsule Orally twi ce daily for 30 day(s) Active Night Splint AFO - L1930 as directed 12/26/2023 Active Toprol XL 50 MG 1 tablet Orally Once a day for 30 day(s) 11/12/2023 Active Prevagen 10 MG as directed Orally Active Omeprazole 20 MG 1 capsule 30 minutes before morning meal Orally Once a day for 30 day(s) Unknown Ally Active Pilocarpine HCl 5 MG 1 tablet Orally Thr ee times a day for 30 day(s) Active rOPINIRole HCl 0.5 MG 1 tablet 1 to 3 ho urs before bedtime Orally Once a day for 30 day(s) Active Magnesium 250 MG 1 tablet with a meal Orally Once a day Active Alendronate Sodium 70 MG 1 tablet 30 min utes before the first food, beverage or medicine of the day with plain water Orally Active Bioflex Active [place] 3 Active Metoprolol Tartrate 50 MG as directed Orally Active Xarelto 20 MG 1 tablet with food O rally Once a day Active Acidophilus Active Social History Alcohol Screen Question Answer Notes Did you have a drink containing alcohol in the p ast year? No Points 0 Interpretation Negative Tobacco use other than smoking: Question Answer Notes Are you an other tobacco user? No Vital Signs Height 5 ft 2 in in 01/27/2024 Weight 180 lbs 01/27/2024 BMI 32.92 kg/m2 01/27/2024 Encounters Encounter Location Date Provider Diagnosis [facility] [address] [place] [address] 01/27/2024 Chuck Rowe Plantar fascial fibromatosis M72.2 ; Pain in left foot M79.672 and Calcaneal spur, left foot M77.32 Assessments Encounter Date Diagnosis (ICD Code) Assessment Notes Treatment Notes Treatment Clinical Notes Section Notes 01/27/2024 Plantar fascial fibromatosis (ICD-10 - M72.2) 01/27/2024 Pain in left foot (ICD-10 - M79.672) 01/27/2024 Calcaneal spur, left foot (ICD-10 - M77.32) Plan Of Treatment Next Appt Details Follow Up: prn, Reason: Progress Notes * Ignacia ALEXANDRA ADOB: (68 yo F)Acc No.[id number]:01/27/2024 Progress Notes Patient:?Ignacia Alexandra Provider:?Chuck Rowe DPM :1955???Age:68 Y???Sex:Female D ate:01/27/2024 Address:[address] [place] [address], [address], [place], [place]-[id number] Pcp:Nessa Gibbons MD Subjective: * Chief Complaints: * ??? Last PCP Visit: 10/03/23 * HPI: ???Heel pain:?Nature:?sharp pain.?Location:?Proximal plantar aspect of Heel , LEFT.?Onset/Cause:?unknown , denies trauma.?Course:?improved.?Aggrevated:?walking first thing in the morning/after rest.?Treatments:?stretching, AFO-nightsplint, pre-fabricated orthoses.?Severity/Quality:?States 2 out of 10.? * ROS:?General/Constitutional:?Nausea?denies.?Vomiting?denies.?Hunger Thirst?denies.?Loss appetite?denies.?Chills?denies.?Fatigue?denies.?Fever?denies.?Night Sweats?denies.?Unexplained weight loss?denies.?Ophthalmologic:?Blurred vision?denies.?Red eye?denies.?HEENTM:?Dentures?denies.?Dizziness?denies.?Glasses/contacts?admits.?Retinopathy?de nies.?Blurred/double vision?denies.?TMJ?denies.?Discharge/drainage?denies.?Implants?denies.?Hard of hearing denies.?Difficulty chewing/swallowing/speaking?denies.?Nose bleeds?denies.?Sore mouth?denies.?Swollen glands?denies.?Respiratory:?On Oxygen?denies.?Pneumonia/pleurisy?denies.?Bronchitis?denies.?Emphysema?denies.?C oughing?denies.?Cough blood?denies.?Shortness of breath?denies.?Wheezing?denies.?Cardiovascular:?Pacemaker?denies.?MVP?denies.?WPW?denies.?CHF?denies.?Heart attack?denies.?Septal defect?denies.?Rapid beat?denies.?Chest pain ?denies.?Atrial Fib.?denies.?Murmur/Palpitations?denies.?Gastrointestinal:?Hemorrhoids?denies.?Stomach/Abdominal pain?denies.?Dark blood stool?denies.?Irritable bowel ?denies.?Constipation?denies.?Diarrhea?denies.?Vomiting?denies.?Hematology:?Swelling?denies.?Bruising?denies.?Bleeding problem?denies.?Genitourinary:?Blood urine?denies.?Frequent/Painfu/urination/bladder control?denies.?Kidney stones?denies.?Infection (UTI)?denies.?Nephropathy?denies.?Musculoskeletal:?Hammertoes?denies.?Bunions?denies.?Scoliosis/kyphosis?denies.?Muscle cramps / walking?denies.?Generalized aches and pains?denies.?Weakness?denies.?Integ.:?Page?denies.?Scars?denies.?Corns/calluses?admits.?Ingrown nails?denies.?Painful nails?denies.?Rashes?denies.?Neurologic:?Difficulty sleeping?denies.?Bipolar?denies.?Brain disorder?denies.?Balance trouble?denies.?Confusion?denies.?Fainting/blackouts?denies.?Headache?denies.?Tr emors?denies.? * Medical History:? * Surgical History:?ankle surg [...] ???Miscellaneous:?Caffeine: yes, frequency:, 1-2 cups per day. ?no Children. ?Exercise: yes, gymnastics. ?Marital status: single. 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 * Medications:?TakingMetoprolo l Tartrate 50 MG Tablet as directed Orally Bioflex [place] 3 Xarelto 20 MG Tablet 1 tablet with food Orally Once a dayAcidophilus Magnesium 250 MG Tablet 1 tablet with a meal Orally Once a dayAlendronate Sodium 70 MG Tablet 1 tablet 30 minutes before the first food, beverage or medicine of the day with plain water Orally Ally Pilocarpine HCl 5 MG Tablet 1 tablet Orally Three times a dayrOPINIRole HCl 0.5 MG Tablet 1 tablet 1 to 3 hours before bedtime Orally Once a dayToprol XL 50 MG Tablet Extended Release 24 Hour 1 tablet Orally Once a dayPrevagen 10 MG Capsule as directed Orally PriLOSEC 20 MG Capsule Delayed Release 1 capsule Orally twice dailyNight Splint AFO - L1930 as directed Taking Metoprolol Tartrate 50 MG Tablet as directed Orally Taking Bioflex Taking [place] 3 Taking Xarelto 20 MG Tablet 1 tablet with food Orally Once a dayTaking Acidophilus Taking Magnesium 250 MG Tablet 1 tablet with a meal Orally Once a dayTaking Alendronate Sodium 70 MG Tablet 1 tablet 30 minutes before the first food, beverage or medicine of the day with plain water Orally Taking Ally Taking Pilocarpine HCl 5 MG Tablet 1 tablet Orally Three times a dayTaking rOPINIRole HCl 0.5 MG Tablet 1 tablet 1 to 3 hours before bedtime Orally Once a dayTaking Toprol XL 50 MG Tablet Extended Release 24 Hour 1 tablet Orally Once a dayTaking Prevagen 10 MG Capsule as directed Orally Taking PriLOSEC 20 MG Capsule Delayed Release 1 capsule Orally twice dailyTaking Night Splint AFO - L1930 as directed UnknownOmeprazole 20 MG Capsule Delayed Release 1 capsule 30 minutes before morning meal Orally Once a dayNight Splint AFO - L1930 as directed Azelastine HCl 2 sprays in each nostril Nasally Twice a dayAFO-fixed fixed orthotic 1 Benadryl 25 MG Capsule 1 capsule Orally every 6 hrsCentrum Silver Effexor XR 150 mg Capsule Extended Release 24 Hour 1 capsule with food Orally Once a dayFlaxseed Oil - Oil as directed Melatonin 5 MG Tablet 1 tablet in the evening Orally Once a dayMagnesium Carbonate Heavy 250 mg Restasis Singulair 10 mg Tablet Chewable 1 tablet in the evening Orally Once a daySlow Fe 47.5 mg Tablet Extended Release 1 tablet Orally Once a dayVenlafaxine HCl ER 150 MG Capsule Extended Release 24 Hour 1 capsule with food Orally Once a dayPhysical Therapy . . .dx; 3 weeks post bunionectomy with no internal hardware; use us and es to reduce edema and pain and gait eval . 2-3x/weekWork Note . . this patient is placed back on total disability from work due to increased foot pain . .Work Note . . .pt. may return to work on 06/28/14 . .Work Note . . . . .Ibuprofen 800 MG Tablet 1 tablet every Orally Three times a dayAlbuterol Flonase 50 MCG/ACT Suspension 2 sprays Nasally Once a dayRitalin 10 MG Tablet 1 tablet Orally three times a daySalagen 5 MG Tablet 1 tablet Orally four times a dayVitamin D-3 3000 units once dailyClaritin Ally Allergy 180 mg Tablet 1 tablet Orally once a dayMedication List reviewed and reconciled with the patientUnknown Omeprazole 20 MG Capsule Delayed Release 1 capsule 30 minutes before morning meal Orally Once a dayUnknown Night Splint AFO - L1930 as directed Unknown Azelastine HCl 2 sprays in each nostril Nasally Twice a dayUnknown AFO-fixed fixed orthotic 1 Unknown Benadryl 25 MG Capsule 1 capsule Orally every 6 hrsUnknown Centrum Silver Unknown Effexor XR 150 mg Capsule Extended Release 24 Hour 1 capsule with food Orally Once a dayUnknown Flaxseed Oil - Oil as directed Unknown Melatonin 5 MG Tablet 1 tablet in the evening Orally Once a dayUnknown Magnesium Carbonate Heavy 250 mg Unknown Restasis Unknown Singulair 10 mg Tablet Chewable 1 tablet in the evening Orally Once a dayUnknown Slow Fe 47.5 mg Tablet Extended Release 1 tablet Orally Once a dayUnknown Venlafaxine HCl ER 150 MG Capsule Extended Release 24 Hour 1 capsule with food Orally Once a dayUnknown Physical Therapy . . .dx; 3 weeks post bunionectomy with no internal hardware; use us and es to reduce edema and pain and gait eval . 2-3x/weekUnknown Work Note . . this patient is placed back on total disability from work due to increased foot pain . .Unknown Work Note . . .pt. may return to work on 06/28/14 . .Unknown Work Note . . . . .Unknown Ibuprofen 800 MG Tablet 1 tablet every Orally Three times a dayUnknown Albuterol Unknown Flonase 50 MCG/ACT Suspension 2 sprays Nasally Once a dayUnknown Ritalin 10 MG Tablet 1 tablet Orally three times a dayUnknown Salagen 5 MG Tablet 1 tablet Orally four times a dayUnknown Vitamin D-3 3000 units once dailyUnknown Claritin Unknown Ally Allergy 180 mg Tablet 1 tablet Orally once a dayMedication List reviewed and reconciled with the patient * Allergies:?adhesive tapecat danderpneumonia shotAspirin: stomach upsetAdvilyes[Allergies Verified] Objective: * Vitals:?Ht: 5 ft 2 in, Wt:18 0, BMI:32.92, Shoe size:7.5. * Examination: ???General Examination: ?GENERAL APPEARANCE:?pleasant, alert, [...] medial calcaneal nerves, B/L.?BABINSKI REFLEX:?Absent, B/L.?Vascular: ?DP PULSES:?2/4, B/L.?PT PULSES:?2/4, B/L.?CAPILLARY FILL TIME:?3 secs. per digit, B/L.?SKIN TEMPERTURE GRADIENT OF THE LOWER EXTERMITIES:?warm to cool, proximal to distal, B/L.?HAIR GROWTH/TEXTURE/ELASTICITY/TURGOR:?normal, B/L.?EDEMA:?no edema.?Dermatologic: ?SKIN FINDINGS:?Skin exam reveals normal texture, elasticity, and tugor. There are no masses. The interspaces are clear.?Heel Pain: ?INSPECTION REVEALS:?Pain on Palpation to Plantar Fascia med. and central bands, intrinsic musc., infra-calcaneal bursa, and med calc tubercle, LEFT foot--mild pop .?Orthopedic: ?MUSCLE STRENGTH:?5/5 all groups in a symmetrical fashion B/L.?GAIT ABNORMALITY:?pronated, abducted, B/L.?FOOT MORPHOLOGY:? Pes Planus structure, B/L.? Assessment: * Assessment: 1.?Plantar fascial fibromato sis - M72.2 (Primary)?2.?Pain in left foot - M79.672?3.?Calcaneal spur, left foot - M77.32? Plan: * Treatment: * Procedure Codes:? * Preventive Medicine:? ??Counseling:?Discussion:?-13: Office or other outpatient visit for the evaluation and management of an established patient, which required a medically appropriate history [...] have encouraged the patient to call the office--continue with orthoses and PF prootol and ulse of afo brace.? * Follow Up:?prn * Images: * Sign off status: Completed true * Provider:?Chuck Rowe DPM Date:? 024 Generated for Ro cee/Saurabh/eTransmitting on:?01/12/2025 12:37 PM EDT History and Physical Notes * HPI (History of Present Illness) Category Sub-Category Detail Notes Category Not es Heel pain Nature: sharp pain Severity/Quality: States 2 out of 10 Location: Proximal plantar asp ect of Heel , LEFT Onset/Cause: unknown , denies tra maura Aggravated: walking first thing in the morning/after rest Course: improved Treatments: stretching, AFO-nigh tsplint, pre-fabricated orthoses Examination Category Sub-Category Detail Notes Category Not es Heel Pain INSPECTION REVEALS: Pain on Palp ation to Plantar Fascia med. and central bands, intrinsic musc., infra-calcaneal bursa, and med calc tubercle, LEFT foot--mild pop Neurological SENSORY: Neurological exa m reveals intact [...]
== END 2025-01-12 11:06 | disposition home or self-care (01) ==
LOC: HO.RHE 10:34
PROVIDERS: PCP Internal Medicine; Visit Provider Student in an Organized Health Care Education/Training Program
DX: M70.62 Trochanteric bursitis, left hip (principal)
CPT/HCPCS: 20610; 99213

== ENCOUNTER → 2025-01-12 10:33 | Outpatient (BNVA) | payer MEDICARE, SELFPAY | PROVIDERS: PCP Internal Medicine; Visit Provider Student in an Organized Health Care Education/Training Program | DX: M70.62 Trochanteric bursitis, left hip (principal) | CPT/HCPCS: 20610; 99212; J3300 ==

== ENCOUNTER 2025-01-25 14:17 | Outpatient (REF) | payer MEDICARE, SELFPAY ==
[2025-01-25 16:31] LABS: Appearance Urine Clear; Color Urine Yellow; Glucose Urine UA Negative (Negative); Leukocyte Esterase Urine Large (3+) (Negative); Nitrite Urine Negative (Negative); PH 6.5 (5.0-9.0); UMIC TRIGGER UA YES; Urine Blood Small (1+) (Negative); Urine Ketones Negative (Negative); Urine Protein Negative (Neg-Trace)
[2025-01-25 16:35] LABS: Bacteria Urine None Seen (None Seen); Hyaline Casts Urine 0-2 /LPF (0-2); Squamous Epithelial Cell Urine 0-2 /HPF (0-2); WBC Urine 21-50 /HPF (0-5)
== END 2025-01-25 14:18 | disposition home or self-care (01) ==
LOC: HO.HMGCLDS 14:17
PROVIDERS: PCP Internal Medicine; Visit Provider Nurse Practitioner Family
DX: R31.9 Hematuria, unspecified (principal)
CPT/HCPCS: 81001; 87086; 87088; 87186

== ENCOUNTER 2025-01-29 11:31 | Emergency (ER) | payer MEDICARE, SELFPAY ==
--- NOTE | ~2025-01-29 | XR_ITS ---
EXAMINATION: XR FINGER, RIGHT CLINICAL INFORMATION: 4th finger trauma COMPARISON: Right hand radiographs 01/30/2023, 07/15/2017. TECHNIQUE: Three views of the right ring finger. FINDINGS: There is a subtle nondisplaced lucency, suspicious for mallet type fracture, of the proximal aspect, distal phalanx, DIP joint fourth digit. Arthritic changes noted throughout the DIP joints with periarticular erosions and mild radial deviation of the second through fifth digits. Inflammatory type arthropathy seen throughout the wrist intercarpal joints, radiocarpal joint, and first CMC joint. No discrete soft tissue abnormality. XR/XR finger RT min 2V IMPRESSION: 1. Findings suspicious for nondisplaced dorsal mallet type fracture of the proximal aspect, distal phalanx, fourth digit. 2. No additional fracture or acute bony abnormality. 3. Inflammatory appearing arthropathy throughout the DIP joints, with subtle periarticular erosions present and radial deviation involving the second through fifth digits. 4. Inflammatory type arthropathy of the wrist, first CMC joint, and first MCP joint. Electronically signed by: Garrison Francis MD 01/29/2025 12:18 PM EDT
[2025-01-29 11:43] VITALS: BP 156/76; PULSE 67; RESP 18; TEMP 36.6; O2SAT 96; BMI 34.6
--- NOTE | 2025-01-29 11:43 | ED_ITS ---
HPI - General Adult General Chief complaint: Extremity Injury, Upper Stated complaint: slammed car door on fingers Time Seen by Provider: 01/29/25 12:35 Source: patient, RN notes reviewed and old records reviewed Mode of arrival: ambulatory Limitations: no limitations History of Present Illness ED Provider: Vesta HPI narrative: 69-year-old female presents for evaluation of a right hand injury. She accidentally closed her right hand, specifically the 4th finger in the door. This happened just prior to arrival. She has a small wound with minimal bleeding She reports that she is on Xarelto due to history of AFib. No other injuries She reports her pain is mild because ?the finger is numb. ? Related Data Home Medications ?Medication ?Instructions ?Recorded ?Confirmed magnesium 250 mg tablet 250 mg PO DAILY 10/20/20 09/24/24 fexofenadine 180 mg tablet 180 mg PO DAILY 02/24/21 09/24/24 (Ally Allergy) multivitamin 1 tab PO DAILY 02/24/21 09/24/24 glucosamine-chondroitin 250 mg-200 1 tab PO BID 07/25/21 09/24/24 mg tablet (Osteo Bi-Flex) omega 3 350 mg-dha 235 mg-epa 90 1 cap PO DAILY 10/01/23 09/24/24 mg-fish oil 597 mg capsule,delay rel ([place]-3) Prevagen PO 06/04/24 09/24/24 Previous Rx's ?Medication ?Instructions ?Recorded alendronate 70 mg tablet 70 mg PO QWEEK #8 tabs 06/15/24 pilocarpine HCl 5 mg tablet 5 mg PO TID #90 tabs 07/18/24 albuterol sulfate 90 mcg/actuation 2 puff inhalation Q6H PRN 08/17/24 aerosol inhaler shortness of breath or wheezing #8.5 grams benzonatate 200 mg capsule 200 mg PO BID PRN cough 30 days 08/20/24 #30 caps solifenacin 5 mg tablet (Vesicare) 5 mg PO DAILY 90 days #90 tabs 08/27/24 flecainide 50 mg tablet 50 mg PO Q12H #180 tabs 08/31/24 rivaroxaban 20 mg tablet (Xarelto) 20 mg PO DAILY 90 days #90 tabs 09/21/24 metoprolol succinate 50 mg 25 mg (1/2 x 50 mg) PO DAILY 90 09/24/24 tablet,extended release 24 hr days #45 tabs (Toprol XL) omeprazole 20 mg capsule,delayed 20 mg PO DAILY #90 caps 10/27/24 release ropinirole 0.5 mg tablet 1 mg (2 x 0.5 mg) PO DAILY #180 10/27/24 tabs amoxicillin 500 mg capsule 2,000 mg (4 x 500 mg) PO ONCE #12 01/19/25 caps nitrofurantoin macrocrystal 100 mg 100 mg PO BID 7 days #14 caps 01/25/25 capsule Allergies Allergy/AdvReac Type Severity Reaction Status Date / Time pneumococcal vaccine Allergy Severe ARM Verified 01/29/25 11:47 [PNEUMOCOCCAL VACCINE] SWELLED, swelling in arm tiotropium Allergy Severe THROAT Verified 01/29/25 11:47 [From SPIRIVA WITH SWELL HANDIHALER] doxycycline AdvReac Intermediate foggy and Verified 01/29/25 11:47 forgetful Review of Systems Musculoskeletal: Musculoskeletal: Reports arthralgias, Reports joint swelling and Reports limited range of motion Integumentary/Breasts: Skin/Breast: Reports wounds PMFSH Past Medical History Medical History Cough Myalgia Lora-trochanteric left hip tendinitis New onset a-fib Annual physical exam Trochanteric bursitis of right hip Weakness of left hand Poor balance Vitamin D deficiency Tinnitus Chronic left-sided low back pain Hx of echocardiogram Insomnia Chronic allergic rhinitis Asthma Sjogrens syndrome Surgical History H/O thumb surgery History of knee replacement History of bunionectomy of right great toe H/O colonoscopy Family History Family History Father Heart attack CVD (cardiovascular disease) Mother Stroke CHF (congestive heart failure) Alzheimer's dementia Cancer Hypertension Social History Social History Housing: House Alcohol intake: never Patient Tobacco Use Status: Never used Tobacco e-Cigarette/Vaping Use: Never Used Advance Directives: No Advance Directives Information Provided: Yes service: Yes Current occupational status: retired Cognitive needs: No Hearing needs: No Vision needs: Yes Physical Exam ED Vital Signs: Vital Signs - 24 hr 01/29/25 11:43 01/29/25 12:46 Temperature 97.9 F 97.9 F Pulse Rate 67 67 Respiratory Rate 18 18 Blood Pressure 156/76 H 156/76 H Pulse Oximetry 96 96 Oxygen Delivery Method Room Air Room Air BMI result Body Mass Index 34.6 Const General: healthy appearing, comfortable, no acute distress, alert and awake Nutritional Appearance: well nourished Orientation/consciousness: patient oriented x3 HENMT Head: Yes normocephalic and Yes atraumatic Resp Effort & Inspection: normal respiratory effort, able to speak in complete sentences and not labored Skin General skin exam: elasticity normal Neuro General: patient oriented x3 Cranial nerves: Yes Bilaterally intact EOM present Cognition (Neuro): normal cognition Extrem Other: There is a very small, superficial abrasion to the dorsal surface of the right 4th finger at the D IP joint. There is some ecchymosis on the palmar surface of the right 4th finger at the PIP and D IP joints. These areas are tender to palpation. Course Course Course Narrative: RME, this is a rapid medical exam performed by Branden Lemons please refer to primary provider for complete H&P- 69-year-old female presents for evaluation of an injury to her right 4th finger. She accidentally slammed in a car door. She was a small, superficial abrasion on the dorsal surface. There is some ecchymosis. Plan for x-ray. Medical Decision Making Medical Decision Making MDM Narrative: Patient accidentally closed her finger in a door. X-ray confirms a right distal phalanx fracture that is a nondisplaced fracture of the base of the distal phalanx. I discussed this with the patient, we cleaned her superficial wound. This is not a deep laceration and does not qualify as an open fracture. The wound was cleaned with saline. She was placed in a finger splint and will be discharged to follow up with the PCP. Differential Diagnosis Differential Diagnoses: The differential diagnosis associated with the presentation includes Finger fracture Contusion Dislocation Abrasion Open fracture Independent Interpretation I performed an independent interpretation of an: Plain X-Ray (Agree with Radiology interpretation, distal phalanx fracture) Radiology Impression Discussion of test interpretation with radiology: I have reviewed the rad iologist's reading. Radiologist Impression: FINDINGS: There is a subtle nondisplaced lucency, suspicious for mallet type fracture, of the proximal aspect, distal phalanx, DIP joint fourth digit. Arthritic changes noted throughout the DIP joints with periarticular erosions and mild radial deviation of the second through fifth digits. Inflammatory type arthropathy seen throughout the wrist intercarpal joints, radiocarpal joint, and first CMC joint. No discrete soft tissue abnormality. XR/XR finger RT min 2V IMPRESSION: 1. Findings suspicious for nondisplaced dorsal mallet type fracture of the proximal aspect, distal phalanx, fourth digit. 2. No additional fracture or acute bony abnormality. 3. Inflammatory appearing arthropathy throughout the DIP joints, with subtle periarticular erosions present and radial deviation involving the second through fifth digits. 4. Inflammatory type arthropathy of the wrist, first CMC joint, and first MCP joint. Electronically signed by: Garrison Francis MD 01/29/2025 12:18 PM EDT RP Discharge Plan Discharge Clinical Impression: Finger fracture, right Patient Disposition: Home, Self-Care Instructions: Finger Fracture (ED) Additional Instructions: You have a very subtle fracture to the distal phalanx of your right 4th finger/ring finger. This is minimally displaced and will likely heal very well on its own. Keep the finger splint in place for comfort and to protect the injured area. You may apply topical antibiotic to the small cut Follow-up with your primary doctor, return for new or worsening symptoms Prescriptions: No Action Prevagen PO alendronate 70 mg tablet 70 mg PO QWEEK Qty: 8 3RF pilocarpine HCl 5 mg tablet 5 mg PO TID Qty: 90 4RF flecainide 50 mg tablet 50 mg PO Q12H Qty: 180 3RF Xarelto 20 mg tablet 20 mg PO DAILY 90 Days Qty: 90 3RF Rx Instructions: must administer with evening meal omeprazole 20 mg capsule,delayed release(DR/EC) 20 mg PO DAILY Qty: 90 3RF ropinirole 0.5 mg tablet 1 mg PO DAILY Qty: 180 3RF amoxicillin 500 mg capsule 2,000 mg PO ONCE Qty: 12 0RF Rx Instructions: 1 hour before dental procedure nitrofurantoin macrocrystal 100 mg capsule 100 mg PO BID 7 Days Qty: 14 0RF Rx Instructions: must administer with a meal/food [place]-3 350 mg-235 mg- 90 mg-597 mg Capsule,Delayed Release(Dr/Ec) 1 cap PO DAILY fexofenadine [Ally Allergy] 180 mg tablet 180 mg PO DAILY multivitamin Tablet 1 tab PO DAILY magnesium 250 mg tablet 250 mg PO DAILY glucosamine-chondroitin [Osteo Bi-Flex] 250-200 mg tablet 1 tab PO BID Rx Instructions: give after food/meal benzonatate 200 mg capsule 200 mg PO BID PRN (Reason: cough) 30 Days Qty: 30 0RF solifenacin [Vesicare] 5 mg tablet 5 mg PO DAILY 90 Days Qty: 90 2RF metoprolol succinate [Toprol XL] 50 mg tablet extended release 24 hr 25 mg PO DAILY 90 Days Qty: 45 3RF albuterol sulfate 90 mcg/actuation HFA aerosol inhaler 2 puff inhalation Q6H PRN (Reason: shortness of breath or wheezing) Qty: 8.5 11RF Interventions: ED Discharge Assessment Last Done: 01/29/25 12:46 Discharge Date/Time: 01/29/25 12:47 Print Language: Chinese
[2025-01-29 12:46] VITALS: BP 156/76; PULSE 67; RESP 18; TEMP 36.6; O2SAT 96
== END 2025-01-29 12:47 | disposition home or self-care (01) ==
PROVIDERS: Emergency Provider Emergency Medicine; PCP Internal Medicine
DX: S62.634A Displaced fracture of distal phalanx of right ring finger, initial encounter for closed fracture (principal); W23.0XXA Caught, crushed, jammed, or pinched between moving objects, initial encounter; M79.641 Pain in right hand; Y93.89 Activity, other specified; Y92.810 Car as the place of occurrence of the external cause; Y99.9 Unspecified external cause status
CPT/HCPCS: 29130; 73140; 99282; 99283

== ENCOUNTER → 2025-01-29 11:44 | Outpatient (BNV) | payer MEDICARE, SELFPAY | PROVIDERS: Emergency Provider Emergency Medicine; PCP Internal Medicine; Visit Provider Radiology Diagnostic Radiology | DX: S62.609A Fracture of unspecified phalanx of unspecified finger, initial encounter for closed fracture (principal) | CPT/HCPCS: 73140 ==

== ENCOUNTER 2025-02-02 13:17 | Outpatient (AMB) | payer MEDICARE, SELFPAY ==
--- NOTE | 2025-02-02 13:19 | A.OFFPC_ITS ---
Vital Signs 02/02/25 13:20 Height 5 ft 2 in Weight 192 lb BMI 35.1 BP 118/72 Blood Pressure Location Lt brachial Position Sitting Pulse 70 Pulse Source Pulse Oximeter Temp 98.6 F Temp Source Oral Pulse Oximetry (%) 97 Oxygen Delivery Method Room Air Intake Visit Reasons: ER follow up Intake Note: Pt is here today for ER follow up visit. Allergies pneumococcal vaccine [PNEUMOCOCCAL VACCINE] Allergy (Severe, Verified 02/02/25 13:21) ARM SWELLED, swelling in arm tiotropium [From SPIRIVA WITH HANDIHALER] Allergy (Severe, Verified 02/02/25 13:21) THROAT SWELL doxycycline Adverse Reaction (Intermediate, Verified 02/02/25 13:21) foggy and forgetful Tobacco use date assessed: 02/02/25 Fall risk assessment: 2 + Falls in past year Last assessed Fall Risk: 02/02/25 Dental Screening Dental Screen Date: 02/02/25 Did you have a dental visit in the last 12 months?: Yes Did you have a dental problem in the last 6 months where you did not have access to dental care?: No Was dental information given to patient?: Patient has dentist HPI ER follow up HPI Details The follow-up of ER visit for right middle finger distal phalanx fracture after her finger got stuck in a car's door. She has been starting to use the finger more and reports discomfort in the tip of her finger but is feeling better. Paroxysmal AFib is rhythm controlled on flecainide metoprolol and anticoagulated on Xarelto .patient is established with Cardiology. [facility] Medical History Cough Myalgia Lora-trochanteric left hip tendinitis New onset a-fib Annual physical exam Trochanteric bursitis of right hip Weakness of left hand Poor balance Vitamin D deficiency Tinnitus Chronic left-sided low back pain Hx of echocardiogram Insomnia Chronic allergic rhinitis Asthma Sjogrens syndrome Surgical History H/O thumb surgery History of knee replacement History of bunionectomy of right great toe H/O colonoscopy Family History Father Heart attack CVD (cardiovascular disease) Mother Stroke CHF (congestive heart failure) Alzheimer's dementia Cancer Hypertension Social History Housing: House Alcohol intake: never Patient Tobacco Use Status: Never used Tobacco e-Cigarette/Vaping Use: Never Used service: Yes Current occupational status: retired Cognitive needs: No Hearing needs: No Vision needs: Yes Questionnaire PHQ-9 Over the last 2 weeks, how often have you been bothered by any of the following problems? 1. Little interest or pleasure in doing things: not at all 2. Feeling down, depressed, or hopeless: not at all 3. Trouble falling or staying asleep, or sleeping too much: not at all 4. Feeling tired or having little energy: nearly every day 5. Poor appetite or overeating: nearly every day 6. Feeling bad about yourself - or that you are a failure or have let yourself or your family down: not at all 7. Trouble concentrating on things, such as reading the newspaper or watching television: not at all 8. Moving or speaking so slowly that other people could have noticed. Or the opposite - being so fidgety or restless that you have been moving around a lot more than usual: not at all 9. Thoughts that you would be better off or of hurting yourself in some way: not at all Total score: 6 Depression Screening Interpretation: Negative Depression Screening Done: Yes 04333 - PHQ-9 Billing: Yes Source: Developed by Drs. Sadiq Bear, Latricia Brown, Alexandru Govea and colleagues, with an educational compa from [employer]. Thrive Questionnaire Date Thrive assessed: 02/02/25 I am a: Patient What is your living situation today?: I have a steady place to live Within the past 12 months, did the food you bought not last and you didn't have the money to get more?: Never true Within the past 12 months, did you worry whether your food would run out before you got money to buy more?: Never true Do you have trouble paying for medicines?: No Do you have trouble getting transportation to medical appointments?: No Do you have trouble paying your heating and electricity bill?: No Do you have trouble taking care of your child, family member or friend?: I choose not to answer this question Do you have trouble with day-to-day activities such as bathing, preparing meals, shopping, managing finances, etc.?: No Are you interested in more education?: No Please select the resources that you would like help with: None Currently or been in a relationship where the following occur: No concerns reported THRIVE Score: 0 AUDIT C Alcohol Use Questionnaire (AUDIT-C) 1. How often do you have a drink containing alcohol?: Never 3. How often do you have six or more drinks on one occasion?: Never Total Score: 0 MESHA-7 AMB Questionnaire MESHA-7 Date MESHA - 7 assessed: 02/02/25 Feeling nervous, anxious, or on edge: 0 = Not at all Not being able to stop or control worryin = Not at all Worrying too much about different things: 0 = Not at all Trouble relaxin = Not at all Being so restless that it is hard to sit still: 0 = Not at all Becoming easily annoyed or irritable: 0 = Not at all Feeling afraid as if something awful might happen: 0 = Not at all Total MESHA-7 score (0-4 normal; 5-9 mild; 10-14 moderate; 15-21 severe): 0 Source: Developed by Drs. Sadiq Bear, Latricia Brown, Alexandru Govea and colleagues, with an educational compa from [employer]. MESHA-7 Assessment Billing MESHA-7 Assessment Tool: MESHA-7 Assessment 99985 Review of Systems Const All systems reviewed & are unremarkable except as noted in HPI and below Reports no additional complaints Eyes Reports no additional complaints ENT Reports no additional complaints Card Reports no additional complaints Resp Reports no additional complaints GI Reports no additional complaints Reports no additional complaints Physical exam (Primary Care) Vital Signs: Last Vital Signs Temp 98.6 F 02/02/25 13:20 Pulse 70 02/02/25 13:20 BP 118/72 02/02/25 13:20 Pulse Ox 97 02/02/25 13:20 Oxygen Delivery Method Room Air 02/02/25 13:20 BMI result Body Mass Index 35.1 Tobacco/Smoking Status: Tobacco use Status Tobacco use date assessed 02/02/25 02/02/25 13:27 Patient Tobacco Use Status Never used Tobacco 02/02/25 13:27 e-Cigarette/Vaping Use Never Used 02/02/25 13:27 PHQ-9: PHQ-9 Score PHQ-9: Total score 6 02/02/25 13:27 Depression Screening Interpretation: Negative Thrive Assessment: Date of Thrive Assessment Date Thrive assessed 02/02/25 02/02/25 13:27 Currently or been in a relationship where the following occur: No concerns reported Const General: no acute distress HENMT Head: Yes normal to inspection Resp Effort & Inspection: normal respiratory effort Auscultation: clear to auscultation bilaterally Cardio Rhythm: regular rhythm Heart sounds: S1 normal heart sound present and S2 normal heart sound present Extrem Other: Right middle finger bruising no soft tissue swelling tenderness at the tip of the finger Coding Level of Care Code Est Pt Level 4 (51032) Diagnoses Paroxysmal atrial fibrillation I48.0 Sjogren's syndrome, with unspecified organ involvement M35.00 Sjogren's organ involvement: unspecified organ involvement Finger fracture, right S62.609A Additional Codes MESHA-7 Assessment Billing - MESHA-7 Assessment Tool: MESHA-7 Assessment 55811 ([id number]) PHQ-9 - 79157 - PHQ-9 Billing: Yes ([id number]) Assessment & Plan Assessment & Plan (1) Paroxysmal atrial fibrillation: Comment: 10/01/23 converted after Cardizem in ER, f/u Dr. Jones, Echo 09/27 LVEF 60%, trivial AR, negative stress test and normal Holter 10/26, on Flecainide , Metopr olol, Xarelto Code(s): I48.0 - Paroxysmal atrial fibrillation Category: Medical Plan: Continue current medications follow-up with Cardiology (2) Sjogrens syndrome: Comment: Dx 2009: sicca symptoms, pos SS-B, neg SS-A, low titer RF, neg DNA, KIRSTEN, CCP Code(s): M35.00 - Sjogren syndrome, unspecified Category: Medical Qualifiers: Sjogren's organ involvement: unspecified organ involvement Qualified Code(s): M35.00 - Sicca syndrome, unspecified Plan: Established with rheumatology (3) Finger fracture, right: Code(s): S62.609A - Fracture of unspecified phalanx of unspecified finger, initial encounter for closed fracture Category: Medical Plan: Supportive care
[2025-02-02 13:20] VITALS: BP 118/72; PULSE 70; TEMP 37; O2SAT 97; BMI 35.1
--- OUTSIDE RECORDS SUMMARY | 2025-02-02 15:37 | XMS_ITS | Patient Health Record ---
Author Organization [facility] Address [address] [place] [address] Care Team Providers Care Furrier Designer Name Role Phone Nessa Gibbons MD Primary Care Provider Sadiq Skinner [phone] Allergies Allergen (clinical drug ingredient) Drug/Non Drug [...] No Points 0 Interpretation Negative Section Notes: Anabaptist Sister Nonsmoker; no alcohol Anabaptist Sister Nonsmoker; no alcohol Problems Problem Type SNOMED Code ICD Code Onset Dates Problem Status W/U Status Risk Notes Problem 839370909 Encounter for screening for malignant neoplasm of colon (Z12.11) Active confirmed Problem 769934724 History of adenomatous polyp of colon (Z86.010) Active confirmed Problem Diarrhea (70025559) Diarrhea (R19.7) Active confirmed Problem Diverticular disease of colon (486268799) Diverticulosis of large intestine without perforation or abscess without bleeding (K57.30) Active confirmed Problem 188941011 Irritable bowel syndrome with diarrhea (K58.0) Active confirmed Problem Elevated liver enzymes level (971419092) Elevated liver function tests (R79.89) Active confirmed Problem 376021067 Gastroesophageal reflux disease, esophagitis presence not specified (K21.9) Active confirmed Problem 768139379 Family history o f colon cancer (Z80.0) Active confirmed Problem 95710574 Diarrhea, unspecified type (R19.7) Active confirmed Problem Abdominal discomfort (66208744) Abdominal discomfort (R10.9) Active confirmed Problem Generalized abdominal pain (985166964) Abdominal pain, acute, generalized (R10.84) Active confirmed [...] Date MEDICARE OF [place] [address] [place] [address] [id number] BREA ALEXANDRA Self - patient is the insured [facility] SUPPLEMENTAL PLAN [address] [place] [address] [phone] [id number] BREA ALEXANDRA Self - patient is the insured Medical (General) History Medical History History ICD Code Sjogren's syndrome Asthma Restless leg syndrome GERD--has seen Dr. Rob-- has had EGD's--last one was in 2011--no signs of Odell's esophagus nor esophagitis--- only fundic gland gastric polyps IBS ADHD Spondylolithesis Denies NM,DM,CVA,renal disease Has had colonoscopies Q 5 ye [...]
--- OUTSIDE RECORDS SUMMARY | 2025-02-02 15:37 | XMS_ITS | Clinical Summary ---
Author Organization [facility] Address [address] [place] [address] Phone Care Team Providers Care Salon/Spa Manager Name Role Phone Nessa Gibbons MD Primary Care Provider [phone] Surgical History Surgery Date Site/Laterality Comments TOTAL [...] Encounter for screening mammogram for breast cancer [facility] DEXA AXIAL SKELETON Routine 07/04/2021 4:09 PM [...] Signed Date: 09/30/2024 14:07 ET Workstation ID: [id number] Transcribed By: Self Edit Transcribed Date: 09/30/2024 [...] Signed Date: 09/30/2024 14:07 ET Workstation ID: [id number] Transcribed By: Self Edit Transcribed Date: 09/30/2024 14:02 ET us Self Referral Sppl IMG BI PROCEDURES Final Resul t * [facility] DEXA AXIAL SKELETON (07/04/2021 4:09 PM EDT) Anatomical Region Laterality Modality Mammography 07/04/2021 3:19 PM EDT Narrative 07/04/2021 4:09 PM EDT [facility] Diagnostic Imaging Department [address] [place] [address] Patient: ??IGNACIA ALEXANDRA ?/Age/Sex: 1955 - 66 - F Unit#: ??[id number] ? Location/Status: ??SPDIMAM/REG CLI ? Mnemonic/Ordering Site: ??MAMDEXAAX/SPMAM Ordering Physician: ??CASE,DONNIE MIRANDA [facility] Dexa Axial Skeleton - 07/04/21 - 5555 HISTORY: ??The patient is a 66-year-old postmenopausal [...] probability of hip fracture of 5.2%. Code 73891 Dictating Physician: ??JOSE MANUEL KNUTSON MD Electronically Signed by: ??JOSE MANUEL KNUTSON MD Dic Date/Time: ??07/04/21 1607 Sign date/Time: ??07/04/21 1609 Procedure Note Jose Manuel Knutson MD - 10/31/2022 [facility] Diagnostic Imaging Department [address] [place] [address] Patient: NASRINIGNACIA Marquez D.O.B./Age/Sex: 1955 - 66 - F Unit#: [id number] [facility] Ordering Physician: DONNIE DURHAM MD Rolando Dexa [...] density of the femurs bilaterally is 0.813 gm/mo6hrfqw is 81% of that of young normals [...] probability of hip fracture of 5.2%. Code 64317 Dictating Physician: JOSE MANUEL KNUTSON MD Electronically Signed by: JOSE MANUEL KNUTSON MD Dic Date/Time: 07/04/21 1607 Sign date/Time: 07/04/21 1603 Donnie Durham MD IM BI PROCEDURES Final Result from Last 3 Months or Most Recently Relevant to Health Maintenance Insurance MEDICARE [facility] Care Teams Salon/Spa Manager Relationship Specialty Start Date End Date Nessa Gibbons MD [address] [place] [address] PCP - General Internal Medicine 01/09/18
--- OUTSIDE RECORDS SUMMARY | 2025-02-02 15:38 | XMS_ITS ---
[facility] Address [address] [place] [address] Care Team Providers Care Senior Director Marketing Name Role Phone Nessa Gibbons MD Primary Care Provider Chuck Hernandez [phone] REASON FOR VISIT Sof jason Encounters Encounter Location Date Provider Diagnosis [address] [address] 12/26/2023 Chuck Rowe Plan Of Treatment No Information Progress Notes * Ignacia ALEXANDRA ADOB: (68 yo F)Acc No.[id number]:12/26/2023 Patient:?Ignacia Alexandra :1955???Age:68 Y???Sex:Female Address: [address] [place] [address] * true * Date:? Generated for Printi ng/Fasabinog/eTransmitting on:?02/02/2025 03:37 PM EDT
--- OUTSIDE RECORDS SUMMARY | 2025-02-02 15:38 | XMS_ITS | Continuity of Care Document ---
Author Organization [facility] Address [address] [place] [phone]- Care Team Providers Care Piano Instructor Name Role Phone Nessa Gibbons MD Primary Care Physician Encounter 01/29/25 - 01/30/[address] [address]- Attending Physician: Not on Staff, Attending MD Referring Physician: Not on Staff, Referring MD Encounter Type: [facility] Allergies, Adverse Reactions, Alerts Substance Criticality Severity Reaction Reaction Severity Status Pneumovax 23 Active Spiriva Pneumococcal lo bar pneumonia Pneumococcal lobar pneumonia Pneumococcal lobar pneumonia Pneumococcal lobar pneumonia Pneumococcal lobar pneumonia Pneumococcal lobar pneumonia Active Medications Ally = 180 mg, By Mouth, Daily, 0 Refills, Maintenance, 06/13/16 2:40:32 PM EDT Start Date: 06/13/16 Status: Ordered Repeat number: 1 Fosamax 70 mg oral tablet 1 tablet = 70 mg, By Mouth, Every week, with 6-8 oz plain water, at least 30 minutes before first food, beverage, or medication of the day, # 12 tablet, 4 Refills, Maintenance, 11/12/22 3:50:00 PM EST,Tablet, [id number], Partial fill upon patient request if the prescription is for aschedule II opioid drug., 160, cm, 06/27/22 14:03:00 EDT, Height Start Date: 11/12/22 Status: Ordered Quantity: 12.0 Unit: tablet Repeat number: 5 magnesium gluconate 250 mg oral tablet 1 tablet = 250 mg, By Mouth, 2 times a day, 0 Refills, Maintenance, 06/27/22 5:03:00 PM EDT, Partialfill upon patient request if the prescription is for a schedule II opioid drug. Start Date: 06/27/22 Status: Ordered Repeat number: 1 melatonin 5 mg oral tablet 1 tablet = 5 mg, By Mouth, Daily at bedtime, 0 Refills, Maintenance, 06/27/22 5:03:00 PM EDT, Partial fill upon patient request if the prescription is for a schedule II opioid drug. Start Date: 06/27/22 Status: Ordered Repeat number: 1 omeprazole 20 mg oral enteric coated capsule 1 capsule = 20 mg, TAKE 1 CAPSULE BY MOUTH DAILY Start Date: 06/27/22 Status: Ordered Repeat number: 1 Prevagen = 50 mcg, By Mouth, Daily, 0 Refills, Maintenance, 06/27/22 5:03:00 PM EDT, Partial fill upon patient request if the prescription is for a schedule II opioid drug. Start Date: 06/27/22 Status: Ordered Repeat number: 1 ProAir HFA 90 mcg/inh inhalation aerosol with adapter 2, puffs, Inhalation, 4 times a day, Refills 0, Maintenance, 06/13/16 2:40:52 PM EDT Start Date: 06/13/16 Status: Ordered Repeat number: 1 Requip = 0.5 mg, By Mouth, 3 times a day, 0 Refills, Maintenance, 06/13/16 2:39:00 PM EDT Start Date: 06/13/16 Status: Ordered Repeat number: 1 Restasis 1 drops, Eyes, Both, Every 12 hours, 0 Refills, Maintenance, 06/13/16 2:39:07 PM EDT Start Date: 06/13/16 Status: Ordered Repeat number: 1 Salagen 5 mg oral tablet 1 tablet = 5 mg, By Mouth, 3 times a day, 0 Refills, Maintenance, 06/13/16 2:38:46 PM EDT Start Date: 06/13/16 Status: Ordered Repeat number: 1 Singulair By Mouth, Daily before dinner, 0 Refills, Maintenance, 06/13/16 2:40:20 PM EDT Start Date: 06/13/16 Status: Ordered Repeat number: 1 Ultimate omega & CoQ10 Ultimate omega & CoQ10, See Instructions, Refills 0, Maintenance, 2 capsules per day, 06/27/22 5:04:00 PM EDT, Supply Start Date: 06/27/22 Status: Ordered Repeat number: 1 venlafaxine 150 mg oral capsule, extended release 150 mg, 1, capsule, By Mouth, Daily in AM, # 30 capsule, Refills 3, Tot. Refills 3, Maintenance, 08/27/16 1:54:03 PM EDT, Route to Pharmacy Electronically, [facility] - [address] Start Date: 08/27/16 Stop Date: 12/25/16 Status: Ordered Quantity: 30.0 Unit: capsule Repeat number: 4 venlafaxine 150 mg oral capsule, extended release 150 mg, 1, capsule, By Mouth, Daily in AM, # 30 capsule, Refills 1, Tot. Refills 1, Maintenance, 01/24/17 12:40:31 PM EDT, Route to Pharmacy Electronically, [facility] - [address] Start Date: 01/24/17 Stop Date: 03/25/17 Status: Ordered Quantity: 30.0 Unit: capsule Repeat number: 2 Problem List Condition Confirmation Course Effective Dates Status H ealth Status Informant Mild aortic insufficiency Confirmed Active Hyperlipidemia Confirmed Active Obese class I Confirmed Active Palpitations Confirmed Active Hx of Sjogren's disease Confirmed Active SVT (supraventricular tachycardia) Confirmed Active Patient Care team information Care Team Personnel Name: Nessa Gibbons MD Position: [facility] Physician - Primary Care Member Role: PCP Address: [address] [place], [place] [address] Telecom: Care Team Related Persons Name: JAYLEN CARRASCO Insurance Providers Guarantor name: [facility] [employer] [facility] Information #: 1 Payer: MEDICARE PART B OUTPT Member Number: NA Policy Number: NA Group Number: NA
--- OUTSIDE RECORDS SUMMARY | 2025-02-02 15:38 | XMS_ITS | Patient Health Record ---
Author [facility] Address [address] [place] [address] Care Team Providers Care Manager Billing Name Role Phone Nessa Gibbons MD Primary Care Provider Chuck Hernandez Unavailable [phone] Allergies Allergen (clinical drug ingredient) Drug/Non Drug Allergy documented on EMR Reaction Allergy Type Onset Date Status adhesive tape (uncoded) Unknown Allergy Active Cat dander cat dander (uncoded) Unknown Allergy Active Vaccine product containing Streptococcus pneumoniae antigen (medicinal product) pneumonia shot (uncoded) Unknown Allergy Active ibuprofen Advil Unknown Drug Allergy Active aspirin Aspirin stomach upset Drug Allergy Act felipa Reason For Referral No Information Medications Medication [...] Active Magnesium Carbonate Heavy 250 mg Unknown [place] 3 Active Restasis Unknown Flaxseed Oil - [...] capsule Orally stanley ry 6 hrs Unknown Social History Alcohol Screen Question Answer Notes Did you have a drink containing alcohol in the p ast year? No Points 0 Interpretation Negative Tobacco use other than smoking: Question Answer Notes Are you an other tobacco user? No Problems Problem Type SNOMED Code ICD Code Onset Dates Problem Status W/U Status Risk Notes Problem Pain in limb (67410276) Pain in Limb (729.5) Active confirmed Plan Of Treatment Pending Test Test Name Order Date X ray : Ankle, right 2V 11/09/2011 X ray : Foot, right 2V 06/14/2014 X ray : Foot, right 2V 06/24/2014 X ray : Foot, right 2V 07/08/2014 X ray : Foot, left 3V 12/28/2019 X ray : Foot, left 3V 12/26/2023 X ray : Foot, right 3V 01/13/2014 X ray : Foot, right 3V 11/09/2011 X ray : Foot, right 3V 12/28/2019 80755 I&D ABSCESS- SIMPLE,SINGLE 012 00326, J0702- Neuroma/Injection 05/23/20 12 25576, J0702- Neuroma/Injection 01/14/20 14 J0894-Ljeutpd Boot/Pneumatic 11/09/2011 [id number] Boot/Pneumatic 11/30/2011 Insurance Providers Payer Name Payer Address Payer Phone Subscriber Number Group Number Insured Name Patient Relationship to Insured Coverage Start Date Coverage End Date Medicare [employer] [address] [facility] [place] [address] [id number] Ignacia Rodgers Self - patient is the insured [id number] [address] [place] [address] [phone] [id number] Ignacia Rodgers Self - patient is the insured Medical (General) History Medical History History ICD Code Arthritis asthma [...]
--- OUTSIDE RECORDS SUMMARY | 2025-02-02 15:38 | XMS_ITS ---
Author Organization [facility] Address [address] [facility] [place] [address] Care Team Providers Care Python Architect Name Role Phone Nessa Gibbons MD Primary Care Provider Chuck Hernandez Unavailable [phone] Allergies Allergen (clinical drug ingredient) Drug/Non Drug [...] food O rally Once a day Active [place] 3 Active Bioflex Active Metoprolol Tartrate 50 [...] 12/26/2023 Encounters Encounter Location Date [facility] [address] [place] [address] 12/26/2023 Chuck Rowe Plantar fascial fibromatosis M72.2 [...] Ignacia ALEXANDRA ADOB: 4 (69 yo F)Acc No.[id number]:12/26/2023 Progress Notes Patient:?Ignacia ALEXANDRA Provider:?Chuck Rowe DPM :1955???Age:68 Y???Sex:Female D ate:12/26/2023 Address:[address], [place] [address], [id number] Pcp:Nessa Gibbons MD Subjective: * Chief Complaints: [...] ?Marital status: single. 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 * Medications:?TakingMetoprolo l Tartrate 50 MG Tablet as directed Orally Bioflex [place] 3 Xarelto 20 MG Tablet 1 tablet [...] Tablet as directed Orally Taking Bioflex Taking [place] 3 Taking Xarelto 20 MG Tablet 1 [...] - M77.32??? Plan: * Treatment: * Procedure Codes:?98280 X-RAY EXAM OF LEFT FOOT 3V, Modifiers: 26 , SYC1527 AFO PLASTIC/OTH MATERIAL [id number] Insoles-Soft sole ($50) * Preventive Medicine:? ??Counseling:?Discussion:?-03: [...] Interfil injection therapy, as well as surgical [place]/Endoscopic Fasciitomy surgical procedures if needed. Recommendations were [...] DPM Date:? 024 Generated for Ro cee/Saurabh/Hugoitting on:?02/02/2025 03:37 PM EDT History and Physical Notes * [...]
--- OUTSIDE RECORDS SUMMARY | 2025-02-02 15:38 | XMS_ITS ---
Author Organization [facility] Address [address] [facility] [place] [address] Care Team Providers Care Head Banquet Waitress Name Role Phone Nessa Gibbons MD Primary Care Provider Chuck Hernandez Unavailable [phone] Allergies Allergen (clinical drug ingredient) Drug/Non Drug [...] with plain water Orally Active Bioflex Active [place] 3 Active Metoprolol Tartrate 50 MG as [...] 01/27/2024 Encounters Encounter Location Date Provider Diagnosis [facility] [address] [place] [address] 01/27/2024 Chuck Rowe Plantar fascial fibromatosis M72.2 [...] * Ignacia ALEXANDRA ADOB: (68 yo F)Acc No.[id number]:01/27/2024 Progress Notes Patient:?Ignacia Alexandra Provider:?Chuck Rowe DPM :1955???Age:68 Y???Sex:Female D ate:01/27/2024 Address:[address] [place] [address], [address] D, [place], [place] Pcp:Nessa Gibbons MD Subjective: * Chief [...] ?Marital status: single. 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 * Medications:?TakingMetoprolo l Tartrate 50 MG Tablet as directed Orally Bioflex [place] 3 Xarelto 20 MG Tablet 1 tablet [...] Tablet as directed Orally Taking Bioflex Taking [place] 3 Taking Xarelto 20 MG Tablet 1 [...] DPM Date:? 024 Generated for Ro cee/Saurabh/eTransmitting on:?02/02/2025 03:37 PM EDT History and Physical [...]
== END 2025-02-02 13:44 | disposition home or self-care (01) ==
LOC: HO.HMCC 13:17
PROVIDERS: PCP Internal Medicine; Visit Provider Internal Medicine
DX: I48.0 Paroxysmal atrial fibrillation (principal); M35.00 Sjogren syndrome, unspecified; S62.609A Fracture of unspecified phalanx of unspecified finger, initial encounter for closed fracture

== ENCOUNTER → 2025-02-02 13:17 | Outpatient (BNVA) | payer MEDICARE, SELFPAY | PROVIDERS: PCP Internal Medicine; Visit Provider Internal Medicine | DX: I48.0 Paroxysmal atrial fibrillation (principal); M35.00 Sjogren syndrome, unspecified; S62.602D Fracture of unspecified phalanx of right middle finger, subsequent encounter for fracture with routine healing | CPT/HCPCS: 96127; 99212 ==

== ENCOUNTER 2025-02-04 10:00 | Outpatient (RCR) | payer MEDICARE, SELFPAY | END 2025-02-04 10:47 | disposition home or self-care (01) | LOC: HO.PTCHIC 10:00 | PROVIDERS: PCP Internal Medicine; Visit Provider Physician Assistant | DX: M17.12 Unilateral primary osteoarthritis, left knee (principal) | CPT/HCPCS: 97110; 97162 ==

== ENCOUNTER 2025-02-25 14:13 | Outpatient (AMB) | payer MEDICARE, SELFPAY ==
--- NOTE | 2025-02-25 14:24 | A.OFFVIS_ITS ---
Intake Visit Reasons: 6m PVR Intake Note: Patient presents today for follow up on: bladder spasms and hematuria Urology Medications: vesicare Antibiotic Allergy: Doxycycline Blood Thinner: Xarelto PVR: 46ml's Rail Operator Required: No Accompanied by: Self / Same As Patient Allergies pneumococcal vaccine [PNEUMOCOCCAL VACCINE] Allergy (Severe, Verified 02/25/25 17:01) ARM SWELLED, swelling in arm tiotropium [From SPIRIVA WITH HANDIHALER] Allergy (Severe, Verified 02/25/25 17:01) THROAT SWELL doxycycline Adverse Reaction (Intermediate, Verified 02/25/25 17:01) foggy and forgetful Medication List - Last Reconciled 02/25/25 by TITO Donnelly albuterol sulfate 90 mcg/actuation 2 puffs inhalation Q6H PRN alendronate 70 mg PO QWEEK amoxicillin 2,000 mg (4 x 500 mg) PO ONCE fexofenadine (Ally Allergy) 180 mg PO DAILY flecainide 50 mg PO Q12H glucosamine-chondroitin 250-200 mg (Osteo Bi-Flex) 1 tab PO BID magnesium 250 mg PO DAILY metoprolol succinate ER (Toprol XL) 25 mg (1/2 x 50 mg) PO DAILY 90 days multivitamin 1 tab PO DAILY omega 6-eoj-tzq-fish oil 350 mg-235 mg- 90 mg-597 mg ([place]-3) 1 cap PO DAILY omeprazole 20 mg PO DAILY pilocarpine HCl 5 mg PO TID [Prevagen PO] rivaroxaban (Xarelto) 20 mg PO DAILY 90 days ropinirole 1 mg (2 x 0.5 mg) PO DAILY HPI Comments Details: Ignacia is a very pleasant 69-year-old female patient of Dr. Gibbons. She has a past medical history of myalgia, AFib, tinnitus, vitamin-D deficiency, insomnia, allergic rhinitis, and sjogrens syndrome. She presents to the office today for follow-up of her microscopic hematuria and lower urinary tract symptoms. In discussion with the patient today she reports to be doing and feeling well. She discusses significant improvement in lower urinary tract symptoms she had been experiencing. Of note, patient underwent an in office cy stoscopy approximately [address] Negrete that noted bladder mucosa no suspicious bladder lesions noted mild trabeculations. Previous workup has included a renal ultrasound 04/27 that noted bilateral kidneys with no calculi, lesions, and or hydronephrosis. In office urinalysis results reviewed with the patient today. PVR 46ml's. She denies urinary urgency, urinary frequency, incontinence, nocturia, hematuria, dysuria, foul smelling urine, changes to urinary stream, flank pain, fever, and or chills. She is happy with her current voiding parameters on Vesicare 5 mg daily. She otherwise offers no other issues or concerns at this time. Discussion Notes I discussed the patient's progress with bladder spasms and the current effects of taking Vesicare. The patient reports improvement in symptoms, confirming the medication's effectiveness. I emphasized the importance of monitoring for urinary retention due to potential effects of Vesicare but confirmed that current bladder scans show acceptable residuals. We established a follow-up period of one year but offered flexibility for sooner visits if necessary concerns arise. Plan Continuing Vesicare 5 mg once daily for management of bladder spasms due to its demonstrated efficacy in relieving previous symptoms. Urinary retention is minimal; therefore, the treatment is sufficient. I emphasized regular hydration and bowel management to prevent previous history of UTIs. Follow-up scheduled in one year, with instructions to return sooner if symptoms recur. [facility] Medical History Cough Myalgia Lora-trochanteric left hip tendinitis New onset a-fib Annual physical exam Trochanteric bursitis of right hip Weakness of left hand Poor balance Vitamin D deficiency Tinnitus Chronic left-sided low back pain Hx of echocardiogram Insomnia Chronic allergic rhinitis Asthma Sjogrens syndrome Surgical History H/O thumb surgery History of knee replacement History of bunionectomy of right great toe H/O colonoscopy Family History Father Heart attack CVD (cardiovascular disease) Mother Stroke CHF (congestive heart failure) Alzheimer's dementia Cancer Hypertension Social History Housing: House Alcohol intake: never Patient Tobacco Use Status: Never used Tobacco e-Cigarette/Vaping Use: Never Used service: Yes Current occupational status: retired Cognitive needs: No Hearing needs: No Vision needs: Yes Physical Exam Const General: cooperative, healthy appearing, comfortable, no acute distress, well developed, alert and awake Orientation/consciousness: patient oriented x3 Limitations: no limitations HEENT Head: Yes normal to inspection, Yes normocephalic and Yes atraumatic Ears: hearing grossly normal bilaterally Eyes General: appearance normal, both eyes and all related structures Neck Neck: Yes normal visual inspection and Yes trachea midline Chest Chest palpation & inspection: normal inspection of the chest Resp Effort & Inspection: normal respiratory effort and able to speak in complete sentences Cardio Rate: regular rate GI Inspection: Yes normal to inspection General: Yes no CVA tenderness Back/Spine/Pelvis Back: no CVA tenderness Skin General skin exam: no rashes or lesions noted Neuro General: patient oriented x3 Extrem General: Yes normal to inspection Psych Appearance: grossly normal and well kempt Mental Status: mental status grossly normal Speech and movement: Normal speech and movement present and Clear speech present Affect: normal affect Attitude: cooperative Thought process: Normal thought process present Thought content: Normal thought content present Insight: Fair insight present (Psych) Judgement: Fair judgement present (Psych) Office Procedures Post Void Residual Post Residual Void Post Void Residual (PVR): 46 84813-Rhwh Void Residual by ultrasound Results AMB Urinalysis, Automated UA Leukoctes 125 Nain/uL Last Edit by Aurora Rollins on 02/25/25 14:51 UA Nitrite Last Edit by Aurora Rollins on 02/25/25 14:51 UA Urobilinogen 0.2 mg/dL Last Edit by Aurora Rollins on 02/25/25 14:51 UA Protein 0 mg/dL Last Edit by Aurora Rollins on 02/25/25 14:51 UA pH 6.5 Last Edit by Aurora Rollins on 02/25/25 14:51 UA Blood 10 Roly/uL Last Edit by Aurora Rollins on 02/25/25 14:51 UA Specific Troy 1.015 Last Edit by Aurora Rollins on 02/25/25 14:51 UA Ketone Last Edit by Aurora Rollins on 02/25/25 14:51 UA Bilirubin 0 mg/dL Last Edit by Aurora Rollins on 02/25/25 14:51 UA Glucose 0 mg/dL Last Edit by Aurora Rollins on 02/25/25 14:51 Results Reviewed Results Reviewed: Laboratory Last Values Urine pH (Auto) 6.5 02/25/25 14:50 Specific [place] (Auto) 1.015 02/25/25 14:50 Urine Protein (Auto) 0 mg/dL 02/25/25 14:50 Glucose (UA)(Auto) 0 mg/dL 02/25/25 14:50 Urine Blood (Auto) 10 Roly/uL 02/25/25 14:50 Urine Bilirubin (Auto) 0 mg/dL 02/25/25 14:50 Urine Urobilinogen (Auto) 0.2 mg/dL 02/25/25 14:50 Leukocyte Esterase (Auto) 125 Nain/uL 02/25/25 14:50 Assessment & Plan Assessment & Plan (1) Microscopic hematuria: Code(s): R31.29 - Other microscopic hematuria Category: Medical (2) Bladder spasms: Code(s): N32.89 - Other specified disorders of bladder Category: Medical (3) Nephrolithiasis: Code(s): N20.0 - Calculus of kidney Category: Medical Plan In office urinalysis results reviewed with the patient today; as noted above. PVR 46 mL. Continue VESIcare as discussed and prescribed. Patient currently denies any bothersome urinary issues or concerns. She reports be happy with current voiding parameters. Follow-up in 1 year with PVR; or sooner with any issues, concerns, and or questions. Orders: Orders AMB Urinalysis Automated Today Z13.9 - Encounter for screening, unspecified AMB Post Void Residual by ultrasound Today N32.89 - Other specified disorders of bladder Patient Instructions: The patient had an opportunity to ask questions regarding the treatment plan. All questions were answered. Physical exam, labs, and imaging were discussed and reviewed in detail. As well as risks, benefits, and discussion of treatment choices. No major barriers to understanding were identified. The patient expressed understanding and agreement with the above treatment plan. The patient was made aware they should contact our office by phone for worsening of their current condition, the appearance of new symptoms, or with any questions or concerns. Compliance is encouraged with any medications and follow up testing that is ordered. It is a privilege to be allowed the opportunity to participate in? your urological care.? Again, if you have any questions or concerns If you have any questions or concerns please do not hesitate to contact me. The office is [phone]. This note is constructed using voice recognition software. While every effort has been made to ensure accuracy dormitory counselor errors may have been included. Yours sincerely, TITO Donnelly Coding Level of Care Code Est Pt Level 3 (08844) Complex EM visit Add On G2211 Diagnoses Microscopic hematuria R31.29 Bladder spasms N32.89 Nephrolithiasis N20.0 CPT Codes Post Residual Void - PVR CPT Code: 36430-Bvro Void Residual by ultrasound ([id number])
--- OUTSIDE RECORDS SUMMARY | 2025-02-25 16:43 | XMS_ITS | Clinical Summary ---
Author Organization [facility] Address [address] [place] [address] Phone Care Team Providers Care Roentgenologist Name Role Phone Nessa Gibbons MD Primary Care Provider [phone] Surgical History Surgery Date Site/Laterality Comments TOTAL [...] (2 - Td or Tdap) 05/29/2023 05/29/2013 COVID-19 Vaccine ( season) 2025 07/20/2024, 02/10/2024, 08/08/2023, Additional history exists Breast Cancer Screening 09/30/2026 09/30/20 24, 09/23/2023, 09/19/2022, Additional history exists Osteoporosis Screening (Bone Density Screening) 07/04/2031 07/04/2021, 01/16/2018 RSV Immunization Adult Patients Completed 08/08/2023 Influenza Vaccine Completed 07/20/2024, , 07/19/2022, Additional [...] age to complete this topic Meningococcal B Vaccine Aged Out No l onger eligible based on patient's age to complete [...] Encounter for screening mammogram for breast cancer [facility] DEXA AXIAL SKELETON Routine 07/04/2021 4:09 [...] Signed Date: 09/30/2024 14:07 ET Workstation ID: [id number] Transcribed By: Self Edit Transcribed Date: 09/30/2024 [...] Signed Date: 09/30/2024 14:07 ET Workstation ID: [id number] Transcribed By: Self Edit Transcribed Date: 09/30/2024 14:02 ET us Self Referral Sppl IMG BI PROCEDURES Final Resul t * [facility]O DEXA AXIAL SKELETON (07/04/2021 4:09 PM EDT) Anatomical Region Laterality Modality Mammography 07/04/2021 3:19 PM EDT Narrative 07/04/2021 4:09 PM EDT [facility] Diagnostic Imaging Department [address] [place], [place] [address] Patient: ??IGNACIA ALEXANDRA ?/Age/Sex: 1955 - 66 - F Unit#: ??[id number] ? Location/Status: ??SPDIMAM/REG CLI ? Mnemonic/Ordering Site: ??MAMDEXAAX/SPMAM Ordering Physician: ??CASE,DONNIE MIRANDA [facility] Dexa Axial Skeleton - 07/04/21 - 2836 HISTORY: ??The patient is a 66-year-old postmenopausal [...] probability of hip fracture of 5.2%. Code 21693 Dictating Physician: ??JOSE MANUEL KNUTSON MD Electronically Signed by: ??JOSE MANUEL KNUTSON MD Dic Date/Time: ??07/04/21 1607 Sign date/Time: ??07/04/21 1609 Procedure Note Jose Manuel Knutson MD - 10/31/2022 [facility] Diagnostic Imaging Department [address] [place], [place] [address] Patient: IGNACIA ALEXANDRA Catherine /Age/Sex: 1955 - 66 - F Unit#: [id number] Location/Status: [facility]/REG CLI Mnemonic/Ordering Site: [facility] Ordering Physician: DONNIE DURHAM MD Rolando Dexa Axial Skeleton - 07/04/21 - 3167 HISTORY: The patient is a 66-year-old postmenopausal [...] density of the femurs bilaterally is 0.813 gm/cg5dcnsf is 81% of that of young normals [...] probability of hip fracture of 5.2%. Code 22278 Dictating Physician: JOSE MANUEL KNUTSON MD Electronically Signed by: JOSE MANUEL KNUTSON MD Dic Date/Time: 07/04/21 1607 Sign date/Time: 07/04/21 1603 Donnie Durham MD IMG BI PROCEDURES Final Result from Last 3 Months or Most Recently Relevant to Health Maintenance Insurance MEDICARE [facility] Care Teams Roentgenologist Relationship Specialty Start Date End Date Nessa Gibbons MD [address] [place] [address] PCP - General Internal Medicine 01/09/18
--- OUTSIDE RECORDS SUMMARY | 2025-02-25 16:44 | XMS_ITS | Patient Health Record ---
Author Organization [facility] Address [address] [place] [address] Care Team Providers Care Spikemaking Supervisor Name Role Phone Nessa Gibbons MD Primary Care Provider Chuck Hernandez Unavailable [phone] Allergies Allergen (clinical drug ingredient) Drug/Non Drug [...] Active Magnesium Carbonate Heavy 250 mg Unknown [place] 3 Active Restasis Unknown Flaxseed Oil - [...] Status Risk Notes Problem Pain in limb (35904856) Pain in Limb (729.5) Active confirmed Plan [...] X ray : Foot, right 3V 12/28/2019 53843 I&D ABSCESS- SIMPLE,SINGLE 012 70556, J0702- Neuroma/Injection 05/23/20 12 65852, J0702- Neuroma/Injection 01/14/20 14 V8559-Iibwxjg Boot/Pneumatic 11/09/2011 G1107-Xrauhtt Boot/Pneumatic 11/30/2011 Insurance Providers Payer Name Payer Address Payer Phone Subscriber Number Group Number Insured Name Patient Relationship to Insured Coverage Start Date Coverage End Date Medicare National [employer] [address] [place] [address] [id number] Ignacia Rodgers Self - patient is the insured [id number] [address] [place] [address] [id number] Ignacia Rodgers Self - patient is the [...]
--- OUTSIDE RECORDS SUMMARY | 2025-02-25 16:44 | XMS_ITS ---
Author Organization [facility] Address [address] [facility] [place] [address] Care Team Providers Care Swimming Pool Maintenance Name Role Phone Nessa Gibbons MD Primary Care Provider Chuck Hernandez Unavailable [phone] Allergies Allergen (clinical drug ingredient) Drug/Non Drug [...] with plain water Orally Active Bioflex Active [place] 3 Active Metoprolol Tartrate 50 MG as [...] 01/27/2024 Encounters Encounter Location Date Provider Diagnosis [facility] [address] [place] [address] 01/27/2024 Chuck Rowe Plantar fascial fibromatosis M72.2 [...] * Ignacia ALEXANDRA ADOB: (68 yo F)Acc No.[id number]:01/27/2024 Progress Notes Patient:?Ignacia Alexandra Provider:?Chuck Rowe DPM :1955???Age:68 Y???Sex:Female D ate:01/27/2024 Address:[address] [place] [address], [address], [place], [place] Pcp:Nessa Gibbons MD Subjective: * Chief [...] ?Marital status: single. 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 * Medications:?TakingMetoprolo l Tartrate 50 MG Tablet as directed Orally Bioflex [place] 3 Xarelto 20 MG Tablet 1 tablet [...] Tablet as directed Orally Taking Bioflex Taking [place] 3 Taking Xarelto 20 MG Tablet 1 [...] DPM Date:? 024 Generated for Ro cee/Saurabh/eTransmitting on:?02/25/2025 04:43 PM EDT History and Physical Notes * HPI (History of Present Illness) Category Sub-Category Detail Notes Category Not es Heel pain Nature: sharp pain Severity/Quality: States 2 out of 10 Location: Proximal plantar asp ect of Heel , LEFT Onset/Cause: unknown , denies tra amura Aggravated: walking first thing in the morning/after [...]
--- OUTSIDE RECORDS SUMMARY | 2025-02-25 16:44 | XMS_ITS ---
Author Organization [facility] Address [address] [facility] [place] [address] Care Team Providers Care Product Safety Technical Assistant Name Role Phone Nessa Gibbons MD Primary Care Provider Chuck Hernandez Unavailable [phone] Allergies Allergen (clinical drug ingredient) Drug/Non Drug [...] food O rally Once a day Active [place] 3 Active Bioflex Active Metoprolol Tartrate 50 [...] 12/26/2023 Encounters Encounter Location Date Provider [facility] [address] [place] [address] 12/26/2023 Chuck Rowe Plantar fascial fibromatosis M72.2 [...] Ignacia ALEXANDRA ADOB: 4 (69 yo F)Acc No.[id number]:12/26/2023 Progress Notes Patient:?Ignacia ALEXANDRA Provider:?Chuck Rowe DPM :1955???Age:68 Y???Sex:Female D ate:12/26/2023 Address:[address], [place] [address], [place] Pcp:Nessa Gibbons MD Subjective: * Chief Complaints: [...] ?Marital status: single. 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 * Medications:?TakingMetoprolo l Tartrate 50 MG Tablet as directed Orally Bioflex [place] 3 Xarelto 20 MG Tablet 1 tablet [...] Tablet as directed Orally Taking Bioflex Taking [place] 3 Taking Xarelto 20 MG Tablet 1 [...] - M77.32??? Plan: * Treatment: * Procedure Codes:?74402 X-RAY EXAM OF LEFT FOOT 3V, Modifiers: 26 , MRL9390 AFO PLASTIC/OTH MATERIAL [id number] Insoles-Soft sole ($50) * Preventive Medicine:? ??Counseling:?Discussion:?-03: [...] Interfil injection therapy, as well as surgical [place]/Endoscopic Fasciitomy surgical procedures if needed. Recommendations were [...] DPM Date:? 024 Generated for Ro cee/Saurabh/Hugoitting on:?02/25/2025 04:43 PM EDT History and Physical [...]
--- OUTSIDE RECORDS SUMMARY | 2025-02-25 16:44 | XMS_ITS ---
Author Organization [facility] Address [address] [place] [address] Care Team Providers Care Tyre Fitter Name Role Phone Nessa Gibbons MD Primary Care Provider Chuck Hernandez [phone] REASON FOR VISIT Sof jason Encounters Encounter Location Date Provider Diagnosis [address] [address] 12/26/2023 Chuck Rowe Plan Of Treatment No Information Progress Notes * Ignacia ALEXANDRA ADOB: (68 yo F)Acc No.[id number]:12/26/2023 Patient:?Ignacia Alexandra :1955???Age:68 Y???Sex:Female Address: [address], [place] [address], [place] [address] * true * Date:? Generated for Printi ng/Fasabinog/eTransmitting on:?02/25/2025 04:44 PM EDT
== END 2025-02-25 15:08 | disposition home or self-care (01) ==
LOC: HO.HUSH 14:14
PROVIDERS: PCP Internal Medicine; Visit Provider Nurse Practitioner Family
DX: R31.29 Other microscopic hematuria (principal); N32.89 Other specified disorders of bladder; N20.0 Calculus of kidney; Z13.9 Encounter for screening, unspecified
CPT/HCPCS: 99213; G2211

== ENCOUNTER → 2025-02-25 14:13 | Outpatient (BNVA) | payer MEDICARE, SELFPAY | PROVIDERS: PCP Internal Medicine; Visit Provider Nurse Practitioner Family | DX: R31.29 Other microscopic hematuria (principal); N32.89 Other specified disorders of bladder; N20.0 Calculus of kidney | CPT/HCPCS: 51798; 81003; 99212 ==

== ENCOUNTER → 2025-03-23 09:49 | Outpatient (REF) | payer MEDICARE, SELFPAY ==
--- NOTE | 2025-03-23 09:52 | CA_ITS ---
Transthoracic Echocardiogram Patient (Last, First, Middle): Ignacia Rodgers A Gender: Female Date of : 1955 Age: 69 Procedure Date: 03/23/2025 Procedure Type: Transthoracic Echocardiogram Location: OP Height: 157.48 cm Weight: 83.46 kg BSA: 1.84 m2 Heart Rate: bpm BP: 160 / 98 mmHg Digester Capper: TO Referring MD: Jeyson Jones MD Symptoms: I48.0 - Paroxysmal atrial fibrillation Study Quality: Fair/Contrast ECG Rhythm: Sinus Conclusions: - The left ventricular systolic function is normal. The calculated ejection fraction is 59% by biplane method. - No obvious valvular pathology seen on this study. Findings Procedure Information Contrast agent, definity, is being given per protocol without apparent complications. Left Ventricle Normal left ventricular cavity size. The left ventricular systolic function is normal. The calculated ejection fraction is 59% by biplane method. There is no evidence of regional wall motion abnormalities. Diastolic function is normal for age. There is mild septal asymmetric hypertrophy. Right Ventricle Mildly increased right ventricular cavity size. There is normal right ventricular systolic function. Atria The left atrium is mildly dilated. The right atrium is normal in size. Aortic Valve There is a normal trileaflet aortic valve. There is mild calcification of the aortic valve. There is no aortic valve stenosis. There is trace (trivial) aortic valve regurgitation. Mitral Valve The mitral valve appears normal. There is trace mitral valve regurgitation. There is no mitral valve stenosis. Pulmonic Valve The pulmonic valve is likely normal. Tricuspid Valve Normal tricuspid valve structure. There is trace tricuspid valve regurgitation. There is no evidence of pulmonary hypertension. Great Vessels The asc aorta is normal in size. Venous The inferior vena cava is normal in size and collapses greater than 50% with inspiration. Pericardium/Pleural There is no evidence of pericardial effusion. Prior Study Comparison No significant change compared to prior study dated: 10/01/2023. Recommendations, Care & Conclusions No obvious valvular pathology seen on this study. Measurements 2D Linear Measurements IVSd: 1.17 0.6-0.9/0.6-1.0 cm LVIDd: 4.22 3.9-5.3/4.2-5.9 cm LVIDd Index: 2.29 2.4-3.2/2.2-3.1 cm/m2 LVIDs: 2.92 2.0-3.6 cm LVPWd: 0.75 0.7-1.1 cm LA Diam: 3.80 2.7-3.8/3.0-4.0 cm LAIDs Index: 2.07 1.5-2.3 cm/m2 LV Mass: 162.58 67-162/88-224 g LV Mass Index: 88.36 43-95/49-115 g/m2 LVOT Diam: 2.00 3.0+(-)1.3 cm 2D Systolic Function EF 4C: 60.90 >55% EF 2C: 54.80 >55% EF BiP: 58.90 >55% Mitral Valve MV Pk E: 0.76 MV PK A: 0.31 MV Decel Time: 247.00 E/A: 2.40 E'Lateral: 8.92 E'Medial: 6.31 E/E' Med: 12.10 E/E' Lat: 8.60 PHT: 72.00 MVA PHT: 3.06 Decel [place]: 3.09 Aortic Valve AoV Pk Edgar: 1.59 AoV Mn Edgar: 1.14 AoV VTI: 0.43 AoV Pk Grad: 10.00 Aov Mn Grad: 6.00 SANDRA Cont.VTI: 1.78 LVOT LVOT Pk Edgar: 0.92 LVOT Mn Edgar: 0.58 LVOT VTI: 0.25 LVOT Pk Grad: 3.00 LVOT Mn Grad: 2.00 LVOT Diam: 2.00 LVOT Area: 3.14 Diastolic Function MV Pk E: 0.76 MV Pk A: 0.31 E/A: 2.40 E'Medial: 6.31 E/E' Med: 12.10 E' Laterial: 8.92 E/E' Lat: 8.60 Right Ventricle TAPSE (mm): 23.60 TVS' Edgar: 10.70 Tricuspid Valve TR Pk Edgar: 1.89 TR Pk Grad: 14.00 RA Press: 3.00 RVSP: 17.00 Great Vessels Aorta Sinus of Valsalva: 3.60 2.0-3.[address] [place]: 2.84 1.7-3.4 cm Ao Asc: 3.30 2.1-3.4 cm Updated in Other Vendor System with Status of Final Salvador Hernandez MD electronically signed on 03/23/2025 3:54:19 PM with status of Final
--- OUTSIDE RECORDS SUMMARY | 2025-03-23 10:51 | XMS_ITS | Patient Health Record ---
Author Organization [facility] Address [address] [facility] [place] [address] Care Team Providers Care Career Placement Specialist Name Role Phone Nessa Gibbons MD Primary Care Provider Chuck Hernandez Unavailable [phone] Allergies Allergen (clinical drug ingredient) Drug/Non Drug [...] Active Magnesium Carbonate Heavy 250 mg Unknown [place] 3 Active Restasis Unknown Flaxseed Oil - [...] W/U Status Risk Notes Problem Pain in Limb (729.5) Active confirmed Plan Of Treatment Pending Test Test Name Order Date X ray : Ankle, right 2V 11/09/2011 X ray : Foot, right 2V 07/08/2014 X ray : Foot, right 2V 06/24/2014 X ray : Foot, right 2V 06/14/2014 X ray : Foot, left 3V 12/28/2019 X ray : Foot, left 3V 12/26/2023 X ray : Foot, right 3V 01/13/2014 X ray : Foot, right 3V 12/28/2019 X ray : Foot, right 3V 11/09/2011 97481 I&D ABSCESS- SIMPLE,SINGLE 012 13011, J0702- Neuroma/Injection 01/14/20 14 24770, J0702- Neuroma/Injection 05/23/20 12 [id number] Boot/Pneumatic 11/30/2011 [id number]-[id number] Boot/Pneumatic 11/09/2011 Insurance Providers Payer Name Payer Address Payer Phone Subscriber Number Group Number Insured Name Patient Relationship to Insured Coverage Start Date Coverage End Date Medicare National [employer] [address] [place] [address] [id number] Ignacia Rodgers Self - patient is the insured [id number] [address] [place] [address] [id number] Ignacia Rodgers Self - patient is the [...]
--- OUTSIDE RECORDS SUMMARY | 2025-03-23 10:52 | XMS_ITS ---
Author Organization [facility] Address [address] [place] [address] Care Team Providers Care Recreation Facilities Supervisor Name Role Phone Nessa Gibbons MD Primary Care Provider Chuck Hernandez [phone] REASON FOR VISIT Sof jason Encounters Encounter Location Date Provider Diagnosis [address] [address] 12/26/2023 Chuck Rowe Plan Of Treatment No Information Progress Notes * Ignacia ALEXANDRA ADOB: (68 yo F)Acc No.[id number]:12/26/2023 Patient:?Ignacia Alexandra :1955???Age:68 Y???Sex:Female Address: [address], [place] [address] * true * Date:? Generated for Printi ng/Fasabinog/eTransmitting on:?03/23/2025 10:52 AM EDT
--- OUTSIDE RECORDS SUMMARY | 2025-03-23 10:52 | XMS_ITS ---
Author Organization [facility] Address [address] [facility] [place] [address] Care Team Providers Care Emergency Medicine Medical Director Name Role Phone Nessa Gibbons MD Primary Care Provider Chuck Hernandez Unavailable [phone] Allergies Allergen (clinical drug ingredient) Drug/Non Drug [...] with plain water Orally Active Bioflex Active [place] 3 Active Metoprolol Tartrate 50 MG as [...] 01/27/2024 Encounters Encounter Location Date Provider Diagnosis [facility] [address] [place] [address] 01/27/2024 Chuck Rowe Plantar fascial fibromatosis M72.2 [...] * Ignacia ALEXANDRA ADOB: (68 yo F)Acc No.[id number]:01/27/2024 Progress Notes Patient:?Ignacia Alexandra Provider:?Chuck Rowe DPM :1955???Age:68 Y???Sex:Female D ate:01/27/2024 Address:[address] [place] [address], [address], [place], [place]-[id number] Pcp:Nessa Gibbons MD Subjective: * Chief [...] ?Marital status: single. 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 * Medications:?TakingMetoprolo l Tartrate 50 MG Tablet as directed Orally Bioflex [place] 3 Xarelto 20 MG Tablet 1 tablet [...] Tablet as directed Orally Taking Bioflex Taking [place] 3 Taking Xarelto 20 MG Tablet 1 [...] DPM Date:? 024 Generated for Ro cee/Saurabh/eTransmitting on:?03/23/2025 10:51 AM EDT History and Physical Notes * HPI [...]
--- OUTSIDE RECORDS SUMMARY | 2025-03-23 10:52 | XMS_ITS | Patient Health Record ---
Author Organization [facility] Address [address] [place] [address] Care Team Providers Care Manufacturing Shift Supervisor Name Role Phone Nessa Gibbons MD Primary Care Provider Sadiq Skinner [phone] Allergies Allergen (clinical drug ingredient) Drug/Non Drug [...] No Points 0 Interpretation Negative Section Notes: Orthodoxy Sister Nonsmoker; no alcohol Orthodoxy Sister Nonsmoker; no alcohol Problems Problem Type SNOMED Code ICD Code Onset Dates Problem Status W/U Status Risk Notes Problem 733992481 Encounter for screening for malignant neoplasm of colon (Z12.11) Active confirmed Problem 948439941 History of adenomatous polyp of colon (Z86.010) Active confirmed Problem Diarrhea (90075189) Diarrhea (R19.7) Active confirmed Problem Diverticulosis o f large intestine without perforation or abscess without bleeding (K57.30) Active confirmed Problem 480197939 Irritable bowel syndrome with diarrhea (K58.0) Active confirmed Problem Elevated liver enzymes level (665451908) Elevated liver function tests (R79.89) Active confirmed Problem 824743529 Gastroesophageal reflux disease, esophagitis presence not specified (K21.9) Active confirmed Problem 624988777 Family history o f colon cancer (Z80.0) Active confirmed Problem 58465118 Diarrhea, unspecified type (R19.7) Active confirmed Problem Abdominal discomfort (06192654) Abdominal discomfort (R10.9) Active confirmed Problem Generalized abdominal pain (709874468) Abdominal pain, acute, generalized (R10.84) Active confirmed [...] Date MEDICARE OF [place] [address] [place] [place] [address] [phone] [id number] BREA ALEXANDRA Self - patient is the insured [facility] SUPPLEMENTAL PLAN [address] [place] [address] [phone] [id number] BREA ALEXANDRA Self - patient is the insured Medical (General) History Medical History History ICD Code Sjogren's syndrome Asthma Restless leg syndrome GERD--has seen Dr. Rob-- has had EGD's--last one was in 2011--no signs of Odell's esophagus nor esophagitis--- only fundic gland gastric polyps IBS ADHD Spondylolithesis Denies [place],DM,CVA,renal disease Has had colonoscopies Q [address] Rob--2004, 2007, and in April of 2013-all negative [...]
--- OUTSIDE RECORDS SUMMARY | 2025-03-23 10:52 | XMS_ITS | Clinical Summary ---
Author Organization [facility] Address [address] [place] [address] Phone Care Team Providers Care Area Field Person Name Role Phone Nessa Gibbons MD Primary Care Provider [phone] Surgical History Surgery Date Site/Laterality Comments TOTAL [...] Encounter for screening mammogram for breast cancer [facility] DEXA AXIAL SKELETON Routine 07/04/2021 4:09 [...] Wil Perez Reviewed and Electronically Signed By: Wli Perez Signed Date: 09/30/2024 14:07 ET Workstation ID: [id number] Transcribed By: Self Edit Transcribed Date: 09/30/2024 [...] Signed Date: 09/30/2024 14:07 ET Workstation ID: [id number] Transcribed By: Self Edit Transcribed Date: 09/30/2024 14:02 ET us Self Referral Sppl IMG BI PROCEDURES Final Resul t * ROLANDO DEXA AXIAL SKELETON (07/04/2021 4:09 PM EDT) Anatomical Region Laterality Modality Mammography 07/04/2021 3:19 PM EDT Narrative 07/04/2021 4:09 PM EDT [facility] Diagnostic Imaging Department [address] [place], [place] [address] Patient: ??IGNACIA ALEXANDRA ?/Age/Sex: 1955 - 66 - F Unit#: ??[id number] ? Location/Status: ??SPDIMAM/REG CLI ? Mnemonic/Ordering Site: ??MAMDEXAAX/SPMAM Ordering Physician: ??CASE,DONNIE MIRANDA [facility] Dexa Axial Skeleton - 07/04/21 - 1776 HISTORY: ??The patient is a 66-year-old postmenopausal [...] probability of hip fracture of 5.2%. Code 22617 Dictating Physician: ??JOSE MANUEL KNUTSON MD Electronically Signed by: ??JOSE MANUEL KNUTSON MD Dic Date/Time: ??07/04/21 1607 Sign date/Time: ??07/04/21 1609 Procedure Note Jose Manuel Knutson MD - 10/31/2022 [facility] Diagnostic Imaging Department [address] [place], [place] [address] Patient: IGNACIA ALEXANDRA Catherine /Age/Sex: 1955 - 66 - F Unit#: [id number] Location/Status: [facility]/REG CLI Mnemonic/Ordering Site: [facility] Ordering Physician: DONNIE DURHAM MD Rolando Dexa Axial Skeleton - 07/04/21 - 3413 HISTORY: The patient is a 66-year-old postmenopausal [...] density of the femurs bilaterally is 0.813 gm/qm8blqsf is 81% of that of young normals [...] probability of hip fracture of 5.2%. Code 20179 Dictating Physician: JOSE MANUEL KNUTSON MD Electronically Signed by: JOSE MANUEL KNUTSON MD Dic Date/Time: 07/04/21 1607 Sign date/Time: 07/04/21 1608 Donnie Durham MD IMG BI PROCEDURES Final Result from Last 3 Months or Most Recently Relevant to Health Maintenance Insurance MEDICARE [facility] Care Teams Area Field Person Relationship Specialty Start Date End Date Nessa Gibbons MD [address] [place] [address] PCP - General Internal Medicine 01/09/18
--- OUTSIDE RECORDS SUMMARY | 2025-03-23 10:52 | XMS_ITS ---
Author [facility] Address [address] [facility] [place] [address] Care Team Providers Care Direct Care Worker Name Role Phone Nessa Gibbons MD Primary Care Provider Chuck Hernandez Unavailable [phone] Allergies Allergen (clinical drug ingredient) Drug/Non Drug [...] food O rally Once a day Active [place] 3 Active Bioflex Active Metoprolol Tartrate 50 [...] 12/26/2023 Encounters Encounter Location Date [facility] [address] [place] [address] 12/26/2023 Chuck Rowe Plantar fascial fibromatosis M72.2 [...] Ignacia ALEXANDRA ADOB: 4 (69 yo F)Acc No.[id number]:12/26/2023 Progress Notes Patient:?Ignacia ALEXANDRA Provider:?Chuck Rowe DPM :1955???Age:68 Y???Sex:Female D ate:12/26/2023 Address:[address], [address], [id number] Pcp:Nessa Gibbons MD Subjective: * Chief Complaints: [...] ?Marital status: single. 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 * Medications:?TakingMetoprolo l Tartrate 50 MG Tablet as directed Orally Bioflex [place] 3 Xarelto 20 MG Tablet 1 tablet [...] Tablet as directed Orally Taking Bioflex Taking [place] 3 Taking Xarelto 20 MG Tablet 1 [...] - M77.32??? Plan: * Treatment: * Procedure Codes:?48899 X-RAY EXAM OF LEFT FOOT 3V, Modifiers: 26 , LAK9810 AFO PLASTIC/OTH MATERIAL [id number] Insoles-Soft sole ($50) * Preventive Medicine:? ??Counseling:?Discussion:?-03: [...] Interfil injection therapy, as well as surgical [place]/Endoscopic Fasciitomy surgical procedures if needed. Recommendations were [...] Rowe DPM Date:? 024 Generated for Ro cee/Saurabh/Coriransmitting on:?03/23/2025 10:51 AM EDT History and Physical [...]
== END ==
LOC: HO.CARD 09:49
PROVIDERS: PCP Internal Medicine; Visit Provider Internal Medicine Cardiovascular Disease
DX: I48.0 Paroxysmal atrial fibrillation (principal)
CPT/HCPCS: 93306; Q9957

== ENCOUNTER → 2025-03-23 09:52 | Outpatient (BNV) | payer MEDICARE, SELFPAY | PROVIDERS: PCP Internal Medicine; Visit Provider Internal Medicine | DX: I42.2 Other hypertrophic cardiomyopathy (principal); I35.8 Other nonrheumatic aortic valve disorders | CPT/HCPCS: 93306 ==

== ENCOUNTER 2025-04-01 13:24 | Outpatient (AMB) | payer MEDICARE, SELFPAY ==
--- OUTSIDE RECORDS SUMMARY | 2025-04-01 13:32 | XMS_ITS | Patient Health Record ---
Author Organization [facility] Address [address] [place] [address] Care Team Providers Care Brush And Broom Clipper Name Role Phone Nessa Gibbons MD Primary Care Provider Sadiq Skinner [phone] Allergies Allergen (clinical drug ingredient) Drug/Non Drug [...] No Points 0 Interpretation Negative Section Notes: Zoroastrian Sister Nonsmoker; no alcohol Zoroastrian Sister Nonsmoker; no alcohol Problems Problem Type SNOMED Code ICD Code Onset Dates Problem Status W/U Status Risk Notes Problem 332575705 Encounter for screening for malignant neoplasm of colon (Z12.11) Active confirmed Problem 449284522 History of adenomatous polyp of colon (Z86.010) Active confirmed Problem Diarrhea (13854846) Diarrhea (R19.7) Active confirmed Problem Diverticulosis o f large intestine without perforation or abscess without bleeding (K57.30) Active confirmed Problem 397479136 Irritable bowel syndrome with diarrhea (K58.0) Active confirmed Problem Elevated liver enzymes level (300087329) Elevated liver function tests (R79.89) Active confirmed Problem 287157054 Gastroesophageal reflux disease, esophagitis presence not specified (K21.9) Active confirmed Problem 461151107 Family history o f colon cancer (Z80.0) Active confirmed Problem 74784451 Diarrhea, unspecified type (R19.7) Active confirmed Problem Abdominal discomfort (95515192) Abdominal discomfort (R10.9) Active confirmed Problem Generalized abdominal pain (730393354) Abdominal pain, acute, generalized (R10.84) Active confirmed [...] Date MEDICARE OF [place] [address] [facility] [place] [address] [phone] [id number] BREA ALEXANDRA Self - patient is the insured [facility] SUPPLEMENTAL PLAN [address] [place] [address] [phone] [id number] BREA ALEXANDRA Self - patient is the insured Medical (General) History Medical History History ICD Code Sjogren's syndrome Asthma Restless leg syndrome GERD--has seen Dr. Rob-- has had EGD's--last one was in 2011--no signs of Odell's esophagus nor esophagitis--- only fundic gland gastric polyps IBS ADHD Spondylolithesis Denies [place],DM,CVA,renal disease Has had colonoscopies Q 5 ye [...]
--- NOTE | 2025-04-01 13:39 | A.OFFVIS_ITS ---
Vital Signs 04/01/25 13:40 Height 5 ft 2 in Weight 189 lb 2.506 oz BMI 34.6 BP 122/78 Blood Pressure Location Lt brachial Position Sitting Pulse 68 Pulse Source Pulse Oximeter Pulse Oximetry (%) 97 Oxygen Delivery Method Room Air Intake Visit Reasons: 6 mth fu w/ ekg(NS) Intake Note: Pt presents to the office today for a 6 month follow up w/EKG. Pt states she is overall feeling well and denies any cardiac concerns. Allergies pneumococcal vaccine [PNEUMOCOCCAL VACCINE] Allergy (Severe, Verified 04/01/25 13:39) ARM SWELLED, swelling in arm tiotropium [From SPIRIVA WITH HANDIHALER] Allergy (Severe, Verified 04/01/25 13:39) THROAT SWELL doxycycline Adverse Reaction (Intermediate, Verified 04/01/25 13:39) foggy and forgetful Medication List - Last Reconciled 04/01/25 by Zaki Diaz NP albuterol sulfate 90 mcg/actuation 2 puffs inhalation Q6H PRN alendronate 70 mg PO QWEEK amoxicillin 2,000 mg (4 x 500 mg) PO ONCE fexofenadine (Ally Allergy) 180 mg PO DAILY flecainide 50 mg PO Q12H glucosamine-chondroitin 250-200 mg (Osteo Bi-Flex) 1 tab PO BID magnesium 250 mg PO DAILY metoprolol succinate ER (Toprol XL) 25 mg (1/2 x 50 mg) PO DAILY 90 days multivitamin 1 tab PO DAILY omega 7-ibm-uzd-fish oil 350 mg-235 mg- 90 mg-597 mg (Cascade-3) 1 cap PO DAILY omeprazole 20 mg PO DAILY pilocarpine HCl 5 mg PO TID [Prevagen PO] rivaroxaban (Xarelto) 20 mg PO DAILY 90 days ropinirole 1 mg (2 x 0.5 mg) PO DAILY HPI Comments Details: This is a 69-year-old female patient coming in for a follow-up visit. Patient with a history of hypertension and paroxysmal AFib. Today patient reports she has been doing well overall and denies any cardiac symptoms including exertional chest pain, shortness of breath, palpitations, dizziness, orthopnea, PND, leg edema, presyncope, or syncope. Patient uses a [employer] mobile at home and has not had any recurrence of AFib. Patient is reporting compliance with all of her prescribed medications. PFS Medical History Cough Myalgia Lora-trochanteric left hip tendinitis New onset a-fib Annual physical exam Trochanteric bursitis of right hip Weakness of left hand Poor balance Vitamin D deficiency Tinnitus Chronic left-sided low back pain Hx of echocardiogram Insomnia Chronic allergic rhinitis Asthma Sjogrens syndrome Surgical History H/O thumb surgery History of knee replacement History of bunionectomy of right great toe H/O colonoscopy Family History Father Heart attack CVD (cardiovascular disease) Mother Stroke CHF (congestive heart failure) Alzheimer's dementia Cancer Hypertension Social History Housing: House Alcohol intake: never Patient Tobacco Use Status: Never used Tobacco e-Cigarette/Vaping Use: Never Used service: Yes Current occupational status: retired Cognitive needs: No Hearing needs: No Vision needs: Yes Physical Exam Vital Signs: Last Vital Signs Pulse 68 04/01/25 13:40 BP 122/78 04/01/25 13:40 Pulse Ox 97 04/01/25 13:40 Oxygen Delivery Method Room Air 04/01/25 13:40 BMI result Body Mass Index 34.6 Const General: cooperative, healthy appearing, comfortable and no acute distress Orientation/consciousness: patient oriented x3 HEENT Head: Yes normal to inspection Neck Neck: Yes normal visual inspection, Yes trachea midline and Yes supple Chest Chest palpation & inspection: normal inspection of the chest Resp Effort & Inspection: normal respiratory effort Auscultation: clear to auscultation bilaterally, no crackles, no rales, no rhonchi and no wheezes Cardio Jugular venous distension: no JVD Palpation: normal PMI Rate: regular rate Rhythm: regular rhythm Heart sounds: S1 normal heart sound present, S2 normal heart sound present, no click, no gallops, no murmurs and no rubs Peripheral pulses: Peripheral pulses 2+ throughout GI Inspection: Yes normal to inspection Palpation (GI): Soft to palpation Auscultation: normal bowel sounds Skin General skin exam: no rashes or lesions noted Neuro General: patient oriented x3 Extrem General: Yes normal to inspection, No no pedal edema and No calf tenderness Psych Appearance: grossly normal Mental Status: mental status grossly normal Speech and movement: Normal speech and movement present Office Procedures EKG Details: EKG today showed normal sinus rhythm, rate 64 beats per minute, left axis deviation, nonspecific STT wave, [place] ID, [place]. [id number]-Izhguxbjkiagzapgj, Complete Results Reviewed Results Reviewed: 03/2025-echo study showed normal LV systolic function with an ejection fraction at 59%, with no wall motion or significant valvular abnormalities. Assessment & Plan Assessment & Plan (1) Paroxysmal atrial fibrillation: Comment: 10/01/23 converted after Cardizem in ER, f/u Dr. Jones, Echo 09/27 LVEF 60%, trivial AR, negative stress test and normal Holter 10/26, on Flecainide , Metoprolol, Xarelto Code(s): I48.0 - Paroxysmal atrial fibrillation Category: Medical Plan: EKG today showed normal sinus rhythm. Patient has not had any recurrences of AFib and has been doing very well on flecainide therapy. Continue this for rhythm control approach. Continue Xarelto for full anticoagulation therapy. No reported signs of bleeding. Continue metoprolol for rate control. Heart rate improved now on the reduced dose. Blood pressure today is within normal limits. Advised monitoring blood pressures at home with a goal of blood pressure less than 130/80. Patient's most recent LDL from August 27 is elevated. It has upcoming labs with her PCP. Patient states she has been working on her weight and diet for this matter and would like to wait on medical therapy until rechecked. Understands ideal goal less than 70. Advised heart healthy diet, regular exercise, med compliance, and management of vascular risk factors. Patient will follow up in 6 months with an EKG. In the interim, patient will call the office with any concerns or change in symptoms. This note was generated using voice recognition software. While every effort has been made to ensure accuracy and proper supervisor salvage, there may be occasional errors that could affect the content or meaning of the described symptoms. Orders: Orders AMB EKG-In Office Today I48.0 - Paroxysmal atrial fibrillation Coding Level of Care Code Est Pt Level 4 (21524) Complex EM visit Add On G2211 Diagnoses Paroxysmal atrial fibrillation I48.0 CPT Codes EKG - CPT: 74873-Pysvdjnmwalisuyck, Complete ([id number]) Time Spent (min) 31 Comment Time spent in reviewing the chart, test results, assessment, counseling and documentation.
[2025-04-01 13:40] VITALS: BP 122/78; PULSE 68; O2SAT 97; BMI 34.6
== END 2025-04-01 14:05 | disposition home or self-care (01) ==
LOC: HO.HCS 13:25
PROVIDERS: PCP Internal Medicine
DX: I48.0 Paroxysmal atrial fibrillation (principal)
CPT/HCPCS: 93010; 99214; G2211

== ENCOUNTER → 2025-04-01 13:24 | Outpatient (BNVA) | payer MEDICARE, SELFPAY | PROVIDERS: PCP Internal Medicine | DX: I48.0 Paroxysmal atrial fibrillation (principal); R94.31 Abnormal electrocardiogram [ECG] [EKG] | CPT/HCPCS: 93005; 99212 ==

== ENCOUNTER 2025-06-03 13:42 | Outpatient (AMB) | payer MEDICARE, SELFPAY ==
--- NOTE | 2025-06-03 13:56 | A.OFFVIS_ITS ---
Vital Signs 06/03/25 13:57 Height 5 ft 2 in Weight 186 lb 4.65 oz BMI 34.1 BP 116/68 Blood Pressure Location Lt brachial Position Sitting Pulse 68 Pulse Source Pulse Oximeter Pulse Oximetry (%) 97 Oxygen Delivery Method Room Air Intake Visit Reasons: Pain in back with trouble taking a deep breath Service Coordinator Elderly Facility Required: No Accompanied by: self Allergies pneumococcal vaccine (PNEUMOCOCCAL VACCINE) Allergy (Severe, Verified 06/03/25 14:07) ARM SWELLED, swelling in arm tiotropium (From SPIRIVA WITH HANDIHALER) Allergy (Severe, Verified 06/03/25 14:07) THROAT SWELL doxycycline Adverse Reaction (Intermediate, Verified 06/03/25 14:07) foggy and forgetful HPI Comments Details: The patient is a 70-year-old woman known allergic asthma and allergic rhinitis. She has had a few exacerbations of her breathing requiring short-acting beta agonist. Once it occurred when she was running she started developing significant asthma symptoms. 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 She had to run out of the building to catch pres sure. I recommended that she does not work in that environment. In the meantime she does not have the singular medication as she has not been using it for months. She understands with her allergic asthma singular becomes very useful to minimize exacerbations in symptoms. No recent x-rays or pulmonary function studies to review. ? 05/09/2020 The patient is here for pulmonary follow-up visit. Overall she feels well from a respiratory status. She continues to use her singular with good effect. She has not had to use her rescue inhaler as often. She did undergo pulmonary function studies and we did look at them together demonstrating no evidence of any obstructive nor restrictive ventilatory defects. Her gas exchange is also good. Her respiratory exam is also reassuring. Will plan for her to come back in 1 year and have an x-ray done at the time. June 02, 2021 the patient is here for pulmonary follow-up visit. the patient has not required her short-acting beta agonist. She does have cough intermittently. She continues to struggle with her sleep. She has significant periodic limb movement at nighttime. This keeps her up. She is currently on ropinirole. She has tried other agents including gabapentin and Lyrica. Does medications resulted in adverse effects. In addition to that she has tried trazodone. At this point the patient needs something that will help her with her sleep. She continues to have daytime drowsiness. Will try small dose of Ambien. Also the 5 mg tablets and she can start with half a tablet to make sure that his effective and does not give her any adverse effects. She can slowly increase it. Once she is up 5 mg if she is still not getting adequate sleep she can call and I consented the full dose of 10 mg. in the meantime we did review her sleep study that demonstrated no significant sleep apnea at this time. Patient is reassured that she does not need Pap therapy. 08/08/2023 the patient is here for a pulmonary follow-up visit. Overall the patient has been doing well. She denies any worsening respiratory symptoms. She does have some dyspnea on exertion but minimal. No significant wheezing. She is not use any maintenance therapies. She has a rescue inhaler but typically uses it less than twice a week. She still complaining of a dry mouth. The patient does have Sjogren's disease. But overall it is manageable at this time. She continues on the antihistamine therapy for allergies and also still uses the ropinirole for her restless like. Overall the patient is doing well. Will plan to follow-up in a year's time with pulmonary function studies. If the patient has any worsening symptoms prior to that she is to call the office for an earlier assessment. 08/20/2024 the patient is here for a pulmonary follow-up visit. Overall she is doing okay. She does complaint of a nonproductive cough. Sometimes it can be productive of some phlegm. Typically yellowish in color. Otherwise she is doing okay. She does have some nasal congestion. She does have issues with epistaxis so therefore she does not like to use any nasal sprays that tend to worsening. The patient has been using her rescue inhaler as needed. Typically less than 2 times a week. Typically uses it before seeing acquired. However, she has been noticing this cough that is been a little bit more frequent for her. Will go ahead and have her get an x-ray. She did have pulmonary function studies which we did review. No evidence of any obstructive nor restrictive ventilatory defects. Appeared to be consistent with normal lung mechanics. 06/03/2025 the patient is here for pulmonary follow-up visit. Overall the patient has been doing fair. She has been complaining of worsening dyspnea addition to pleuritic chest discomfort primarily to the front of the chest. Sometimes she feels like a burning sensation in the chest area. She does have a cardiology following for her cardiac issues and she had a stress test back in 2022 which is a Cortez protocol stress test without any acute findings. The patient was taking briefly for walking oximetry. The patient did well with the oxygen heart rate were stable. She was a little breathless but denied any chest discomfort. Her respiratory exam is reassuring. She does have a planned trip next week or 2 therefore will go ahead and assess her symptoms. She states that it feels like pleurisy that she has had in the past. Is reasonable to treat her with a Medrol Andrew. But in the meantime will have her get blood work specially to assess for anemia and will also request a chest x-ray and will be beneficial to get an EKG. Hopefully her symptoms continue to improve. If however she continues to develop worsening chest discomfort she may need to go and receive urgent medical care. [facility] Medical History (Updated 06/03/25 @ 22:08 by Mark Olivo MD) Dyspnea Pleuritic chest pain Cough Myalgia Lora-trochanteric left hip tendinitis New onset a-fib Annual physical exam Trochanteric bursitis of right hip Weakness of left hand Poor balance Vitamin D deficiency Tinnitus Chronic left-sided low back pain Hx of echocardiogram Insomnia Chronic allergic rhinitis Asthma Sjogrens syndrome Surgical History H/O thumb surgery History of knee replacement History of bunionectomy of right great toe H/O colonoscopy Family History Father Heart attack CVD (cardiovascular disease) Mother Stroke CHF (congestive heart failure) Alzheimer's dementia Cancer Hypertension Social History Housing: House Alcohol intake: never Patient Tobacco Use Status: Never used Tobacco e-Cigarette/Vaping Use: Never Used service: Yes Current occupational status: retired Cognitive needs: No Hearing needs: No Vision needs: Yes Review of Systems Const Denies headache(s) and Denies night sweats ENT Denies change in voice, Denies headache(s), Denies lip swelling, Denies mouth pain and Denies tongue swelling Card Reports chest pain Resp Reports cough GI Denies abdominal pain Musc Reports no additional complaints Neuro Denies headache(s) Psych Denies no additional complaints Rodriguez/Lymph Denies easy bleeding and Denies lymphadenopathy Aller/Immun Denies lip swelling and Denies tongue swelling Physical Exam Vital Signs: Last Vital Signs Pulse 68 06/03/25 13:57 BP 116/68 06/03/25 13:57 Pulse Ox 97 06/03/25 13:57 Oxygen Delivery Method Room Air 06/03/25 13:57 BMI result Body Mass Index 34.1 Const General: no acute distress and well developed Orientation/consciousness: patient oriented x3 Neck Neck: Yes trachea midline and Yes supple Chest Chest palpation & inspection: normal inspection of the chest Resp Effort & Inspection: normal respiratory effort Auscultation: no rales, no rhonchi, no wheezes and diminished lung sounds Cardio Rate: regular rate Rhythm: regular rhythm Heart sounds: S1 normal heart sound present and S2 normal heart sound present Neuro General: patient oriented x3 Extrem Other: No synovitis on exam. Dry cracked skin on hands General: Yes no pedal edema Psych Speech and movement: Clear speech present Attitude: cooperative Assessment & Plan Assessment & Plan (1) Asthma: Comment: Mild. pt uses albuterol p.r.n. Code(s): J45.909 - Unspecified asthma, uncomplicated Category: Medical Qualifiers: Asthma complication type: uncomplicated Asthma persistence: intermittent Asthma severity: mild Qualified Code(s): J45.20 - Mild intermittent asthma, uncomplicated (2) FRANKY (obstructive sleep apnea): Code(s): G47.33 - Obstructive sleep apnea (adult) (pediatric) Category: Medical (3) Insomnia: Code(s): G47.00 - Insomnia, unspecified Category: Medical Qualifiers: Insomnia type: primary Qualified Code(s): F51.01 - Primary insomnia (4) Cough: Code(s): R05.9 - Cough, unspecified Category: Medical Qualifiers: Cough type: subacute Qualified Code(s): R05.2 - Subacute cough (5) Pleuritic chest pain: Code(s): R07.81 - Pleurodynia Category: Medical (6) Dyspnea: Code(s): R06.00 - Dyspnea, unspecified Category: Medical Qualifiers: Dyspnea type: dyspnea on exertion Qualified Code(s): R06.09 - Other forms of dyspnea Plan continue ropinirole for her periodic limb movement short-acting beta agonist as needed continue with herbal therapy for sleep aid. EKG CXR Bloodwork start Medrol pk Tessalon pearls as needed Mucinex OTC follow-up in 6 months Orders: Orders ECG 12 lead EKG Today J44.9 - Chronic obstructive pulmonary disease, unspecified, R06.00 - Dyspnea, unspecified, R07.81 - Pleurodynia Complete Blood Count Auto Diff Today R06.00 - Dyspnea, unspecified, R07.81 - Pleurodynia XR chest 2V Today R06.00 - Dyspnea, unspecified, R07.81 - Pleurodynia Basic Metabolic Panel Today R06.00 - Dyspnea, unspecified, R07.81 - Pleurodynia Troponin-I High Sensitivity Today R06.00 - Dyspnea, unspecified, R07.81 - Pleurodynia Erythrocyte Sedimentation Rate Today R06.00 - Dyspnea, unspecified, R07.81 - Pleurodynia Medications: New methylprednisolone (Medrol (Andrew)) PO PER PKG DIR 21 ea 0RF 6 days Coding Level of Care Code Est Pt Level 4 (22157) Complex EM visit Add On G2211 Diagnoses Mild intermittent asthma without complication J45.20 Asthma complication type: uncomplicated Asthma persistence: intermittent Asthma severity: mild FRANKY (obstructive sleep apnea) G47.33 Primary insomnia F51.01 Insomnia type: primary Subacute cough R05.2 Cough type: subacute Pleuritic chest pain R07.81 Dyspnea on exertion R06.09 Dyspnea type: dyspnea on exertion Time Spent (min) 17
--- OUTSIDE RECORDS SUMMARY | 2025-06-03 13:56 | XMS_ITS | Patient Health Record ---
[facility] Address [address] [place] [address] Care Team Providers Care Tar Heat Exchanger Cleaner Name Role Phone Nessa Gibbons MD Primary Care Provider Chuck Hernandez Unavailable [phone] Allergies Allergen (clinical drug ingredient) Drug/Non Drug [...] 20 MG 1 capsule Orally twi ce daily; Duration: 30 day(s) Activ e Flonase 50 MCG/ACT 2 sprays Nasally Onc e a day; Duration: 30 day(s) Unknown Night Splint AFO - L1930 as directed 12/26/2023 Active Ritalin 10 MG 1 tablet Orally thre e times a day Unknown Toprol XL 50 MG 1 tablet Orally Once a day; Duration: 30 day(s) 11/12/2023 Active Ibuprofen 800 MG 1 tablet every Orall y Three times a day; Duration: 30 days 05/19/2014 Unknown Prevagen 10 MG as directed Orally Active Albuterol Unknown Azelastine HCl 2 sprays in each nos tril Nasally Twice a day Unknown AFO-fixed fixed 1 11/30/2011 Unk nown Omeprazole 20 MG 1 capsule 30 minutes before morning meal Orally Once a day; Duration: 30 day(s) Unknown Salagen 5 MG 1 tablet Orally four times a day; Duration: 30 day(s) Unkno wn Night Splint AFO - L1930 as directed Unknown Vitamin D-3 3000 units once daily Unknown Pilocarpine HCl 5 MG 1 tablet Orally Thr ee times a day; Duration: 30 day(s) Active Work Note . .pt. may return to w ork on 06/28/14 . .; Duration: . 06/24/2014 Unknown rOPINIRole HCl 0.5 MG 1 tablet 1 to 3 ho urs before bedtime Orally Once a day; Duration: 30 day(s) Activ e Work Note . . . .; Duration: pt. is totally disabled from work until 11/20/2011 11/09/2011 Unknown Physical Therapy . .dx; 3 weeks post bunionectomy with no internal hardware; use us and es to reduce edema and pain and gait eval . 2-3x/week; Duration: 3-4 weeks 06/24/2014 Unknown Work Note . this patient is plac ed back on total disability from work due to increased foot pain . . Unknown Ally Active Bioflex Active Magnesium Carbonate Heavy 250 mg Unknown [place] 3 Active Restasis Unknown Flaxseed Oil - as directed Unk nown Metoprolol Tartrate 50 MG as directed Orally Active Melatonin 5 MG 1 tablet in the even ing Orally Once a day; Duration: 30 day(s) Unknown Magnesium 250 MG 1 tablet with a meal Orally Once a day Active Venlafaxine HCl ER 150 MG 1 capsule with food Orally Once a day; Duration: 30 day(s) Unknown Alendronate Sodium 70 MG 1 tablet 30 min utes before the first food, beverage or medicine of the day with plain water Orally Active Xarelto 20 MG 1 tablet with food O rally Once a day Active Singulair 10 mg 1 tablet in the even ing Orally Once a day; Duration: 30 day(s) Unknown Acidophilus Active Slow Fe 47.5 mg 1 tablet Orally Once a day; Duration: 30 day(s) Unknown Claritin Unknown Centrum Silver Unkno wn Effexor XR 150 mg 1 capsule with food Orally Once a day; Duration: 30 day(s) Unknown Ally Allergy 180 mg 1 tablet Orally o nce a day; Duration: 30 day(s) Unknown Benadryl 25 MG 1 [...] X ray : Foot, right 3V 12/28/2019 [id number] I&D ABSCESS- SIMPLE,SINGLE 012 74076, J0702- Neuroma/Injection 05/23/20 12 06367, J0702- Neuroma/Injection 01/14/20 14 [id number] Boot/Pneumatic 11/09/2011 [id number] Boot/Pneumatic 11/30/2011 Insurance Providers Payer Name Payer Address Payer Phone Subscriber Number Group Number Insured Name Patient Relationship to Insured Coverage Start Date Coverage End Date Medicare [employer] [address] [place] [address] [id number] Ignacia Rodgers Self - patient is the insured [facility] [id number] [address] [place] [id number] [phone] [id number] Ignacia Rodgers Self - patient is the [...]
--- OUTSIDE RECORDS SUMMARY | 2025-06-03 13:56 | XMS_ITS | Clinical Summary ---
Author Organization [facility] Address [address] [place] [id number] Phone Care Team Providers Care Casting Repairer Name Role Phone Nessa Gibbons MD Primary Care Provider [phone] Surgical History Surgery Date Site/Laterality Comments TOTAL [...] Panel) 10/06/2022 Colorectal Cancer Screening: Colonoscopy 10/06/2022 Falls Risk Assessment 10/06/2022 Hepatitis C Screening 10/06/2022 Medicare Annual Wellness Visit 10/06/2022 Social Influencers of Health Screening 10/06/2022 DTaP,Tdap,and Td Vaccines (2 - Td or Tdap) 05/29/2023 05/29/2013 Depression Screening 11/04/2024 COVID-19 Vaccine ( season) 2025 07/20/2024, 02/10/2024, 08/08/2023, Additional history exists Influenza Vaccine (#1) 2025 4, 08/08/2023, 07/19/2022, Additional history exists Breast Cancer Screening 09/30/2026 09/30/20 24, 09/23/2023, 09/19/2022, Additional history exists Osteoporosis Screening (Bone Density Screening) 07/04/2031 07/04/2021, 01/16/2018 RSV Immunization Adult Patients Completed 08/08/2023 HIB Vaccines Aged Out No longer eligi [...] Encounter for screening mammogram for breast cancer ROLANDO DEXA AXIAL SKELETON Routine 07/04/2021 4:09 PM EDT Other specified disorders of bone density and structure, multiple sites from Last 3 Months or Most Recently Relevant to Health Maintenance Results * MG Mammo Digital Screening w Germán bilat (09/30/2024 1:02 PM EST) Anatomical Region Laterality Modality Breast Bilateral Mammography 09/30/2024 1:51 PM EST Impressions 09/30/2024 2:07 PM EST No mammographic evidence of malignancy. No suspicious interval change. A negative mammogram in the presence of a clinically suspicious palpable abnormality does not preclude the possibility of malignancy or alter the indications for biopsy. ASSESSMENT: BI-RADS 2: BENIGN RECOMMENDATION(S): 1: Routine screening mammogram BILATERAL in 1 year. -------- FINAL REPORT -------- Dictated By: Wil Perez Dictated Date: 09/30/2024 13:51 ET Assigned Physician: Wil Perez Reviewed and Electronically Signed By: Wil Perez Signed Date: 09/30/2024 14:07 ET Workstation ID: [id number] Transcribed By: Self Edit Transcribed Date: 09/30/2024 14:02 ET Narrative 09/30/2024 2:07 PM EST EXAM: SCREENING MAMMOGRAPHY, BILATERAL HISTORY: SCREENING. Paternal grandfather with history of breast cancer. COMPARISON: 09/23/2023, 09/19/2022, 07/04/2021, 05/25/2020 TECHNIQUE: Synthesized CC and MLO projections of each breast. Tomosynthesis of each breast in the CC and MLO projections. ADDITIONAL IMAGING: None Computer-aided detection was employed with the Sensegon AI 3-D. TISSUE DENSITY: There are scattered areas of fibroglandular density. (BI-RADS category B) FINDINGS: RIGHT BREAST: There is a stable equal density 13 mm asymmetry 5 cm behind the right nipple on the craniocaudal projection. No additional suspicious right breast findings LEFT BREAST: There is a stable 2 cm low-density focal asymmetry in the 3 o'clock position 9 cm from the left nipple. No additional suspicious left breast findings Procedure Note Wil Perez MD - 09/30/2024 EXAM: SCREENING MAMMOGRAPHY, BILATERAL HISTORY: SCREENING. Paternal grandfather with history of breastcancer. COMPARISON: 09/23/2023, 09/19/2022, 07/04/2021, 05/25/2020 TECHNIQUE: Synthesized CC and MLO projections of each breast.Tomosynthesis of each breast in the CC and MLO projections. ADDITIONAL IMAGING: None Computer-aided detection was employed with the Sensegon AI 3-D. TISSUE DENSITY: There are scattered [...] Signed Date: 09/30/2024 14:07 ET Workstation ID: [id number] Transcribed By: Self Edit Transcribed Date: 09/30/2024 14:02 ET us Self Referral Sppl IMG BI PROCEDURES Final Resul t * ROLANDO DEXA AXIAL SKELETON (07/04/2021 4:09 PM EDT) Anatomical Region Laterality Modality Mammography 07/04/2021 3:19 PM EDT Narrative 07/04/2021 4:09 PM EDT [facility] Diagnostic Imaging Department [address] [place] [id number] Patient: IGNACIA ALEXANDRA Alma JoeB./Age/Sex: 1955 - 66 - F Unit#: [id number] [facility] Ordering Physician: DONNIE DURHAM MD Rolando Dexa Axial Skeleton - 07/04/21 914 HISTORY: The patient is a 66-year-old postmenopausal female on chronic glucocorticoid therapy, with clinical concern for metabolic bone disease. FINDINGS: Dual energy x-ray absorptiometry of the [...] 92% of that of age matched controls. This yields a T-score of -1.5 and a Z-score of -0.6 which is diagnostic of osteopenia. 50-score of the right femoral neck is -2.0 and that of the left femoral neck is -2.2 which is diagnostic of osteopenia. IMPRESSION: 1. Osteopenia. There has been a decrease of 3.9% in bone mineral density in the lumbar spine since the prior examination of 01/16/2018. There has been an increase of 2.0% in bone mineral density in the right femur and an increase of 2.5% in bone mineral density in the left femur. 2. FRAX analysis yields a 10-year probability of major osteoporotic fracture of 27.0% and a 10-year probability of hip fracture of 5.2%. Code 42876 Dictating Physician: JOSE MANUEL KNUTSON MD Electronically Signed by: JOSE MANUEL KNUTSON MD Dic Date/Time: 07/04/211606 Sign date/Time: 07/04/211608 Procedure Note Jose Manuel Knutson MD - 10/31/2022 [facility] Diagnostic Imaging Department [address] [place] [address] Patient: GAY ALEXANDRAAlma Marquez D.O.B./Age/Sex: 1955 - 66 - F Unit#: [id number] Location/Status: [facility] CLI Mnemonic[facility] Ordering Physician: DONNIE DURHAM MD Rolando Dexa Axial Skeleton - 07/04/21 - 6382 HISTORY: The patient is a 66-year-old postmenopausal [...] density of the femurs bilaterally is 0.813 gm/[id number] is 81% of that of young normals [...] probability of hip fracture of 5.2%. Code 89083 Dictating Physician: JOSE MANUEL KNUTSON MD Electronically Signed by: JOSE MANUEL KNUTSON MD Dic Date/Time: 07/04/21 1607 Sign date/Time: 07/04/21 1609 Donnie Durham MD IM BI PROCEDURES Final Result from Last 3 Months or Most Recently Relevant to Health Maintenance Insurance MEDICARE [facility] Care Teams Casting Repairer Relationship Specialty Start Date End Date Nessa Gibbons MD [address] [place] [address] PCP - General Internal Medicine 01/09/18
[2025-06-03 13:57] VITALS: BP 116/68; PULSE 68; O2SAT 97; BMI 34.1
== END 2025-06-03 14:37 | disposition home or self-care (01) ==
LOC: HO.HPS 13:43
PROVIDERS: PCP Internal Medicine; Visit Provider Hospitalist
DX: J45.20 Mild intermittent asthma, uncomplicated (principal); G47.33 Obstructive sleep apnea (adult) (pediatric); F51.01 Primary insomnia; R05.2 Subacute cough; R07.81 Pleurodynia; R06.09 Other forms of dyspnea
CPT/HCPCS: 99214; G2211

== ENCOUNTER 2025-06-03 13:42 | Outpatient (REF) | payer MEDICARE, SELFPAY ==
--- NOTE | ~2025-06-03 | XR_ITS ---
EXAMINATION: XR CHEST CLINICAL INFORMATION: R07.81 - Pleurodynia COMPARISON: August 25, 2024 TECHNIQUE: 2 views of the chest were obtained. FINDINGS: Pulmonary reticular pattern. No consolidation, pleural effusion or pneumothorax. Cardiomediastinal silhouette size is unchanged with mild prominent thoracic aorta and round apex. Multilevel thoracolumbar spondylosis. Osteopenia versus osteoporosis. S-shaped curvature of the thoracolumbar spine. Patient's large body habitus. XR/XR chest 2V IMPRESSION: Concerning chronic interstitial lung disease without acute airspace disease. 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 Scoliosis, mild. Multilevel spondylosis. Electronically signed by: Burak Cardenas MD 06/03/2025 03:30 PM EDT
[2025-06-03 14:57] LABS: MANUAL DIFF FLAG NO
--- NOTE | 2025-06-03 14:57 | ECG_ITS ---
Test Reason : COPD Blood Pressure : */* mmHG Vent. Rate : 61 BPM Atrial Rate : 61 BPM P-R Int : 174 ms QRS Dur : 90 ms QT Int : 440 ms P-R-T Axes : 33 -32 4 degrees QTcB Int : 442 ms Normal sinus rhythm Left axis deviation Cannot rule out Anterior infarct , age undetermined Abnormal ECG When compared with ECG of 22-May-2024 16:35, Minimal criteria for Anterior infarct are now Present Referred By: Mark Olivo Electronically Signed By: GALO LOPEZ MD
[2025-06-03 15:14] LABS: Hematocrit 38.8 % (37.0-47.0); Hemoglobin 13.7 g/dl (12.0-16.0); Imm Gran Abs Auto 0.18 X10*3/uL (0.00-0.03); Imm Gran Pct Auto 1.4 % (0.0-0.4); Lymphocytes Absolute Auto 1.6 X10*3/uL (1.2-4.9); Mean Corpuscular HGB Conc 35.3 g/dl (31.0-35.0); Mean Corpuscular Hemoglobin 30.2 pg (27.0-33.0); Mean Corpuscular Volume 85.7 fL (80.0-98.0); NRBC Abs Auto 0.000 X10*3/uL (0.0-0.012); NRBC Pct Auto 0.0 /100WBC (0.0-0.2); Platelet Count 317 X10*3/uL (160-400); Red Blood Count 4.53 X10*6/uL (4.20-5.50); White Blood Count 12.8 X10*3/uL (4.8-10.8)
[2025-06-03 15:30] LABS: Anion Gap 11 (12-20); Blood Urea Nitrogen 16 mg/dL (9-16); Calcium 9.2 mg/dL (8.4-10.2); Carbon Dioxide 24 mmol/L (22-29); Chloride 106 mmol/L (96-108); Estimated Glomerular Filt Rate > 60; Potassium 3.8 mmol/L (3.3-5.1); Sodium 137 mmol/L (135-145)
[2025-06-03 15:42] LABS: Troponin-I High Sensitivity < 2.7 ng/L (<3.5-17.0)
== END 2025-06-03 13:43 | disposition home or self-care (01) ==
LOC: HO.LAB 13:42
PROVIDERS: PCP Internal Medicine; Visit Provider Hospitalist
DX: J44.89 Other specified chronic obstructive pulmonary disease (principal); J45.20 Mild intermittent asthma, uncomplicated; G47.33 Obstructive sleep apnea (adult) (pediatric); F51.01 Primary insomnia; R05.2 Subacute cough; R07.81 Pleurodynia; R06.09 Other forms of dyspnea
CPT/HCPCS: 36415; 71046; 80048; 84484; 85025; 85652; 93005; 99212

== ENCOUNTER → 2025-06-03 14:57 | Outpatient (BNV) | payer MEDICARE, SELFPAY | PROVIDERS: PCP Internal Medicine; Visit Provider Internal Medicine Cardiovascular Disease | DX: R94.31 Abnormal electrocardiogram [ECG] [EKG] (principal); J44.9 Chronic obstructive pulmonary disease, unspecified | CPT/HCPCS: 93010 ==

== ENCOUNTER → 2025-06-03 15:07 | Outpatient (BNV) | payer MEDICARE, SELFPAY | PROVIDERS: PCP Internal Medicine; Visit Provider Radiology Diagnostic Radiology | DX: J84.9 Interstitial pulmonary disease, unspecified (principal) | CPT/HCPCS: 71046 ==

== ENCOUNTER 2025-06-22 08:24 | Outpatient (AMB) | payer MEDICARE, SELFPAY ==
--- NOTE | 2025-06-22 08:42 | A.OFFVIS_ITS ---
Vital Signs 06/22/25 08:43 Height 5 ft 2 in Weight 183 lb 6.793 oz BMI 33.5 BP 140/82 H Blood Pressure Location Lt brachial Position Sitting Pulse 47 L Pulse Source Monitor Intake Visit Reasons: Discuss Anterior Infarct in last EKG. Next steps t Steeping Press Operator Required: No Allergies pneumococcal vaccine (PNEUMOCOCCAL VACCINE) Allergy (Severe, Verified 06/22/25 08:44) ARM SWELLED, swelling in arm tiotropium (From SPIRIVA WITH HANDIHALER) Allergy (Severe, Verified 06/22/25 08:44) THROAT SWELL doxycycline Adverse Reaction (Intermediate, Verified 06/22/25 08:44) foggy and forgetful Medication List - Last Reconciled 06/22/25 by DAMION Jolley albuterol sulfate 90 mcg/actuation 2 puffs inhalation Q6H PRN alendronate 70 mg PO QWEEK amoxicillin 2,000 mg (4 x 500 mg) PO ONCE fexofenadine (Ally Allergy) 180 mg PO DAILY flecainide 50 mg PO Q12H glucosamine-chondroitin 250-200 mg (Osteo Bi-Flex) 1 tab PO BID magnesium 250 mg PO DAILY metoprolol succinate ER (Toprol XL) 25 mg (1/2 x 50 mg) PO DAILY 90 days multivitamin 1 tab PO DAILY omega 1-yxj-ako-fish oil 350 mg-235 mg- 90 mg-597 mg ([place]-3) 1 cap PO DAILY omeprazole 20 mg PO DAILY pilocarpine HCl 5 mg PO TID [Prevagen PO] rivaroxaban (Xarelto) 20 mg PO DAILY 90 days ropinirole 1 mg (2 x 0.5 mg) PO DAILY HPI HPI Discuss Anterior Infarct in last EKG. Next steps t: Details: Ignacia is a 70-year-old female past medical history of hypertension, paroxysmal atrial fibrillation, who presents for follow-up. Today she reports she saw her EKG does have findings of anterior infarct. This causes her much concern. She was having some increased shortness of breath last month. That symptom gradually resolved and her breathing is now back to normal. She has not been having any chest discomfort at rest or with activity. She has no heart palpitations, lightheadedness, presyncope, syncope. 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 She is compliant with her medications. [facility] Medical History Dyspnea Pleuritic chest pain Cough Myalgia Lora-trochanteric left hip tendinitis New onset a-fib Annual physical exam Trochanteric bursitis of right hip Weakness of left hand Poor balance Vitamin D deficiency Tinnitus Chronic left-sided low back pain Hx of echocardiogram Insomnia Chronic allergic rhinitis Asthma Sjogrens syndrome Surgical History H/O thumb surgery History of knee replacement History of bunionectomy of right great toe H/O colonoscopy Family History Father Heart attack CVD (cardiovascular disease) Mother Stroke CHF (congestive heart failure) Alzheimer's dementia Cancer Hypertension Social History Housing: House Alcohol intake: never Patient Tobacco Use Status: Never used Tobacco e-Cigarette/Vaping Use: Never Used service: Yes Current occupational status: retired Cognitive needs: No Hearing needs: No Vision needs: Yes Review of Systems Const All systems reviewed & are unremarkable except as noted in HPI and below ENT Denies dizziness Card Denies chest pain, Denies chest pain at rest, Denies chest pain with activity, Denies rapid heart rate, Denies pedal edema, Denies edema, Denies leg edema, Denies lightheadedness, Denies palpitations, Denies dyspnea, Denies dyspnea on exertion and Denies orthopnea Resp Denies cough, Denies dyspnea and Denies dyspnea on exertion GI Denies hematochezia and Denies change in stool character Musc Denies abnormal gait, Denies limited range of motion, Denies muscle cramps, Denies muscle weakness, Denies numbness, Denies radiating pain into limb, Denies stiffness and Denies tingling Neuro Denies abnormal gait, Denies dizziness, Denies numbness and Denies tingling Endo Denies palpitations Physical Exam Vital Signs: Last Vital Signs Pulse 47 L 06/22/25 08:43 BP 140/82 H 06/22/25 08:43 BMI result Body Mass Index 33.5 Const General: cooperative, healthy appearing, comfortable and no acute distress Orientation/consciousness: patient oriented x3 Neck Neck: Yes normal visual inspection and Yes no JVD Resp Effort & Inspection: normal respiratory effort Auscultation: clear to auscultation bilaterally, no crackles, no rales, no rhonchi and no wheezes Cardio Jugular venous distension: no JVD Rhythm: regular rhythm Heart sounds: S1 normal heart sound present, S2 normal heart sound present, no gallops, no murmurs and no rubs Neuro General: patient oriented x3 Extrem General: Yes normal to inspection, No no pedal edema and No calf tenderness Psych Appearance: grossly normal Mental Status: mental status grossly normal Speech and movement: Normal speech and movement present Office Procedures EKG Details: Today, read by me, sinus bradycardia, cant exclude prior anterior infarct ( likely related to lead placement) rate 47, Qtc 414ms [id number], Complete Assessment & Plan Assessment & Plan (1) Abnormal EKG: Code(s): R94.31 - Abnormal electrocardiogram [ECG] [EKG] Category: Medical Plan: EKGs at times do have computer readings at times stating can not exclude prior anterior infarct. Exercise stress test done 10/07/2023 with exercise 6 minutes 25 seconds with no EKG changes of ischemia. Echocardiogram done 03/23/2025 showing EF 59%, no valve or regional wall motion abnormalities. EKG today is showing sinus bradycardia, can not exclude anterior infarct, rate 47. Her EKG abnormality is likely related to lead placement and/or body habitus. We have no evidence of prior CT. She has no anginal symptoms so will hold off on further testing at this time. Reviewed this with her in detail. (2) Sinus bradycardia: Code(s): R00.1 - Bradycardia, unspecified Category: Medical Plan: EKG showing sinus bradycardia, rate 47, asymptomatic. She checks her heart rate at home and tells me it runs 40s to 50s. Will reduce her metoprolol XL down to 12.5 mg daily from 25 mg daily. Instructed to continue with home pulse checks and call if she is still running in the 40s. (3) Paroxysmal atrial fibrillation: Comment: 10/01/23 converted after Cardizem in ER, f/u Dr. Jones, Echo 09/27 LVEF 60%, trivial AR, negative stress test and normal Holter 10/26, on Flecainide , Metoprolol, Xarelto Code(s): I48.0 - Paroxysmal atrial fibrillation Category: Medical Plan: History of paroxysmal atrial fibrillation treated with rhythm control using f lecainide 50 mg b.i.d.. She is also on metoprolol and doses being reduced. No recent heart palpitations. Labs 06/03/2025 shows creatinine 0.8, hematocrit 38.8. Continue Xarelto for anticoagulation. (4) Dyspnea: Code(s): R06.00 - Dyspnea, unspecified Category: Medical Qualifiers: Dyspnea type: dyspnea on exertion Qualified Code(s): R06.09 - Other forms of dyspnea Plan: Was occurring last month. Now resolved. Does follow with pulmonology for asthma. Plan The patient's metoprolol dosage will be reduced to manage her low heart rate, with a new prescription for 25 mg tablets to be halved. She will continue on flecainide and Xarelto, the latter to reduce stroke risk associated with atrial fibrillation. The abnormal EKG findings are attributed to lead placement issues, and no further cardiac testing is deemed necessary at this time due to the absence of symptoms. The patient is advised to wear compression stockings during travel to manage leg swelling. Medications: New metoprolol succinate ER dose reduced 12.5 mg (1/2 x 25 mg) PO DAILY 45 tabs 1RF 90 days Discontinued metoprolol succinate ER (Toprol XL) Discontinued Reason: Doctor's Order 25 mg (1/2 x 50 mg) PO DAILY 90 days 45 tabs 3RF Patient Instructions: - Take metoprolol as prescribed, reducing the dose to half of a 25 mg tablet. - Continue taking flecainide and Xarelto as directed. - Wear compression stockings during travel to prevent leg swelling. - Monitor for any new symptoms and report them promptly. Patient was informed and verbally consented to the use of an ambient scribe for clinic note documentation during this visit. Visit time spent on chart review, interview, assessment, orders, documentation. Coding Level of Care Code Est Pt Level 4 (75353) Complex EM visit Add On G2211 Diagnoses Abnormal EKG R94.31 Sinus bradycardia R00.1 Paroxysmal atrial fibrillation I48.0 Dyspnea on exertion R06.09 Dyspnea type: dyspnea on exertion CPT Codes EKG - CPT: 69851-[id number], Complete ([id number]) Time Spent (min) 28
[2025-06-22 08:43] VITALS: BP 140/82; PULSE 47; BMI 33.5
--- OUTSIDE RECORDS SUMMARY | 2025-06-22 09:08 | XMS_ITS | Patient Health Record ---
Author Organization [facility] Address [address] [place] [id number] Care Team Providers Care Community Service Specialist Name Role Phone Nessa Gibbons MD Primary Care Provider Sadiq Skinner [phone] Allergies Allergen (clinical drug ingredient) Drug/Non Drug [...] No Points 0 Interpretation Negative Section Notes: Zoroastrianism Sister Nonsmoker; no alcohol Zoroastrianism Sister Nonsmoker; no alcohol Problems Problem Type SNOMED Code ICD Code Onset Dates Problem Status W/U Status Risk Notes Problem 156443309 Encounter for screening for malignant neoplasm of colon (Z12.11) Active confirmed Problem 229597523 History of adenomatous polyp of colon (Z86.010) Active confirmed Problem Diarrhea (33152071) Diarrhea (R19.7) Active confirmed Problem Diverticular disease of colon (957100020) Diverticulosis of large intestine without perforation or abscess without bleeding (K57.30) Active confirmed Problem 050417090 Irritable bowel syndrome with diarrhea (K58.0) Active confirmed Problem Elevated liver enzymes level (473804154) Elevated liver function tests (R79.89) Active confirmed Problem 140694006 Gastroesophageal reflux disease, esophagitis presence not specified (K21.9) Active confirmed Problem 467161638 Family history o f colon cancer (Z80.0) Active confirmed Problem 02688220 Diarrhea, unspecified type (R19.7) Active confirmed Problem Abdominal discomfort (79340071) Abdominal discomfort (R10.9) Active confirmed Problem Generalized abdominal pain (092589870) Abdominal pain, acute, generalized (R10.84) Active confirmed [...] Date MEDICARE OF [place] [address] [place] [address] [phone] [id number] BREA ALEXANDRA Self - patient is the insured [facility] SUPPLEMENTAL PLAN [address] [place] [address] [id number] BREA ALEXANDRA Self - patient is the insured Medical (General) History Medical History History ICD Code Sjogren's syndrome Asthma Restless leg syndrome GERD--has seen Dr. Rob-- has had EGD's--last one was in 2011--no signs of Odell's esophagus nor esophagitis--- only fundic gland gastric polyps IBS ADHD Spondylolithesis Denies [place],DM,CVA,renal disease Has had colonoscopies Q 5 ye [...]
--- OUTSIDE RECORDS SUMMARY | 2025-06-22 09:08 | XMS_ITS | Patient Health Record ---
[facility] Address [address] [place] [address] Care Team Providers Care Alumni Relations Manager Name Role Phone Nessa Gibbons MD Primary Care Provider Chuck Hernandez Unavailable [phone] Allergies Allergen (clinical drug ingredient) Drug/Non Drug [...] Active Magnesium Carbonate Heavy 250 mg Unknown [place] 3 Active Restasis Unknown Flaxseed Oil - [...] X ray : Foot, right 3V 12/28/2019 48662 I&D ABSCESS- SIMPLE,SINGLE 012 42955, J0702- Neuroma/Injection 05/23/20 12 56438, J0702- Neuroma/Injection 01/14/20 14 [id number] Boot/Pneumatic 11/09/2011 [id number] Boot/Pneumatic 11/30/2011 Insurance Providers Payer Name Payer Address Payer Phone Subscriber Number Group Number Insured Name Patient Relationship to Insured Coverage Start Date Coverage End Date Medicare National [employer] [address] [place] [address] [id number] Ignacia Rodgers Self - patient is the insured [facility] -[id number] [address] [place] [phone] [id number] Ignacia Rodgers Self - patient is the [...]
--- OUTSIDE RECORDS SUMMARY | 2025-06-22 09:08 | XMS_ITS | Clinical Summary ---
Author Organization [facility] Address [address] [place] [phone] Phone Care Team Providers Care Vacuum Drier Tender Name Role Phone Nessa Gibbons MD Primary Care Provider [phone] Surgical History Surgery Date Site/Laterality Comments TOTAL [...] Signed Date: 09/30/2024 14:07 ET Workstation ID: [id number] Transcribed By: Self Edit Transcribed Date: 09/30/2024 14:02 ET Narrative 09/30/2024 2:07 PM EST EXAM: SCREENING MAMMOGRAPHY, BILATERAL HISTORY: SCREENING. Paternal grandfather with history of breast cancer. COMPARISON: 09/23/2023, 09/19/2022, 07/04/2021, 05/25/2020 TECHNIQUE: Synthesized CC and MLO projections of each breast. Tomosynthesis of each breast in the CC and MLO projections. ADDITIONAL IMAGING: None Computer-aided detection was employed with the Su[employer]i AI 3-D. TISSUE DENSITY: There are scattered [...] None Computer-aided detection was employed with the [employer]i AI 3-D. TISSUE DENSITY: There are scattered [...] Signed Date: 09/30/2024 14:07 ET Workstation ID: [id number] Transcribed By: Self Edit Transcribed Date: 09/30/2024 14:02 ET us Self Referral Sppl IMG BI PROCEDURES Final Resul t * ROLANDO DEXA AXIAL SKELETON (07/04/2021 4:09 PM EDT) Anatomical Region Laterality Modality Mammography 07/04/2021 3:19 PM EDT Narrative 07/04/2021 4:09 PM EDT [facility] Diagnostic Imaging Department [address] [place] [id number] Patient: IGNACIA ALEXANDRA Alma JoeB./Age/Sex: 1955 - 66 - F Unit#: [id number] [facility] Ordering Physician: DONNIE DURHAM MD Rolando Dexa Axial Skeleton - 07/04/21 521 HISTORY: The patient is a 66-year-old postmenopausal [...] probability of hip fracture of 5.2%. Code 24785 Dictating Physician: JOSE MANUEL KNUTSON MD Electronically Signed by: JOSE MANUEL KNUTSON MD Dic Date/Time: 07/04/211606 Sign date/Time: 07/04/211608 Procedure Note Jose Manuel Knutson MD - 10/31/2022 [facility] Diagnostic Imaging Department [address] [place] [address] Patient: GAY ALEXANDRAAlma Marquez D.O.B./Age/Sex: 1955 - 66 - F Unit#: [id number] Location/Status: [facility] CLI Mnemonic[facility]ing [facility] Ordering Physician: DONNIE DURHAM MD Rolando Dexa Axial Skeleton - 07/04/21 - 4323 HISTORY: The patient is a 66-year-old postmenopausal [...] density of the femurs bilaterally is 0.813 gm/fa0bfsig is 81% of that of young normals [...] probability of hip fracture of 5.2%. Code 91894 Dictating Physician: JOSE MANUEL KNUTSON MD Electronically Signed by: JOSE MANUEL KNUTSON MD Dic Date/Time: 07/04/21 1607 Sign date/Time: 07/04/21 1609 Donnie Durham MD IM BI PROCEDURES Final Result from Last 3 Months or Most Recently Relevant to Health Maintenance Insurance MEDICARE [facility] Care Teams Vacuum Drier Tender Relationship Specialty Start Date End Date Nessa Gibbons MD [address] [place] [address] PCP - General Internal Medicine 01/09/18
== END 2025-06-22 09:21 | disposition home or self-care (01) ==
LOC: HO.HCS 08:25
PROVIDERS: PCP Internal Medicine; Visit Provider Nurse Practitioner Family
DX: R94.31 Abnormal electrocardiogram [ECG] [EKG] (principal); R00.1 Bradycardia, unspecified; I48.0 Paroxysmal atrial fibrillation; R06.09 Other forms of dyspnea
CPT/HCPCS: 93010; 99214; G2211

== ENCOUNTER → 2025-06-22 08:24 | Outpatient (BNVA) | payer MEDICARE, SELFPAY | PROVIDERS: PCP Internal Medicine; Visit Provider Nurse Practitioner Family | DX: R94.31 Abnormal electrocardiogram [ECG] [EKG] (principal); R00.1 Bradycardia, unspecified; I48.0 Paroxysmal atrial fibrillation; R06.09 Other forms of dyspnea | CPT/HCPCS: 93005; 99212 ==

== ENCOUNTER 2025-07-15 10:25 | Outpatient (AMB) | payer MEDICARE, SELFPAY ==
--- NOTE | 2025-07-15 10:33 | A.OFFVIS_ITS ---
Vital Signs 07/15/25 10:40 Height 5 ft 2 in Weight 184 lb 4.903 oz BMI 33.7 BP 134/82 Blood Pressure Location Rt brachial Position Sitting Pulse 62 Pulse Source Pulse Oximeter Pulse Oximetry (%) 98 Oxygen Delivery Method Room Air Intake Visit Reasons: follow up Intake Note: Patient presents for Bursitis of left hip follow up. Allergies pneumococcal vaccine (PNEUMOCOCCAL VACCINE) Allergy (Severe, Verified 07/15/25 10:38) ARM SWELLED, swelling in arm tiotropium (From SPIRIVA WITH HANDIHALER) Allergy (Severe, Verified 07/15/25 10:38) THROAT SWELL doxycycline Adverse Reaction (Intermediate, Verified 07/15/25 10:38) foggy and forgetful Medication List - Last Reconciled 07/15/25 by Jeaneth Alvarez MD albuterol sulfate 90 mcg/actuation 2 puffs inhalation Q6H PRN alendronate 70 mg PO QWEEK amoxicillin 2,000 mg (4 x 500 mg) PO ONCE fexofenadine (Ally Allergy) 180 mg PO DAILY flecainide 50 mg PO Q12H glucosamine-chondroitin 250-200 mg (Osteo Bi-Flex) 1 tab PO BID magnesium 250 mg PO DAILY metoprolol succinate ER 12.5 mg (1/2 x 25 mg) PO DAILY 90 days multivitamin 1 tab PO DAILY omega 1-rtb-hjx-fish oil 350 mg-235 mg- 90 mg-597 mg ([place]-3) 1 cap PO DAILY omeprazole 20 mg PO DAILY pilocarpine HCl 5 mg PO TID [Prevagen PO] rivaroxaban (Xarelto) 20 mg PO DAILY 90 days ropinirole 1 mg (2 x 0.5 mg) PO DAILY solifenacin (Vesicare) 5 mg PO DAILY 90 days HPI Comments Details: Patient is a 70-year-old female with paroxysmal AFib, Sjogren's disease and 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 On alendronate from primary - Stable - Complaining of left hip bursitis - Currently following up with ortho for her left knee pain Today - Not on any rheum medications. On alendronate from primary - Left trochanteric bursitis improved after last visit post injection - Complaining of left gluteus roshni spasm (known injury) causing pulsing in her legs Rheumatologic History: Diagnosed with Sjogren's in 2019 after presenting with sicca symptoms and positive antibodies. No evidence of extraglandular Sjogren's Managed with topical eye drops and mouthwash. No history of Sjogren's related arthritis Current Rheumatology Medication(s): Alendronate (give by primary) PFS Medical History Dyspnea Pleuritic chest pain Cough Myalgia Lora-trochanteric left hip tendinitis New onset a-fib Annual physical exam Trochanteric bursitis of right hip Weakness of left hand Poor balance Vitamin D deficiency Tinnitus Chronic left-sided low back pain Hx of echocardiogram Insomnia Chronic allergic rhinitis Asthma Sjogrens syndrome Surgical History H/O thumb surgery History of knee replacement History of bunionectomy of right great toe H/O colonoscopy Family History Father Heart attack CVD (cardiovascular disease) Mother Stroke CHF (congestive heart failure) Alzheimer's dementia Cancer Hypertension Social History Housing: House Alcohol intake: never Patient Tobacco Use Status: Never used Tobacco e-Cigarette/Vaping Use: Never Used service: Yes Current occupational status: retired Cognitive needs: No Hearing needs: No Vision needs: Yes Review of Systems Const Details: Review of Systems Constitutional: Denies fever, chills, weight loss ENT: Denies vision changes, eye pain or eye redness, dental caries, dry mouth GI: Denies nausea, vomiting, diarrhea, abdominal pain, change in BM Pulm: Denies SOB, GARCIA, hemoptysis, wheezing Cards: Denies chest pain, palpitations Skin: Denies Raynaud's, rash, nail changes, photosensitivity, GRAIN ORIGINATION SPECIALIST: Denies headaches, weakness, paresthesias, recurrent falls MSK: as per HPI All other systems reviewed and are unremarkable except noted above Physical Exam Exam Exam: Vital signs reviewed Physical Examination CONSTITUITIONAL Patient alert and cooperative. Well appearing and in no apparent painful distress MSK Hands * Right Hand: Able to make a fist. No swelling or tenderness to palpation of the MCPs, PIPs or DIPs.Herbedens nodes noted with ulnar deviation to the 2nd & 5th DIPs * Left Hand: Able to make a fist. No swelling or tenderness to palpation of the MCPs, PIPs or DIPs. Herbedens nodes noted Wrists * Right Wrist: Full ROM to flexion and extension. No swelling or TTP * Left Wrist: Full ROM to flexion and extension. No swelling or TTP Elbows * Right Elbow: Full ROM. No swelling or TTP. No TTP of the medial epicondyle. No TTP of the lateral epicondyle * Left Elbow: Full ROM. No swelling or TTP. No TTP of the medial epicondyle. No TTP of the lateral epicondyle Shoulders * Right shoulder: Full ROM. No swelling noted. No TTP of the AC joint. No TTP of the subacromial bursa. No TTP of the posterior shoulder * Left shoulder: Full ROM. No swelling noted. No TTP of the AC joint. No TTP of the subacromial bursa. No TTP of the posterior shoulder Knees * Right knee: Full ROM. No swelling noted. No TTP of the knee joint line. No TTP of pes anserine bursa * Left knee: Full ROM. No swelling noted. No TTP of the knee joint line. No TTP of pes anserine bursa. * Crepitations felt bilaterally Ankles * Right ankle: Good ankle dorsiflexion and plantar flexion. No swelling. No TTP of the ankle joint * Left ankle: Good ankle dorsiflexion and plantar flexion. No swelling. No TTP of the ankle joint Feet * Right foot: Negative squeeze test * Left foot: Negative squeeze test Tender points? * No tenderness to palpation of the bilateral trapezius, supraspinatus, anterior costochondral junctions, bilateral suboccipital muscle insertions SKIN No rashes Vital Signs: Last Vital Signs Pulse 62 07/15/25 10:40 BP 134/82 07/15/25 10:40 Pulse Ox 98 07/15/25 10:40 Oxygen Delivery Method Room Air 07/15/25 10:40 BMI result Body Mass Index 33.7 Results Reviewed Results Reviewed: Laboratory Tests 08/11/24 08/25/24 06/03/25 07:05 14:06 14:55 WBC 12.8 H RBC 4.53 Hgb 13.7 Hct 38.8 Plt Count 317 ESR 6 Sodium 137 Potassium 3.8 Chloride 106 Carbon Dioxide 24 BUN 16 Creatinine 0.80 AST 17 ALT 15 C-Reactive Protein 0.52 H 25-OH Vitamin D Total 55 Laboratory Tests 08/25/24 14:06 Rheumatoid Factor 18.8 H ELLEN Screen POSITIVE A ELLEN Titer 1:320 H SS-B/La Antibody 2.2 POS A Complement C3 157 Complement C4 26 Assessment & Plan Assessment & Plan (1) Sjogrens syndrome: Comment: Dx 2009: sicca symptoms, pos SS-B, neg SS-A, low titer RF, neg DNA, KIRSTEN, CCP Code(s): M35.00 - Sjogren syndrome, unspecified Category: Medical Qualifiers: Sjogren's organ involvement: unspecified organ involvement Qualified Code(s): M35.00 - Sicca syndrome, unspecified Plan: #Sjogrens Syndrome Patient is a 70 y.o. female with Sjogren's syndrome here today for follow up. No current symptoms or exam findings requiring initiating immunosuppression Plan - No DMARDs needed at this time - RTC 6 months - Labs before visit: Labs before visit: CBC, CMP, ESR, CRP, C3, C4, RF (2) Osteopenia: Comment: DEXA 06/2021, started Fosamax 12/2021, 08/2023 osteopenia, cont Fosamax until 08/2025 Code(s): M85.80 - Other specified disorders of bone density and structure, unspecified site Category: Medical Qualifiers: Osteopenia location: multiple sites Qualified Code(s): M85.89 - Other specified disorders of bone density and structure, multiple sites Plan: #Osteopenia Based on DEXA 2020 Currently being managed by her primary (3) Radiculopathy: Code(s): M54.10 - Radiculopathy, site unspecified Qualifiers: Spinal region: unspecified Qualified Code(s): M54.10 - Radiculopathy, site unspecified Plan: #Radiculopathy Patient complaining of gluteus medius muscle spasm causing radiculopathy sx Recommending TENS machine to improve muscle spasm and will start low dose pregabalin (Gabapentin not tolerated in the past) Plan - Pregabalin 25mg nightly Plan I spent 30 minutes reviewing the record and labs, taking a history, examining the patient, discussing the treatment plan, and documenting in the medical record Coding Level of Care Code Est Pt Level 4 (97059) Complex EM visit Add On G2211 Diagnoses Sjogren's syndrome, with unspecified organ involvement M35.00 Sjogren's organ involvement: unspecified organ involvement Osteopenia of multiple sites M85.89 Osteopenia location: multiple sites Radiculopathy, unspecified spinal region M54.10 Spinal region: unspecified
[2025-07-15 10:40] VITALS: BP 134/82; PULSE 62; O2SAT 98; BMI 33.7
--- OUTSIDE RECORDS SUMMARY | 2025-07-15 13:16 | XMS_ITS | Patient Health Record ---
Author Organization [facility] Address [address] [place] [address] Care Team Providers Care Mushroom Sorter Grader Name Role Phone Nessa Gibbons MD Primary Care Provider Sadiq Skinner [phone] Allergies Allergen (clinical drug ingredient) Drug/Non Drug [...] No Points 0 Interpretation Negative Section Notes: Church Sister Nonsmoker; no alcohol Church Sister Nonsmoker; no alcohol Problems Problem Type SNOMED Code ICD Code Onset Dates Problem Status W/U Status Risk Notes Problem 197502542 Encounter for screening for malignant neoplasm of colon (Z12.11) Active confirmed Problem 568296353 History of adenomatous polyp of colon (Z86.010) Active confirmed Problem Diarrhea (36751253) Diarrhea (R19.7) Active confirmed Problem Diverticular disease of colon (997574409) Diverticulosis of large intestine without perforation or abscess without bleeding (K57.30) Active confirmed Problem 263449010 Irritable bowel syndrome with diarrhea (K58.0) Active confirmed Problem Elevated liver enzymes level (060071380) Elevated liver function tests (R79.89) Active confirmed Problem 331254311 Gastroesophageal reflux disease, esophagitis presence not specified (K21.9) Active confirmed Problem 824623567 Family history o f colon cancer (Z80.0) Active confirmed Problem 98682732 Diarrhea, unspecified type (R19.7) Active confirmed Problem Abdominal discomfort (47894534) Abdominal discomfort (R10.9) Active confirmed Problem Generalized abdominal pain (864276569) Abdominal pain, acute, generalized (R10.84) Active confirmed [...] Date MEDICARE OF [place] [address] [place] [address] [phone] [id number] BREA ALEXANDRA Self - patient is the insured [facility] SUPPLEMENTAL PLAN [address] [place] [address] [id number] BREA ALEXANDRA Self - patient is the insured Medical (General) History Medical History History ICD Code Sjogren's syndrome Asthma Restless leg syndrome GERD--has seen Dr. Rob-- has had EGD's--last one was in 2011--no signs of Odell's esophagus nor esophagitis--- only fundic gland gastric polyps IBS ADHD Spondylolithesis Denies AK,DM,CVA,renal disease Has had colonoscopies Q 5 ye [...]
--- OUTSIDE RECORDS SUMMARY | 2025-07-15 13:17 | XMS_ITS | Clinical Summary ---
Author Organization [facility] Address [address] [place] [address] Phone Care Team Providers Care Speed Belt Sander Tender Name Role Phone Nessa Gibbons MD Primary Care Provider [phone] Surgical History Surgery Date Site/Laterality Comments TOTAL [...] Signed Date: 09/30/2024 14:07 ET Workstation ID: [id number] Transcribed By: Self Edit Transcribed Date: 09/30/2024 14:02 ET Narrative 09/30/2024 2:07 PM EST EXAM: SCREENING MAMMOGRAPHY, BILATERAL HISTORY: SCREENING. Paternal grandfather with history of breast cancer. COMPARISON: 09/23/2023, 09/19/2022, 07/04/2021, 05/25/2020 TECHNIQUE: Synthesized CC and MLO projections of each breast. Tomosynthesis of each breast in the CC and MLO projections. ADDITIONAL IMAGING: None Computer-aided detection was employed with the [employer] AI 3-D. TISSUE DENSITY: There are scattered [...] None Computer-aided detection was employed with the [employer] AI 3-D. TISSUE DENSITY: There are scattered [...] Signed Date: 09/30/2024 14:07 ET Workstation ID: [id number] Transcribed By: Self Edit Transcribed Date: 09/30/2024 14:02 ET us Self Referral Sppl IMG BI PROCEDURES Final Resul t * ROLANDO DEXA AXIAL SKELETON (07/04/2021 4:09 PM EDT) Anatomical Region Laterality Modality Mammography 07/04/2021 3:19 PM EDT Narrative 07/04/2021 4:09 PM EDT [facility] Diagnostic Imaging Department [address] [place] [address] Patient: IGNACIA LAEXANDRA Alma JoeB./Age/Sex: 1955 - 66 - F Unit#: [id number] [facility] Ordering Physician: DONNIE DURHAM MD [facility] Dexa Axial Skeleton - 07/04/21 067 HISTORY: The patient is a 66-year-old postmenopausal [...] probability of hip fracture of 5.2%. Code 94699 Dictating Physician: JOSE MANUEL KNUTSON MD Electronically Signed by: JOSE MANUEL KNUTSON MD Dic Date/Time: 07/04/211606 Sign date/Time: 07/04/211608 Procedure Note Jose Manuel Knutson MD - 10/31/2022 [facility] Diagnostic Imaging Department [address] [place] [address] Patient: GAY ALEXANDRAAlma Marquez D.O.B./Age/Sex: 1955 - 66 - F Unit#: [id number] Location/Status: [facility] CLI [facility] Ordering Physician: DONNIE DURHAM MD [facility] Dexa Axial Skeleton - 07/04/21 - 5968 HISTORY: The patient is a 66-year-old postmenopausal [...] density of the femurs bilaterally is 0.813 gm/io2tffwf is 81% of that of young normals [...] probability of hip fracture of 5.2%. Code 98931 Dictating Physician: JOSE MANUEL KNUTSON MD Electronically Signed by: JOSE MANUEL KNUTSON MD Dic Date/Time: 07/04/21 1607 Sign date/Time: 07/04/21 1609 Donnie Durham MD IM BI PROCEDURES Final Result from Last 3 Months or Most Recently Relevant to Health Maintenance Insurance MEDICARE [facility] Care Teams Speed Belt Sander Tender Relationship Specialty Start Date End Date Nessa Gibbons MD [address] [place] [address] PCP - General Internal Medicine 01/09/18
--- OUTSIDE RECORDS SUMMARY | 2025-07-15 13:17 | XMS_ITS | Patient Health Record ---
Author Organization [facility] Address [address] [place] [address] Care Team Providers Care Inverform Machine Operator Name Role Phone Nessa Gibbons MD Primary Care Provider Chuck Hernandez Unavailable [phone] Allergies Allergen (clinical drug ingredient) Drug/Non Drug [...] Active Magnesium Carbonate Heavy 250 mg Unknown [place] 3 Active Restasis Unknown Flaxseed Oil - [...] Status Risk Notes Problem Pain in limb (29808580) Pain in Limb (729.5) Active confirmed Plan [...] X ray : Foot, right 3V 12/28/2019 04531 I&D ABSCESS- SIMPLE,SINGLE 012 29074, J0702- Neuroma/Injection 05/23/20 12 33331, J0702- Neuroma/Injection 01/14/20 14 [id number] Boot/Pneumatic 11/09/2011 K7735-[id number] Boot/Pneumatic 11/30/2011 Insurance Providers Payer Name Payer Address Payer Phone Subscriber Number Group Number Insured Name Patient Relationship to Insured Coverage Start Date Coverage End Date Medicare National Govt S[employer] [address] [place] [address] [id number] Ignacia Rodgers Self - patient is the insured [facility] -[id number] [address] [place] [address] [id number] Ignacia Rodgers Self - patient is the [...]
== END 2025-07-15 10:59 | disposition home or self-care (01) ==
LOC: HO.RHES 10:26
PROVIDERS: PCP Internal Medicine; Visit Provider Student in an Organized Health Care Education/Training Program
DX: M35.00 Sjogren syndrome, unspecified (principal); M85.89 Other specified disorders of bone density and structure, multiple sites; M54.10 Radiculopathy, site unspecified
CPT/HCPCS: 99214; G2211

== ENCOUNTER → 2025-07-15 10:25 | Outpatient (BNVA) | payer MEDICARE, SELFPAY | PROVIDERS: PCP Internal Medicine; Visit Provider Student in an Organized Health Care Education/Training Program | DX: M35.00 Sjogren syndrome, unspecified (principal); M85.89 Other specified disorders of bone density and structure, multiple sites; M54.10 Radiculopathy, site unspecified; Z96.651 Presence of right artificial knee joint | CPT/HCPCS: 99212 ==

== ENCOUNTER 2025-08-30 07:33 | Outpatient (REF) | payer MEDICARE, SELFPAY ==
--- OUTSIDE RECORDS SUMMARY | 2025-08-30 07:35 | XMS_ITS | Patient Health Record ---
Author Organization [facility] Address [address] [facility] [place] [address] Care Team Providers Care Servicenow Administrator Developer Name Role Phone Nessa Gibbons MD Primary Care Provider UnavailChuck Sim Unavailable [phone] Allergies Allergen (clinical drug ingredient) Drug/Non Drug [...] Note . .pt. may return to w alk on 06/28/14 . .; Duration: . 06/24/2014 [...] Active Magnesium Carbonate Heavy 250 mg Unknown [place] 3 Active Restasis Unknown Flaxseed Oil - [...] Status Risk Notes Problem Pain in limb (49663096) Pain in Limb (729.5) Active confirmed Plan [...] X ray : Foot, right 3V 12/28/2019 55465 I&D ABSCESS- SIMPLE,SINGLE 012 74005, J0702- Neuroma/Injection 05/23/20 12 69623, J0702- Neuroma/Injection 01/14/20 14 W2985-Jfvcdwd Boot/Pneumatic 11/09/2011 T3643-Ndjqdbp Boot/Pneumatic 11/30/2011 Insurance Providers Payer Name Payer Address Payer Phone Subscriber Number Group Number Insured Name Patient Relationship to Insured Coverage Start Date Coverage End Date Medicare National Govt Svcs Inc [address] [facility] [place] [address] [id number] Ignacia Rodgers Self - patient is the insured [facility] -[id number] [address] [place] [address] [id number] Ignacia Rodgers Self - patient is the [...]
--- OUTSIDE RECORDS SUMMARY | 2025-08-30 07:35 | XMS_ITS | Clinical Summary ---
Author Organization [facility] Address [address] [place] [address] Phone Care Team Providers Care Pie Cutter Name Role Phone Nessa Gibbons MD Primary Care Provider [phone] Surgical History Surgery Date Site/Laterality Comments TOTAL [...] 09/30/2024 12:54 PM EST Plan of Treatment Upcoming Encounters Date Type Department Care Team (Late st Contact Info) Description 10/04/2025 10:15 AM EST [facility]ment [facility] [address] [address] Health Maintenance Due Date Last Done Comments Colorectal Cancer Screening: Colonoscopy 1955 Zoster Vaccines (2 of 3) 06/18/2014 04/23/2014 Pneumococcal Vaccine: 50+ Years (2 of 2 - PPSV23, PCV20, or PCV21) 01/23/2022 11/28/2021 Cholesterol Screening (Lipid Panel) 10/06/2022 Falls Risk Assessment 10/06/2022 Hepatitis C [...] year. -------- FINAL REPORT -------- Dictated By: iWl Perez Dictated Date: 09/30/2024 13:51 ET Assigned Physician: Wil Perez Reviewed and Electronically Signed By: Wil Perez Signed Date: 09/30/2024 14:07 ET Workstation ID: [id number] Transcribed By: Self Edit Transcribed Date: 09/30/2024 14:02 ET Narrative 09/30/2024 2:07 PM EST EXAM: SCREENING MAMMOGRAPHY, BILATERAL HISTORY: SCREENING. Paternal grandfather with history of breast cancer. COMPARISON: 09/23/2023, 09/19/2022, 07/04/2021, 05/25/2020 TECHNIQUE: Synthesized CC and MLO projections of each breast. Tomosynthesis of each breast in the CC and MLO projections. ADDITIONAL IMAGING: None Computer-aided detection was employed with the [employer] AI 3-D. TISSUE DENSITY: There are scattered [...] None Computer-aided detection was employed with the [employer] AI 3-D. TISSUE DENSITY: There are scattered [...] Signed Date: 09/30/2024 14:07 ET Workstation ID: [id number] Transcribed By: Self Edit Transcribed Date: 09/30/2024 14:02 ET us Self Referral Sppl IMG BI PROCEDURES Final Resul t * ROLANDO DEXA AXIAL SKELETON (07/04/2021 4:09 PM EDT) Anatomical Region Laterality Modality Mammography 07/04/2021 3:19 PM EDT Narrative 07/04/2021 4:09 PM EDT [facility] Diagnostic Imaging Department [address] [place], [place] [id number] Patient: IGNACIA ALEXANDRA D.O.B./Age/Sex: 1955 - 66 - F Unit#: [id number] Location/Status: [facility] Ordering Physician: DENISE DURHAM MD [facility] Dexa Axial Skeleton - 07/04/21 1376 HISTORY: The patient is a 66-year-old postmenopausal [...] probability of hip fracture of 5.2%. Code 76577 Dictating Physician: JOSE MANUEL KNUTSON MD Electronically Signed by: JOSE MANUEL KNUTSON MD Dic Date/Time: 07/04/21 1607 Sign date/Time: 07/04/21 1609 Procedure Note Jose Manuel Knutson MD - 10/31/2022 [facility] Diagnostic Imaging Department [address] [place] [address] Patient: IGNACIA ALEXANDRA Alma /Age/Sex: 1955 - 66 - F Unit#: [id number] [facility]Ordering Site: [facility] Ordering Physician: DENISE DURHAM MD [facility] Dexa Axial Skeleton - 07/04/21 - 0774 HISTORY: The patient is a 66-year-old postmenopausal [...] density of the femurs bilaterally is 0.813 gm/tw7wcinq is 81% of that of young normals [...] probability of hip fracture of 5.2%. Code 31645 Dictating Physician: JOSE MANUEL KNUTSON MD Electronically Signed by: JOSE MANUEL KNUTSON MD Dic Date/Time: 07/04/21 1600 Sign date/Time: 07/04/21 1602 Denise Durham MD IM BI PROCEDURES Final Result from Last 3 Months or Most Recently Relevant to Health Maintenance Insurance MEDICARE [facility] Care Teams Pie Cutter Relationship Specialty Start Date End Date Nessa Gibbons MD [address] [place] [address] PCP - General Internal Medicine 01/09/18
--- OUTSIDE RECORDS SUMMARY | 2025-08-30 07:35 | XMS_ITS | Patient Health Record ---
Author Organization [facility] Address [address] [place] [address] Care Team Providers Care Outdoor Advertising Leasing Agent Name Role Phone Nessa Gibbons MD Primary Care Provider Sadiq Skinner [phone] Allergies Allergen (clinical drug ingredient) Drug/Non Drug [...] on the morning of the colonoscopy as directed; Duration: 1 days 02/13/2023 Active Centrum Silver - [...] No Points 0 Interpretation Negative Section Notes: Druze Sister Nonsmoker; no alcohol Druze Sister Nonsmoker; no alcohol Problems Problem Type SNOMED Code ICD Code Onset Dates Problem Status W/U Status Risk Notes Problem Screening for malignant neoplasm of colon (824450199) Encounter for screening for malignant neoplasm of colon (Z12.11) Active confirmed Problem History of adenomatous polyp of colon (582932303) History of adenomatous polyp of colon (Z86.010) Active confirmed Problem Diarrhea (10194672) Diarrhea (R19.7) Active con firmed Problem Diverticular disease of colon (496326727) Diverticulosis of large intestine without perforation or abscess without bleeding (K57.30) Active confirmed Problem Irritable bowel syndrome with diarrhea (937981921) Irritable bowel syndrome with diarrhea (K58.0) Active confirmed Problem Elevated liver enzymes level (739311190) Elevated liver function tests (R79.89) Active confirmed Problem Gastroesophageal reflux disease (048427731) Gastroesophageal reflux disease, esophagitis presence not specified (K21.9) Active confirmed Problem Family History of Cancer of Colon (Situation) (440539417) Family history of colon cancer (Z80.0) Active confirmed Problem Diarrhea (28934531) Diarrhea, unspecified type (R19.7) Active confirmed Problem Abdominal discomfort (04194972) Abdominal discomfort (R10.9) Active confirmed Problem Generalized abdominal pain (328661859) Abdominal pain, acute, generalized (R10.84) Active confirmed [...] Date MEDICARE OF [place] [address] [place] [address] [phone] [id number] BREA ALEXANDRA Self - patient is the insured [facility] SUPPLEMENTAL PLAN [address] [place] [address] [id number] BREA ALEXANDRA Self - patient is the [...]
[2025-08-30 10:28] LABS: MANUAL DIFF FLAG NO
[2025-08-30 10:45] LABS: Hematocrit 42.0 % (37.0-47.0); Hemoglobin 13.6 g/dl (12.0-16.0); Imm Gran Abs Auto 0.09 X10*3/uL (0.00-0.03); Imm Gran Pct Auto 1.0 % (0.0-0.4); Lymphocytes Absolute Auto 2.1 X10*3/uL (1.2-4.9); Mean Corpuscular HGB Conc 32.4 g/dl (31.0-35.0); Mean Corpuscular Hemoglobin 30.2 pg (27.0-33.0); Mean Corpuscular Volume 93.3 fL (80.0-98.0); NRBC Abs Auto 0.000 X10*3/uL (0.0-0.012); NRBC Pct Auto 0.0 /100WBC (0.0-0.2); Platelet Count 327 X10*3/uL (160-400); Red Blood Count 4.50 X10*6/uL (4.20-5.50); White Blood Count 9.2 X10*3/uL (4.8-10.8)
[2025-08-30 11:02] LABS: Alanine Aminotransferase 16 U/L (0-31); Albumin Level 3.9 g/dL (3.5-5.0); Alkaline Phosphatase 62 U/L (39-117); Anion Gap 11 (12-20); Aspartate Amino Transferase 28 U/L (5-31); Blood Urea Nitrogen 8 mg/dL (9-16); Calcium 9.0 mg/dL (8.4-10.2); Carbon Dioxide 25 mmol/L (22-29); Chloride 105 mmol/L (96-108); Cholesterol 187 mg/dL (<200); Estimated Glomerular Filt Rate > 60; HDL Cholesterol 53 mg/dL (>40); Potassium 3.6 mmol/L (3.3-5.1); Sodium 137 mmol/L (135-145); Total Protein 7.1 g/dL (6.5-8.0); Triglycerides 74 mg/dL (<150)
== END 2025-08-30 07:34 | disposition home or self-care (01) ==
LOC: HO.HMGCLDS 07:33
PROVIDERS: PCP Internal Medicine; Visit Provider Internal Medicine
DX: Z00.00 Encounter for general adult medical examination without abnormal findings (principal); Z13.6 Encounter for screening for cardiovascular disorders; I48.0 Paroxysmal atrial fibrillation; M85.80 Other specified disorders of bone density and structure, unspecified site; M35.00 Sjogren syndrome, unspecified; F41.8 Other specified anxiety disorders
CPT/HCPCS: 36415; 80053; 80061; 82306; 84443; 85025

== ENCOUNTER 2025-08-31 12:37 | Outpatient (REF) | payer MEDICARE, SELFPAY ==
--- NOTE | ~2025-08-31 | MM_ITS ---
EXAMINATION: DXA BONE DENSITY AXIAL HISTORY: Z78.0 - Asymptomatic menopausal state TECHNIQUE: [facility] Dual energy absorptiometry (DEXA) of the lumbar spine, total left hip, and femoral neck was performed. COMPARISON: Comparison is made with the prior examination dated 08/30/2023. FINDINGS: The bone mineral density of the lumbar spine is 1.073 g/cm2, corresponding to a T-score of -0.9, and a Z-score of 0.2. This is indicative of normal bone mineral density. This represents a BMD change of 3.3% compared to the prior exam. This is statistically significant. The bone mineral density of the left total hip is 0.809 g/cm2, corresponding to a T-score of -1.6, and a Z-score of -0.5. This is indicative of osteopenia. This represents a BMD change of -3.1% compared to the prior exam. This is not statistically significant. The bone mineral density of the left femoral neck is 0.779 g/cm2, corresponding to a T-score of -1.9, and a Z-score of -0.5. This is indicative of osteopenia. This represents a BMD change of 3.2% compared to the prior exam. FRACTURE RISK: The FRAX index suggests a ten year probability of major osteoporotic fracture of 10.9%, and of hip fracture 2.0%. MM/XR DEXA axial skeleton IMPRESSION: Based on bone mineral density, and according to World Health Organization (WHO) criteria, the diagnosis is consistent with osteopenia. Statistically, 68% of repeat scans fall within 1 SD (+/- 0.010 g/cm2 for AP spine L1-L4) and 1 SD (+/- 0.012 g/cm2 for femur total) FRAX is a trademark of the [employer]'s [employer] Metabolic Bone Disease, a World Health Organization (WHO) Collaborating Center. Electronically signed by: Sadiq Bailey MD 08/31/2025 01:04 PM EDT
--- OUTSIDE RECORDS SUMMARY | 2025-08-31 15:53 | XMS_ITS | Clinical Summary ---
Author Organization [facility] Address [address] [place] [address] Phone Care Team Providers Care Wood Grinder Operator Name Role Phone Nessa Gibbons MD Primary Care Provider Surgical History Surgery Date Site/Laterality Comments TOTAL [...] AM EST [facility]ointment [facility] at [address] [address] Health Maintenance Due Date Last [...] Signed Date: 09/30/2024 14:07 ET Workstation ID: [id number] Transcribed By: Self Edit Transcribed Date: 09/30/2024 14:02 ET Narrative 09/30/2024 2:07 PM EST EXAM: SCREENING MAMMOGRAPHY, BILATERAL HISTORY: SCREENING. Paternal grandfather with history of breast cancer. COMPARISON: 09/23/2023, 09/19/2022, 07/04/2021, 05/25/2020 TECHNIQUE: Synthesized CC and MLO projections of each breast. Tomosynthesis of each breast in the CC and MLO projections. ADDITIONAL IMAGING: None Computer-aided detection was employed with the [employer] AI 3-D. TISSUE DENSITY: There are scattered [...] None Computer-aided detection was employed with the [employer] AI 3-D. TISSUE DENSITY: There are scattered [...] Signed Date: 09/30/2024 14:07 ET Workstation ID: [id number] Transcribed By: Self Edit Transcribed Date: 09/30/2024 14:02 ET us Self Referral Sppl IMG BI PROCEDURES Final Resul t * ROLANDO DEXA AXIAL SKELETON (07/04/2021 4:09 PM EDT) Anatomical Region Laterality Modality Mammography 07/04/2021 3:19 PM EDT Narrative 07/04/2021 4:09 PM EDT [facility] Diagnostic Imaging Department [address] [place], [place] [address] Patient: IGNACIA ALEXANDRA D.O.B./Age/Sex: 1955 - 66 - F Unit#: [id number] Location/Status: [facility] Ordering Physician: DENISE DURHAM MD [facility] Dexa Axial Skeleton - 07/04/21 0984 HISTORY: The patient is a 66-year-old postmenopausal [...] probability of hip fracture of 5.2%. Code 33049 Dictating Physician: JOSE MANUEL KNUTSON MD Electronically Signed by: JOSE MANUEL KNUTSON MD Dic Date/Time: 07/04/21 1607 Sign date/Time: 07/04/21 1609 Procedure Note Jose Manuel Knutson MD - 10/31/2022 [facility] Diagnostic Imaging Department [address] [place] [address] Patient: IGNACIA ALEXANDRA Alma /Age/Sex: 1955 - 66 - F Unit#: [id number] [facility]ing [facility]: [facility] Ordering Physician: DENISE DURHAM MD [facility] Dexa Axial Skeleton - 07/04/21 - 3051 HISTORY: The patient is a 66-year-old postmenopausal [...] density of the femurs bilaterally is 0.813 gm/nc2ksgjf is 81% of that of young normals [...] probability of hip fracture of 5.2%. Code 59721 Dictating Physician: JOSE MANUEL KNUTSON MD Electronically Signed by: JOSE MANUEL KNUTSON MD Dic Date/Time: 07/04/21 1601 Sign date/Time: 07/04/21 1605 Denise Durham MD IM BI PROCEDURES Final Result from Last 3 Months or Most Recently Relevant to Health Maintenance Insurance MEDICARE [facility] Care Teams Wood Grinder Operator Relationship Specialty Start Date End Date Nessa Gibbons MD [address] [place] [address] PCP - General Internal Medicine 01/09/18
--- OUTSIDE RECORDS SUMMARY | 2025-08-31 15:53 | XMS_ITS | Patient Health Record ---
Author Organization [facility] Address [address] [place] [address] Care Team Providers Care Fitness Assistant Name Role Phone Nessa Gibbons MD Primary Care Provider UnavailChuck Sim Unavailable [phone] Allergies Allergen (clinical drug ingredient) Drug/Non Drug [...] Note . .pt. may return to w nvk on 06/28/14 . .; Duration: . 06/24/2014 [...] Active Magnesium Carbonate Heavy 250 mg Unknown [place] 3 Active Restasis Unknown Flaxseed Oil - [...] Status Risk Notes Problem Pain in limb (68029270) Pain in Limb (729.5) Active confirmed Plan [...] X ray : Foot, right 3V 12/28/2019 54116 I&D ABSCESS- SIMPLE,SINGLE 012 48071, J0702- Neuroma/Injection 05/23/20 12 50887, J0702- Neuroma/Injection 01/14/20 14 H9453-Gbfgaps Boot/Pneumatic 11/09/2011 L9621-Rjaxedi Boot/Pneumatic 11/30/2011 Insurance Providers Payer Name Payer Address Payer Phone Subscriber Number Group Number Insured Name Patient Relationship to Insured Coverage Start Date Coverage End Date Medicare National Govt Svcs Inc [address] [facility] [place] [address] [id number] Ignacia Rodgers Self - patient is the insured [facility] -[id number] [address] [place] [address] [phone] [id number] Ignacia Rodgers Self - patient is the [...]
--- OUTSIDE RECORDS SUMMARY | 2025-08-31 15:53 | XMS_ITS | Patient Health Record ---
Author Organization [facility] Address [address] [place] [address] Care Team Providers Care Event Marketing Manager Name Role Phone Nessa Gibbons MD Primary Care Provider Sadiq Skinner [phone] Allergies Allergen (clinical drug ingredient) Drug/Non Drug [...] Problem Screening for malignant neoplasm of colon (975456776) Encounter for screening for malignant neoplasm of colon (Z12.11) Active confirmed Problem History of adenomatous polyp of colon (805849547) History of adenomatous polyp of colon (Z86.010) Active confirmed Problem Diarrhea (11958952) Diarrhea (R19.7) Active con firmed Problem Diverticular disease of colon (251826417) Diverticulosis of large intestine without perforation or abscess without bleeding (K57.30) Active confirmed Problem Irritable bowel syndrome with diarrhea (800476396) Irritable bowel syndrome with diarrhea (K58.0) Active confirmed Problem Elevated liver enzymes level (607774082) Elevated liver function tests (R79.89) Active confirmed Problem Gastroesophageal reflux disease (090382823) Gastroesophageal reflux disease, esophagitis presence not specified (K21.9) Active confirmed Problem Family History of Cancer of Colon (Situation) (981469512) Family history of colon cancer (Z80.0) Active confirmed Problem Diarrhea (66070776) Diarrhea, unspecified type (R19.7) Active confirmed Problem Abdominal discomfort (86180350) Abdominal discomfort (R10.9) Active confirmed Problem Generalized abdominal pain (560597951) Abdominal pain, acute, generalized (R10.84) Active confirmed [...] MEDICARE OF [place] [address] [place] [address] [id number] BREA ALEXANDRA Self - patient is the insured [facility] SUPPLEMENTAL PLAN [address] [place] [address] [phone] [id number] BREA ALEXANDRA Self - patient is the [...]
== END 2025-08-31 12:38 | disposition home or self-care (01) ==
LOC: HO.MAMMO 12:37
PROVIDERS: PCP Internal Medicine; Visit Provider Internal Medicine
DX: Z13.820 Encounter for screening for osteoporosis (principal); Z78.0 Asymptomatic menopausal state
CPT/HCPCS: 77080

== ENCOUNTER → 2025-08-31 13:00 | Outpatient (BNV) | payer MEDICARE, SELFPAY | PROVIDERS: PCP Internal Medicine; Visit Provider Radiology Diagnostic Radiology | DX: E28.39 Other primary ovarian failure (principal) | CPT/HCPCS: 77080 ==

== ENCOUNTER 2025-09-01 09:47 | Outpatient (REF) | payer MEDICARE, SELFPAY ==
--- OUTSIDE RECORDS SUMMARY | 2025-09-01 11:43 | XMS_ITS | Clinical Summary ---
Author Organization [facility] Address [address] [place] [address] Phone Care Team Providers Care Political Scientist Name Role Phone Nessa Gibbons MD Primary Care Provider [phone] Surgical History Surgery Date Site/Laterality Comments TOTAL [...] AM EST [facility]ment [facility] [address] [address] Health Maintenance Due Date Last [...] Signed Date: 09/30/2024 14:07 ET Workstation ID: [id number] Transcribed By: Self Edit Transcribed Date: 09/30/2024 14:02 ET Narrative 09/30/2024 2:07 PM EST EXAM: SCREENING MAMMOGRAPHY, BILATERAL HISTORY: SCREENING. Paternal grandfather with history of breast cancer. COMPARISON: 09/23/2023, 09/19/2022, 07/04/2021, 05/25/2020 TECHNIQUE: Synthesized CC and MLO projections of each breast. Tomosynthesis of each breast in the CC and MLO projections. ADDITIONAL IMAGING: None Computer-aided detection was employed with the Sp[employer]Time AI 3-D. TISSUE DENSITY: There are scattered [...] None Computer-aided detection was employed with the Sp[employer]Time AI 3-D. TISSUE DENSITY: There are scattered [...] Signed Date: 09/30/2024 14:07 ET Workstation ID: [id number] Transcribed By: Self Edit Transcribed Date: 09/30/2024 14:02 ET us Self Referral Sppl IMG BI PROCEDURES Final Resul t * ROLANDO DEXA AXIAL SKELETON (07/04/2021 4:09 PM EDT) Anatomical Region Laterality Modality Mammography 07/04/2021 3:19 PM EDT Narrative 07/04/2021 4:09 PM EDT [facility] Diagnostic Imaging Department [address] [place], [place] [id number] Patient: IGNACIA ALEXANDRA D.O.B./Age/Sex: 1955 - 66 - F Unit#: [id number] Location/Status: [facility] Mnemonic[facility] Ordering Physician: DENISE DURHAM MD [facility] Dexa Axial Skeleton - 07/04/21 3856 HISTORY: The patient is a 66-year-old postmenopausal [...] probability of hip fracture of 5.2%. Code 72831 Dictating Physician: JOSE MANUEL KNUTSON MD Electronically Signed by: JOSE MANUEL KNUTSON MD Dic Date/Time: 07/04/21 1607 Sign date/Time: 07/04/21 1609 Procedure Note Jose Manuel Knutson MD - 10/31/2022 [facility] Diagnostic Imaging Department [address] [place] [address] Patient: IGNACIA ALEXANDRA [place] /Age/Sex: 1955 - 66 - F Unit#: [id number] [facility] Mnemonic/Ordering Site: [facility] Ordering Physician: DENISE DURHAM MD Rolando Dexa Axial Skeleton - 07/04/21 - 8956 HISTORY: The patient is a 66-year-old postmenopausal [...] density of the femurs bilaterally is 0.813 gm/av1itnhg is 81% of that of young normals [...] probability of hip fracture of 5.2%. Code 10242 Dictating Physician: JOSE MANUEL KNUTSON MD Electronically Signed by: JOSE MANUEL KNUTSON MD Dic Date/Time: 07/04/21 1606 Sign date/Time: 07/04/21 1608 Denise Durham MD IM BI PROCEDURES Final Result from Last 3 Months or Most Recently Relevant to Health Maintenance Insurance MEDICARE [facility] Care Teams Political Scientist Relationship Specialty Start Date End Date Nessa Gibbons MD [address] [place] [address] PCP - General Internal Medicine 01/09/18
--- OUTSIDE RECORDS SUMMARY | 2025-09-01 11:43 | XMS_ITS | Patient Health Record ---
Author Organization [facility] Address [address] [place] [address] Care Team Providers Care Grid Operator Name Role Phone Nessa Gibbons MD Primary Care Provider UnavailChuck Sim Unavailable [phone] Allergies Allergen (clinical drug ingredient) Drug/Non Drug [...] Note . .pt. may return to [facility] on 06/28/14 . .; Duration: . 06/24/2014 [...] Active Magnesium Carbonate Heavy 250 mg Unknown Hazard 3 Active Restasis Unknown Flaxseed Oil - [...] Status Risk Notes Problem Pain in limb (96306177) Pain in Limb (729.5) Active confirmed Plan [...] X ray : Foot, right 3V 12/28/2019 03550 I&D ABSCESS- SIMPLE,SINGLE 012 26987, J0702- Neuroma/Injection 05/23/20 12 31264, J0702- Neuroma/Injection 01/14/20 14 C2906-Gryitay Boot/Pneumatic 11/09/2011 S5172-Jirqbme Boot/Pneumatic 11/30/2011 Insurance Providers Payer Name Payer Address Payer Phone Subscriber Number Group Number Insured Name Patient Relationship to Insured Coverage Start Date Coverage End Date Medicare National [employer] [address] [place] [address] [id number] Ignacia Rodgers Self - patient is the insured [facility] -[id number] [address] [place] [address] [phone] [id number] Ignacia Rodgers Self - patient is the [...]
--- OUTSIDE RECORDS SUMMARY | 2025-09-01 11:43 | XMS_ITS | Patient Health Record ---
Author Organization [facility] Address [address] [place] [address] Care Team Providers Care Deicer Finisher Name Role Phone Nessa Gibbons MD Primary Care Provider Sadiq Skinner [phone] Allergies Allergen (clinical drug ingredient) Drug/Non Drug [...] No Points 0 Interpretation Negative Section Notes: Evangelical Sister Nonsmoker; no alcohol Evangelical Sister Nonsmoker; no alcohol Problems Problem Type SNOMED Code ICD Code Onset Dates Problem Status W/U Status Risk Notes Problem Screening for malignant neoplasm of colon (678625251) Encounter for screening for malignant neoplasm of colon (Z12.11) Active confirmed Problem History of adenomatous polyp of colon (831353727) History of adenomatous polyp of colon (Z86.010) Active confirmed Problem Diarrhea (19133166) Diarrhea (R19.7) Active con firmed Problem Diverticular disease of colon (071869702) Diverticulosis of large intestine without perforation or abscess without bleeding (K57.30) Active confirmed Problem Irritable bowel syndrome with diarrhea (210740848) Irritable bowel syndrome with diarrhea (K58.0) Active confirmed Problem Elevated liver enzymes level (936794046) Elevated liver function tests (R79.89) Active confirmed Problem Gastroesophageal reflux disease (958137951) Gastroesophageal reflux disease, esophagitis presence not specified (K21.9) Active confirmed Problem Family History of Cancer of Colon (Situation) (943816576) Family history of colon cancer (Z80.0) Active confirmed Problem Diarrhea (36382624) Diarrhea, unspecified type (R19.7) Active confirmed Problem Abdominal discomfort (57781566) Abdominal discomfort (R10.9) Active confirmed Problem Generalized abdominal pain (618154902) Abdominal pain, acute, generalized (R10.84) Active confirmed [...] MEDICARE OF [place] [address] [place] [address] [id number] BREA ALEXANDRA Self - patient is the insured [facility] [employer]AN [address] [place] [address] [id number] BREA ALEXANDRA Self - patient is the insured Medical (General) History Medical History History ICD Code Sjogren's syndrome Asthma Restless leg syndrome GERD--has seen Dr. Rob-- has had EGD's--last one was in 2011--no signs of Odell's esophagus nor esophagitis--- only fundic gland gastric polyps IBS ADHD Spondylolithesis Denies [place],DM,CVA,renal disease Has had colonoscopies Q 5 ye [...]
[2025-09-01 13:16] LABS: Appearance Urine Cloudy; Glucose Urine UA Negative (Negative); PH 7.0 (5.0-9.0); Specific Gravity - Urine 1.015 (1.005-1.025); UMIC TRIGGER UA YES
== END 2025-09-01 09:48 | disposition home or self-care (01) ==
LOC: HO.HMGCLDS 09:47
PROVIDERS: PCP Internal Medicine; Visit Provider Nurse Practitioner Family
DX: N32.89 Other specified disorders of bladder (principal); R31.29 Other microscopic hematuria
CPT/HCPCS: 81001; 87086

== ENCOUNTER 2025-09-07 13:38 | Outpatient (AMB) | payer MEDICARE, SELFPAY ==
[2025-09-07 13:49] VITALS: BP 134/78; PULSE 67; TEMP 36.8; O2SAT 98; BMI 34.0
--- NOTE | 2025-09-07 13:49 | AM.OFFVISMDC ---
Intake Vital Signs 09/07/25 13:49 Height 5 ft 2 in Weight 186 lb BMI 34.0 BP 134/78 Blood Pressure Location Lt brachial Position Sitting Pulse 67 Pulse Source Pulse Oximeter Temp 98.2 F Temp Source Oral Pulse Oximetry (%) 98 Oxygen Delivery Method Room Air Intake Visit Reasons: awv Intake Note: Pt is here today for AWV. Allergies pneumococcal vaccine (PNEUMOCOCCAL VACCINE) Allergy (Severe, Verified 09/07/25 13:50) ARM SWELLED, swelling in arm tiotropium (From SPIRIVA WITH HANDIHALER) Allergy (Severe, Verified 09/07/25 13:50) THROAT SWELL doxycycline Adverse Reaction (Intermediate, Verified 09/07/25 13:50) foggy and forgetful Medication List - Last Reconciled 09/07/25 by Nessa Gibbons MD albuterol sulfate 90 mcg/actuation 2 puffs inhalation Q6H PRN alendronate 70 mg PO QWEEK amoxicillin 2,000 mg (4 x 500 mg) PO ONCE fexofenadine (Ally Allergy) 180 mg PO DAILY flecainide 50 mg PO Q12H glucosamine-chondroitin 250-200 mg (Osteo Bi-Flex) 1 tab PO BID magnesium 250 mg PO DAILY metoprolol succinate ER 12.5 mg (1/2 x 25 mg) PO DAILY 90 days multivitamin 1 tab PO DAILY nitrofurantoin monohyd/m-cryst 100 mg (Macrobid) 100 mg PO BID 10 days omega 9-iqg-khf-fish oil 350 mg-235 mg- 90 mg-597 mg ([place]-3) 1 cap PO DAILY omeprazole 20 mg PO DAILY pilocarpine HCl 5 mg PO TID pregabalin (Lyrica) 25 mg PO BEDTIME [Prevagen PO] rivaroxaban (Xarelto) 20 mg PO DAILY ropinirole 1 mg (2 x 0.5 mg) PO DAILY solifenacin (Vesicare) 5 mg PO DAILY 90 days HPI awv HPI Details Initiated the conversation about Advanced Directives. Advanced Directives help? patients prepare for current and future decisions about their medical treatment? and place of care. Discussed with patient that it is a process where a patients? current condition and prognosis are reviewed, their wishes for information? regarding their illness are elicited, and likely medical dilemmas are presented? and options discussed. The form can be amended as needed, reviewed yearly and? make changes as needed IPPE/AWV ? year old presents? for her ? Annual? Wellness Visit, initial visit.? Medical / Social History Reviewed? Past Medical History ?Yes? . ? [place]? of Care / Care Team list updated ?Yes . ? Surgical/Hospitalization? History ?Yes . ? Current Medications? (including OTC and supplements) ?Yes . ? Family History ?Yes? . ? Tobacco? Control form ?Yes . ? AUDIT-C (Alcohol use) form? ?Yes . ? Illicit drug use in Social? History ?Yes . ? Current diagnosis of? depression? ?No ? Appropriate PHQ2/PHQ9? completed ?Yes . ? Data entered by ?Medical? Blower Mechanic and reviewed by provider ? Fall Risk ? Fall? History? Have you had any falls with? injury in the past year? ?No . ? Have you had two or more? falls in the past year? ?No . ? Fall Risk Assessment: ?No? falls in the past year . ? HRA filled out by? the patient, reviewed by Provider and scanned. ? IPPE/AWV ? Balance? Romberg? ?Yes . ? Tandem? walk ?Yes . ? Walk and? Turn ?Yes . ? Rise from? sit to stand ?Yes . ?Vision? Corrective? lens ?Yes ? Vision? screen ? Up-to-date, has an appointment [] for vision? screening and glaucoma screening ?Hearing? Whisper? test ?pass .? Initiated the conversation about Advanced Directives. Advanced Directives help? patients prepare for current and future decisions about their medical treatment? and place of care. Discussed with patient that it is a process where a patients? current condition and prognosis are reviewed, their wishes for information? regarding their illness are elicited, and likely medical dilemmas are presented? and options discussed. The form can be amended as needed, reviewed yearly and? make changes as needed Written? Plan?Completed. See Patient? Documents. [facility] Medical History (Updated 09/07/25 @ 15:06 by Nessa Gibbons MD) Osteopenia Dyspnea Pleuritic chest pain Cough Myalgia Lora-trochanteric left hip tendinitis New onset a-fib Annual physical exam Trochanteric bursitis of right hip Weakness of left hand Poor balance Vitamin D deficiency Tinnitus Chronic left-sided low back pain Hx of echocardiogram Insomnia Chronic allergic rhinitis Asthma Sjogrens syndrome Surgical History (Updated 09/07/25 @ 14:28 by Nessa Gibbons MD) H/O thumb surgery History of knee replacement History of bunionectomy of right great toe H/O colonoscopy Family History Father Heart attack CVD (cardiovascular disease) Mother Stroke CHF (congestive heart failure) Alzheimer's dementia Cancer Hypertension Social History Housing: House Alcohol intake: never Patient Tobacco Use Status: Never used Tobacco e-Cigarette/Vaping Use: Never Used service: Yes Current occupational status: retired Cognitive needs: No Hearing needs: No Vision needs: Yes Questionnaire Medicare Wellness Checkup [age] What gender do you identify with?: female During the past 4 weeks, how much have you been bothered by emotional problems such as feeling anxious, depressed, irritable, sad or downhearted, and blue?: slightly During the past 4 weeks, has your physical & emotional health limited your social activities with family, friends, neighbors, or groups?: slightly During the past 4 weeks, how much bodily pain have you generally had?: mild pain During the past 4 weeks, was someone available to help you if you needed & wanted help?: no, not at all During the past 4 weeks, what was the hardest physical activity you could do for at least 2 minutes?: moderate Can you get to places out of walking distance without help? (For eg., can you travel alone on buses, taxis or drive your car?): Yes Can you go shopping for groceries or clothes without someone's help?: Yes Can you prepare your own meals?: Yes Can you do your housework without help?: Yes Because of any health problems, do you need the help of another person with your personal care needs such as eating, bathing, dressing or getting around the house?: No Can you handle your own money without help?: Yes During the past 4 weeks, how would you rate your health in general?: good During the past 4 weeks how have things been going for you?: pretty bad Are you having difficulties driving your car?: no Do you always fasten your seat belt when you are in a car?: yes, usually During past 4 weeks, have you been bothered by the following: never: Falling or dizzy when standing up, Sexual problems?, Trouble eating well?, Teeth or denture problems? and Problems using the telephone? and sometimes: Tiredness or fatigue? Have you fallen 2 or more times in the past year?: No Are you afraid of falling?: No Are you a smoker?: no During the past 4 weeks, how many drinks of wine, beer, or other alcoholic beverages did you have?: 1 drink or less per week Do you exercise for about 20 minutes 3 or more times a week?: no, I usually do not exercise this much Have you been given information to help with the following?: no: Hazards in your house that might hurt you? and no: Keeping track of your medications? How often do you have trouble taking medicines the way you have been told to take them?: I always take medicine as prescribed How confident are you that you can control & manage most of your health problems?: very confident What is your race?: White Mini Mental State Exam (MMSE) Orientation What is the (year) (season) (date) (day) (month)?: year, season, date, day and month Where are we (state) (county) (town or city) (hospital) (floor)?: state, county, town or city, hospital/clinic and floor Registration Name of 3 unrelated objects clearly and slowly, then ask patient to repeat all 3 of them. (1st repeat determines score. Make sure they can repeat all three): object 1, object 2 and object 3 Attention & Calculation (CHOOSE ONE) Spell WORLD backwards (DLROW): 5 letters Recall Ask patient to repeat the 3 items from question #3.: object 1, object 2 and object 3 Language Show patient a wristwatch & ask what it is. Repeat for pencil.: watch and pencil Ask the patient to repeat the phrase 'No ifs, ands, or buts' after you.: correct Ask the patient to 'take a piece of paper with their right hand' 'fold paper in half' 'place paper on floor': take paper in right hand, fold paper in half and place paper on floor Print the sentence 'CLOSE YOUR EYES' on a piece. If patient actually closes eyes then score.: followed written direction Give patient a blank piece of paper & ask to write a sentence. Score if it contains a noun & verb.: sentence contains subject and verb Score Score: 29 PHQ-9 Over the last 2 weeks, how often have you been bothered by any of the following problems? 1. Little interest or pleasure in doing things: not at all 2. Feeling down, depressed, or hopeless: not at all 3. Trouble falling or staying asleep, or sleeping too much: not at all 4. Feeling tired or having little energy: nearly every day 5. Poor appetite or overeating: not at all 6. Feeling bad about yourself - or that you are a failure or have let yourself or your family down: not at all 7. Trouble concentrating on things, such as reading the newspaper or watching television: not at all 8. Moving or speaking so slowly that other people could have noticed. Or the opposite - being so fidgety or restless that you have been moving around a lot more than usual: not at all 9. Thoughts that you would be better off or of hurting yourself in some way: not at all Total score: 3 Depression Screening Interpretation: Negative Depression Screening Done: Yes 00629 - PHQ-9 Billing: Yes Source: Developed by Drs. Sadiq Bear, Latricia Brown, Alexandru Govea and colleagues, with an educational compa from [employer] Review of Systems Const All systems reviewed & are unremarkable except as noted in HPI and below Eyes Reports no additional complaints ENT Reports no additional complaints Card Reports no additional complaints Resp Reports no additional complaints GI Reports no additional complaints Reports no additional complaints Physical Exam Vital Signs: Last Vital Signs Temp 98.2 F 09/07/25 13:49 Pulse 67 09/07/25 13:49 BP 134/78 09/07/25 13:49 Pulse Ox 98 09/07/25 13:49 Oxygen Delivery Method Room Air 09/07/25 13:49 BMI result Body Mass Index 34.0 Const General: no acute distress HEENT Head: Yes normal to inspection Eyes General: appearance normal, both eyes and all related structures Neck Neck: Yes no lymphadenopathy and Yes supple Resp Effort & Inspection: normal respiratory effort Auscultation: clear to auscultation bilaterally Cardio Rhythm: regular rhythm Heart sounds: S1 normal heart sound present and S2 normal heart sound present GI Inspection: Yes normal to inspection Palpation (GI): Soft to palpation Percussion: Yes normal to percussion Auscultation: normal bowel sounds Extrem General: Yes no clubbing, cyanosis or edema Assessment & Plan Assessment & Plan (1) Paroxysmal atrial fibrillation: Comment: 10/01/23 converted after Cardizem in ER, f/u Dr. Jones, Echo 09/27 LVEF 60%, trivial AR, negative stress test and normal Holter 10/26, on Flecainide , Metoprolol, Xarelto Code(s): I48.0 - Paroxysmal atrial fibrillation Plan: On flecainide med metoprolol for rhythm control and Xarelto for anticoagulation, follow-up with Cardiology (2) Osteopenia: Comment: DEXA 06/2021, started Fosamax 12/2021, DEXA 08/2025 T score -1.9 left femoral neck, continue Fosamax for 2 more years and repeat DEXA in August 2027 Code(s): M85.80 - Other specified disorders of bone density and structure, unspecified site Qualifiers: Osteopenia location: multiple sites Qualified Code(s): M85.89 - Other specified disorders of bone density and structure, multiple sites Plan: Continue Fosamax. Vitamin-D level is elevated. Patient was advised to stop taking vitamin-D and level will be rechecked in 1 month, weight-bearing exercises discussed with the patient (3) Sjogrens syndrome: Comment: Dx 2009: sicca symptoms, pos SS-B, neg SS-A, low titer RF, neg DNA, KIRSTEN, CCP Code(s): M35.00 - Sjogren syndrome, unspecified Qualifiers: Sjogren's organ involvement: unspecified organ involvement Qualified Code(s): M35.00 - Sicca syndrome, unspecified Plan: Follow-up with rheumatology (4) Annual physical exam: Code(s): Z00.00 - Encounter for general adult medical examination without abnormal findings Plan: Well-balanced diet regular physical activity weight loss discussed with the patient. She is up-to-date with the mammogram and colonoscopy Orders: Orders Basic Metabolic Panel 2 Weeks I48.0 - Paroxysmal atrial fibrillation Vitamin D 25-OH Total 2 Weeks E55.9 - Vitamin D deficiency, unspecified Comprehensive [place]. Panel Fast 1 Year E55.9 - Vitamin D deficiency, unspecified, I48.0 - Paroxysmal atrial fibrillation, M85.89 - Other specified disorders of bone density and structure, multiple sites, R79.89 - Other specified abnormal findings of blood chemistry Complete Blood Count Auto Diff 1 Year E55.9 - Vitamin D deficiency, unspecified, I48.0 - Paroxysmal atrial fibrillation, M85.89 - Other specified disorders of bone density and structure, multiple sites, R79.89 - Other specified abnormal findings of blood chemistry Lipid Panel 1 Year E55.9 - Vitamin D deficiency, unspecified, I48.0 - Paroxysmal atrial fibrillation, M85.89 - Other specified disorders of bone density and structure, multiple sites, R79.89 - Other specified abnormal findings of blood chemistry TSH reflex Free T4 1 Year E55.9 - Vitamin D deficiency, unspecified, I48.0 - Paroxysmal atrial fibrillation, M85.89 - Other specified disorders of bone density and structure, multiple sites, R79.89 - Other specified abnormal findings of blood chemistry Vitamin D 25-OH Total 1 Year E55.9 - Vitamin D deficiency, unspecified, I48.0 - Paroxysmal atrial fibrillation, M85.89 - Other specified disorders of bone density and structure, multiple sites, R79.89 - Other specified abnormal findings of blood chemistry UA w Microscopic 1 Year E55.9 - Vitamin D deficiency, unspecified, I48.0 - Paroxysmal atrial fibrillation, M85.89 - Other specified disorders of bone density and structure, multiple sites, R79.89 - Other specified abnormal findings of blood chemistry Quality Reporting (2020) Depression/Bipolar (159/160/161/177) PHQ-9: Total score: 3 Coding Level of Care Code Medicare Subsequent (G0439) Diagnoses Paroxysmal atrial fibrillation I48.0 Osteopenia of multiple sites M85.89 Osteopenia location: multiple sites Sjogren's syndrome, with unspecified organ involvement M35.00 Sjogren's organ involvement: unspecified organ involvement Annual physical exam Z00.00 CPT Codes Advance Care Planning - Advance Care Planning discussion: On file, no changes ([id number]) Advance Care Planning - Time spent: 1-15 minutes, on File ([id number]) Additional Codes PHQ-9 - 17999 - PHQ-9 Billing: Yes ([id number]) Advance Care Planning Advance Care Planning discussion: On file, no changes Forms completed: Health Care Proxy Time spent: 1-15 minutes, on File
--- OUTSIDE RECORDS SUMMARY | 2025-09-07 16:42 | XMS_ITS | Patient Health Record ---
Author Organization [facility] Address [address] [place] [address] Care Team Providers Care Commissary Officer Name Role Phone Nessa Gibbons MD Primary Care Provider Sadiq Skinner [phone] Allergies Allergen (clinical drug ingredient) Drug/Non Drug [...] No Points 0 Interpretation Negative Section Notes: Christian Sister Nonsmoker; no alcohol Christian Sister Nonsmoker; no alcohol Problems Problem Type SNOMED Code ICD Code Onset Dates Problem Status W/U Status Risk Notes Problem Screening for malignant neoplasm of colon (243442817) Encounter for screening for malignant neoplasm of colon (Z12.11) Active confirmed Problem History of adenomatous polyp of colon (827580137) History of adenomatous polyp of colon (Z86.010) Active confirmed Problem Diarrhea (66596076) Diarrhea (R19.7) Active con firmed Problem Diverticular disease of colon (763532108) Diverticulosis of large intestine without perforation or abscess without bleeding (K57.30) Active confirmed Problem Irritable bowel syndrome with diarrhea (561689727) Irritable bowel syndrome with diarrhea (K58.0) Active confirmed Problem Elevated liver enzymes level (073922687) Elevated liver function tests (R79.89) Active confirmed Problem Gastroesophageal reflux disease (399527619) Gastroesophageal reflux disease, esophagitis presence not specified (K21.9) Active confirmed Problem Family History of Cancer of Colon (Situation) (033831099) Family history of colon cancer (Z80.0) Active confirmed Problem Diarrhea (80659452) Diarrhea, unspecified type (R19.7) Active confirmed Problem Abdominal discomfort (15458341) Abdominal discomfort (R10.9) Active confirmed Problem Generalized abdominal pain (611325569) Abdominal pain, acute, generalized (R10.84) Active confirmed [...] MEDICARE OF [place] [address] [place] [address] [phone] [id number] BREA ALEXANDRA Self - patient is the insured [facility] SUPPLEMENTAL PLAN [address] [place] [address] [id number] BREA ALEXANDRA Self - patient is the insured Medical (General) History Medical History History ICD Code Sjogren's syndrome Asthma Restless leg syndrome GERD--has seen Dr. Rob-- has had EGD's--last one was in 2011--no signs of Odell's esophagus nor esophagitis--- only fundic gland gastric polyps IBS ADHD Spondylolithesis Denies AR,DM,CVA,renal disease Has had colonoscopies Q 5 ye [...]
--- OUTSIDE RECORDS SUMMARY | 2025-09-07 16:42 | XMS_ITS | Clinical Summary ---
Author Organization [facility] Address [address] [place] [phone] Phone Care Team Providers Care Data Analysis Assistant Name Role Phone Nessa Gibbons MD Primary Care Provider [phone] Surgical History Surgery Date Site/Laterality Comments TOTAL [...] AM EST [facility]ment [facility] at [address] [address] Health Maintenance Due Date Last [...] Signed Date: 09/30/2024 14:07 ET Workstation ID: [id number] Transcribed By: Self Edit Transcribed Date: 09/30/2024 14:02 ET Narrative 09/30/2024 2:07 PM EST EXAM: SCREENING MAMMOGRAPHY, BILATERAL HISTORY: SCREENING. Paternal grandfather with history of breast cancer. COMPARISON: 09/23/2023, 09/19/2022, 07/04/2021, 05/25/2020 TECHNIQUE: Synthesized CC and MLO projections of each breast. Tomosynthesis of each breast in the CC and MLO projections. ADDITIONAL IMAGING: None Computer-aided detection was employed with the [employer] AI 3-D. TISSUE DENSITY: There are scattered [...] None Computer-aided detection was employed with the [employer] AI 3-D. TISSUE DENSITY: There are scattered [...] Signed Date: 09/30/2024 14:07 ET Workstation ID: [id number] Transcribed By: Self Edit Transcribed Date: 09/30/2024 14:02 ET us Self Referral Sppl IMG BI PROCEDURES Final Resul t * ROLANDO DEXA AXIAL SKELETON (07/04/2021 4:09 PM EDT) Anatomical Region Laterality Modality Mammography 07/04/2021 3:19 PM EDT Narrative 07/04/2021 4:09 PM EDT [facility] Diagnostic Imaging Department [address] [place], [place] [id number] Patient: IGNACIA ALEXANDRA D.O.B./Age/Sex: 1955 - 66 - F Unit#: [id number] Location/Status: [facility] Ordering Physician: DENISE DURHAM MD [facility] Dexa Axial Skeleton - 07/04/21 6108 HISTORY: The patient is a 66-year-old postmenopausal [...] probability of hip fracture of 5.2%. Code 53745 Dictating Physician: JOSE MANUEL KNUTSON MD Electronically Signed by: JOSE MANUEL KNUTSON MD Dic Date/Time: 07/04/21 1607 Sign date/Time: 07/04/21 1609 Procedure Note Jose Manuel Knutson MD - 10/31/2022 [facility] Diagnostic Imaging Department [address] [place] [address] Patient: IGNACIA ALEXANDRA Alma /Age/Sex: 1955 - 66 - F Unit#: [id number] Location/Status: [facility] Mnemonic/Ordering Site: [facility] Ordering Physician: DENISE DURHAM MD [facility] Dexa Axial Skeleton - 07/04/21 - 8428 HISTORY: The patient is a 66-year-old postmenopausal [...] density of the femurs bilaterally is 0.813 gm/dd4upbxj is 81% of that of young normals [...] probability of hip fracture of 5.2%. Code 40505 Dictating Physician: JOSE MANUEL KNUTSON MD Electronically Signed by: JOSE MANUEL KNUTSON MD Dic Date/Time: 07/04/21 1606 Sign date/Time: 07/04/21 1602 Denise Durham MD IM BI PROCEDURES Final Result from Last 3 Months or Most Recently Relevant to Health Maintenance Insurance MEDICARE [facility] Care Teams Data Analysis Assistant Relationship Specialty Start Date End Date Nessa Gibbons MD [address] [place] [address] PCP - General Internal Medicine 01/09/18
--- OUTSIDE RECORDS SUMMARY | 2025-09-07 16:42 | XMS_ITS | Patient Health Record ---
[facility] Address [address] [place] [address] Care Team Providers Care Pattern Chain Maker Supervisor Name Role Phone Nessa Gibbons MD Primary Care Provider UnavailChuck Sim Unavailable [phone] Allergies Allergen (clinical drug ingredient) Drug/Non Drug [...] Active Magnesium Carbonate Heavy 250 mg Unknown [place] 3 Active Restasis Unknown Flaxseed Oil - [...] Status Risk Notes Problem Pain in limb (63909576) Pain in Limb (729.5) Active confirmed Plan [...] X ray : Foot, right 3V 12/28/2019 01560 I&D ABSCESS- SIMPLE,SINGLE 012 81681, J0702- Neuroma/Injection 05/23/20 12 06297, J0702- Neuroma/Injection 01/14/20 14 E3950-Tuqbcys Boot/Pneumatic 11/09/2011 Q6589-Ugcmjgx Boot/Pneumatic 11/30/2011 Insurance Providers Payer Name Payer Address Payer Phone Subscriber Number Group Number Insured Name Patient Relationship to Insured Coverage Start Date Coverage End Date [employer] [address] [facility] [place] [address] [id number] Ignacia Rodgers Self - patient is the insured [facility] -[id number] [address] [place] [address] [phone] [id number] Ignacia Rodgers Self - patient is the [...]
== END 2025-09-07 15:06 | disposition home or self-care (01) ==
LOC: HO.HMCC 13:39
PROVIDERS: PCP Internal Medicine; Visit Provider Internal Medicine
DX: Z00.00 Encounter for general adult medical examination without abnormal findings (principal); I48.0 Paroxysmal atrial fibrillation; M85.89 Other specified disorders of bone density and structure, multiple sites; M35.00 Sjogren syndrome, unspecified

== ENCOUNTER → 2025-09-07 13:38 | Outpatient (BNVA) | payer MEDICARE, SELFPAY | PROVIDERS: PCP Internal Medicine; Visit Provider Internal Medicine | DX: Z13.31 Encounter for screening for depression (principal) | CPT/HCPCS: 96127 ==

== ENCOUNTER 2025-09-13 14:33 | Outpatient (AMB) | payer MEDICARE, SELFPAY ==
--- NOTE | 2025-09-13 14:38 | MHC.OFFVIS ---
Vital Signs 09/13/25 14:39 Height 5 ft 2 in Weight 186 lb 4.65 oz BMI 34.1 BP 126/72 Blood Pressure Location Lt brachial Position Sitting Pulse 82 Pulse Source Pulse Oximeter Pulse Oximetry (%) 96 Oxygen Delivery Method Room Air Intake Visit Reasons: Dyspnea Reversal Print Inspector Required: No Accompanied by: Self / Same As Patient Allergies pneumococcal vaccine (PNEUMOCOCCAL VACCINE) Allergy (Severe, Verified 09/13/25 14:42) ARM SWELLED, swelling in arm tiotropium (From SPIRIVA WITH HANDIHALER) Allergy (Severe, Verified 09/13/25 14:42) THROAT SWELL doxycycline Adverse Reaction (Intermediate, Verified 09/13/25 14:42) foggy and forgetful HPI Comments Details: The patient is a 70-year-old woman known allergic asthma and allergic rhinitis. She has had a few exacerbations of her breathing requiring short-acting beta agonist. Once it occurred when she was running she started developing significant asthma symptoms. 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 I recommended that she does not work in that environment. In the meantime she does not have the singular medication as she has not been using it for months. She understands with her allergic asthma singular becomes very useful to minimize exacerbations in symptoms. No recent x-rays or pulmonary function studies to review. ? 05/09/2020 The patient is here for pulmonary follow-up visit. Overall she feels well from a respiratory status. She continues to use her singular with good effect. She has not had to use her rescue inhaler as often. She did undergo pulmonary function studies and we did look at them together demonstrating no evidence of any obstructive nor restrictive ventilatory defects. Her gas exchange is also good. Her respiratory exam is also reassuring. Will plan for her to come back in 1 year and have an x-ray done at the time. June 02, 2021 the patient is here for pulmonary follow-up visit. the patient has not required her short-acting beta agonist. She does have cough intermittently. She continues to struggle with her sleep. She has significant periodic limb movement at nighttime. This keeps her up. She is currently on ropinirole. She has tried other agents including gabapentin and Lyrica. Does medications resulted in adverse effects. In addition to that she has tried trazodone. At this point the patient needs something that will help her with her sleep. She continues to have daytime drowsiness. Will try small dose of Ambien. Also the 5 mg tablets and she can start with half a tablet to make sure that his effective and does not give her any adverse effects. She can slowly increase it. Once she is up 5 mg if she is still not getting adequate sleep she can call and I consented the full dose of 10 mg. in the meantime we did review her sleep study that demonstrated no significant sleep apnea at this time. Patient is reassured that she does not need Pap therapy. 08/08/2023 the patient is here for a pulmonary follow-up visit. Overall the patient has been doing well. She denies any worsening respiratory symptoms. She does have some dyspnea on exertion but minimal. No significant wheezing. She is not use any maintenance therapies. She has a rescue inhaler but typically uses it less than twice a week. She still complaining of a dry mouth. The patient does have Sjogren's disease. But overall it is manageable at this time. She continues on the antihistamine therapy for allergies and also still uses the ropinirole for her restless like. Overall the patient is doing well. Will plan to follow-up in a year's time with pulmonary function studies. If the patient has any worsening symptoms prior to that she is to call the office for an earlier assessment. 08/20/2024 the patient is here for a pulmonary follow-up visit. Overall she is doing okay. She does complaint of a nonproductive cough. Sometimes it can be productive of some phlegm. Typically yellowish in color. Otherwise she is doing okay. She does have some nasal congestion. She does have issues with epistaxis so therefore she does not like to use any nasal sprays that tend to worsening. The patient has been using her rescue inhaler as needed. Typically less than 2 times a week. Typically uses it before seeing acquired. However, she has been noticing this cough that is been a little bit more frequent for her. Will go ahead and have her get an x-ray. She did have pulmonary function studies which we did review. No evidence of any obstructive nor restrictive ventilatory defects. Appeared to be consistent with normal lung mechanics. 06/03/2025 the patient is here for pulmonary follow-up visit. Overall the patient has been doing fair. She has been complaining of worsening dyspnea addition to pleuritic chest discomfort primarily to the front of the chest. Sometimes she feels like a burning sensation in the chest area. She does have a cardiology following for her cardiac issues and she had a stress test back in 2022 which is a Cortez protocol stress test without any acute findings. The patient was taking briefly for walking oximetry. The patient did well with the oxygen heart rate were stable. She was a little breathless but denied any chest discomfort. Her respiratory exam is reassuring. She does have a planned trip next week or 2 therefore will go ahead and assess her symptoms. She states that it feels like pleurisy that she has had in the past. Is reasonable to treat her with a Medrol Andrew. But in the meantime will have her get blood work specially to assess for anemia and will also request a chest x-ray and will be beneficial to get an EKG. Hopefully her symptoms continue to improve. If however she continues to develop worsening chest discomfort she may need to go and receive urgent medical care. 09/13/2025 the patient is here for pulmonary follow-up visit. Overall the patient is doing well. She continues her respiratory therapy as prescribed. The patient did have a bout of illness back in May. She did have a chest x-ray demonstrating bronchitis and possibly some interstitial changes likely from a ongoing infection. Although she does have a history of Sjogren's so therefore we need to make sure that the changes have resolved and therefore will have her get an x-ray next year. If she has any symptoms prior to that she can always call and get an earlier 1. She continues to have a rescue inhaler. She has not had to use it. Otherwise the patient is without any other complaints she is going to get her flu shot and a COVID vaccine. And she will follow-up sometime in 6-8 months. [facility] Medical History (Updated 09/07/25 @ 15:06 by Nessa Gibbons MD) Osteopenia Dyspnea Pleuritic chest pain Cough Myalgia Lora-trochanteric left hip tendinitis New onset a-fib Annual physical exam Trochanteric bursitis of right hip Weakness of left hand Poor balance Vitamin D deficiency Tinnitus Chronic left-sided low back pain Hx of echocardiogram Insomnia Chronic allergic rhinitis Asthma Sjogrens syndrome Surgical History (Updated 09/07/25 @ 14:28 by Nessa Gibbons MD) H/O thumb surgery History of knee replacement History of bunionectomy of right great toe H/O colonoscopy Family History Father Heart attack CVD (cardiovascular disease) Mother Stroke CHF (congestive heart failure) Alzheimer's dementia Cancer Hypertension Social History Housing: House Alcohol intake: never Patient Tobacco Use Status: Never used Tobacco e-Cigarette/Vaping Use: Never Used service: Yes Current occupational status: retired Cognitive needs: No Hearing needs: No Vision needs: Yes Review of Systems Const Denies headache(s) and Denies night sweats Eyes Reports dry eyes ENT Denies change in voice, Reports dry mouth, Denies headache(s), Denies lip swelling, Denies mouth pain and Denies tongue swelling Card Denies chest pain Resp Reports cough GI Denies abdominal pain Musc Reports no additional complaints Neuro Denies headache(s) Psych Denies no additional complaints Rodriguez/Lymph Denies easy bleeding and Denies lymphadenopathy Aller/Immun Denies lip swelling and Denies tongue swelling Physical Exam Vital Signs: Last Vital Signs Pulse 82 09/13/25 14:39 BP 126/72 09/13/25 14:39 Pulse Ox 96 09/13/25 14:39 Oxygen Delivery Method Room Air 09/13/25 14:39 BMI result Body Mass Index 34.1 Const General: no acute distress and well developed Orientation/consciousness: patient oriented x3 Neck Neck: Yes trachea midline and Yes supple Chest Chest palpation & inspection: normal inspection of the chest Resp Effort & Inspection: normal respiratory effort Auscultation: no rales, no rhonchi, no wheezes and diminished lung sounds Cardio Rate: regular rate Rhythm: regular rhythm Heart sounds: S1 normal heart sound present and S2 normal heart sound present Neuro General: patient oriented x3 Extrem Other: No synovitis on exam. Dry cracked skin on hands General: Yes no pedal edema Psych Speech and movement: Clear speech present Attitude: cooperative Assessment & Plan Assessment & Plan (1) Asthma: Comment: Mild. pt uses albuterol p.r.n. Code(s): J45.909 - Unspecified asthma, uncomplicated Category: Medical Qualifiers: Asthma complication type: uncomplicated Asthma persistence: intermittent Asthma severity: mild Qualified Code(s): J45.20 - Mild intermittent asthma, uncomplicated (2) FRANKY (obstructive sleep apnea): Code(s): G47.33 - Obstructive sleep apnea (adult) (pediatric) Category: Medical (3) Insomnia: Code(s): G47.00 - Insomnia, unspecified Category: Medical Qualifiers: Insomnia type: primary Qualified Code(s): F51.01 - Primary insomnia (4) Cough: Code(s): R05.9 - Cough, unspecified Category: Medical Qualifiers: Cough type: subacute Qualified Code(s): R05.2 - Subacute cough (5) Pleuritic chest pain: Code(s): R07.81 - Pleurodynia Category: Medical (6) Dyspnea: Code(s): R06.00 - Dyspnea, unspecified Category: Medical Qualifiers: Dyspnea type: dyspnea on exertion Qualified Code(s): R06.09 - Other forms of dyspnea Plan continue ropinirole for her periodic limb movement short-acting beta agonist as needed continue with herbal therapy for sleep aid. Tessalon pearls as needed Mucinex OTC CXR follow-up in 8-12 months Orders: Orders XR chest 2V Today M35.00 - Sjogren syndrome, unspecified Medications: New COVID vac 25-26(12up)(Mod)(PF) 0.2 mL IM ONCE 0.2 mL 0RF 1 day J45.20 - Mild intermittent asthma, uncomplicated, M35.00 - Sjogren syndrome, unspecified Coding Level of Care Code Est Pt Level 4 (27053) Complex EM visit Add On G2211 Diagnoses Mild intermittent asthma without complication J45.20 Asthma complication type: uncomplicated Asthma persistence: intermittent Asthma severity: mild FRANKY (obstructive sleep apnea) G47.33 Primary insomnia F51.01 Insomnia type: primary Subacute cough R05.2 Cough type: subacute Pleuritic chest pain R07.81 Dyspnea on exertion R06.09 Dyspnea type: dyspnea on exertion Time Spent (min) 17
[2025-09-13 14:39] VITALS: BP 126/72; PULSE 82; O2SAT 96; BMI 34.1
--- OUTSIDE RECORDS SUMMARY | 2025-09-13 16:53 | XMS_ITS | Clinical Summary ---
Author Organization [facility] Address [address] [place] [address] Phone Care Team Providers Care Retail Financial Analyst Name Role Phone Nessa Gibbons MD Primary Care Provider [phone] Surgical History Surgery Date Site/Laterality Comments TOTAL [...] AM EST [facility]ment [facility] at [address] [address] Health Maintenance Due Date Last [...] Signed Date: 09/30/2024 14:07 ET Workstation ID: [id number] Transcribed By: Self Edit Transcribed Date: 09/30/2024 14:02 ET Narrative 09/30/2024 2:07 PM EST EXAM: SCREENING MAMMOGRAPHY, BILATERAL HISTORY: SCREENING. Paternal grandfather with history of breast cancer. COMPARISON: 09/23/2023, 09/19/2022, 07/04/2021, 05/25/2020 TECHNIQUE: Synthesized CC and MLO projections of each breast. Tomosynthesis of each breast in the CC and MLO projections. ADDITIONAL IMAGING: None Computer-aided detection was employed with the [employer] AI 3-D. TISSUE DENSITY: There are scattered [...] None Computer-aided detection was employed with the [employer] 3-D. TISSUE DENSITY: There are scattered [...] Signed Date: 09/30/2024 14:07 ET Workstation ID: [id number] Transcribed By: Self Edit Transcribed Date: 09/30/2024 14:02 ET us Self Referral Sppl IMG BI PROCEDURES Final Resul t * ROLANDO DEXA AXIAL SKELETON (07/04/2021 4:09 PM EDT) Anatomical Region Laterality Modality Mammography 07/04/2021 3:19 PM EDT Narrative 07/04/2021 4:[address] [facility] Diagnostic Imaging Department [address] [place], [place] [id number] Patient: IGNACIA ALEXANDRA D.O.B./Age/Sex: 1955 - 66 - F Unit#: [id number] Location/Status: [facility] Ordering Physician: DENISE DURHAM MD [facility] Dexa Axial Skeleton - 07/04/21 1855 HISTORY: The patient is a 66-year-old postmenopausal [...] probability of hip fracture of 5.2%. Code 25235 Dictating Physician: JOSE MANUEL KNUTSON MD Electronically Signed by: JOSE MANUEL KNUTSON MD Dic Date/Time: 07/04/21 1607 Sign date/Time: 07/04/21 1609 Procedure Note Jose Manuel Knutson MD - 10/31/2022 [facility] Diagnostic Imaging Department [address] [place] [address] Patient: IGNACIA ALEXANDRA [place] /Age/Sex: 1955 - 66 - F Unit#: [id number] [facility]Ordering Site: [facility] Ordering Physician: DENISE DURHAM MD [facility] Dexa Axial Skeleton - 07/04/21 - 3511 HISTORY: The patient is a 66-year-old postmenopausal [...] density of the femurs bilaterally is 0.813 gm/lz8yfrvo is 81% of that of young normals [...] probability of hip fracture of 5.2%. Code 65511 Dictating Physician: JOSE MANUEL KNUTSON MD Electronically Signed by: JOSE MANUEL KNUTSON MD Dic Date/Time: 07/04/21 1603 Sign date/Time: 07/04/21 1608 Denise Durham MD IM BI PROCEDURES Final Result from Last 3 Months or Most Recently Relevant to Health Maintenance Insurance MEDICARE [facility] Care Teams Retail Financial Analyst Relationship Specialty Start Date End Date Nessa Gibbons MD [address] [place] [address] PCP - General Internal Medicine 01/09/18
== END 2025-09-13 15:12 | disposition home or self-care (01) ==
LOC: HO.HPS 14:34
PROVIDERS: PCP Internal Medicine; Visit Provider Hospitalist
DX: J45.20 Mild intermittent asthma, uncomplicated (principal); G47.33 Obstructive sleep apnea (adult) (pediatric); F51.01 Primary insomnia; R05.2 Subacute cough; R07.81 Pleurodynia; R06.09 Other forms of dyspnea
CPT/HCPCS: 99214; G2211

== ENCOUNTER → 2025-09-13 14:33 | Outpatient (BNVA) | payer MEDICARE, SELFPAY | PROVIDERS: PCP Internal Medicine; Visit Provider Hospitalist | DX: J45.20 Mild intermittent asthma, uncomplicated (principal); G47.33 Obstructive sleep apnea (adult) (pediatric); F51.01 Primary insomnia; R05.2 Subacute cough; R07.81 Pleurodynia; R06.09 Other forms of dyspnea | CPT/HCPCS: 99212 ==

== ENCOUNTER 2025-09-22 09:11 | Outpatient (REF) | payer MEDICARE, SELFPAY ==
[2025-09-22 11:46] LABS: Anion Gap 12 (12-20); Blood Urea Nitrogen 6 mg/dL (9-16); Calcium 9.6 mg/dL (8.4-10.2); Carbon Dioxide 29 mmol/L (22-29); Chloride 101 mmol/L (96-108); Estimated Glomerular Filt Rate > 60; Potassium 3.9 mmol/L (3.3-5.1); Sodium 138 mmol/L (135-145)
--- OUTSIDE RECORDS SUMMARY | 2025-09-22 17:06 | XMS_ITS | Clinical Summary ---
Author Organization [facility] Address [address] [place] [address] Phone Care Team Providers Care Medicaid Nurse Name Role Phone Nessa Gibbons MD Primary Care Provider [phone] Surgical History Surgery Date Site/Laterality Comments TOTAL [...] AM EST [facility]ment [facility] [address] [address] Health Maintenance Due Date Last [...] Signed Date: 09/30/2024 14:07 ET Workstation ID: [id number] Transcribed By: Self Edit Transcribed Date: 09/30/2024 14:02 ET Narrative 09/30/2024 2:07 PM EST EXAM: SCREENING MAMMOGRAPHY, BILATERAL HISTORY: SCREENING. Paternal grandfather with history of breast cancer. COMPARISON: 09/23/2023, 09/19/2022, 07/04/2021, 05/25/2020 TECHNIQUE: Synthesized CC and MLO projections of each breast. Tomosynthesis of each breast in the CC and MLO projections. ADDITIONAL IMAGING: None Computer-aided detection was employed with the M-Files AI 3-D. TISSUE DENSITY: There are scattered [...] None Computer-aided detection was employed with the M-Files AI 3-D. TISSUE DENSITY: There are scattered [...] Signed Date: 09/30/2024 14:07 ET Workstation ID: [id number] Transcribed By: Self Edit Transcribed Date: 09/30/2024 14:02 ET us Self Referral Sppl IMG BI PROCEDURES Final Resul t * ROLANDO DEXA AXIAL SKELETON (07/04/2021 4:09 PM EDT) Anatomical Region Laterality Modality Mammography 07/04/2021 3:19 PM EDT Narrative 07/04/2021 4:09 PM EDT [facility] Diagnostic Imaging Department [address] [place], [place] [id number] Patient: IGNACIA ALEXANDRA D.O.B./Age/Sex: 1955 - 66 - F Unit#: [id number] Location/Status: [facility] Mnem[facility] Ordering Physician: DENISE DURHAM MD [facility] [place]keleton - 07/04/21 7345 HISTORY: The patient is a 66-year-old postmenopausal [...] probability of hip fracture of 5.2%. Code 81433 Dictating Physician: JOSE MANUEL KNUTSON MD Electronically Signed by: JOSE MANUEL KNUTSON MD Dic Date/Time: 07/04/21 1607 Sign date/Time: 07/04/21 1609 Procedure Note Jose Manuel Knutson MD - 10/31/2022 [facility] Diagnostic Imaging Department [address] [place] [address] Patient: IGNACIA ALEXANDRA Alma /Age/Sex: 1955 - 66 - F Unit#: [id number] [facility] Mnemonic/Ordering Site: [facility] Ordering Physician: DENISE DURHAM MD [facility]ando Dexa Axial Skeleton - 07/04/21 - 9040 HISTORY: The patient is a 66-year-old postmenopausal [...] density of the femurs bilaterally is 0.813 gm/vc2mafbg is 81% of that of young normals [...] probability of hip fracture of 5.2%. Code 47133 Dictating Physician: JOSE MANUEL KNUTSON MD Electronically Signed by: JOSE MANUEL KNUTSON MD Dic Date/Time: 07/04/21 160 Sign date/Time: 07/04/21 1602 Denise Durham MD IM BI PROCEDURES Final Result from Last 3 Months or Most Recently Relevant to Health Maintenance Insurance MEDICARE [facility] Care Teams Medicaid Nurse Relationship Specialty Start Date End Date Nessa Gibbons MD [address] [place] [address] PCP - General Internal Medicine 01/09/18
== END 2025-09-22 09:12 | disposition home or self-care (01) ==
LOC: HO.HMGCLDS 09:11
PROVIDERS: PCP Internal Medicine; Visit Provider Internal Medicine
DX: I48.0 Paroxysmal atrial fibrillation (principal); E55.9 Vitamin D deficiency, unspecified
CPT/HCPCS: 36415; 80048; 82306

== ENCOUNTER 2025-10-18 12:16 | Outpatient (AMB) | payer MEDICARE, SELFPAY ==
--- NOTE | 2025-10-18 12:28 | A.OFFVIS_ITS ---
Vital Signs 10/18/25 12:29 Height 5 ft 2 in Weight 185 lb 3.013 oz BMI 33.9 BP 118/74 Blood Pressure Location Lt brachial Position Sitting Pulse 68 Intake Visit Reasons: f/up per Dc Intake Note: Follow-up per Tracey feeling good [employer] Professional Required: No Allergies pneumococcal vaccine (PNEUMOCOCCAL VACCINE) Allergy (Severe, Verified 09/13/25 14:42) ARM SWELLED, swelling in arm tiotropium (From SPIRIVA WITH HANDIHALER) Allergy (Severe, Verified 09/13/25 14:42) THROAT SWELL doxycycline Adverse Reaction (Intermediate, Verified 09/13/25 14:42) foggy and forgetful Medication List - Last Reconciled 10/18/25 by Jeyson Jones MD albuterol sulfate 90 mcg/actuation 2 puffs inhalation Q6H PRN alendronate 70 mg PO QWEEK fexofenadine (Ally Allergy) 180 mg PO DAILY flecainide 50 mg PO Q12H glucosamine-chondroitin 250-200 mg (Osteo Bi-Flex) 1 tab PO BID magnesium 250 mg PO DAILY metoprolol succinate ER 12.5 mg (1/2 x 25 mg) PO DAILY multivitamin 1 tab PO DAILY omega 0-kyo-qyp-fish oil 350 mg-235 mg- 90 mg-597 mg ([place]-3) 1 cap PO DAILY omeprazole 20 mg PO DAILY pilocarpine HCl 5 mg PO TID [Prevagen PO] rivaroxaban (Xarelto) 20 mg PO DAILY ropinirole 1 mg (2 x 0.5 mg) PO DAILY solifenacin (Vesicare) 5 mg PO DAILY 90 days HPI Comments Details: Ignacia comes for follow-up. She has not had any significant episodes of atrial she is limited in activity level due to her knee issues in his planned to undergo knee replacement surgery in near future. She is scheduled cc surgeon in November with the plans for pursuing knee replacement therapy. She is asked to have preoperative cardiovascular evaluation. She denies any exertional chest pain or shortness of breath although exercise capacity is limited. No orthopnea, PND, leg edema. No lightheadedness, syncope. No major bleeding issues or neurologic events [facility] Medical History Osteopenia Dyspnea Pleuritic chest pain Cough Myalgia Lora-trochanteric left hip tendinitis New onset a-fib Annual physical exam Trochanteric bursitis of right hip Weakness of left hand Poor balance Vitamin D deficiency Tinnitus Chronic left-sided low back pain Hx of echocardiogram Insomnia Chronic allergic rhinitis Asthma Sjogrens syndrome Surgical History H/O thumb surgery History of knee replacement History of bunionectomy of right great toe H/O colonoscopy Family History Father Heart attack CVD (cardiovascular disease) Mother Stroke CHF (congestive heart failure) Alzheimer's dementia Cancer Hypertension Social History Housing: House Alcohol intake: never Patient Tobacco Use Status: Never used Tobacco e-Cigarette/Vaping Use: Never Used service: Yes Current occupational status: retired Cognitive needs: No Hearing needs: No Vision needs: Yes Review of Systems Const Denies chills, Denies fatigue, Denies fever(s), Denies frequent falls, Denies weakness, Denies weight gain and Denies weight loss ENT Denies dizziness Card Denies chest pain, Denies leg edema, Denies lightheadedness, Denies pal pitations, Denies dyspnea, Denies dyspnea on exertion, Denies orthopnea and Denies other (loss of consciousness) Resp Denies cough, Denies dyspnea and Denies dyspnea on exertion GI Denies hematochezia and Denies change in stool character Musc Denies abnormal gait, Denies muscle weakness, Denies numbness, Denies radiating pain into limb and Denies tingling Neuro Denies abnormal gait, Denies dizziness, Denies frequent falls, Denies numbness, Denies tingling and Denies weakness Endo Denies fatigue and Denies palpitations Physical Exam Vital Signs: Last Vital Signs Pulse 68 10/18/25 12:29 BP 118/74 10/18/25 12:29 BMI result Body Mass Index 33.9 Const General: cooperative, healthy appearing, comfortable and no acute distress Orientation/consciousness: patient oriented x3 Neck Neck: Yes normal visual inspection and Yes no JVD Resp Effort & Inspection: normal respiratory effort Auscultation: clear to auscultation bilaterally, no crackles, no rales, no rhonchi and no wheezes Cardio Jugular venous distension: no JVD Rhythm: regular rhythm Heart sounds: S1 normal heart sound present, S2 normal heart sound present, no gallops, no murmurs and no rubs Neuro General: patient oriented x3 Extrem General: Yes normal to inspection, No no pedal edema and No calf tenderness Psych Appearance: grossly normal Mental Status: mental status grossly normal Speech and movement: Normal speech and movement present Office Procedures EKG Details: EKG shows normal sinus rhythm with left axis deviation with nonspecific STT wave changes [id number]-Kgxslnlhyivimmmit, Complete Assessment & Plan Assessment & Plan (1) Paroxysmal atrial fibrillation: Comment: 10/01/23 converted after Cardizem in ER, f/u Dr. Jones, Echo 09/27 LVEF 60%, trivial AR, negative stress test and normal Holter 10/26, on Flecainide , Metoprolol, Xarelto Code(s): I48.0 - Paroxysmal atrial fibrillation Category: Medical Plan: Highly symptomatic paroxysmal atrial fibrillation which has remained stable on flecainide therapy. Continue the same. Will require concomitant low-dose metoprolol therapy along with it. She has no symptoms related to it. Continue flecainide therapy. Will need EKGs every 6 months. Continue full oral anticoagulation, currently on Xarelto 20 mg daily. Semi annual renal function test should be pursued. Annual CBC check should be pursued as well. (2) Preoperative cardiovascular examination: Code(s): Z01.810 - Encounter for preprocedural cardiovascular examination Category: Medical Plan: Preoperative cardiovascular risk stratification for intermediate risk surgery with knee replacement surgery planned in the future. Patient is currently with limited exercise capacity. Would suggest a vasodilating myocardial perfusion imaging to evaluate for myocardial ischemia to further risk stratify from cardiac perspective. Also suggest an echocardiogram to assess for LV systolic and diastolic function. If these tests are within reasonable limits she is optimized to undergo surgery with low risk for perioperative cardiovascular morbidity mortality. Xarelto can be withheld for 2-3 days prior to the surgery and resumed as soon as possible after surgery. Continue flecainide and metoprolol in the perioperative time. Will follow up in the clinic in 6 months for EKG in 1 year with me. Thank you for allowing me to partake in her care Orders: Orders CA lexiscan stress w renae Today Z01.810 - Encounter for preprocedural cardiovascular examination CA echo transthoracic complete Today Z01.810 - Encounter for preprocedural cardiovascular examination Coding Level of Care Code Est Pt Level 4 (87030) Diagnoses Paroxysmal atrial fibrillation I48.0 Preoperative cardiovascular examination Z01.810 CPT Codes EKG - CPT: 33848-Zaattewwtsgratjen, Complete ([id number])
[2025-10-18 12:29] VITALS: BP 118/74; PULSE 68; BMI 33.9
== END 2025-10-18 12:54 | disposition home or self-care (01) ==
LOC: HO.HCS 12:17
PROVIDERS: PCP Internal Medicine; Visit Provider Internal Medicine Cardiovascular Disease
DX: I48.0 Paroxysmal atrial fibrillation (principal); Z01.810 Encounter for preprocedural cardiovascular examination
CPT/HCPCS: 93010; 99214

== ENCOUNTER → 2025-10-18 12:16 | Outpatient (BNVA) | payer MEDICARE, SELFPAY | PROVIDERS: PCP Internal Medicine; Visit Provider Internal Medicine Cardiovascular Disease | DX: Z01.810 Encounter for preprocedural cardiovascular examination (principal); Z96.659 Presence of unspecified artificial knee joint; I48.0 Paroxysmal atrial fibrillation | CPT/HCPCS: 93005; 99212 ==

== ENCOUNTER 2025-10-25 15:27 | Outpatient (REF) | payer MEDICARE, SELFPAY ==
--- OUTSIDE RECORDS SUMMARY | 2025-10-25 18:28 | XMS_ITS | Patient Health Record ---
Author Organization [facility] Address [address] [place] [address] Care Team Providers Care Industrial Electrician Journeyman Name Role Phone Nessa Gibbons MD Primary Care Provider Sadiq Skinner Unavailable [phone] Allergies Allergen (clinical drug ingredient) Drug/Non Drug Allergy documented on EMR Reaction Allergy Type Onset Date Status Information temporarily unavailable enviromental (uncoded) Unknown Allergy Activ e Information temporarily unavailable Pneumovax 23 Unknown Drug Allergy Active Information temporarily unavailable Spiriva HandiHaler Unknown Drug Allergy Active Reason For Referral No Information Medications Medication SIG (Take, Route, Frequency, Duration) Notes Start Date End Date Status Advil 200 MG Tablet 1 tablet with food o r milk as needed Orally every 6 hrs/prn as needed Active Ally Allergy 180 MG Tablet 1 tablet as needed Orally Once a day Active Tylenol 325 MG Tablet 2 tablets as neede d Orally every 6 hrs/prn as needed Active OsmoPrep 1.102-0.398 GM Tablet 32 tablets Orally 20 tablets the evening before the colonoscopy and 12 on the morning of the colonoscopy as directed; Duration: 1 days 02/13/2023 Active Centrum Silver - Tablet Orally Active Magnesium 250 MG Tablet 1 tablet with a meal Orally Once a day Active rOPINIRole HCl 5 MG Tablet 2 tablet Orally Once a day Active Prilosec 20 MG Capsule Delayed Release 2 capsule Orally Once a day Active ProAir HFA 108 (90 Base) MCG/ACT Aerosol Solution 2 puffs as needed Inhalation every 4 hrs/prn as needed Active Restasis 0.05 % Emulsion 1 drop into aff ected eye Ophthalmic Twice a day Active Benadryl prn as needed Active Salagen 5 MG Tablet 1 tablet Orally Thre e times a day Active Eye Drops Advanced Relief 0.05-0.1-1-1 % Solution Ophthalmic Active Immunizations Vaccine Route Administration Date Status Comme nts Influenza Unknown 09/25/2022 Administered Social History Tobacco Use: Social History Observation Description Date Details (start date - stop date) Never Smoker NA - NA Social History Drugs/Alcohol: Social Info Question Answer Notes Alcohol Screen Did you have a drink containing alcohol in the past year? 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 [employer] Notes: Mandaeism Sister Nonsmoker; no alcohol Mandaeism Sister Nonsmoker; no alcohol Problems Problem Type SNOMED Code ICD Code Onset Dates Problem Status W/U Status Risk Notes Problem Screening for malignant neoplasm of colon (939835037) Encounter for screening for malignant neoplasm of colon (Z12.11) Active confirmed Problem History of adenomatous polyp of colon (408975225) History of adenomatous polyp of colon (Z86.010) Active confirmed Problem Diarrhea (78623300) Diarrhea (R19.7) Active con firmed Problem Diverticular disease of colon (220325493) Diverticulosis of large intestine without perforation or abscess without bleeding (K57.30) Active confirmed Problem Irritable bowel syndrome with diarrhea (568543616) Irritable bowel syndrome with diarrhea (K58.0) Active confirmed Problem Elevated liver enzymes level (092993121) Elevated liver function tests (R79.89) Active confirmed Problem Gastroesophageal reflux disease (937920338) Gastroesophageal reflux disease, esophagitis presence not specified (K21.9) Active confirmed Problem Family History of Cancer of Colon (Situation) (614691904) Family history of colon cancer (Z80.0) Active confirmed Problem Diarrhea (25721658) Diarrhea, unspecified type (R19.7) Active confirmed Problem Abdominal discomfort (60045803) Abdominal discomfort (R10.9) Active confirmed Problem Generalized abdominal pain (976189449) Abdominal pain, acute, generalized (R10.84) Active confirmed [...] Start Date Coverage End Date MEDICARE OF [place] [address] [place] [id number] [phone] [id number] NASRIN BREA Self - patient is the insured [employer] [address] [place] [address] [id number] NASRIN BREA Self - patient is the insured Medical (General) History Medical History History ICD Code Sjogren's syndrome Asthma Restless leg syndrome GERD--has seen Dr. Rob-- has had EGD's--last one was in 2011--no signs of Odell's esophagus nor esophagitis--- only fundic gland gastric polyps IBS ADHD Spondylolithesis Denies MT,DM,CVA,renal disease Has had colonoscopies Q 5 ye [...]
--- OUTSIDE RECORDS SUMMARY | 2025-10-25 18:28 | XMS_ITS | Patient Health Record ---
Author Organization [facility] Address [address] [facility] [place] [address] Care Team Providers Care Tooling Engineer Name Role Phone Nessa Gibbons MD Primary Care Provider UnavailChuck Sim Unavailable [phone] Allergies Allergen (clinical drug ingredient) Drug/Non Drug [...] Note . .pt. may return to w azk on 06/28/14 . .; Duration: . 06/24/2014 [...] Active Magnesium Carbonate Heavy 250 mg Unknown [place] 3 Active Restasis Unknown Flaxseed Oil - [...] Status Risk Notes Problem Pain in limb (05414127) Pain in Limb (729.5) Active confirmed Plan [...] X ray : Foot, right 3V 12/28/2019 69081 I&D ABSCESS- SIMPLE,SINGLE 012 12154, J0702- Neuroma/Injection 05/23/20 12 00794, J0702- Neuroma/Injection 01/14/20 14 E6127-Kcfavhy Boot/Pneumatic 11/09/2011 [id number]-Kuckqti Boot/Pneumatic 11/30/2011 Insurance Providers Payer Name Payer Address Payer Phone Subscriber Number Group Number Insured Name Patient Relationship to Insured Coverage Start Date Coverage End Date Medicare National [employer] [address] [place] [address] [id number] Ignacia Rodgers Self - patient is the insured [facility] -[id number] [address] [place] [address] [id number] Ignacia Rodgers Self - patient is the [...]
--- OUTSIDE RECORDS SUMMARY | 2025-10-25 18:28 | XMS_ITS | Clinical Summary ---
Author Organization [facility] Address [address] [place] [address] Phone Care Team Providers Care Stitching Department Supervisor Name Role Phone Nessa Gibbons MD Primary Care Provider [phone] Encounters Date Type Department Care Team Description 10/04/2025 9:53 AM EST - 10/04/2025 11:59 PM EST Hospital Encounter [facility] [address] [place] [phone] Encounter for screening mammogram for breast cancer Discharge Disposition: Home or Self Care from Last 3 Months Surgical History Surgery Date Site/Laterality Comments TOTAL [...] Comments Coronary artery disease Father Hype rtension Breast cancer Maternal Grandfather Colon cancer Mother RA, Hypertensio n, CAD, Hyperthyroidism Relation Name Status Comments Father Maternal Grandfather Mother Social History Tobacco Use Types Packs/Day Years Used Date Smoking Tobacco: Never Smokeless Tobacco: Never Alcohol Use Standard Drinks/Week Comments No 0 (1 standard drink = 0.6 oz pur e alcohol) Comments No Sex and Gender Information Value Date Recorded Sex Assigned at Not on file Legal Sex Female 5:49 PM EST Gender Identity Not on file Sexual Orientation Not on file Last Filed Vital Signs Vital Sign Reading Time Taken Comments Blood Pressure - - Pulse - - Temperature - - Respiratory Rate - - Oxygen Saturation - - Inhaled Oxygen Concentration - - Weight 83 kg (183 lb) 10/04/2025 10:22 AM EST Height 157.5 cm (5' 2 ) 10/04/2025 10:22 AM EST Body Mass Index 33.47 10/04/2025 10:22 AM EST Plan of Treatment Health Maintenance Due [...] Screening 11/04/2024 COVID-19 Vaccine ( season) 2025 04/20/2025, 07/20/2024, 02/10/2024, Additional history exists Breast Cancer Screening 10/04/2027 10/04/20, 09/30/2024, 09/23/2023, Additional history exists Osteoporosis Screening (Bone Density Screening) 07/04/2031 07/04/2021, 01/16/2018 RSV Immunization Adult Patients Completed 08/08/2023 Influenza Vaccine Completed 09/18/2025, , 08/08/2023, Additional history exists HIB Vaccines Aged Out [...] MAMMO DIGITAL SCREENING W GERMÁN BILAT Routine 10/04/2025 10:29 AM EST Encounter for screening mammogram for breast cancer ROLANDO DEXA AXIAL SKELETON Routine 07/04/2021 4:09 PM EDT Other specified disorders of bone density and structure, multiple sites from Last 3 Months or Most Recently Relevant to Health Maintenance Results * MG Mammo Digital Screening w Germán bilat (10/04/2025 10:29 AM EST) Anatomical Region Laterality Modality Breast Bilateral Mammography 10/04/2025 10:5 3 AM EST Impressions 10/04/2025 1:11 PM EST No mammographic evidence of malignancy. No suspicious interval change. A negative mammogram in the presence of a clinically suspicious palpable abnormality does not preclude the possibility of malignancy or alter the indications for biopsy. ASSESSMENT: BI-RADS 2: BENIGN RECOMMENDATION(S): 1: Routine screening mammogram BILATERAL in 1 year. [facility] location[facility] [address], [address] -------- FINAL REPORT -------- Dictated By: Wil Perez Dictated Date: 10/04/2025 10:53 ET Assigned Physician: Wil Perez Reviewed and Electronically Signed By: Wil Perez Signed Date: 10/04/2025 13:11 ET Workstation ID: [id number] Transcribed By: Self Edit Transcribed Date: 10/04/2025 10:53 ET Narrative 10/04/2025 1:11 PM EST EXAM: SCREENING MAMMOGRAPHY, BILATERAL HISTORY: SCREENING. Maternal grandfather with history of breast cancer. COMPARISON: 09/30/24, 09/23/23, 09/19/22, 07/04/21 TECHNIQUE: Synthesized CC and MLO projections of each breast. Tomosynthesis of each breast in the CC and MLO projections. ADDITIONAL IMAGING: None Computer-aided detection was employed with the Wi[employer] ProFound AI 3-D. TISSUE DENSITY: There are scattered areas of fibroglandular density. (BI-RADS category B) FINDINGS: There are unchanged equal density focal asymmetries in each breast. RIGHT BREAST: No suspicious mass. No suspicious calcification. No distortion. No additional suspicious right breast findings LEFT BREAST: No suspicious mass. No suspicious calcification. No distortion. No additional suspicious left breast findings Procedure Note Wil Perez MD - 10/04/2025 EXAM: SCREENING MAMMOGRAPHY, BILATERAL HISTORY: SCREENING. Maternal grandfather with history of breastcancer. COMPARISON: 09/30/24, 09/23/23, 09/19/22, 07/04/21 TECHNIQUE: Synthesized CC and MLO projections of each breast.Tomosynthesis of each breast in the CC and MLO projections. ADDITIONAL IMAGING: None Computer-aided detection was employed with the [employer] ProFound AI 3-D. TISSUE DENSITY: There are scattered areas of fibroglandular density.(BI-RADS category B) FINDINGS: There are unchanged equal density focal asymmetries in each breast. RIGHT BREAST: No suspicious mass. No suspicious calcification. No distortion. Noadditional suspicious right breast findings LEFT BREAST: No suspicious mass. No suspicious calcification. No distortion. Noadditional suspicious left breast findings IMPRESSION: No mammographic evidence of malignancy. No suspicious interval change. A negative mammogram in the presence of a clinically suspicious palpableabnormality does not preclude the possibility of malignancy or alter theindications for biopsy. ASSESSMENT: BI-RADS 2: BENIGN RECOMMENDATION(S): 1: Routine screening mammogram BILATERAL in 1 year. [facility] location[facility] at [address], [address] -------- FINAL REPORT -------- Dictated By: Wil Perez Dictated Date: 10/04/2025 10:53 ET Assigned Physician: Wil Perez Reviewed and Electronically Signed By: Wil Perez Signed Date: 10/04/2025 13:11 ET Workstation ID: [id number] Transcribed By: Self Edit Transcribed Date: 10/04/2025 10:53 ET us Self Referral Sppl IMG BI PROCEDURES Final Resul t * ROLANDO DEXA AXIAL SKELETON (07/04/2021 4:09 PM EDT) Anatomical Region Laterality Modality Mammography 07/04/2021 3:19 PM EDT Narrative 07/04/2021 4:09 PM EDT [facility] Diagnostic Imaging Department [address] [place] [id number] Patient: GAY ALEXANDRAAlma Marquez /Age/Sex: 1955 - Unit#: [id number] [facility] Ordering Physician: DONNIE DURHAM MD [facility] Dexa Axial Skeleton - 07/04/21 3547 HISTORY: The patient is a 66-year-old postmenopausal [...] probability of hip fracture of 5.2%. Code 25156 Dictating Physician: JOSE MANUEL KNUTSON MD Electronically Signed by: JOSE MANUEL KNUTSON MD Dic Date/Time: 07/04/21 1607 Sign date/Time: 07/04/21 160 Procedure Note Jose Manuel Knutson MD - 10/31/2022 [facility] Diagnostic Imaging Department [address] [place] [address] Patient: NASRINIGNACIA/Age/Sex: 1955 - 66 - F Unit#: [id number] Location/Status: [facility]/REG CLI [facility] Ordering Physician: DONNIE DURHAM MD Rolando [...] density of the femurs bilaterally is 0.813 gm/tk9rfzpn is 81% of that of young normals [...] probability of hip fracture of 5.2%. Code 86684 Dictating Physician: JOSE MANUEL KNUTSON MD Electronically Signed by: JOSE MANUEL KNUTSON MD Dic Date/Time: 07/04/21 160 Sign date/Time: 07/04/21 1600 Donnie Durham MD IMG BI PROCEDURES Final Result from Last 3 Months or Most Recently Relevant to Health Maintenance Insurance MEDICARE [facility] Care Teams Stitching Department Supervisor Relationship Specialty Start Date End Date Nessa Gibbons MD [address] [place] [address] PCP - General Internal Medicine 01/09/18
[2025-10-25 18:50] LABS: Appearance Urine Clear; Glucose Urine UA Negative (Negative); PH 5.5 (5.0-9.0); Specific Gravity - Urine <= 1.005 (1.005-1.025); UMIC TRIGGER UA YES
== END 2025-10-25 15:28 | disposition home or self-care (01) ==
LOC: HO.LAB 15:27
PROVIDERS: PCP Internal Medicine; Visit Provider Nurse Practitioner Family
DX: R31.29 Other microscopic hematuria (principal); N32.89 Other specified disorders of bladder
CPT/HCPCS: 81001; 87086